=== PATIENT | male | born 1945 | race Caucasian/White ===

== ENCOUNTER 2016-04-11 19:28 | Inpatient (IN) | payer MEDICARE ==
[~2016-04-11] VITALS: Ht 172.7 cm; Wt 109.8 kg
[~2016-04-11 19:28] MED LIST: ALPR0.25 PO; ASPI1CPM PO; ASPI325T4 PO; ASPI81TA2 PO; ATORVASTATIN CA80 MG PO; BUDE10.2; CARV80CP PO; CEFP200T PO; CLOP75TA27 PO; ENAL10TA PO; FURO20TA3 PO; LEVO125T5 PO; LEVO75TA PO; METO25TA4 PO; MULT1TAB52 PO; OXYC-323 PO; PRED-220 PO; PRED20TA PO; SOTA80TA PO
[2016-04-11 20:57] LABS: BASO # 0.1 x10^3/uL (0.0-0.2); BASO % 1 % (0-3); EOS % 2 % (0-3); HEMATOCRIT 45.4 % (39.0-53.0); HEMOGLOBIN 15.3 g/dL (13.0-17.5); LYMPH # 1.3 x10^3/uL (1.0-4.8); LYMPH % 15 % (24-48); MEAN CORPUSCULAR HEMOGLOBIN 31 pg (25-35); MEAN CORPUSCULAR HGB CONC 34 g/dL (31-37); MEAN CORPUSCULAR VOLUME 93 fL (79-100); MONO % 8 % (0-9); NEUT % 73 % (31-73); PLATELET COUNT 253 x10^3/uL (140-400); RED BLOOD COUNT 4.88 x10^6/uL (4.30-5.70); RED CELL DISTRIBUTION WIDTH 15.4 % (11.5-14.5); WHITE BLOOD COUNT 8.3 x10^3/uL (4.0-11.0)
[2016-04-11] MEDS ORDERED: methylPREDNISolone SOD SUCC PF 125 MG/2 ML VIAL. IV ONE (21:00)
[2016-04-11] MEDS ORDERED: HYDROMORPHONE 2 MG/ML VIAL. IV ONE (21:00)
[2016-04-11] MEDS ORDERED: ASPIRIN 81 MG TAB.CHEW PO ONE (21:00)
[2016-04-11] MEDS ORDERED: IPRATRPIUM/ALBUTEROL 0.5/2.5MG 3 ML NEBU. NEB ONE (21:00)
[2016-04-11 21:08] LABS: CALCIUM 9.6 mg/dL (8.5-10.1); GFR 74.1; POTASSIUM 4.6 mmol/L (3.5-5.1)
[2016-04-11 21:13] LABS: ALBUMIN 3.5 g/dL (3.4-5.0); DIRECT BILIRUBIN 0.1 mg/dL (0.0-0.2); TOTAL BILIRUBIN 0.6 mg/dL (0.2-1.0); TOTAL PROTEIN 7.7 g/dL (6.4-8.2)
[2016-04-11] MEDS ORDERED: NITROGLYCERIN SUBLINGUAL 0.4 MG BOTTLE OF 25. SL PRN (22:45)
[2016-04-11] MEDS ORDERED: ONDANSETRON PF 4 MG/2 ML VIAL. IV PRN (22:45)
[2016-04-11] MEDS ORDERED: MORPHINE SULFATE 4 MG/ML DISP.SYRIN. IV PRN (22:45)
[2016-04-11] MEDS ORDERED: ACETAMINOPHEN 325 MG TABLET. PO PRN (22:45)
--- NOTE | 2016-04-11 22:53 | PHYS DOC ---
Past Medical History Past Medical History: Anxiety, High Cholesterol, Hypertension, Hypothyroid, NE , Pneumonia Additional Past Medical Histor: pulmonary fibrosis Past Surgical History: Angioplasty, Cholecystectomy, Coronary Bypass Surgery Additional Past Surgical Histo: finger amputation, shoulder, 9 STENTS PLACED Alcohol Use: Heavy Drug Use: Marijuana Adult General Chief Complaint Chief Complaint: SHORTNESS OF BREATH HPI HPI Patient is a 70 year old male who presents to the ER today complaining of shortness of breath and chest pain that started approximately one day ago. The patient has a significant past medical history for pneumonia status post chest tube secondary to pleural effusion. Patient has a history of bypass, stents 9, cholecystectomy, idiopathic pulmonary fibrosis, and hypertension. Patient denies any history of diabetes, liver problems, patient reports he does not smoke and is not allergic to any medications. Patient has any fevers shaking chills nausea vomiting or diarrhea. Patient presents to the chronic cough that has not changed. Patient denies any radiating pain. Patient reports the pain in his chest is midsternal area that does not change with deep inspiration or cough. Patient reports that the pain and shortness of breath start whenever he tries to walk around either to the bathroom or to his computer. Patient reports that this exertional type of pain is new for him. Physical exam patient's physical exam is significant for mild inspiratory and expiratory wheezing. No reproducible tenderness to palpation. She is ER hospital course was significant for labs being drawn for cardiac etiology of his chest pain. Patient's cardiac workup so far has been unremarkable. Patient's EKG reveals normal sinus rhythm at a heart rate of 95 with no evidence of acute ST elevation NE. Patient has normal intervals. Patient has nonspecific ST-T wave abnormalities. EKG as interpreted by me. His troponin was normal. Patient's chest x-ray revealed increased interstitial markings in the lower lobe bilaterally. This is unchanged from his prior chest x-rays is consistent with his idiopathic pulmonary fibrosis diagnosis. This is interpreted by me. While the ER patient received a DuoNeb with some improvement in his discomfort as well as slight Medrol. It's unclear whether or not the pain that the patient is experiencing is secondary to a cardiac etiology versus secondary to his idiopathic pulmonary fibrosis. Patient reports that the pain feels more like his pulmonary type of pain however the exertional component of his pain is atypical for his pulmonary fibrosis. Given that the patient has exertional chest pain feel with his significant cardiac history and multiple stents and bypass surgery it was prudent to admit him to be evaluated by Dr. jacobsen in the morning and to get him ruled out for cardiac etiology of this discomfort. Review of Systems Review of Systems Constitutional: Denies fever or chills [] Eyes: Denies change in visual acuity, redness, or eye pain [] All other review of systems are negative except as documented in the history of present illness portion. Current Medications Current Medications Current Medications Medications (Trade) Dose Ordered Sig/Jeannette Start Time Stop Time Status Last Admin Dose Admin Albuterol/ Ipratropium (Duoneb) 3 ml 1X ONCE 04/11/16 21:00 04/11/16 21:01 DC 04/11/16 21:30 3 ML Aspirin (Children'S Aspirin) 324 mg 1X ONCE 04/11/16 21:00 04/11/16 21:01 DC 04/11/16 20:51 324 MG Hydromorphone HCl (Dilaudid) 0.5 mg 1X ONCE 04/11/16 21:00 04/11/16 21:01 DC 04/11/16 20:57 0.5 MG Methylprednisolone Sodium Succinate (Solu-Medrol 125mg Vial) 125 mg 1X ONCE 04/11/16 21:00 04/11/16 21:01 DC 04/11/16 20:52 125 MG Ondansetron HCl (Zofran) 4 mg PRN Q8HRS PRN 04/11/16 22:45 04/12/16 22:44 UNV Allergies Allergies Allergies Coded Allergies Type Severity Reaction Last Updated Verified No Known Drug Allergies 05/14/15 No Physical Exam Physical Exam Constitutional: Well developed, well nourished, no acute distress, non-toxic appearance. [] HENT: Normocephalic, atraumatic, bilateral external ears normal, oropharynx moist, no oral exudates, nose normal. [] Eyes: PERRLA, EOMI, conjunctiva normal, no discharge. [] Neck: Normal range of motion, no tenderness, supple, no stridor. [] Cardiovascular:Heart rate regular rhythm, Lungs & Thorax: B see above. Abdomen: Bowel sounds normal, soft, no tenderness, no masses, no pulsatile masses. [] Skin: Warm, dry, no erythema, no rash. [] Back: No tenderness, no CVA tenderness. [] Extremities: No tenderness, no cyanosis, Neurologic: Alert and oriented X 3, normal motor function, normal sensory function, no focal deficits noted. [] Psychologic: Affect normal, judgement normal, mood normal. [] Current Patient Data Vital Signs Vital Signs Date Time Temp Pulse Resp B/P Pulse Ox O2 Delivery O2 Flow Rate FiO2 04/11/16 21:32 94 Nasal Cannula 4.0 04/11/16 20:57 22 04/11/16 19:40 97.5 89 168/102 97.5 Lab Values Laboratory Tests Test 04/11/16 19:50 White Blood Count 8.3x10^3/uL (4.0-11.0) Red Blood Count 4.88x10^6/uL (4.30-5.70) Hemoglobin 15.3g/dL (13.0-17.5) Hematocrit 45.4% (39.0-53.0) Mean Corpuscular Volume 93fL (79-100) Mean Corpuscular Hemoglobin 31pg (25-35) Mean Corpuscular Hemoglobin Concent 34g/dL (31-37) Red Cell Distribution Width 15.4% (11.5-14.5) H Platelet Count 253x10^3/uL (140-400) Neutrophils (%) (Auto) 73% (31-73) Lymphocytes (%) (Auto) 15% (24-48) L Monocytes (%) (Auto) 8% (0-9) Eosinophils (%) (Auto) 2% (0-3) Basophils (%) (Auto) 1% (0-3) Neutrophils # (Auto) 6.1x10^3uL (1.8-7.7) Lymphocytes # (Auto) 1.3x10^3/uL (1.0-4.8) Monocytes # (Auto) 0.7x10^3/uL (0.0-1.1) Eosinophils # (Auto) 0.2x10^3/uL (0.0-0.7) Basophils # (Auto) 0.1x10^3/uL (0.0-0.2) Sodium Level 142mmol/L (136-145) Potassium Level 4.6mmol/L (3.5-5.1) Chloride Level 103mmol/L (98-107) Carbon Dioxide Level 28mmol/L (21-32) Anion Gap 11 (6-14) Blood Urea Nitrogen 13mg/dL (8-26) Creatinine 1.0mg/dL (0.7-1.3) Estimated GFR (Cockcroft-Gault) 74.1 Glucose Level 141mg/dL (70-99) H Calcium Level 9.6mg/dL (8.5-10.1) Total Bilirubin 0.6mg/dL (0.2-1.0) Direct Bilirubin 0.1mg/dL (0.0-0.2) Aspartate Amino Transferase (AST) 60U/L (15-37) H Alanine Aminotransferase (ALT) 67U/L (16-63) H Alkaline Phosphatase 108U/L (46-116) Troponin I Quantitative 0.019ng/mL (0.000-0.055) Total Protein 7.7g/dL (6.4-8.2) Albumin 3.5g/dL (3.4-5.0) Lipase 131U/L (73-393) Laboratory Tests 04/11/16 19:50 Laboratory Tests 04/11/16 19:50 EKG EKG [] Radiology/Procedures Radiology/Procedures [] Course & Med Decision Making Course & Med Decision Making Pertinent Labs and Imaging studies reviewed. (See chart for details) [] Dragon Disclaimer Dragon Disclaimer This electronic medical record was generated, in whole or in part, using a voice recognition dictation system. Departure Departure Impression: Primary Impression: Chest pain Additional Impressions: SOB (shortness of breath) Unstable angina Disposition: 09 ADMITTED INPATIENT Admitting Physician: Juanis Packer Condition: GUARDED Referrals: JUANIS PACKER MD (PCP) Problem Qualifiers DIANNE PALOMINO MD Apr 11, 2016 22:53
[2016-04-12 02:50] VITALS: BP 182/99
[2016-04-12 04:00] VITALS: BP 160/90
[2016-04-12] MEDS ORDERED: LISI-334 PO (04:11)
--- NOTE | 2016-04-12 05:00 | ACF ---
Admit Criteria Forms Admit Criteria Forms Admit Criteria Forms CHEST PAIN Clinical Indications for Admission to Inpatient Care (Place 'X' for any and all applicable criteria): Admission is indicated for chest pain and ANY ONE of the following(1)(2)(3)(4)(5 ): [ ]I. Angina with acute coronary syndrome (Also use Myocardial Infarction or Angina guideline) [ ]II. Hemodynamic instability [X]III. Angina needing acute intervention as indicated by ALL of the following( 11)(12): [X]a) Unstable angina is present as indicated by angina that is ANY ONE of the following: [X]i) New onset [ ]ii) Nocturnal [ ]iii) Prolonged at rest [ ]iv) Progressive [X]b) Angina warrants acute intervention as indicated by ANY ONE of the following: [ ]i) Recurrent angina (e.g, not responding as previously to treatment) [ ]ii) Angina at rest or with low-level activities despite initial medical therapy [ ]iii) New or presumably new ST-segment depression on ECG [X]iv) Signs or symptoms of heart failure (eg, dyspnea, pulmonary edema) [ ]v) New or worsening mitral regurgitation [ ]vi) Hemodynamic instability [ ]vii) Dangerous arrhythmia (eg, sustained ventricular tachycardia) [ ]viii) History of percutaneous coronary intervention within 6 months [ ]ix) History of coronary artery bypass graft surgery [ ]x) NILDA risk score of 2 or greater[A] [ ]xi) History of Diabetes(14) [ ]xii) High-risk cardiac ischemia findings on noninvasive testing (e.g, echocardiogram, treadmill testing, nuclear scan) [ ]xiii) Chronic renal insufficiency (ie, estimated GFR less than 60 mL/min/1.732m) [ ]xiv) Left ventricular ejection fraction less than 40% [ ]IV. Evidence of SD (eg, cardiac biomarkers positive, ST-segment elevation on ECG) also use Myocardial Infarction Criteria Form. [ ]V. Pulmonary edema [ ]. Respiratory distress [ ]VII. Chest pain indicative of serious diagnosis other than coronary artery disease (eg, aortic dissection) [ ]VIII. Contraindications and/or Inappropriate clinical situations for Observational Care in patients with Chest Pain, when ANY ONE of the following is required: [ ]a) Patient with risk factor for pulmonary embolism, acute coronary syndrome and myocardial infarction (18) [ ]b) Patient with Pulmonary embolism require an average LOS of 4.3 days, therefore emergency department observation management is inappropriate 18,23 [ ]c) Painful condition/s in the elderly, have the highest rate of recidivism after emergency department observation management (10.8%) 20,21,22 [ ]d) Elevated cardiac biomarker requires intensive and exhaustive care (19) [ ]IX. General contraindications and/or Inappropriate clinical situations for Observational Care in patients with Chest Pain, when ANY ONE of the following is required: [ ]a) Prediction of prolongation of LOS based on ANY ONE of the following may be considered as a contraindication for observational care 2, 3, 4, 5, 6, 7, 8, 9, 10, 11 [ ]i) Age > 65 yrs. [ ]ii) Patient arriving by ambulance [ ]iii) Patient with high acuity [ ]iv) Patient requiring vital sign monitoring [ ]v) Patient on IV medication [ ]b) Systolic blood pressures 180mmHg 3,12 [ ]c) Patient with altered mental status including delirium and other alteration of consciousness, (3) [ ]d) Patient whose discharge disposition will be to a [facility] home or rehabilitation home should not be managed in Emergency Department Observation Unit. CMS rule requires 3 days hospital stay before such placement. 3,13 [ ]e) Patient with failure to thrive due to broad array of etiologies 3,16,17 [ ]f) Inability to ambulate 3,14 Extended stay beyond goal length of stay may be needed for (1)(28): [ ]a) Specific condition diagnosed after evaluation (eg, pulmonary embolism, aortic dissection) [ ]b) Unstable angina [ ]c) Continued suspicion of acute coronary syndrome with inability to complete needed cardiac evaluation (eg, patient clinically unable to undergo stress testing) [ ]d) Myocardial infarction (Contents from ANGINA and CHEST PAIN clinical indications for admission to inpatient care have been integrated in this form) The original [employer] content created by [employer] has been revised. The portions of the content which have been revised are identified through the use of italic text or in bold, and [facility] has neither reviewed nor approved the modified material. All other unmodified content is copyright [email or web address]. Please see references footnoted in the original [email or web address] edition 2016 WILLIAM VIZCARRA Apr 12, 2016 04:59
--- NOTE | 2016-04-12 06:40 | EKG ---
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
[2016-04-12 08:00] VITALS: BP 171/99
[2016-04-12] MEDS: IPRATRPIUM/ALBUTEROL 0.5/2.5MG 3 ML NEBU. NEB SCH ×4 (08:09→20:12)
--- NOTE | 2016-04-12 08:10 | PDOC ---
GENERAL General: see dictated H&P. await cardiology and pulmonary input. Problems: VITAL SIGNS Vital Signs: Vital Signs Date Time Temp Pulse Resp B/P Pulse Ox O2 Delivery O2 Flow Rate FiO2 04/12/16 04:02 Nasal Cannula 4.0 04/12/16 04:00 98.6 93 20 160/90 94 98.6 I & O I & O Intake and Output 04/12/16 07:00 Intake Total 240 ml Output Total 200 ml Balance 40 ml Intake Oral 240 ml Output Urine Total 200 ml ALLERGIES Allergies: Allergies Coded Allergies Type Severity Reaction Last Updated Verified No Known Drug Allergies 05/14/15 No MEDS Medications: Current Medications Medications (Trade) Dose Ordered Sig/Jeannette Start Time Stop Time Status Last Admin Dose Admin Acetaminophen (Tylenol) 650 mg PRN Q4HRS PRN 04/11/16 22:45 04/12/16 22:44 Albuterol/ Ipratropium (Duoneb) 3 ml RTQID 04/12/16 08:00 04/13/16 07:59 Aspirin (Children'S Aspirin) 324 mg 1X ONCE 04/11/16 21:00 04/11/16 21:01 DC 04/11/16 20:51 324 MG Hydromorphone HCl (Dilaudid) 0.5 mg 1X ONCE 04/11/16 21:00 04/11/16 21:01 DC 04/11/16 20:57 0.5 MG Methylprednisolone Sodium Succinate (Solu-Medrol 125mg Vial) 125 mg 1X ONCE 04/11/16 21:00 04/11/16 21:01 DC 04/11/16 20:52 125 MG Morphine Sulfate 4 mg PRN Q2HR PRN 04/11/16 22:45 04/12/16 22:44 Nitroglycerin (Nitrostat) 0.4 mg PRN Q5MIN PRN 04/11/16 22:45 04/12/16 22:44 Ondansetron HCl (Zofran) 4 mg PRN Q8HRS PRN 04/11/16 22:45 04/12/16 22:44 LAB Lab: Laboratory Tests Test 04/11/16 19:50 04/12/16 04:43 White Blood Count 8.3x10^3/uL (4.0-11.0) Red Blood Count 4.88x10^6/uL (4.30-5.70) Hemoglobin 15.3g/dL (13.0-17.5) Hematocrit 45.4% (39.0-53.0) Mean Corpuscular Volume 93fL (79-100) Mean Corpuscular Hemoglobin 31pg (25-35) Mean Corpuscular Hemoglobin Concent 34g/dL (31-37) Red Cell Distribution Width 15.4% (11.5-14.5) Platelet Count 253x10^3/uL (140-400) Neutrophils (%) (Auto) 73% (31-73) Lymphocytes (%) (Auto) 15% (24-48) Monocytes (%) (Auto) 8% (0-9) Eosinophils (%) (Auto) 2% (0-3) Basophils (%) (Auto) 1% (0-3) Neutrophils # (Auto) 6.1x10^3uL (1.8-7.7) Lymphocytes # (Auto) 1.3x10^3/uL (1.0-4.8) Monocytes # (Auto) 0.7x10^3/uL (0.0-1.1) Eosinophils # (Auto) 0.2x10^3/uL (0.0-0.7) Basophils # (Auto) 0.1x10^3/uL (0.0-0.2) Sodium Level 142mmol/L (136-145) Potassium Level 4.6mmol/L (3.5-5.1) Chloride Level 103mmol/L (98-107) Carbon Dioxide Level 28mmol/L (21-32) Anion Gap 11 (6-14) Blood Urea Nitrogen 13mg/dL (8-26) Creatinine 1.0mg/dL (0.7-1.3) Estimated GFR (Cockcroft-Gault) 74.1 Glucose Level 141mg/dL (70-99) Calcium Level 9.6mg/dL (8.5-10.1) Total Bilirubin 0.6mg/dL (0.2-1.0) Direct Bilirubin 0.1mg/dL (0.0-0.2) Aspartate Amino Transf (AST/SGOT) 60U/L (15-37) Alanine Aminotransferase (ALT/SGPT) 67U/L (16-63) Alkaline Phosphatase 108U/L (46-116) Troponin I Quantitative 0.019ng/mL (0.000-0.055) < 0.017ng/mL (0.000-0.055) Total Protein 7.7g/dL (6.4-8.2) Albumin 3.5g/dL (3.4-5.0) Lipase 131U/L (73-393) JUANIS PACKER MD Apr 12, 2016 08:10
[2016-04-12] MEDS ORDERED: ALPRAZOLAM 0.25 MG TABLET PO PRN (08:15)
[2016-04-12] MEDS ORDERED: ASPIRIN 325 MG TABLET PO SCH (09:00)
[2016-04-12] MEDS ORDERED: CARVEDILOL PHOSPHATE PO SCH ×2 (09:00)
[2016-04-12] MEDS: CLOPIDOGREL BISULFATE 75 MG TABLET PO SCH (09:06)
[2016-04-12] MEDS: LISINOPRIL 40 MG TABLET. PO SCH (09:07)
[2016-04-12] MEDS: MULTIVITAMIN with MINERAL TABLET. PO SCH (09:07)
[2016-04-12] MEDS: CARVEDILOL 12.5 MG TABLET PO SCH (09:07)
--- NOTE | 2016-04-12 09:13 | RAD ---
Portable chest, 04/11/2016: History: Chest pain Comparison is made to a study from 11/27/2015. There as been a previous median sternotomy. The heart is within normal limits in size. There is calcific plaquing of the aorta. There is extensive interstitial prominence in the lungs with dominant involvement of the lung bases. The previous CT study demonstrated punctate calcifications associated with this process. This is unchanged and is compatible with a chronic fibrosing process. No superimposed acute infiltrates are seen. There is no evidence of pleural fluid or pneumothorax. IMPRESSION: 1. Severe pulmonary fibrosis. 2. No significant change since 11/27/2015.
[2016-04-12] MEDS: ASPIRIN 325 MG TABLET PO SCH (10:35)
--- NOTE | 2016-04-12 11:02 | PDOC ---
Provider Note Provider Note dictated suspected chronic IPF/ now with CP r/o MAIRA [facility] MD Apr 12, 2016 11:02
[2016-04-12 12:00] VITALS: BP 133/83
--- NOTE | 2016-04-12 12:02 | CONS ---
DATE OF CONSULTATION: ATTENDING PHYSICIAN: Rivera PACKER MD REASON FOR CONSULTATION: Chest pain, dyspnea. HISTORY OF PRESENT ILLNESS: The patient is a 70-year-old male who is known to me from the office. He has history of COPD secondary to past tobacco exposure. History of interstitial lung disease/fibrosis most likely suggestive of IPF; however, he was given a trial of OFEV, but because of his ongoing alcoholism and worsening liver function, it was discontinued. He also has severe cardiomyopathy with an EF of 30% with past cath showing patent grafts. He has moderate to severe aortic stenosis and grade 2 diastolic dysfunction. He was brought into the hospital with complaint of shortness of breath and chest pain. Pain was on the right side. This happened yesterday. The patient states he does not have any cough. He has chronic lower extremity edema without any increase. No fever, no chills, no headache. No nausea, vomiting, no diarrhea. I have reviewed the patient's chest x-ray. It shows unchanged chronic fibrotic changes compared to November of last year. Cardiology has also been consulted. Echo has been ordered. PAST MEDICAL HISTORY: Significant for: 1. History of pulmonary fibrosis, suspicious for IPF. 2. Failed OFEV due to chronic alcoholism and abnormal LFTs. 3. History of chronic obstructive pulmonary disease. 4. Severe cardiomyopathy with an EF of 30%. 5. Moderate to severe aortic stenosis and grade 2 diastolic dysfunction. PAST SURGICAL HISTORY: Including angioplasty, cholecystectomy, coronary artery bypass, finger amputation and 9 stents placement. SOCIAL HISTORY: Ongoing alcoholism and marijuana in the past and history of tobacco use. REVIEW OF SYSTEMS: Twelve-point systems obtained, pertinent positives discussed in history of present illness, otherwise noncontributory. All systems that were negative were reviewed as well. ALLERGIES: None. MEDICATIONS: Reviewed as listed in the MRAD. FAMILY HISTORY: Noncontributory to lungs. PHYSICAL EXAMINATION: VITAL SIGNS: Stable except for blood pressure of 160/90, pulse ox 95% on 4 liters, that is normal oxygen requirement at home, afebrile. HEENT: Sclerae nonicteric. NECK: Supple. LUNGS: With crackles one-third of the bases. CARDIOVASCULAR: Regular rate and rhythm. ABDOMEN: Soft. Nontender. EXTREMITIES: With bilateral pitting edema. LABORATORY DATA: Reviewed. White cell count 8.3, hemoglobin 15.3, platelets are 253, BUN is 13, creatinine 1.0. Troponin 0.019. IMPRESSION: 1. Dyspnea with chest pain without any change in the chest x-ray. I would like to rule out pulmonary embolism in a patient who has multiple comorbidities. 2. History of pulmonary fibrosis with an unchanged chest x-ray since November. He failed outpatient OFEV which was tried for suspected IPF. He continues to drink alcohol and his LFTs were abnormal in the past. As a result, he could not continue with OFEV. 3. History of severe cardiomyopathy with an EF of 30% with previous cardiac catheterization showing patent grafts. 4. History of diajfhri-to-jiykau aortic stenosis and grade 2 diastolic dysfunction. 5. Underlying chronic obstructive pulmonary disease. 6. Chronic lower extremity edema. RECOMMENDATIONS: 1. Obtain CT angiogram to rule out pulmonary embolism. 2. He was counseled regarding alcohol cessation, but I do not think he is motivated to quit. He drinks vodka on a daily basis. 3. Follow cardiology recommendation. 4. Repeat echocardiogram to assess the severity of valvular heart disease. 5. Continue with present bronchodilators. 6. Continue with chronic 4 liters of oxygen. 7. Discussed with RN. We will follow along with you after review of the CT angiogram. Critical care time 39 minutes. MAIRA MIRANDA MD DR: ARACELI/russ JOB#: [id number] / [id number] JOANIE
[2016-04-12] MEDS ORDERED: IOHEXOL 300 MG/ML 75 ML VIAL IV ONE (13:15)
[2016-04-12] MEDS ORDERED: CONTRAST GIVEN MC PRN (13:30)
[2016-04-12 16:26] VITALS: BP 141/78
--- NOTE | 2016-04-12 16:32 | RAD ---
CTA of the chest with contrast, 04/12/2016: History: Chest pain, shortness of breath Multidetector CT imaging was performed following an IV bolus injection of iodinated contrast material. Multiplanar reconstructions were produced including coronal MIP images. The central pulmonary arteries are well opacified and no filling defects are seen to suggest pulmonary emboli. There is extensive calcific plaquing of the thoracic aorta and the coronary arteries. There is also aortic valvular calcification. There is no evidence of aortic aneurysm or dissection. There is pericardial calcification along the inferior aspect of the heart. There has been a previous median sternotomy. Small mediastinal lymph nodes are identified without definite pathologic enlargement. There are severe emphysematous changes in the lungs. There is extensive parenchymal fibrosis. These reticular and linear parenchymal opacities are most prominent in the periphery of both lungs, particularly in the lung bases. There are punctate calcifications related to these opacities. The findings appear to be unchanged since 11/23/2015. No superimposed acute parenchymal consolidation is seen. No pleural fluid is evident. Hepatic steatosis is noted. IMPRESSION: 1. No CT evidence of central pulmonary emboli. 2. Extensive calcific plaquing of the thoracic aorta including the aortic valve, and extensive coronary artery calcifications. 3. Emphysema and severe pulmonary fibrosis. PQRS Compliance Statement: One or more of the following individualized dose reduction techniques were utilized for this examination: 1. Automated exposure control 2. Adjustment of the mA and/or kV according to patient size 3. Use of iterative reconstruction technique
[2016-04-12 20:00] VITALS: BP 122/74
[2016-04-12] MEDS: ATORVASTATIN CALCIUM 40 MG TABLET. PO SCH (20:33)
--- NOTE | 2016-04-12 23:29 | CARD ---
APPROVED REPORT EXAM: Two-dimensional and M-mode echocardiogram with Doppler and color Doppler. Other Information Quality : AverageHR: 86bpm INDICATION Shortness of breath, Aortic stenosis 2D DIMENSIONS RVDd2.9 (2.9-3.5cm)Left Atrium(2D)4.9 (1.6-4.0cm) IVSd1.0 (0.7-1.1cm)Aortic Root(2D)3.4 (2.0-3.7cm) LVDd5.3 (3.9-5.9cm)LVOT Diameter2.2 (1.8-2.4cm) PWd1.0 (0.7-1.1cm)LVDs4.2 (2.5-4.0cm) M-Mode DIMENSIONS Aortic Cusp Exc1.07 (1.5-2.0cm) Aortic Valve AoV Peak Liam.424.8cm/sAoV VTI97.0cm AO Peak GR.72.2mmHgLVOT VTI 14.10cm AO Mean GR.43mmHg Mitral Valve MV E Kqrcgqwg72.6cm/sMV DECEL [id number] MV A Iplbvyfj47.1cm/sE/A Ratio1.1 TDI Lateral E' P. V4.44cm/sMedial E' P. V4.14cm/s E/Lateral E'15.7E/Medial E'16.8 Tricuspid Valve TR P. Hdezweez208jh/sRAP WYOXRXOL8mfEa TR Peak Gr.71muCgZXFJ20icSs Pulmonary Vein S1 Unzytyfu25.3cm/sS2 Btterujv19.13cm/s D2 Tecsekzl39.1cm/s LEFT VENTRICLE The left ventricle is normal size. There is normal left ventricular wall thickness. Left ventricle sy stolic function is mildly impaired. The Ejection Fraction is 45-50%. There is normal LV segmental wal l motion. RIGHT VENTRICLE The right ventricle is normal size. The right ventricular systolic function is normal. ATRIA The left atrium is mildly dilated. The right atrium is mildly dilated. The interatrial septum is inta ct with no evidence for an atrial septal defect or patent foramen ovale as noted on 2-D or Doppler im aging. AORTIC VALVE The aortic valve is calcified and displays decreased opening. Doppler and Color Flow revealed trace t o mild aortic regurgitation. Calculated aortic valve area is 0.6 cm2 with maximum pressure gradient o f 72 mmHg and mean pressure gradient of 43 mmHg. Doppler and color-flow analysis revealed severe aort ic stenosis. MITRAL VALVE Mitral annular calcification is mild. The mitral valve leaflets are calcified. There is no evidence o f mitral valve prolapse. There is no mitral valve stenosis. Doppler and Color Flow revealed mild mitr al regurgitation. TRICUSPID VALVE The tricuspid valve is normal in structure and function. Doppler and Color Flow revealed trace to mil d tricuspid regurgitation. There is moderate pulmonary hypertension. The PA pressure was estimated at 58 mmHg. PULMONIC VALVE The pulmonary valve is normal in structure and function. Doppler and Color Flow revealed trace pulmon ic valvular regurgitation. There is no pulmonic valvular stenosis. GREAT VESSELS The aortic root is normal in size. The ascending aorta is normal in size. The IVC was not visualized. PERICARDIAL EFFUSION There is no evidence of significant pericardial effusion. Critical Notification Critical Value: No <Conclusion> The left ventricle is normal size. There is normal left ventricular wall thickness. Left ventricle systolic function is mildly impaired. The Ejection Fraction is 45-50%. There is a grade 2 diastolic dysfunctio withn pseudonormalization. There is no evidence of significant pericardial effusion. There is no mitral valve stenosis. Doppler and Color Flow revealed mild mitral regurgitation. The left atrium mildly enlarged. There is severe aortic stenosis or flow velocity of 4.25 m/s, being gradient of 43 mmHg, the valve ar ea of 0.5 cm. Doppler and Color Flow revealed trace to mild aortic regurgitation. The right ventricle is of a normal size with normal systolic function Doppler and Color Flow revealed trace to mild tricuspid regurgitation. There is moderate pulmonary hypertension. The PA pressure was estimated at 58 mmHg. Doppler and Color Flow revealed trace pulmonic valvular regurgitation.
[2016-04-13] VITALS (7 sets, daily range): BP systolic 112–144; BP diastolic 72–88
--- NOTE | 2016-04-13 00:02 | PDOC ---
Provider Note Provider Note Patient seen and detailed consult dictated. He has significant cardiac disease as described in my consult. He also has pulmonary fibrosis. It is rather difficult to obtain accurate history from him. There is no definite evidence of angina. His pulmonary status appears to be stable. The echocardiogram now shows a EF of about 40%. It certainly hasn't worsened. The aortic stenosis now shows parameters of a severe aortic stenosis. As described in the consult he is not a good candidate for TAVR. His last cardiac catheterization was in April of 2015 a year ago at which time all the stents were patent. It is unlikely that he now has occluded stents or has developed progression of coronary artery disease. There is a small risk in doing MPI in patients with severe aortic stenosis. I do not believe we have enough evidence to do coronary arteriograms. I recommend at this time that we simply observe him and try to evaluate his symptoms with ambulation. Thank you Dr. Blunt for asking me to see him. WINTER SUTHERLAND MD Apr 13, 2016 00:02
[2016-04-13 06:35] LABS: CALCIUM 9.1 mg/dL (8.5-10.1); CREATININE 1.2 mg/dL (0.7-1.3); POTASSIUM 3.8 mmol/L (3.5-5.1)
[2016-04-13 06:39] LABS: CHOLESTEROL/HDL RATIO 4.9
[2016-04-13] MEDS ORDERED: ASPIRIN 81 MG TAB.CHEW PO SCH (08:00)
[2016-04-13] MEDS: LISINOPRIL 40 MG TABLET. PO SCH (08:52)
[2016-04-13] MEDS: MULTIVITAMIN with MINERAL TABLET. PO SCH (08:52)
[2016-04-13] MEDS: ASPIRIN 325 MG TABLET PO SCH (08:53)
[2016-04-13] MEDS: CARVEDILOL 12.5 MG TABLET PO SCH ×2 (08:53→17:56)
[2016-04-13] MEDS: CLOPIDOGREL BISULFATE 75 MG TABLET PO SCH (08:53)
--- NOTE | 2016-04-13 10:15 | PDOC ---
PROGRESS NOTES Subjective Subjective Pt awake and pleasant this am. Denies further episodes of chest pain. Feels as if his breathing is at his baseline. Pt states he is eating and drinking well with good output. Objective Objective Pt awake and alert. NAD. VSS. Afebrile. Lungs with expiratory wheeze and rhonchi present. Pt on 4.5L of O2 per NC. Resp even and mildly labored. No retractions or nasal flaring present. Heart with RRR. No murmurs. No pedal edema. Vital Signs Date Time Temp Pulse Resp B/P Pulse Ox O2 Delivery O2 Flow Rate FiO2 04/13/16 08:53 81 133/88 04/13/16 08:12 95 Nasal Cannula 4.5 04/13/16 08:00 97.3 21 97.3 Intake and Output 04/13/16 07:00 Intake Total 550 ml Output Total 1325 ml Balance -775 ml Intake Oral 550 ml Output Urine Total 1325 ml # Bowel Movements 1 Assessment Assessment Problems Medical Problems: (1) Chest pain Status: Acute (2) SOB (shortness of breath) Status: Acute (3) Unstable angina Status: Acute Plan Plan of Care 1. Chest pain, r/o IL and PE -CXR with severe pulmonary fibrosis, unchanged from previous x-ray -WBC normal and electrolytes WNL -CTA negative for PE -Triponins negative 2. Pulmonary Fibrosis -Pulmonary consulting 3. CAD -Cardiology consulting -No evidence of angina. -Echocardiogram with EF worsening at 40% with severe aortic stenosis -Cardiac cath in April of 2015 - stents patent at that time. -Risks outweight benefit of MPI at this time. -"I recommend at this time that we simply observe him and try to evaluate his symptoms with ambulation." Pt presents this am at his baseline for Pulmonary Fibrosis. If no further recommendations from Cardiology or Pulmonary, pt may Dc home on previous home medications with f/u appt in our office in 1 week. Comment Review of Relevant I have reviewed the following items rubina (where applicable) has been applied. Labs Laboratory Tests Test 04/11/16 19:50 04/12/16 01:45 04/12/16 04:43 04/12/16 10:30 White Blood Count 8.3x10^3/uL (4.0-11.0) Red Blood Count 4.88x10^6/uL (4.30-5.70) Hemoglobin 15.3g/dL (13.0-17.5) Hematocrit 45.4% (39.0-53.0) Mean Corpuscular Volume 93fL (79-100) Mean Corpuscular Hemoglobin 31pg (25-35) Mean Corpuscular Hemoglobin Concent 34g/dL (31-37) Red Cell Distribution Width 15.4% (11.5-14.5) Platelet Count 253x10^3/uL (140-400) Neutrophils (%) (Auto) 73% (31-73) Lymphocytes (%) (Auto) 15% (24-48) Monocytes (%) (Auto) 8% (0-9) Eosinophils (%) (Auto) 2% (0-3) Basophils (%) (Auto) 1% (0-3) Neutrophils # (Auto) 6.1x10^3uL (1.8-7.7) Lymphocytes # (Auto) 1.3x10^3/uL (1.0-4.8) Monocytes # (Auto) 0.7x10^3/uL (0.0-1.1) Eosinophils # (Auto) 0.2x10^3/uL (0.0-0.7) Basophils # (Auto) 0.1x10^3/uL (0.0-0.2) Sodium Level 142mmol/L (136-145) Potassium Level 4.6mmol/L (3.5-5.1) Chloride Level 103mmol/L (98-107) Carbon Dioxide Level 28mmol/L (21-32) Anion Gap 11 (6-14) Blood Urea Nitrogen 13mg/dL (8-26) Creatinine 1.0mg/dL (0.7-1.3) Estimated GFR (Cockcroft-Gault) 74.1 Glucose Level 141mg/dL (70-99) Calcium Level 9.6mg/dL (8.5-10.1) Total Bilirubin 0.6mg/dL (0.2-1.0) Direct Bilirubin 0.1mg/dL (0.0-0.2) Aspartate Amino Transf (AST/SGOT) 60U/L (15-37) Alanine Aminotransferase (ALT/SGPT) 67U/L (16-63) Alkaline Phosphatase 108U/L (46-116) Troponin I Quantitative 0.019ng/mL (0.000-0.055) < 0.017ng/mL (0.000-0.055) < 0.017ng/mL (0.000-0.055) Total Protein 7.7g/dL (6.4-8.2) Albumin 3.5g/dL (3.4-5.0) Lipase 131U/L (73-393) Nasal Screen MRSA (PCR) Negative (Negative) Test 04/13/16 05:08 Sodium Level 137mmol/L (136-145) Potassium Level 3.8mmol/L (3.5-5.1) Chloride Level 101mmol/L (98-107) Carbon Dioxide Level 29mmol/L (21-32) Anion Gap 7 (6-14) Blood Urea Nitrogen 20mg/dL (8-26) Creatinine 1.2mg/dL (0.7-1.3) Estimated GFR (Cockcroft-Gault) 60.0 Glucose Level 122mg/dL (70-99) Calcium Level 9.1mg/dL (8.5-10.1) Magnesium Level 1.9mg/dL (1.8-2.4) RU-Pbn-R-Type Natriuretic Peptide 1276pg/mL (0-124) Triglycerides Level 87mg/dL (0-150) Cholesterol Level 239mg/dL (0-200) LDL Cholesterol, Calculated 173mg/dL (0-100) VLDL Cholesterol, Calculated 17mg/dL (0-40) HDL Cholesterol 49mg/dL (40-60) Cholesterol/HDL Ratio 4.9 Laboratory Tests Test 04/12/16 10:30 04/13/16 05:08 Troponin I Quantitative < 0.017ng/mL (0.000-0.055) Sodium Level 137mmol/L (136-145) Potassium Level 3.8mmol/L (3.5-5.1) Chloride Level 101mmol/L (98-107) Carbon Dioxide Level 29mmol/L (21-32) Anion Gap 7 (6-14) Blood Urea Nitrogen 20mg/dL (8-26) Creatinine 1.2mg/dL (0.7-1.3) Estimated GFR (Cockcroft-Gault) 60.0 Glucose Level 122mg/dL (70-99) Calcium Level 9.1mg/dL (8.5-10.1) Magnesium Level 1.9mg/dL (1.8-2.4) BG-Kku-S-Type Natriuretic Peptide 1276pg/mL (0-124) Triglycerides Level 87mg/dL (0-150) Cholesterol Level 239mg/dL (0-200) LDL Cholesterol, Calculated 173mg/dL (0-100) VLDL Cholesterol, Calculated 17mg/dL (0-40) HDL Cholesterol 49mg/dL (40-60) Cholesterol/HDL Ratio 4.9 Medications Current Medications Aspirin (Children'S Aspirin) 324 mg 1X ONCE PO Last administered on 04/11/16 20:51; Start 04/11/16 at 21:00; Stop 04/11/16 at 21:01; Status DC Hydromorphone HCl (Dilaudid) 0.5 mg 1X ONCE IV Last administered on 04/11/16 20:57; Start 04/11/16 at 21:00; Stop 04/11/16 at 21:01; Status DC Albuterol/ Ipratropium (Duoneb) 3 ml 1X ONCE NEB Last administered on 21:30; Start 04/11/16 at 21:00; Stop 04/11/16 at 21:01; Status DC Methylprednisolone Sodium Succinate (Solu-Medrol 125mg Vial) 125 mg 1X ONCE IV Last administered on 04/11/16 20:52; Start 04/11/16 at 21:00; Stop 04/11/16 at 21:01; Status DC Ondansetron HCl (Zofran) 4 mg PRN Q8HRS PRN IV NAUSEA/VOMITING; Start 04/11/16 at 22:45; Stop 04/12/16 at 22:44; Status DC Morphine Sulfate 4 mg PRN Q2HR PRN IV SEVER PAIN; Start 04/11/16 at 22:45; Stop 04/12/16 at 22:44; Status DC Acetaminophen (Tylenol) 650 mg PRN Q4HRS PRN PO FEVER; Start 04/11/16 at 22:45 ; Stop 04/12/16 at 22:44; Status DC Nitroglycerin (Nitrostat) 0.4 mg PRN Q5MIN PRN SL CHEST PAIN; Start 04/11/16 at 22:45; Stop 04/12/16 at 22:44; Status DC Albuterol/ Ipratropium (Duoneb) 3 ml RTQID NEB Last administered on 04/12/16 20:12; Start 04/12/16 at 08:00; Stop 04/13/16 at 07:59; Status DC Alprazolam (Xanax) 0.25 mg PRN TID PRN PO ANXIETY; Start 04/12/16 at 08:15 Aspirin (Regulo Aspirin) 81 mg DAILY PO ; Start 04/12/16 at 09:00; Stop 04/12/16 at 09:17; Status DC Clopidogrel Bisulfate (Plavix) 75 mg DAILY PO Last administered on 04/13/16 08 :53; Start 04/12/16 at 09:00 Lisinopril (Prinivil) 40 mg DAILY PO Last administered on 04/13/16 08:52; Start 04/12/16 at 09:00 Atorvastatin Calcium (Lipitor) 80 mg QHS PO Last administered on 04/12/16 20: 33; Start 04/12/16 at 21:00 Non-Formulary Medication 125 mg BID PO ; Start 04/12/16 at 09:00; Stop 04/12/16 at 09:00; Status DC Multivitamins/ Calcium (Thera M Plus) 1 tab DAILY PO Last administered on 08:52; Start 04/12/16 at 09:00 Non-Formulary Medication 12.5 mg BIDWMEALS PO ; Start 04/12/16 at 09:00; Stop at 09:00; Status DC Carvedilol (Coreg) 12.5 mg BIDWMEALS PO Last administered on 04/13/16 08:53; Start 04/12/16 at 09:00 Aspirin (Children'S Aspirin) 81 mg DAILYWBKFT PO ; Start 04/13/16 at 08:00; Status Cancel Aspirin (Regulo Aspirin) 325 mg DAILYWBKFT PO Last administered on 04/13/16 08: 53; Start 04/12/16 at 10:00 Iohexol (Omnipaque 300 Mg/ml) 75 ml 1X ONCE IV Last administered on 04/12/16 13:15; Start 04/12/16 at 13:15; Stop 04/12/16 at 13:21; Status DC Info (Do NOT chart on this entry -- for MONITORING) 1 each PRN DAILY PRN MC SEE COMMENTS; Start 04/12/16 at 13:30; Stop 04/14/16 at 13:29 Active Scripts Active Aspirin 325 Mg Tablet 1 Tab PO DAILY Reported Lisinopril 20 Mg Tablet 1 Tab PO DAILY Coreg Cr (Carvedilol Phosphate) 80 Mg Cpmp.24hr 125 Mg PO BID Multivitamins (Multivitamin) 1 Each Tablet 1 Tab PO DAILY Xanax (Alprazolam) 0.25 Mg Tablet 1 Tab PO PRN TID Levothyroxine Sodium 125 Mcg Tablet 1 Tab PO DAILY Plavix (Clopidogrel Bisulfate) 75 Mg Tablet 75 Mg PO DAILY Atorvastatin Calcium 80 Mg Tablet 80 Mg PO QHS Vitals/I & O Vital Sign - Last 24 Hours 04/12/16 04/12/16 04/12/16 04/12/16 12:00 13:21 16:26 16:39 Temp 98.0 98.1 98.0 98.1 Pulse 75 79 Resp B/P 133/83 141/78 Pulse Ox 95 91 95 92 O2 Delivery Nasal Cannula Nasal Cannula Nasal Cannula Nasal Cannula O2 Flow Rate 4.0 4.0 4.0 4.0 04/12/16 04/12/16 04/12/16 04/13/16 20:00 20:00 20:13 00:00 Temp 97.5 97.7 97.5 97.7 Pulse 88 96 Resp B/P 122/74 128/75 Pulse Ox 92 O2 Delivery Nasal Cannula Nasal Cannula Nasal Cannula Nasal Cannula O2 Flow Rate 4.0 4.0 4.5 4.0 04/13/16 04/13/16 04/13/16 04/13/16 02:56 08:00 08:00 08:12 Temp 99.3 97.3 99.3 97.3 Pulse 85 81 Resp B/P 133/81 133/88 Pulse Ox 95 O2 Delivery Nasal Cannula Nasal Cannula Nasal Cannula Nasal Cannula O2 Flow Rate 4.0 4.0 4.0 4.5 04/13/16 04/13/16 08:52 08:53 Pulse 81 81 B/P 133/88 133/88 Intake and Output 2/21/17 2/21/17 2/22/17 15:00 23:00 07:00 Intake Total 550 ml Output Total 600 ml 725 ml Balance -600 ml 550 ml -725 ml JUANIS PACKER MD Apr 13, 2016 10:15
--- NOTE | 2016-04-13 10:50 | HP ---
ADMIT DATE: 04/12/2016 CHIEF COMPLAINT AND HISTORY OF PRESENT ILLNESS: This is a 70-year-old male who is well known to me from followup in the clinic as well as multiple hospitalizations for his pulmonary fibrosis and coronary artery disease in the past. The patient presented to the Emergency Room on the date of admission with complaints of increased shortness of breath and increased fatigue accompanied with chest pain that was non-radiating. The patient told the ER physician that the pain began approximately 24 hours prior to presenting to the ER and gradually worsened over at 24-hour period. Upon examination in the Emergency Room, laboratory findings were relatively within normal limits with WBC as well as electrolytes within normal limits. Troponins were negative. An EKG did reveal nonspecific ST-T wave abnormalities. Heart rate was 95 and there was no evidence of acute ST elevation. The chest x-ray revealed increased interstitial markings consistent with chronic pulmonary fibrosis. The patient was given a DuoNeb treatment, which did increase the patient's discomfort in the ER as well as Medrol, prednisone IV. The patient was admitted to the hospital due to his significant CAD for evaluation by Pulmonary as well as Cardiology. PAST MEDICAL HISTORY: Significant for coronary artery bypass, femoral stenting, pulmonary fibrosis requiring supplemental oxygen 24 hours per day at home. The patient also has a history of dyslipidemia, hypertension and hypothyroidism as well as cholecystectomy. MEDICATIONS: Medications were brought with the patient. Listed on the computer and have been addressed. ALLERGIES: No known drug allergies. FAMILY HISTORY: Unremarkable. REVIEW OF SYSTEMS: As mentioned above. PHYSICAL EXAMINATION: GENERAL: He is a well-developed and well-nourished male, in no apparent distress upon the morning of my examination. VITAL SIGNS: Stable. He is afebrile. He is currently receiving 4.5 liters of supplemental O2 per nasal cannula to maintain saturations greater than 90%. HEENT: Unremarkable. NECK: Supple, without adenopathy or thyromegaly. CHEST: Respirations are shallow, mildly labored, no retractions or nasal flaring is present. LUNGS: Reveal an expiratory wheeze and rhonchi throughout. ABDOMEN: Soft and nondistended. EXTREMITIES: No clubbing or edema is present. NEUROLOGIC: He is intact. IMPRESSION: Chest pain, rule out cardiac origin or pulmonary embolism. PLAN: The patient has been admitted, a CTA has been ordered to rule out a pulmonary emboli. Pulmonary as well as Cardiology has been consulted. The patient will be monitored, managed and treated appropriately during his hospitalization. JUANIS PACKER MD DR: NEEL/russ JOB#: [id number] / [id number]
--- NOTE | 2016-04-13 10:55 | PDOC ---
PULMONARY PROGRESS NOTES Subjective FEELS BETTER Vitals Vital Signs Date Time Temp Pulse Resp B/P Pulse Ox O2 Delivery O2 Flow Rate FiO2 04/13/16 08:53 81 133/88 04/13/16 08:12 95 Nasal Cannula 4.5 04/13/16 08:00 97.3 21 97.3 General: Alert, Oriented X4, No acute distress Lungs: Wheezing (bilateral) Cardiovascular: S1, S2 Abdomen: Soft, Non-tender Extremities: Other (1+edema) Labs Laboratory Tests Test 04/11/16 19:50 04/12/16 01:45 04/12/16 04:43 04/12/16 10:30 White Blood Count 8.3x10^3/uL (4.0-11.0) Red Blood Count 4.88x10^6/uL (4.30-5.70) Hemoglobin 15.3g/dL (13.0-17.5) Hematocrit 45.4% (39.0-53.0) Mean Corpuscular Volume 93fL (79-100) Mean Corpuscular Hemoglobin 31pg (25-35) Mean Corpuscular Hemoglobin Concent 34g/dL (31-37) Red Cell Distribution Width 15.4% (11.5-14.5) Platelet Count 253x10^3/uL (140-400) Neutrophils (%) (Auto) 73% (31-73) Lymphocytes (%) (Auto) 15% (24-48) Monocytes (%) (Auto) 8% (0-9) Eosinophils (%) (Auto) 2% (0-3) Basophils (%) (Auto) 1% (0-3) Neutrophils # (Auto) 6.1x10^3uL (1.8-7.7) Lymphocytes # (Auto) 1.3x10^3/uL (1.0-4.8) Monocytes # (Auto) 0.7x10^3/uL (0.0-1.1) Eosinophils # (Auto) 0.2x10^3/uL (0.0-0.7) Basophils # (Auto) 0.1x10^3/uL (0.0-0.2) Sodium Level 142mmol/L (136-145) Potassium Level 4.6mmol/L (3.5-5.1) Chloride Level 103mmol/L (98-107) Carbon Dioxide Level 28mmol/L (21-32) Anion Gap 11 (6-14) Blood Urea Nitrogen 13mg/dL (8-26) Creatinine 1.0mg/dL (0.7-1.3) Estimated GFR (Cockcroft-Gault) 74.1 Glucose Level 141mg/dL (70-99) Calcium Level 9.6mg/dL (8.5-10.1) Total Bilirubin 0.6mg/dL (0.2-1.0) Direct Bilirubin 0.1mg/dL (0.0-0.2) Aspartate Amino Transf (AST/SGOT) 60U/L (15-37) Alanine Aminotransferase (ALT/SGPT) 67U/L (16-63) Alkaline Phosphatase 108U/L (46-116) Troponin I Quantitative 0.019ng/mL (0.000-0.055) < 0.017ng/mL (0.000-0.055) < 0.017ng/mL (0.000-0.055) Total Protein 7.7g/dL (6.4-8.2) Albumin 3.5g/dL (3.4-5.0) Lipase 131U/L (73-393) Nasal Screen MRSA (PCR) Negative (Negative) Test 04/13/16 05:08 Sodium Level 137mmol/L (136-145) Potassium Level 3.8mmol/L (3.5-5.1) Chloride Level 101mmol/L (98-107) Carbon Dioxide Level 29mmol/L (21-32) Anion Gap 7 (6-14) Blood Urea Nitrogen 20mg/dL (8-26) Creatinine 1.2mg/dL (0.7-1.3) Estimated GFR (Cockcroft-Gault) 60.0 Glucose Level 122mg/dL (70-99) Calcium Level 9.1mg/dL (8.5-10.1) Magnesium Level 1.9mg/dL (1.8-2.4) EQ-Ltk-E-Type Natriuretic Peptide 1276pg/mL (0-124) Triglycerides Level 87mg/dL (0-150) Cholesterol Level 239mg/dL (0-200) LDL Cholesterol, Calculated 173mg/dL (0-100) VLDL Cholesterol, Calculated 17mg/dL (0-40) HDL Cholesterol 49mg/dL (40-60) Cholesterol/HDL Ratio 4.9 Laboratory Tests Test 04/13/16 05:08 Sodium Level 137mmol/L (136-145) Potassium Level 3.8mmol/L (3.5-5.1) Chloride Level 101mmol/L (98-107) Carbon Dioxide Level 29mmol/L (21-32) Anion Gap 7 (6-14) Blood Urea Nitrogen 20mg/dL (8-26) Creatinine 1.2mg/dL (0.7-1.3) Estimated GFR (Cockcroft-Gault) 60.0 Glucose Level 122mg/dL (70-99) Calcium Level 9.1mg/dL (8.5-10.1) Magnesium Level 1.9mg/dL (1.8-2.4) DH-Iuv-E-Type Natriuretic Peptide 1276pg/mL (0-124) Triglycerides Level 87mg/dL (0-150) Cholesterol Level 239mg/dL (0-200) LDL Cholesterol, Calculated 173mg/dL (0-100) VLDL Cholesterol, Calculated 17mg/dL (0-40) HDL Cholesterol 49mg/dL (40-60) Cholesterol/HDL Ratio 4.9 Medications Active Scripts Medications Dose Route/Sig Days Date Category Lisinopril 20 Mg Tablet 1 Tab PO DAILY 04/12/16 Reported Coreg Cr (Carvedilol Phosphate) 80 Mg Cpmp.24hr 125 Mg PO BID 11/27/15 Reported Multivitamins (Multivitamin) 1 Each Tablet 1 Tab PO DAILY 11/27/15 Reported Xanax (Alprazolam) 0.25 Mg Tablet 1 Tab PO PRN TID 08/05/14 Reported Levothyroxine Sodium 125 Mcg Tablet 1 Tab PO DAILY 08/05/14 Reported Aspirin 325 Mg Tablet 1 Tab PO DAILY 07/07/14 Rx Plavix (Clopidogrel Bisulfate) 75 Mg Tablet 75 Mg PO DAILY 07/04/14 Reported Atorvastatin Calcium 80 Mg Tablet 80 Mg PO QHS 06/05/13 Reported Impression . 1. Dyspnea due to AECOPD. improved, no pulmonary embolism on ct chest 2. History of pulmonary fibrosis with an unchanged chest x-ray, CT CHEST since November. He failed outpatient OFEV which was tried for suspected IPF. He continues to drink alcohol and his LFTs were abnormal in the past. As a result, he could not continue with OFEV. 3. History of severe cardiomyopathy with an EF of 30% with previous cardiac catheterization showing patent grafts. 4. History of [id number] aortic stenosis and grade 2 diastolic dysfunction. 5. Underlying chronic obstructive pulmonary disease. 6. Chronic lower extremity edema. Plan . 1. Nebs/ steroids for AECOPD 2. He was counseled regarding alcohol cessation, but I do not think he is motivated to quit. He drinks vodka on a daily basis. 3. Follow cardiology recommendation. 4. Repeat echocardiogram reviewed 5. Continue with present bronchodilators. 6. Continue with chronic 4 liters of oxygen. 7. Discussed with RN. transfer to floor MAIRA MIRANDA MD Apr 13, 2016 10:55
[2016-04-13] MEDS: PREDNISONE 20 MG TABLET PO SCH (11:02)
[2016-04-13] MEDS: LEVOTHYROXINE 125 MCG TABLET PO SCH (11:02)
[2016-04-13] MEDS: IPRATRPIUM/ALBUTEROL 0.5/2.5MG 3 ML NEBU. NEB SCH ×3 (11:55→19:47)
--- NOTE | 2016-04-13 18:24 | PDOC ---
Provider Note Provider Note He has had no chest pain. But he has not ambulated in the [place]. He was asked to ambulate today. There was a 10 beat run of ventricular tachycardia last night. We'll check to see if his oxygen saturation remains adequate during the night. He has had nonsustained ventricular tachycardia in the past. Discussed with Dr. Grey. Agree with discharge tomorrow. WINTER SUTHERLAND MD Apr 13, 2016 18:24
[2016-04-13] MEDS ORDERED: MAGNESIUM SULFATE 2GM 50 ML IV ONE (19:00)
[2016-04-13] MEDS: ATORVASTATIN CALCIUM 40 MG TABLET. PO SCH (21:05)
--- NOTE | 2016-04-13 21:57 | CONS ---
DATE OF CONSULTATION: HISTORY OF PRESENT ILLNESS: This is a 70-year-old white male who presented himself to the Emergency Room with chest pain. He states that he had had a right-sided chest pain with exertion, which he said he attributes to his lungs because it is on the right side. However, recently he has had some retrosternal chest discomfort. He could not quite describe any more details. He did not complain of shortness of breath or cough. This patient has had an extensive cardiac history and cardiac evaluation. He definitely has aortic stenosis, which appeared to be moderate in the past, but now it seems to have become severe because his flow velocity has increased to 4.25 meters per second. His mean gradient is 43 mmHg. His aortic valve area is 0.5 cm2, which falls in the severe category. He has had a relatively low EF of about 30% in the past. In the recent echocardiogram it is certainly better than 30% and it is probably more like 40-45%. He has had paroxysmal ventricular tachycardia in the past. This has not been treated. His last cardiac catheterization was in April 2015. At that time, the findings are as follows: A. The left main trunk was normal. B. The LAD was totally occluded. C. The CLARK to the LAD was patent. D. The vein graft to the diagonal branch was patent. It has stents in the proximal portion, mid portion and ____ to the anastomosis. All the stents were patent. E. The vein graft to the OM branch was totally occluded. F. The right coronary artery was small and nondominant. G. There was a patent stent in the subclavian artery. H. The cardiac catheterization gradient across the aortic valve was 32 mmHg indicating moderate aortic stenosis. He was sent to [facility]. A TAVR was not considered for several reasons. Because, 1. The aortic stenosis at that time appeared to be more moderate than severe. 2. He has very difficult arterial access. He has stents in both iliac arteries, which would make it difficult to pass large catheter that is required for TAVR. 3. Transapical approach could be done, but this has its risks because of his pulmonary condition. This being the case, he was turned down at . Most of these problems still hold this year, though of course the aortic stenosis appears to have become severe at this point. He has pulmonary fibrosis. The medication for pulmonary fibrosis could not be continued because of his alcoholism that he could not give up and the fact that he has some abnormalities in his liver function test. The ALT and AST are mildly elevated. He is on a very high dose of atorvastatin. We will follow that and unless it becomes worse I do not plan on discontinuing the atorvastatin. He has not smoked for several years. PRESENT MEDICATIONS: 1. Atorvastatin 80 mg a day. 2. Aspirin 325 mg a day. 3. Carvedilol 12.5 mg twice a day. 4. Lisinopril 40 mg a day. 5. Plavix 75 mg a day. 6. Albuterol inhaler. PHYSICAL EXAMINATION: GENERAL: He was in no distress. VITAL SIGNS: The heart rate was 80 per minute and regular. The blood pressure is 130/80. LUNGS: Showed bibasilar rales. HEART: There is a grade 3/6 crescendo-decrescendo murmur heard at the base. There is no diastolic murmur heard. ABDOMEN: Soft. EXTREMITIES: There is no edema of the legs. LABORATORY DATA: A chest x-ray showed findings consistent with the pulmonary embolism. A CT scan was done and there was no evidence of an embolism. IMPRESSION: 1. Chest pain that is difficult to characterize as being angina. 2. Aortic stenosis, now severe. 3. Severe coronary artery disease with patent stents a year ago. 4. Dyslipidemia. 5. History of ventricular arrhythmias, none noted at the present time. 6. Pulmonary fibrosis that appears to be stable. I will discuss the situation with Dr. Blunt. Doing an MPI in the phase of severe aortic stenosis has a small risk to it. Because of his difficult arterial access I do not think it is worthwhile to do a cardiac catheterization, especially in light of the findings that I described above in 04/2015. I would simply like to observe him with ambulation and see exactly what symptoms he has because from his history it was not clear that this was definite angina. Thank you for asking me to see him. WINTER SUTHERLAND MD DR: JAIDA/russ JOB#: [id number] / [id number]
[2016-04-14 03:40] VITALS: BP 106/85
[2016-04-14] MEDS: LEVOTHYROXINE 125 MCG TABLET PO SCH (06:30)
[2016-04-14] MEDS: IPRATRPIUM/ALBUTEROL 0.5/2.5MG 3 ML NEBU. NEB SCH ×2 (07:00→11:44)
[2016-04-14] MEDS: ASPIRIN 325 MG TABLET PO SCH (07:48)
[2016-04-14] MEDS: LISINOPRIL 40 MG TABLET. PO SCH (07:49)
[2016-04-14] MEDS: MULTIVITAMIN with MINERAL TABLET. PO SCH (07:49)
[2016-04-14] MEDS: PREDNISONE 20 MG TABLET PO SCH (07:49)
[2016-04-14] MEDS: CLOPIDOGREL BISULFATE 75 MG TABLET PO SCH (07:49)
[2016-04-14] MEDS: CARVEDILOL 12.5 MG TABLET PO SCH (07:50)
[2016-04-14 09:00] VITALS: BP 120/73
--- NOTE | 2016-04-14 10:12 | PDOC ---
PROGRESS NOTES Subjective Subjective Pt awake and pleasant this am. Denies further episodes of chest pain. States his breathing is at baseline. Objective Objective Pt awake and alert. NAD. VSS. Resp shallow without retractions. Lungs sounds dimenished with expiratory wheeze and rhonchi. Pt on 4L of O2 per NC. Heart with RRR. No murmurs. Pt with 1-2+ pedal edema. Vital Signs Date Time Temp Pulse Resp B/P Pulse Ox O2 Delivery O2 Flow Rate FiO2 04/14/16 07:50 77 120/73 04/14/16 07:01 Nasal Cannula 4.0 04/14/16 03:40 97.7 16 96 97.7 Intake and Output 04/14/16 07:00 Intake Total 1350 ml Output Total 2200 ml Balance -850 ml Intake Oral 1300 ml IV Total 50 ml Output Urine Total 2200 ml # Voids 2 # Bowel Movements 2 Assessment Assessment Problems Medical Problems: (1) Chest pain Status: Acute (2) SOB (shortness of breath) Status: Acute (3) Unstable angina Status: Acute Plan Plan of Care 1. Chest pain, r/o TN and PE -CXR with severe pulmonary fibrosis, unchanged from previous x-ray -WBC normal and electrolytes WNL -CTA negative for PE -Triponins negative 2. Pulmonary Fibrosis -Pulmonary consulting 3. CAD -Cardiology consulting -No evidence of angina. -Echocardiogram with EF worsening at 40% with severe aortic stenosis -Cardiac cath in April of 2015 - stents patent at that time. -Risks outweight benefit of MPI at this time. -"I recommend at this time that we simply observe him and try to evaluate his symptoms with ambulation." Dc home today. Resume home medications. Resume home O2. Cardiac diet. Activity as tolerated. Comment Review of Relevant I have reviewed the following items rubina (where applicable) has been applied. Labs Laboratory Tests Test 04/12/16 10:30 04/13/16 05:08 Troponin I Quantitative < 0.017ng/mL (0.000-0.055) Sodium Level 137mmol/L (136-145) Potassium Level 3.8mmol/L (3.5-5.1) Chloride Level 101mmol/L (98-107) Carbon Dioxide Level 29mmol/L (21-32) Anion Gap 7 (6-14) Blood Urea Nitrogen 20mg/dL (8-26) Creatinine 1.2mg/dL (0.7-1.3) Estimated GFR (Cockcroft-Gault) 60.0 Glucose Level 122mg/dL (70-99) Calcium Level 9.1mg/dL (8.5-10.1) Magnesium Level 1.9mg/dL (1.8-2.4) VW-Gde-N-Type Natriuretic Peptide 1276pg/mL (0-124) Triglycerides Level 87mg/dL (0-150) Cholesterol Level 239mg/dL (0-200) LDL Cholesterol, Calculated 173mg/dL (0-100) VLDL Cholesterol, Calculated 17mg/dL (0-40) HDL Cholesterol 49mg/dL (40-60) Cholesterol/HDL Ratio 4.9 Medications Current Medications Aspirin (Children'S Aspirin) 324 mg 1X ONCE PO Last administered on 04/11/16 20:51; Start 04/11/16 at 21:00; Stop 04/11/16 at 21:01; Status DC Hydromorphone HCl (Dilaudid) 0.5 mg 1X ONCE IV Last administered on 04/11/16 20:57; Start 04/11/16 at 21:00; Stop 04/11/16 at 21:01; Status DC Albuterol/ Ipratropium (Duoneb) 3 ml 1X ONCE NEB Last administered on 21:30; Start 04/11/16 at 21:00; Stop 04/11/16 at 21:01; Status DC Methylprednisolone Sodium Succinate (Solu-Medrol 125mg Vial) 125 mg 1X ONCE IV Last administered on 04/11/16 20:52; Start 04/11/16 at 21:00; Stop 04/11/16 at 21:01; Status DC Ondansetron HCl (Zofran) 4 mg PRN Q8HRS PRN IV NAUSEA/VOMITING; Start 04/11/16 at 22:45; Stop 04/12/16 at 22:44; Status DC Morphine Sulfate 4 mg PRN Q2HR PRN IV SEVER PAIN; Start 04/11/16 at 22:45; Stop 04/12/16 at 22:44; Status DC Acetaminophen (Tylenol) 650 mg PRN Q4HRS PRN PO FEVER; Start 04/11/16 at 22:45 ; Stop 04/12/16 at 22:44; Status DC Nitroglycerin (Nitrostat) 0.4 mg PRN Q5MIN PRN SL CHEST PAIN; Start 04/11/16 at 22:45; Stop 04/12/16 at 22:44; Status DC Albuterol/ Ipratropium (Duoneb) 3 ml RTQID NEB Last administered on 04/12/16 20:12; Start 04/12/16 at 08:00; Stop 04/13/16 at 07:59; Status DC Alprazolam (Xanax) 0.25 mg PRN TID PRN PO ANXIETY; Start 04/12/16 at 08:15 Aspirin (Regulo Aspirin) 81 mg DAILY PO ; Start 04/12/16 at 09:00; Stop 04/12/16 at 09:17; Status DC Clopidogrel Bisulfate (Plavix) 75 mg DAILY PO Last administered on 04/14/16 07 :49; Start 04/12/16 at 09:00 Lisinopril (Prinivil) 40 mg DAILY PO Last administered on 04/14/16 07:49; Start 04/12/16 at 09:00 Atorvastatin Calcium (Lipitor) 80 mg QHS PO Last administered on 04/13/16 21: 05; Start 04/12/16 at 21:00 Non-Formulary Medication 125 mg BID PO ; Start 04/12/16 at 09:00; Stop 04/12/16 at 09:00; Status DC Multivitamins/ Calcium (Thera M Plus) 1 tab DAILY PO Last administered on 07:49; Start 04/12/16 at 09:00 Non-Formulary Medication 12.5 mg BIDWMEALS PO ; Start 04/12/16 at 09:00; Stop at 09:00; Status DC Carvedilol (Coreg) 12.5 mg BIDWMEALS PO Last administered on 04/14/16 07:50; Start 04/12/16 at 09:00 Aspirin (Children'S Aspirin) 81 mg DAILYWBKFT PO ; Start 04/13/16 at 08:00; Status Cancel Aspirin (Regulo Aspirin) 325 mg DAILYWBKFT PO Last administered on 04/14/16 07: 48; Start 04/12/16 at 10:00 Iohexol (Omnipaque 300 Mg/ml) 75 ml 1X ONCE IV Last administered on 04/12/16 13:15; Start 04/12/16 at 13:15; Stop 04/12/16 at 13:21; Status DC Info (Do NOT chart on this entry -- for MONITORING) 1 each PRN DAILY PRN MC SEE COMMENTS; Start 04/12/16 at 13:30; Stop 04/14/16 at 13:29 Levothyroxine Sodium (Synthroid) 125 mcg DAILY07 PO Last administered on 06:30; Start 04/13/16 at 11:00 Albuterol/ Ipratropium (Duoneb) 3 ml RTQID NEB Last administered on 04/14/16 07:00; Start 04/13/16 at 12:00 Prednisone 40 mg 40 mg DAILY PO Last administered on 04/14/16 07:49; Start at 11:30 Magnesium Sulfate/ Dextrose (Magnesium Sulfate PREMIX 2GM) 50 ml @ 25 mls/hr 1X ONCE IV Last administered on 04/13/16 19:00; Start 04/13/16 at 19:00; Stop 04/13/16 at 20:59; Status DC Active Scripts Active Aspirin 325 Mg Tablet 1 Tab PO DAILY Reported Lisinopril 20 Mg Tablet 1 Tab PO DAILY Coreg Cr (Carvedilol Phosphate) 80 Mg Cpmp.24hr 125 Mg PO BID Multivitamins (Multivitamin) 1 Each Tablet 1 Tab PO DAILY Xanax (Alprazolam) 0.25 Mg Tablet 1 Tab PO PRN TID Levothyroxine Sodium 125 Mcg Tablet 1 Tab PO DAILY Plavix (Clopidogrel Bisulfate) 75 Mg Tablet 75 Mg PO DAILY Atorvastatin Calcium 80 Mg Tablet 80 Mg PO QHS Vitals/I & O Vital Sign - Last 24 Hours 04/13/16 04/13/16 04/13/16 04/13/16 11:56 12:00 15:42 16:00 Temp 98.1 98.1 98.1 98.1 Pulse 83 81 Resp B/P 112/74 114/72 Pulse Ox 95 95 O2 Delivery Nasal Cannula Nasal Cannula Nasal Cannula Nasal Cannula O2 Flow Rate 4.5 4.0 4.5 4.0 04/13/16 04/13/16 04/13/16 04/13/16 17:56 19:45 19:45 19:47 Temp 97.5 97.5 Pulse 81 87 Resp 22 B/P 114/72 144/84 Pulse Ox 100 96 O2 Delivery Nasal Cannula Nasal Cannula Nasal Cannula O2 Flow Rate 4.5 4.5 4.5 04/13/16 04/14/16 04/14/16 04/14/16 23:40 03:40 07:01 07:49 Temp 97.7 97.7 97.7 97.7 Pulse 70 61 74 Resp 16 16 B/P 118/80 106/85 120/73 Pulse Ox 97 96 O2 Delivery Nasal Cannula Nasal Cannula Nasal Cannula O2 Flow Rate 4.0 4.0 4.0 04/14/16 07:50 Pulse 77 B/P 120/73 Intake and Output 04/13/16 04/13/16 04/14/16 15:00 23:00 07:00 Intake Total 1010 ml 340 ml Output Total 1200 ml 1000 ml Balance -190 ml -660 ml JUANIS PACKER MD Apr 14, 2016 10:12
--- NOTE | 2016-04-14 10:29 | PDOC ---
PULMONARY PROGRESS NOTES Subjective FEELS BETTER Vitals Vital Signs Date Time Temp Pulse Resp B/P Pulse Ox O2 Delivery O2 Flow Rate FiO2 04/14/16 09:00 98.6 80 27 120/73 97 Nasal Cannula 4.0 98.6 General: Alert, Oriented X4, No acute distress Lungs: Wheezing (resolved) Cardiovascular: S1, S2 Abdomen: Soft, Non-tender Extremities: Other (1+edema) Labs Laboratory Tests Test 04/12/16 10:30 04/13/16 05:08 Troponin I Quantitative < 0.017ng/mL (0.000-0.055) Sodium Level 137mmol/L (136-145) Potassium Level 3.8mmol/L (3.5-5.1) Chloride Level 101mmol/L (98-107) Carbon Dioxide Level 29mmol/L (21-32) Anion Gap 7 (6-14) Blood Urea Nitrogen 20mg/dL (8-26) Creatinine 1.2mg/dL (0.7-1.3) Estimated GFR (Cockcroft-Gault) 60.0 Glucose Level 122mg/dL (70-99) Calcium Level 9.1mg/dL (8.5-10.1) Magnesium Level 1.9mg/dL (1.8-2.4) HV-Mpm-D-Type Natriuretic Peptide 1276pg/mL (0-124) Triglycerides Level 87mg/dL (0-150) Cholesterol Level 239mg/dL (0-200) LDL Cholesterol, Calculated 173mg/dL (0-100) VLDL Cholesterol, Calculated 17mg/dL (0-40) HDL Cholesterol 49mg/dL (40-60) Cholesterol/HDL Ratio 4.9 Medications Active Scripts Medications Dose Route/Sig Days Date Category Lisinopril 20 Mg Tablet 1 Tab PO DAILY 04/12/16 Reported Coreg Cr (Carvedilol Phosphate) 80 Mg Cpmp.24hr 125 Mg PO BID 11/27/15 Reported Multivitamins (Multivitamin) 1 Each Tablet 1 Tab PO DAILY 11/27/15 Reported Xanax (Alprazolam) 0.25 Mg Tablet 1 Tab PO PRN TID 08/05/14 Reported Levothyroxine Sodium 125 Mcg Tablet 1 Tab PO DAILY 08/05/14 Reported Aspirin 325 Mg Tablet 1 Tab PO DAILY 07/07/14 Rx Plavix (Clopidogrel Bisulfate) 75 Mg Tablet 75 Mg PO DAILY 07/04/14 Reported Atorvastatin Calcium 80 Mg Tablet 80 Mg PO QHS 06/05/13 Reported Impression . 1. Dyspnea due to AECOPD. improved, no pulmonary embolism on ct chest 2. History of pulmonary fibrosis with an unchanged chest x-ray, CT CHEST since November. He failed outpatient OFEV which was tried for suspected IPF. He continues to drink alcohol and his LFTs were abnormal in the past. As a result, he could not continue with OFEV. 3. History of severe cardiomyopathy with an EF of 30% with previous cardiac catheterization showing patent grafts. 4. History of yvkwjgls-rq-qbrlwl aortic stenosis and grade 2 diastolic dysfunction. 5. Underlying chronic obstructive pulmonary disease. 6. Chronic lower extremity edema. Plan . 1. Nebs 2. He was counseled regarding alcohol cessation, but I do not think he is motivated to quit. He drinks vodka on a daily basis. 3. Follow cardiology recommendation. 4. Repeat echocardiogram reviewed 5. Continue with present bronchodilators. 6. Continue with chronic 4 liters of oxygen. 7. Discussed with RN. can go home today MAIRA MIRANDA MD Apr 14, 2016 10:28
--- NOTE | 2016-04-14 20:34 | RESP ---
DATE OF SERVICE: 04/13/2016 The patient's mean oxygen saturation remained around 95% with the lowest of 83%. Only 1.8% of time oxygen saturation remained less than 90%. This oximetry was performed on 4 liters. IMPRESSION: 1. No clinically significant nocturnal hypoxia while the patient was tested on home oxygen at 4 liters. MAIRA MIRANDA MD DR: ARACELI/russ JOB#: [id number] / [id number] JUANIS Rivera MD MTDD
== END 2016-04-14 13:00 | disposition home or self-care (01) | DRG 191 ==
LOC: ER 19:28 → 1 WEST ICU 22:44
PROVIDERS: ADMIT Family Medicine; ATTEND Family Medicine
DX: J44.1 Chronic obstructive pulmonary disease with (acute) exacerbation (principal); I25.110 Atherosclerotic heart disease of native coronary artery with unstable angina pectoris; I42.9 Cardiomyopathy, unspecified; J96.10 Chronic respiratory failure, unspecified whether with hypoxia or hypercapnia; I35.0 Nonrheumatic aortic (valve) stenosis; J84.112 Idiopathic pulmonary fibrosis; E03.9 Hypothyroidism, unspecified; E78.00 Pure hypercholesterolemia, unspecified; F10.20 Alcohol dependence, uncomplicated; E78.5 Hyperlipidemia, unspecified; I10 Essential (primary) hypertension; I25.82 Chronic total occlusion of coronary artery; F12.90 Cannabis use, unspecified, uncomplicated; F41.9 Anxiety disorder, unspecified; Z79.02 Long term (current) use of antithrombotics/antiplatelets; Z79.82 Long term (current) use of aspirin; Z87.891 Personal history of nicotine dependence; I25.2 Old myocardial infarction; Z87.01 Personal history of pneumonia (recurrent); Z89.029 Acquired absence of unspecified finger(s); Z90.49 Acquired absence of other specified parts of digestive tract; Z95.1 Presence of aortocoronary bypass graft; Z95.5 Presence of coronary angioplasty implant and graft; Z99.81 Dependence on supplemental oxygen; Z79.899 Other long term (current) drug therapy
CPT/HCPCS: 36415; 71010; 71275; 80048; 80061; 80076; 83690; 83735; 83880; 84484; 85027; 87641; 93005; 93306; 94250; 94640; 94760; 94799; 96374; 96375; J1170; J2930; J7060; J7512; J7620; Q9967; 97116; 97535; 99285-25

== ENCOUNTER 2016-06-23 22:48 | Inpatient (IN) | payer MEDICARE ==
[~2016-06-23] VITALS: Ht 175.3 cm; Wt 110.4 kg
[~2016-06-23 22:48] MED LIST changes: +LISI-334 PO; -SOTA80TA PO; +SOTA80TA48 PO
[2016-06-23 23:17] LABS: BASO # 0.1 x10^3/uL (0.0-0.2); BASO % 1 % (0-3); EOS % 2 % (0-3); HEMATOCRIT 45.1 % (39.0-53.0); HEMOGLOBIN 15.2 g/dL (13.0-17.5); LYMPH # 1.3 x10^3/uL (1.0-4.8); LYMPH % 16 % (24-48); MEAN CORPUSCULAR HEMOGLOBIN 32 pg (25-35); MEAN CORPUSCULAR HGB CONC 34 g/dL (31-37); MEAN CORPUSCULAR VOLUME 95 fL (79-100); MONO % 9 % (0-9); NEUT % 72 % (31-73); PLATELET COUNT 236 x10^3/uL (140-400); RED BLOOD COUNT 4.77 x10^6/uL (4.30-5.70); RED CELL DISTRIBUTION WIDTH 16.1 % (11.5-14.5); WHITE BLOOD COUNT 8.2 x10^3/uL (4.0-11.0)
[2016-06-23 23:54] LABS: CALCIUM 9.1 mg/dL (8.5-10.1); CREATININE 1.3 mg/dL (0.7-1.3); GFR 54.6; POTASSIUM 3.8 mmol/L (3.5-5.1)
--- NOTE | 2016-06-23 23:56 | PHYS DOC ---
Past Medical History Past Medical History: Anxiety, COPD, High Cholesterol, Hypertension, Hypothyroid, HI, Pneumonia Additional Past Medical Histor: pulmonary fibrosis Past Surgical History: Angioplasty, Cholecystectomy, Coronary Bypass Surgery Additional Past Surgical Histo: finger amputation, shoulder, 9 STENTS PLACED Alcohol Use: Heavy Drug Use: Marijuana Adult General Chief Complaint Chief Complaint: SHORTNESS OF BREATH HPI HPI Patient is a 71 year old male who presents for worsening dyspnea that started this morning and has been persistent throughout the day. He otherwise states he has some new swelling in bilateral feet over the past few days. States he has been having some these no longer ear intermittent, brief, migratory chest pains to his anterior chest since this morning. He denies fever or chills, nausea or vomiting, sputum changes, increased cough from baseline, abdominal pain, leg pain, hemoptysis. States he has been using home O2 at 4 L nasal cannula. States he does not use any breathing treatments at home as they never help. PCP is Dr. Blunt, Pulm is Dr. Santos, Cards is Dr. Campbell. Review of Systems Review of Systems Constitutional: Denies fever or chills [] Eyes: Denies change in visual acuity, redness, or eye pain [] HENT: Denies nasal congestion or sore throat [] Respiratory: Denies cough [] Cardiovascular: No additional information not addressed in HPI [] GI: Denies abdominal pain, nausea, vomiting, bloody stools or diarrhea [] : Denies dysuria or hematuria [] Musculoskeletal: Denies back pain or joint pain [] Integument: Denies rash or skin lesions [] Neurologic: Denies headache, focal weakness or sensory changes [] Endocrine: Denies polyuria or polydipsia [] Current Medications Current Medications Current Medications Medications (Trade) Dose Ordered Sig/Jeannette Start Time Stop Time Status Last Admin Dose Admin Furosemide (Lasix) 40 mg 1X ONCE 06/24/16 00:45 06/24/16 00:46 UNV Allergies Allergies Allergies Coded Allergies Type Severity Reaction Last Updated Verified No Known Drug Allergies 05/14/15 No Physical Exam Physical Exam Constitutional: Well developed, well nourished, no acute distress, non-toxic appearance. [] HENT: Normocephalic, atraumatic, bilateral external ears normal, oropharynx moist, nose normal. [] Eyes: PERRLA, EOMI. [] Neck: Normal range of motion, supple, no stridor. [] Cardiovascular:Heart rate regular rhythm [] Lungs & Thorax: Bibasilar crackles, slight tachypnea and increased respiratory effort, speaking in full sentences, no wheezes [] Abdomen: Bowel sounds normal, soft, no tenderness. [] Skin: Warm, dry, no erythema, no rash. [] Back: Normal range of motion. [] Extremities: No tenderness, ROM intact, bilateral 2+ lower extremity edema, no palpable cord. [] Neurologic: Alert and oriented X 3, normal motor function, normal sensory function, no focal deficits noted. [] Psychologic: Affect normal, judgement normal, mood normal. [] Current Patient Data Vital Signs Vital Signs Date Time Temp Pulse Resp B/P (MAP) Pulse Ox O2 Delivery O2 Flow Rate FiO2 06/23/16 22:59 97.7 95 26 133/79 (97) 84 Nasal Cannula 4.0 97.7 Lab Values Laboratory Tests Test 06/23/16 23:00 06/23/16 23:35 White Blood Count 8.2 x10^3/uL (4.0-11.0) Red Blood Count 4.77 x10^6/uL (4.30-5.70) Hemoglobin 15.2 g/dL (13.0-17.5) Hematocrit 45.1 % (39.0-53.0) Mean Corpuscular Volume 95 fL (79-100) Mean Corpuscular Hemoglobin 32 pg (25-35) Mean Corpuscular Hemoglobin Concent 34 g/dL (31-37) Red Cell Distribution Width 16.1 % (11.5-14.5) H Platelet Count 236 x10^3/uL (140-400) Neutrophils (%) (Auto) 72 % (31-73) Lymphocytes (%) (Auto) 16 % (24-48) L Monocytes (%) (Auto) 9 % (0-9) Eosinophils (%) (Auto) 2 % (0-3) Basophils (%) (Auto) 1 % (0-3) Neutrophils # (Auto) 5.9 x10^3uL (1.8-7.7) Lymphocytes # (Auto) 1.3 x10^3/uL (1.0-4.8) Monocytes # (Auto) 0.8 x10^3/uL (0.0-1.1) Eosinophils # (Auto) 0.2 x10^3/uL (0.0-0.7) Basophils # (Auto) 0.1 x10^3/uL (0.0-0.2) Sodium Level 141 mmol/L (136-145) Potassium Level 3.8 mmol/L (3.5-5.1) Chloride Level 103 mmol/L (98-107) Carbon Dioxide Level 32 mmol/L (21-32) Anion Gap 6 (6-14) Blood Urea Nitrogen 19 mg/dL (8-26) Creatinine 1.3 mg/dL (0.7-1.3) Estimated GFR (Cockcroft-Gault) 54.6 Glucose Level 113 mg/dL (70-99) H Calcium Level 9.1 mg/dL (8.5-10.1) Troponin I Quantitative 0.033 ng/mL (0.000-0.055) JQ-Hsc-A-Type Natriuretic Peptide 1430 pg/mL (0-124) H Laboratory Tests 06/23/16 23:00 Laboratory Tests 06/23/16 23:35 EKG EKG EKG as interpreted by me as normal sinus rhythm, rate 69, no ST-T changes, normal intervals, no ectopy; similar to prior Radiology/Procedures Radiology/Procedures Bilateral interstitial prominence, worse inferiorly concerning for pulmonary edema versus worsening ulnar fibrosis versus infection Course & Med Decision Making Course & Med Decision Making Pertinent Labs and Imaging studies reviewed. (See chart for details) H&P and workup concerning for acute on chronic CHF exacerbation. Will give dose of lasix IV and admit for further diuresis. Discussed case with Dr. Blunt, who will admit. Cardiology consult placed. Dragon Disclaimer Dragon Disclaimer This electronic medical record was generated, in whole or in part, using a voice recognition dictation system. Departure Departure Impression: Primary Impression: CHF exacerbation Disposition: ADMITTED INPATIENT Condition: STABLE Referrals: JUANIS BLUNT MD (PCP) Problem Qualifiers Primary Impression: CHF exacerbation Congestive heart failure type: unspecified congestive heart failure type Qualified Codes: I50.9 - Heart failure, unspecified Keegan ENRIQUEZ MD June 23, 2016 23:56
[2016-06-24] VITALS (7 sets, daily range): BP systolic 103–169; BP diastolic 56–81
[2016-06-24] MEDS ORDERED: FUROSEMIDE 40 MG/4 ML VIAL. IVP ONE (00:45)
[2016-06-24] MEDS ORDERED: fentaNYL PF VIAL 100 MCG/2 ML VIAL IV PRN (00:45)
[2016-06-24] MEDS ORDERED: ACETAMINOPHEN 325 MG TABLET. PO PRN (00:45)
[2016-06-24] MEDS ORDERED: ONDANSETRON PF 4 MG/2 ML VIAL. IV PRN (00:45)
[2016-06-24] MEDS: ALPRAZolam 0.25 MG TABLET PO PRN ×2 (02:47→21:01)
--- NOTE | 2016-06-24 06:21 | EKG ---
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
--- NOTE | 2016-06-24 08:24 | PDOC ---
GENERAL General: see dictated H&P. Problems: VITAL SIGNS Vital Signs: Vital Signs Date Time Temp Pulse Resp B/P (MAP) Pulse Ox O2 Delivery O2 Flow Rate FiO2 06/24/16 07:08 97.8 77 20 134/81 (98) 95 Nasal Cannula 4.0 97.8 I & O I & O Intake and Output 06/24/16 07:00 Output Total 1275 ml Balance -1275 ml Output Urine Total 1275 ml ALLERGIES Allergies: Allergies Coded Allergies Type Severity Reaction Last Updated Verified No Known Drug Allergies 05/14/15 No MEDS Medications: Current Medications Medications (Trade) Dose Ordered Sig/Jeannette Start Time Stop Time Status Last Admin Dose Admin Acetaminophen (Tylenol) 650 mg PRN Q4HRS PRN 06/24/16 00:45 06/25/16 00:44 Alprazolam (Xanax) 0.25 mg TID PRN PRN 06/24/16 02:30 06/24/16 02:47 0.25 MG Fentanyl Citrate (Fentanyl 2ml Vial) 50 mcg PRN Q2HR PRN 06/24/16 00:45 06/25/16 00:44 Furosemide (Lasix) 40 mg 1X ONCE 06/24/16 00:45 06/24/16 01:02 DC 06/24/16 00:50 40 MG Ondansetron HCl (Zofran) 4 mg PRN Q8HRS PRN 06/24/16 00:45 06/25/16 00:44 LAB Lab: Laboratory Tests Test 06/23/16 23:00 06/23/16 23:35 White Blood Count 8.2 x10^3/uL (4.0-11.0) Red Blood Count 4.77 x10^6/uL (4.30-5.70) Hemoglobin 15.2 g/dL (13.0-17.5) Hematocrit 45.1 % (39.0-53.0) Mean Corpuscular Volume 95 fL (79-100) Mean Corpuscular Hemoglobin 32 pg (25-35) Mean Corpuscular Hemoglobin Concent 34 g/dL (31-37) Red Cell Distribution Width 16.1 % (11.5-14.5) Platelet Count 236 x10^3/uL (140-400) Neutrophils (%) (Auto) 72 % (31-73) Lymphocytes (%) (Auto) 16 % (24-48) Monocytes (%) (Auto) 9 % (0-9) Eosinophils (%) (Auto) 2 % (0-3) Basophils (%) (Auto) 1 % (0-3) Neutrophils # (Auto) 5.9 x10^3uL (1.8-7.7) Lymphocytes # (Auto) 1.3 x10^3/uL (1.0-4.8) Monocytes # (Auto) 0.8 x10^3/uL (0.0-1.1) Eosinophils # (Auto) 0.2 x10^3/uL (0.0-0.7) Basophils # (Auto) 0.1 x10^3/uL (0.0-0.2) Sodium Level 141 mmol/L (136-145) Potassium Level 3.8 mmol/L (3.5-5.1) Chloride Level 103 mmol/L (98-107) Carbon Dioxide Level 32 mmol/L (21-32) Anion Gap 6 (6-14) Blood Urea Nitrogen 19 mg/dL (8-26) Creatinine 1.3 mg/dL (0.7-1.3) Estimated GFR (Cockcroft-Gault) 54.6 Glucose Level 113 mg/dL (70-99) Calcium Level 9.1 mg/dL (8.5-10.1) Troponin I Quantitative 0.033 ng/mL (0.000-0.055) KZ-Urd-Z-Type Natriuretic Peptide 1430 pg/mL (0-124) JUANIS PACKER MD June 24, 2016 08:24
--- NOTE | 2016-06-24 08:30 | RAD ---
Indication shortness of breath. AP views of the chest were obtained and are compared to an examination 04/11/2016. Postoperative changes in the chest are noted. Heart size is unchanged. Pulmonary vasculature is similar. Background changes compatible with emphysema and fibrosis are again seen and appear similar. An acute finding in the chest or significant change compared to the previous exam is not seen. IMPRESSION: Chronic changes. No significant change in the appearance of the chest. No acute process is apparent
[2016-06-24] MEDS ORDERED: ALPRAZolam 0.25 MG TABLET PO PRN (12:45)
--- NOTE | 2016-06-24 12:54 | PDOC ---
Provider Note Provider Note [id number] acute on chronic resp fail acute diastolic and sys chf copd w mild ae see orders. EDUARDO PERDOMO MD June 24, 2016 12:53
[2016-06-24] MEDS ORDERED: ENOXAPARIN 30 MG/0.3 ML SYRINGE. SQ SCH (13:00)
--- NOTE | 2016-06-24 13:28 | CONS ---
DATE OF CONSULTATION: 06/24/2016 I was asked to see this 71-year-old gentleman for [id number] respiratory failure and shortness of breath. HISTORY OF PRESENT ILLNESS: He does have history of [id number]-[id number] smoking, stopped smoking in 1993. He has pulmonary fibrosis and has been on oxygen 4 liters per minute via nasal cannula for the past 4 years. He started not feeling good yesterday, and he has had increased shortness of breath. He has occasional cough. He denies chest pain. He has nasal congestion but denies gastroesophageal reflux symptoms. He has severe aortic stenosis and has been monitored by Cardiology. PAST MEDICAL HISTORY: Pulmonary fibrosis, chronic respiratory failure, on oxygen; COPD, aortic stenosis, diastolic dysfunction, cardiomyopathy with ejection fraction of 45% to 50%, obstructive sleep apnea-hypopnea syndrome, not able to tolerate his CPAP; hypertension, hypothyroidism, and coronary artery disease, status post CABG. ALLERGIES: No known drug allergies. MEDICATIONS: The patient was given one dose of IV Lasix in the Emergency Room. SOCIAL HISTORY: History of 22-sdvs-fukn smoking, stopped smoking in 1993. FAMILY HISTORY: Hypertension. REVIEW OF SYSTEMS: As mentioned above, other systems otherwise negative. PHYSICAL EXAMINATION: GENERAL: This is an overweight gentleman. VITAL SIGNS: His O2 saturation on 4 liters of oxygen is 94%, respiratory rate 20, heart rate 85, blood pressure 116/81, and temperature 97.4. HEENT: Normocephalic, atraumatic. Pupils are equal, round, and reactive to light. Throat is clear. There is shallow oropharynx. Nose: There is inflamed mucosa. NECK: Positive JVD. No lymphadenopathy. CARDIOVASCULAR: Regular rate and rhythm. PMI is nondisplaced. CHEST: Inspection is normal. LUNGS: There are bibasilar crackles, a few end expiratory wheezing, and dullness at the bases. ABDOMEN: Soft and obese. Bowel sounds are good. There is no mass. EXTREMITIES: There is trace edema. LYMPHATICS: There is no lymphadenopathy. SKIN: Chronic changes. NEUROLOGIC: Alert and oriented x3. LABORATORY DATA: I reviewed the following lab data: Chest x-ray shows chronic changes of bilateral infiltrates. WBC 8.2, hemoglobin 15.2, and platelets 236. Sodium 141, potassium 3.8, chloride 103, CO2 of 32, glucose 113, BUN 19, and creatinine 1.3. BNP 1430, troponin 0.03. IMPRESSION: 1. Acute on chronic respiratory failure, multifactorial in etiology including acute diastolic and systolic congestive heart failure, aortic stenosis, pulmonary fibrosis, chronic obstructive pulmonary disease with mild acute exacerbation versus others. 2. Abnormal chest x-ray. 3. Acute diastolic and systolic congestive heart failure. 4. Pulmonary fibrosis. 5. Chronic obstructive pulmonary disease with mild acute exacerbation. 6. Aortic stenosis. 7. Obstructive sleep apnea-hypopnea syndrome, intolerant to CPAP. 8. Hypertension. 9. Hypothyroidism. 10. Coronary artery disease, status post coronary artery bypass graft. RECOMMENDATIONS: 1. Titrate FiO2 to keep O2 saturation 92%. 2. Bronchodilator. 3. Add inhaled corticosteroid. 4. Keep intake less than output. Continue Lasix. Monitor potassium and creatinine. 5. Protonix for stress ulcer prophylaxis. 6. Lovenox for DVT prophylaxis. 7. Monitor respiratory status very closely. 8. Await Cardiology recommendation. 9. Continue not smoking. 10. Obstructive sleep apnea-hypopnea syndrome. The importance of treatment, if untreated increased cardiovascular and KEY RINGER morbidity and mortality was discussed with the patient, is not willing to use CPAP. He understands the risks. 10. The findings and recommendations were discussed with the patient. He understood and agreed to proceed with the plan. Thank you very much for allowing me to participate in care of this very nice gentleman. EDUARDO PERDOMO M.D. LISET Orta JOB#: [id number] / [id number]
--- NOTE | 2016-06-24 13:57 | ACF ---
Admission Forms Criteria HEART FAILURE: COMMON COMPLICATIONS Clinical Indications for Inpatient Care (Place 'X' for any and all applicable criteria): Ongoing inpatient care may be indicated for heart failure with ANY ONE of the following (1)(2)(3)(4)(5): [ ]I. Ongoing need for care for primary condition requiring frequent therapy adjustments because of changes in cardiac function (eg, drug dosage changes for drugs that are renally metabolized) [ ]II. New-onset heart failure [ ]III. Heart failure with decreased urine output not responsive to attempts to optimize volume status [ ]IV. Acute cardiac ischemia causing or associated with failure [X]V. Complications of heart failure, including ANY ONE of the following: [ ]a) Pericardial effusion [ ]b) Symptomatic pleural effusion [ ]c) O2 saturation <90% or PO2 < 60 mm Hg (8.0 kPa) on room air or require baseline supplemental O2 [ ]d) Tachypnea [X]e) Dyspnea [ ]f) Syncope [ ]g) Change in mental status [ ]h) Acute renal insufficiency that is severe (reduction of more than 50% in estimated glomerular filtration rate from baseline) or progressive reduction of more than 25% in estimated glomerular filtration rate from baseline, with creatinine continuing to rise) [ ]i) Hemodynamic instability [ ]j) Anasarca [ ]k) Clinically significant metabolic abnormalities due to heart failure (eg, new-onset metabolic acidosis) Extended stay beyond goal length of stay for primary condition may be needed until ALL of the following are present(1)(3): [ ]a) Stable and effective diuretic regimen established (or patient on stable dialysis regimen if in chronic renal failure) [ ]b) Breathing comfortably at rest [ ]c) Saturation of arterial oxygen greater than 90% or at acceptable baseline [ ]d) Pulmonary edema absent or improved [ ]e) Hemodynamic stability [ ]f) Volume status acceptable on oral medication [ ]g) Peripheral or sacral edema absent or improved [ ]h) Renal function stable and manageable at a lower level of care [ ]i) Complications (eg, pleural effusion) resolved or manageable at a lower level of care [ ]j) Patient or caregiver has received written discharge instructions or educational material addressing activity level, diet, discharge medications, follow-up appointment, weight monitoring, and what to do if symptoms worsen The original [facility] content created by [employer] has been revised. The portions of the content which have been revised are identified through the use of italic text or in bold, and [facility] has neither reviewed nor approved the modified material.All other unmodified content is copyright [facility]. Please see references footnoted in the original [facility] edition 2016 Admission Criteria Met?: Yes ALEJANDRO MALIK June 24, 2016 13:57
[2016-06-24] MEDS: IPRATRPIUM/ALBUTEROL 0.5/2.5MG 3 ML NEBU. NEB SCH ×2 (15:17→20:04)
[2016-06-24] MEDS: ASPIRIN 325 MG TABLET PO SCH (17:03)
[2016-06-24] MEDS: LISINOPRIL 20 MG TABLET PO SCH (17:03)
[2016-06-24] MEDS: CLOPIDOGREL BISULFATE 75 MG TABLET PO SCH (17:03)
[2016-06-24] MEDS: PANTOPRAZOLE 40 MG TABLET.DR. PO SCH (17:03)
[2016-06-24] MEDS: CARVEDILOL 12.5 MG TABLET. PO SCH (17:04)
[2016-06-24] MEDS: BUDESONIDE 0.5 MG/2 ML NEBU. NEB SCH (20:04)
--- NOTE | 2016-06-24 20:07 | HP ---
ADMIT DATE: 06/24/2016 CHIEF COMPLAINT AND HISTORY OF PRESENT ILLNESS: This is a 71-year-old white male, well known to me who follows up in the office. The patient had shortness of breath starting on the morning of admission and had lasted throughout the day. He felt like he had his usual cough. He feels like he has had some new lower extremity edema in the last couple of days. He was also having some, what he describes as some chest discomfort in his anterior chest since that morning. He was on his regular home O2 and was still short of breath. He was found in the Emergency Room to felt to be in congestive heart failure and admitted for the same. PAST MEDICAL HISTORY: Remarkable for atherosclerotic heart disease. He has had a prior bypass with prior empyema, which has been drained. He has a history of hypothyroidism, pneumonia, pulmonary fibrosis, COPD, anxiety, and hyperlipidemia. PAST SURGICAL HISTORY: Remarkable for a prior cholecystectomy, angioplasty, stents placed as well as the CABG. SOCIAL HISTORY: He is a nonsmoker, does occasionally use marijuana, drinks ____ quite regularly. He is , lives at home with the daughter. FAMILY HISTORY: Noncontributory. MEDICATIONS: Brought with the patient, listed on the computer and have been addressed as well as allergies. PHYSICAL EXAMINATION: GENERAL: He is a well-developed, well-nourished white male, mildly short of breath even at rest. VITAL SIGNS: Stable with the exception of the respiratory rate of 18. HEAD, EYES, EARS, NOSE, AND THROAT: Unremarkable. NECK: Supple without bruit or thyromegaly. CHEST: Reveals soft bibasilar crackles, decreased breath sounds bilaterally. HEART: Regular rate and rhythm without S3, S4, or murmur. ABDOMEN: Soft, nontender, without hepatosplenomegaly or masses. EXTREMITIES: Without cyanosis, clubbing. He does have at least 1+ lower extremity edema. NEUROLOGIC: He is intact. LABORATORY DATA: Unremarkable CBC. His BNP was elevated at 1430, initial troponin was 0.033, which was within normal range. Renal function is normal. IMPRESSION: 1. Congestive heart failure with shortness of breath. 2. Multiple other problems listed above. PLAN: The patient has been admitted. Pulmonary and Cardiology will be asked to see, and the patient will be monitored, managed, and treated appropriately. JUANIS PACKER MD DR: Shukri JOB#: [id number] / [id number]
[2016-06-24] MEDS: ATORVASTATIN CALCIUM 40 MG TABLET. PO SCH (20:58)
[2016-06-25 02:42] VITALS: BP 99/62
[2016-06-25] MEDS: LEVOTHYROXINE 125 MCG TABLET PO SCH (06:29)
[2016-06-25] MEDS: ALPRAZolam 0.25 MG TABLET PO PRN ×2 (06:45→21:24)
[2016-06-25 07:36] VITALS: BP 136/82
[2016-06-25] MEDS: BUDESONIDE 0.5 MG/2 ML NEBU. NEB SCH ×2 (08:03→19:41)
[2016-06-25] MEDS: IPRATRPIUM/ALBUTEROL 0.5/2.5MG 3 ML NEBU. NEB SCH ×4 (08:03→19:41)
[2016-06-25] MEDS: CARVEDILOL 12.5 MG TABLET. PO SCH ×2 (08:37→16:27)
[2016-06-25] MEDS: LISINOPRIL 20 MG TABLET PO SCH (08:37)
[2016-06-25] MEDS: CLOPIDOGREL BISULFATE 75 MG TABLET PO SCH (08:37)
[2016-06-25] MEDS: PANTOPRAZOLE 40 MG TABLET.DR. PO SCH (08:37)
[2016-06-25] MEDS: ASPIRIN 325 MG TABLET PO SCH (08:38)
--- NOTE | 2016-06-25 09:24 | PDOC ---
PULMONARY PROGRESS NOTES Subjective on 02, sob, better, has occ cough, no sputum, no pain Vitals Vital Signs Date Time Temp Pulse Resp B/P (MAP) Pulse Ox O2 Delivery O2 Flow Rate FiO2 06/25/16 08:37 73 136/82 06/25/16 08:03 97 Nasal Cannula 4.0 06/25/16 07:36 97.3 18 97.3 ROS: No Nausea, No Chest Pain, No Abdominal Pain General: Alert, Oriented X4, No acute distress HEENT: Other (nc at perrl nose clear) Lungs: Crackles Cardiovascular: S1, S2 Abdomen: Soft, Non-tender Extremities: Other Skin: Warm Labs Laboratory Tests Test 06/23/16 23:00 06/23/16 23:35 White Blood Count 8.2 x10^3/uL (4.0-11.0) Red Blood Count 4.77 x10^6/uL (4.30-5.70) Hemoglobin 15.2 g/dL (13.0-17.5) Hematocrit 45.1 % (39.0-53.0) Mean Corpuscular Volume 95 fL (79-100) Mean Corpuscular Hemoglobin 32 pg (25-35) Mean Corpuscular Hemoglobin Concent 34 g/dL (31-37) Red Cell Distribution Width 16.1 % (11.5-14.5) Platelet Count 236 x10^3/uL (140-400) Neutrophils (%) (Auto) 72 % (31-73) Lymphocytes (%) (Auto) 16 % (24-48) Monocytes (%) (Auto) 9 % (0-9) Eosinophils (%) (Auto) 2 % (0-3) Basophils (%) (Auto) 1 % (0-3) Neutrophils # (Auto) 5.9 x10^3uL (1.8-7.7) Lymphocytes # (Auto) 1.3 x10^3/uL (1.0-4.8) Monocytes # (Auto) 0.8 x10^3/uL (0.0-1.1) Eosinophils # (Auto) 0.2 x10^3/uL (0.0-0.7) Basophils # (Auto) 0.1 x10^3/uL (0.0-0.2) Sodium Level 141 mmol/L (136-145) Potassium Level 3.8 mmol/L (3.5-5.1) Chloride Level 103 mmol/L (98-107) Carbon Dioxide Level 32 mmol/L (21-32) Anion Gap 6 (6-14) Blood Urea Nitrogen 19 mg/dL (8-26) Creatinine 1.3 mg/dL (0.7-1.3) Estimated GFR (Cockcroft-Gault) 54.6 Glucose Level 113 mg/dL (70-99) Calcium Level 9.1 mg/dL (8.5-10.1) Troponin I Quantitative 0.033 ng/mL (0.000-0.055) BO-Ejt-J-Type Natriuretic Peptide 1430 pg/mL (0-124) Medications Active Scripts Medications Dose Route/Sig Max Daily Dose Days Date Category Lisinopril 20 Mg Tablet 1 Tab PO DAILY 04/12/16 Reported Coreg Cr (Carvedilol Phosphate) 80 Mg Cpmp.24hr 125 Mg PO BID 11/27/15 Reported Multivitamins (Multivitamin) 1 Each Tablet 1 Tab PO DAILY 11/27/15 Reported Xanax (Alprazolam) 0.25 Mg Tablet 1 Tab PO PRN TID 08/05/14 Reported Levothyroxine Sodium 125 Mcg Tablet 1 Tab PO DAILY 08/05/14 Reported Aspirin 325 Mg Tablet 1 Tab PO DAILY 07/07/14 Rx Plavix (Clopidogrel Bisulfate) 75 Mg Tablet 75 Mg PO DAILY 07/04/14 Reported Atorvastatin Calcium 80 Mg Tablet 80 Mg PO QHS 06/05/13 Reported Comments cxr reviewed, Impression . IMPRESSION: 1. Acute on chronic respiratory failure, multifactorial in etiology including acute diastolic and systolic congestive heart failure, aortic stenosis, pulmonary fibrosis, chronic obstructive pulmonary disease with mild acute exacerbation versus others. 2. Abnormal chest x-ray. 3. Acute diastolic and systolic congestive heart failure. 4. Pulmonary fibrosis. 5. Chronic obstructive pulmonary disease with mild acute exacerbation. 6. Aortic stenosis. 7. Obstructive sleep apnea-hypopnea syndrome, intolerant to CPAP. 8. Hypertension. 9. Hypothyroidism. 10. Coronary artery disease, status post coronary artery bypass graft. Plan . RECOMMENDATIONS: 1. Titrate FiO2 to keep O2 saturation 92%. 2. Bronchodilator. 3. inhaled corticosteroid. 4. Keep intake less than output. Continue Lasix. Monitor potassium and creatinine. 5. Protonix for stress ulcer prophylaxis. 6. Lovenox for DVT prophylaxis. 7. Monitor respiratory status very closely. 8. follow Cardiology recommendation. 9. Continue not smoking. 10. Obstructive sleep apnea-hypopnea syndrome. 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 He understands the risks. 10. The findings and recommendations were discussed with the patient. EDUARDO PERDOMO MD June 25, 2016 09:23
[2016-06-25 11:11] VITALS: BP 106/58
--- NOTE | 2016-06-25 11:15 | PDOC ---
SUBJECTIVE Subjective feels better, less wheezing, slept ok OBJECTIVE Vital Signs Vital Signs Date Time Temp Pulse Resp B/P (MAP) Pulse Ox O2 Delivery O2 Flow Rate FiO2 06/25/16 08:37 73 136/82 06/25/16 08:37 73 136/82 06/25/16 08:03 97 Nasal Cannula 4.0 06/25/16 08:00 Nasal Cannula 4.0 06/25/16 07:36 97.3 73 18 136/82 (100) 100 Nasal Cannula 4.0 97.3 06/25/16 02:42 98.4 62 18 99/62 (74) 94 Nasal Cannula 4.0 98.4 06/24/16 22:58 98.4 66 18 103/58 (73) 93 Nasal Cannula 4.0 98.4 06/24/16 20:06 96 Nasal Cannula 4.0 06/24/16 20:05 96 Nasal Cannula 4.0 06/24/16 20:00 Nasal Cannula 4.0 06/24/16 19:00 97.6 69 20 105/56 (72) 95 Nasal Cannula 4.0 97.6 06/24/16 17:04 93 143/79 06/24/16 17:03 93 143/79 06/24/16 15:20 97.9 93 22 143/79 (100) 94 Nasal Cannula 4.0 97.9 06/24/16 15:18 95 Nasal Cannula 4.0 06/24/16 11:50 97.2 85 20 169/81 (110) 94 Nasal Cannula 4.0 97.2 I & O Intake and Output 06/25/16 07:00 Intake Total 940 ml Output Total 1175 ml Balance -235 ml Intake Oral 940 ml Output Urine Total 1175 ml PHYSICAL EXAM Physical Exam lungs few scattered wheezes heart RRR abd soft and none tender ext no edema ASSESSMENT/PLAN Assessment/Plan 1-acute on chronic respiratory failure 2-cute diastolic and sys CHF 3- COPD exacerbation improving , continue plans , increase activity Problems: MADISON CARDONA MD June 25, 2016 11:15
--- NOTE | 2016-06-25 15:16 | PDOC ---
Provider Note Provider Note He feels better today. He was able to walk to the restroom with less effort and shortness of breath today. Lungs continued to show bibasilar rales. He would like to undergo physical therapy. He is considering moving to an assisted living place in discharge. Consider PT and OT at snf. He does have severe aortic stenosis. He was evaluated at [facility] last year and found not to be a candidate for a TAPVR. Now that we have Dr. Acevedo here will request his opinion. WINTER SUTHERLAND MD June 25, 2016 15:16
[2016-06-25 15:21] VITALS: BP 110/71
[2016-06-25] MEDS ORDERED: FUROSEMIDE 40 MG TABLET. PO ONE (15:30)
[2016-06-25] MEDS: ENOXAPARIN 40 MG/0.4 ML SYRINGE. SQ SCH (16:28)
--- NOTE | 2016-06-25 17:39 | CONS ---
DATE OF CONSULTATION: 06/24/2016 HISTORY OF PRESENT ILLNESS: This is a 71-year-old white male whom I have seen several times over the last several years. He comes in now with increasing shortness of breath. He has multiple medical conditions that could be causing the shortness of breath. 1. He has severe aortic stenosis. He is not a candidate for a TAVR because of access problems. He was sent to last year and the gradient they recorded gave them moderate aortic stenosis. We at [facility] put a higher gradient. In any case, he was not a candidate for the TAVR. 2. He has severe pulmonary fibrosis. 3. He has pulmonary hypertension. 4. He has diastolic dysfunction. 5. He has mild left ventricular systolic dysfunction. 6. He has coronary artery disease and underwent multiple stent placements. He has had no chest pain to indicate that he might have restenosis of the stented arteries. It is unclear as to why he decided to come to the Emergency Room. He was short of breath. However, when I saw him a few hours later, he was feeling much better. His x-ray shows increased markings, and it is difficult to know whether this is CHF or pulmonary fibrosis. He does not smoke at the present time. CURRENT MEDICATIONS: 1. Alprazolam 0.25 mg a day. 2. Aspirin 325 mg a day. 3. Atorvastatin 80 mg at night. 4. Carvedilol 12.5 mg twice a day. 5. Clopidogrel 75 mg a day. 6. Synthroid 125 mcg a day. 7. Lisinopril 20 mg a day. PHYSICAL EXAMINATION: GENERAL: He was lying with his head elevated to 45 degrees. VITAL SIGNS: He was afebrile. The heart rate was 80 per minute and regular. The blood pressure is 100/60. He was saturating at 96% on 4 liters of nasal cannula. LUNGS: Clear. HEART: The first and second sounds are normal. There is a grade 3/6 crescendo-decrescendo murmur heard at the base conducted towards the carotids. There is no S3 or S4. ABDOMEN: Soft. EXTREMITIES: There is 1+ edema of the legs. IMPRESSION: 1. Acute on chronic respiratory failure secondary to cardiac status and due to pulmonary fibrosis and possible chronic obstructive pulmonary disease. 2. Sleep apnea that has not been corrected. 3. Hypertension. 4. Hypothyroidism. 5. Coronary artery disease. The patient has been doing fairly well at home. We have considered aggressive measures both for his cardiac and his pulmonary status, but he is not a candidate for any of them. He will be diuresed during this hospitalization. Thank you for asking me to see him. WINTER SUTHERLAND MD DR: JAIDA/russ JOB#: [id number] / [id number]
[2016-06-25 19:07] VITALS: BP 130/57
[2016-06-25] MEDS: ATORVASTATIN CALCIUM 40 MG TABLET. PO SCH (21:23)
[2016-06-25 23:13] VITALS: BP 116/68
[2016-06-26] VITALS (7 sets, daily range): BP systolic 110–131; BP diastolic 57–74
[2016-06-26 06:36] LABS: HEMATOCRIT 40.5 % (39.0-53.0); HEMOGLOBIN 13.5 g/dL (13.0-17.5); RED BLOOD COUNT 4.26 x10^6/uL (4.30-5.70); RED CELL DISTRIBUTION WIDTH 16.2 % (11.5-14.5); WHITE BLOOD COUNT 8.4 x10^3/uL (4.0-11.0)
[2016-06-26 06:48] LABS: CALCIUM 8.6 mg/dL (8.5-10.1); CREATININE 1.4 mg/dL (0.7-1.3); GFR 50.1; POTASSIUM 3.5 mmol/L (3.5-5.1)
[2016-06-26] MEDS: BUDESONIDE 0.5 MG/2 ML NEBU. NEB SCH ×2 (07:06→20:24)
[2016-06-26] MEDS: IPRATRPIUM/ALBUTEROL 0.5/2.5MG 3 ML NEBU. NEB SCH ×4 (07:07→20:24)
[2016-06-26] MEDS: FUROSEMIDE 40 MG TABLET. PO SCH (08:15)
[2016-06-26] MEDS: CLOPIDOGREL BISULFATE 75 MG TABLET PO SCH (08:16)
[2016-06-26] MEDS: CARVEDILOL 12.5 MG TABLET. PO SCH ×2 (08:16→16:18)
[2016-06-26] MEDS: LEVOTHYROXINE 125 MCG TABLET PO SCH (08:16)
[2016-06-26] MEDS: ASPIRIN 325 MG TABLET PO SCH (08:16)
[2016-06-26] MEDS: PANTOPRAZOLE 40 MG TABLET.DR. PO SCH (08:16)
[2016-06-26] MEDS: LISINOPRIL 20 MG TABLET PO SCH (08:16)
--- NOTE | 2016-06-26 09:33 | PDOC ---
PULMONARY PROGRESS NOTES Subjective on 02, feels better but get sob easily, has occ cough, no sputum, no pain, has nasal congestion Vitals Vital Signs Date Time Temp Pulse Resp B/P (MAP) Pulse Ox O2 Delivery O2 Flow Rate FiO2 06/26/16 08:16 75 118/74 06/26/16 07:08 96 Nasal Cannula 4.0 06/26/16 07:00 97.6 20 97.6 ROS: No Nausea, No Chest Pain, No Abdominal Pain General: Alert, Oriented X4, No acute distress HEENT: Other (nc at perrl nose clear) Lungs: Wheezing, Crackles Cardiovascular: S1, S2 Abdomen: Soft, Non-tender Extremities: Other Skin: Warm Labs Laboratory Tests Test 06/26/16 05:00 White Blood Count 8.4 x10^3/uL (4.0-11.0) Red Blood Count 4.26 x10^6/uL (4.30-5.70) Hemoglobin 13.5 g/dL (13.0-17.5) Hematocrit 40.5 % (39.0-53.0) Mean Corpuscular Volume 95 fL (79-100) Mean Corpuscular Hemoglobin 32 pg (25-35) Mean Corpuscular Hemoglobin Concent 33 g/dL (31-37) Red Cell Distribution Width 16.2 % (11.5-14.5) Platelet Count 204 x10^3/uL (140-400) Sodium Level 136 mmol/L (136-145) Potassium Level 3.5 mmol/L (3.5-5.1) Chloride Level 100 mmol/L (98-107) Carbon Dioxide Level 29 mmol/L (21-32) Anion Gap 7 (6-14) Blood Urea Nitrogen 17 mg/dL (8-26) Creatinine 1.4 mg/dL (0.7-1.3) Estimated GFR (Cockcroft-Gault) 50.1 Glucose Level 112 mg/dL (70-99) Calcium Level 8.6 mg/dL (8.5-10.1) Laboratory Tests Test 06/26/16 05:00 White Blood Count 8.4 x10^3/uL (4.0-11.0) Red Blood Count 4.26 x10^6/uL (4.30-5.70) Hemoglobin 13.5 g/dL (13.0-17.5) Hematocrit 40.5 % (39.0-53.0) Mean Corpuscular Volume 95 fL (79-100) Mean Corpuscular Hemoglobin 32 pg (25-35) Mean Corpuscular Hemoglobin Concent 33 g/dL (31-37) Red Cell Distribution Width 16.2 % (11.5-14.5) Platelet Count 204 x10^3/uL (140-400) Sodium Level 136 mmol/L (136-145) Potassium Level 3.5 mmol/L (3.5-5.1) Chloride Level 100 mmol/L (98-107) Carbon Dioxide Level 29 mmol/L (21-32) Anion Gap 7 (6-14) Blood Urea Nitrogen 17 mg/dL (8-26) Creatinine 1.4 mg/dL (0.7-1.3) Estimated GFR (Cockcroft-Gault) 50.1 Glucose Level 112 mg/dL (70-99) Calcium Level 8.6 mg/dL (8.5-10.1) Medications Active Scripts Medications Dose Route/Sig Max Daily Dose Days Date Category Lisinopril 20 Mg Tablet 1 Tab PO DAILY 04/12/16 Reported Coreg Cr (Carvedilol Phosphate) 80 Mg Cpmp.24hr 125 Mg PO BID 11/27/15 Reported Multivitamins (Multivitamin) 1 Each Tablet 1 Tab PO DAILY 11/27/15 Reported Xanax (Alprazolam) 0.25 Mg Tablet 1 Tab PO PRN TID 08/05/14 Reported Levothyroxine Sodium 125 Mcg Tablet 1 Tab PO DAILY 08/05/14 Reported Aspirin 325 Mg Tablet 1 Tab PO DAILY 07/07/14 Rx Plavix (Clopidogrel Bisulfate) 75 Mg Tablet 75 Mg PO DAILY 07/04/14 Reported Atorvastatin Calcium 80 Mg Tablet 80 Mg PO QHS 06/05/13 Reported Comments cxr reviewed, Impression . IMPRESSION: 1. Acute on chronic respiratory failure, multifactorial in etiology including acute diastolic and systolic congestive heart failure, aortic stenosis, pulmonary fibrosis, chronic obstructive pulmonary disease with mild acute exacerbation versus others. 2. Abnormal chest x-ray. 3. Acute diastolic and systolic congestive heart failure. 4. Pulmonary fibrosis. 5. Chronic obstructive pulmonary disease with mild acute exacerbation. 6. Aortic stenosis. 7. Obstructive sleep apnea-hypopnea syndrome, intolerant to CPAP. 8. Hypertension. 9. Hypothyroidism. 10. Coronary artery disease, status post coronary artery bypass graft. 11. allergic rhinitis Plan . RECOMMENDATIONS: 1. Titrate FiO2 to keep O2 saturation 92%. 2. Bronchodilator. 3. inhaled corticosteroid. add solumedrol 4. Keep intake less than output. Continue Lasix. Monitor potassium and creatinine. 5. Protonix for stress ulcer prophylaxis. 6. Lovenox for DVT prophylaxis. 7. Monitor respiratory status very closely. 8. follow Cardiology recommendation. 9. Continue not smoking. 10. Obstructive sleep apnea-hypopnea syndrome. 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 He understands the risks. 10. add singulair 11. still has sig sob, will do cta The findings and recommendations were discussed with the patient and primary. EDUARDO PERDOMO MD June 26, 2016 09:33
[2016-06-26] MEDS: methylPREDNISolone SOD SUCC PF 40 MG/ML VIAL. IV SCH ×2 (11:40→20:45)
--- NOTE | 2016-06-26 11:54 | PDOC ---
SUBJECTIVE Subjective looks more SOB this AM OBJECTIVE Vital Signs Vital Signs Date Time Temp Pulse Resp B/P (MAP) Pulse Ox O2 Delivery O2 Flow Rate FiO2 06/26/16 11:03 Nasal Cannula 4.5 06/26/16 08:16 75 118/74 06/26/16 08:16 75 118/74 06/26/16 08:00 Nasal Cannula 4.5 06/26/16 07:08 96 Nasal Cannula 4.0 06/26/16 07:00 97.6 75 20 118/74 (89) 93 4.5 97.6 06/26/16 03:00 97.7 84 20 115/57 (76) 90 Nasal Cannula 4.0 97.7 06/25/16 23:13 98.4 80 22 116/68 (84) 95 Nasal Cannula 4.0 98.4 06/25/16 19:43 91 Nasal Cannula 4.0 06/25/16 19:42 91 Nasal Cannula 4.0 06/25/16 19:20 Nasal Cannula 4.0 06/25/16 19:07 97.0 86 22 130/57 (81) 95 Nasal Cannula 4.0 97.0 06/25/16 16:27 84 110/71 06/25/16 15:51 93 Nasal Cannula 4.0 06/25/16 15:21 99.7 84 18 110/71 (84) 93 Nasal Cannula 4.0 99.7 I & O Intake and Output 06/26/16 07:00 Intake Total 1470 ml Output Total 1420 ml Balance 50 ml Intake Oral 1470 ml Output Urine Total 1420 ml # Bowel Movements 2 PHYSICAL EXAM Physical Exam lungs few scattered wheezes heart RRR+ murmur abd soft ext no edema ASSESSMENT/PLAN Assessment/Plan 1-acute on chronic respiratory failure 2-cute diastolic and sys CHF 3- COPD exacerbation discussed with Dr. Zambrano agree with steroids 4. severe Aortic stenosis agree with C.V consult 5. foliculitis Left groin area , start Augmentin will resume care in AM Problems: COMMENT Lab Laboratory Tests Test 06/26/16 05:00 White Blood Count 8.4 x10^3/uL (4.0-11.0) Red Blood Count 4.26 x10^6/uL (4.30-5.70) Hemoglobin 13.5 g/dL (13.0-17.5) Hematocrit 40.5 % (39.0-53.0) Mean Corpuscular Volume 95 fL (79-100) Mean Corpuscular Hemoglobin 32 pg (25-35) Mean Corpuscular Hemoglobin Concent 33 g/dL (31-37) Red Cell Distribution Width 16.2 % (11.5-14.5) Platelet Count 204 x10^3/uL (140-400) Sodium Level 136 mmol/L (136-145) Potassium Level 3.5 mmol/L (3.5-5.1) Chloride Level 100 mmol/L (98-107) Carbon Dioxide Level 29 mmol/L (21-32) Anion Gap 7 (6-14) Blood Urea Nitrogen 17 mg/dL (8-26) Creatinine 1.4 mg/dL (0.7-1.3) Estimated GFR (Cockcroft-Gault) 50.1 Glucose Level 112 mg/dL (70-99) Calcium Level 8.6 mg/dL (8.5-10.1) MADISON CARDONA MD June 26, 2016 11:54
--- NOTE | 2016-06-26 13:02 | PDOC ---
Provider Note Provider Note He gets very short of breath with minimal exertion This is accompanied by a drop in oxygen saturation His shortness of breath is probably more likely to be due to his pulmonary status rather than his cardiac status. Discussed with Dr. Zambrano who agrees. She would like to rule out the possibility of underlying pulmonary embolism. Will continue to diureseas long as his renal status and blood pressure allows. Agree with [facility] for continued therapy and for techniques for energy conservation. WINTER SUTHERLAND MD June 26, 2016 13:01
[2016-06-26] MEDS: AMOXICILLIN/K CLAV 875/125MG TABLET. PO SCH ×2 (14:24→20:44)
[2016-06-26] MEDS ORDERED: IOHEXOL 300 MG/ML 75 ML VIAL IV ONE (15:45)
[2016-06-26] MEDS: ENOXAPARIN 40 MG/0.4 ML SYRINGE. SQ SCH (16:19)
[2016-06-26] MEDS: ATORVASTATIN CALCIUM 40 MG TABLET. PO SCH (20:44)
[2016-06-26] MEDS: MONTELUKAST SODIUM 10 MG TABLET. PO SCH (20:44)
[2016-06-27 03:05] VITALS: BP 134/76
[2016-06-27] MEDS: PANTOPRAZOLE 40 MG TABLET.DR. PO SCH (06:20)
[2016-06-27] MEDS: LEVOTHYROXINE 125 MCG TABLET PO SCH (06:20)
[2016-06-27 07:00] VITALS: BP 152/88
--- NOTE | 2016-06-27 07:24 | RAD ---
Indication: Bilateral lower extremity swelling and shortness of breath. Grayscale, color-flow and duplex Doppler evaluation of both lower extremity deep venous systems was performed. The right and left lower extremity deep venous systems demonstrate normal compressibility with normal response to augmentation and Valsalva. No fluid collection or mass is detected. Impression: No evidence of right or left lower extremity DVT.
[2016-06-27] MEDS ORDERED: CONTRAST GIVEN MC PRN (07:45)
[2016-06-27] MEDS ORDERED: IOHEXOL 300 MG/ML 75 ML VIAL IV ONE (07:45)
[2016-06-27] MEDS: AMOXICILLIN/K CLAV 875/125MG TABLET. PO SCH ×2 (08:57→21:33)
[2016-06-27] MEDS: CARVEDILOL 12.5 MG TABLET. PO SCH ×2 (08:57→18:23)
[2016-06-27] MEDS: LISINOPRIL 20 MG TABLET PO SCH (08:58)
[2016-06-27] MEDS: ASPIRIN 325 MG TABLET PO SCH (08:58)
[2016-06-27] MEDS: methylPREDNISolone SOD SUCC PF 40 MG/ML VIAL. IV SCH ×2 (08:58→21:33)
[2016-06-27] MEDS: FUROSEMIDE 40 MG TABLET. PO SCH (08:58)
[2016-06-27] MEDS: CLOPIDOGREL BISULFATE 75 MG TABLET PO SCH (08:59)
[2016-06-27] MEDS: IPRATRPIUM/ALBUTEROL 0.5/2.5MG 3 ML NEBU. NEB SCH ×4 (09:06→19:39)
[2016-06-27] MEDS: BUDESONIDE 0.5 MG/2 ML NEBU. NEB SCH ×2 (09:07→19:40)
--- NOTE | 2016-06-27 10:53 | RAD ---
Exam performed: CT pulmonary angiogram. History: Shortness of breath, COPD. Date of service: 06/26/16. Comparison: CT pulmonary angiogram from 04/12/16. Technique: Contiguous helical acquisitions are obtained through the chest during intravenous administration of 60 cc of Omnipaque 300. Sagittal and coronal MIP images are obtained and reviewed. Findings: There is adequate opacification of pulmonary arteries. No filling defects to suggest pulmonary embolism is noted. Diffuse atheromatous aortic calcification and the neck vessels. No aneurysm. There is also diffuse atheromatous calcification of the coronary arteries. Mildly prominent mediastinal lymph nodes are seen. The central airway is patent without endoluminal lesions. There are diffuse bilateral emphysematous changes and pulmonary fibrosis. Reticular interstitial and linear reticular opacities with punctate peripheral calcifications associated with these opacities is redemonstrated and appears increased since previous study. No focal infiltrates There is diffuse aortic valvular calcification. Pericardial calcification. There is no pleural effusion or pneumothorax. Limited evaluation of the upper abdominal structures is unremarkable. Impression: 1. No convincing evidence of pulmonary embolism seen. 2. Diffuse atheromatous aortic and coronary calcification. 3. Emphysema and diffuse pulmonary fibrosis. PQRS Compliance Statement: One or more of the following individualized dose reduction techniques were utilized for this examination: 1. Automated exposure control 2. Adjustment of the mA and/or kV according to patient size 3. Use of iterative reconstruction technique
[2016-06-27 11:00] VITALS: BP 133/70
--- NOTE | 2016-06-27 11:19 | PDOC ---
PULMONARY PROGRESS NOTES Subjective on 02, feels better but get sob easily, has occ cough, no sputum, no pain, has nasal congestion Vitals Vital Signs Date Time Temp Pulse Resp B/P (MAP) Pulse Ox O2 Delivery O2 Flow Rate FiO2 06/27/16 11:00 97.4 71 18 133/70 (91) 91 Nasal Cannula 4.5 97.4 ROS: No Nausea, No Chest Pain, No Abdominal Pain General: Alert, Oriented X4, No acute distress HEENT: Other (nc at perrl nose clear) Lungs: Crackles (BASES) Cardiovascular: S1, S2 Abdomen: Soft, Non-tender Extremities: Other Skin: Warm Labs Laboratory Tests Test 06/26/16 05:00 White Blood Count 8.4 x10^3/uL (4.0-11.0) Red Blood Count 4.26 x10^6/uL (4.30-5.70) Hemoglobin 13.5 g/dL (13.0-17.5) Hematocrit 40.5 % (39.0-53.0) Mean Corpuscular Volume 95 fL (79-100) Mean Corpuscular Hemoglobin 32 pg (25-35) Mean Corpuscular Hemoglobin Concent 33 g/dL (31-37) Red Cell Distribution Width 16.2 % (11.5-14.5) Platelet Count 204 x10^3/uL (140-400) Sodium Level 136 mmol/L (136-145) Potassium Level 3.5 mmol/L (3.5-5.1) Chloride Level 100 mmol/L (98-107) Carbon Dioxide Level 29 mmol/L (21-32) Anion Gap 7 (6-14) Blood Urea Nitrogen 17 mg/dL (8-26) Creatinine 1.4 mg/dL (0.7-1.3) Estimated GFR (Cockcroft-Gault) 50.1 Glucose Level 112 mg/dL (70-99) Calcium Level 8.6 mg/dL (8.5-10.1) Medications Active Scripts Medications Dose Route/Sig Max Daily Dose Days Date Category Lisinopril 20 Mg Tablet 1 Tab PO DAILY 04/12/16 Reported Coreg Cr (Carvedilol Phosphate) 80 Mg Cpmp.24hr 125 Mg PO BID 11/27/15 Reported Multivitamins (Multivitamin) 1 Each Tablet 1 Tab PO DAILY 11/27/15 Reported Xanax (Alprazolam) 0.25 Mg Tablet 1 Tab PO PRN TID 08/05/14 Reported Levothyroxine Sodium 125 Mcg Tablet 1 Tab PO DAILY 08/05/14 Reported Aspirin 325 Mg Tablet 1 Tab PO DAILY 07/07/14 Rx Plavix (Clopidogrel Bisulfate) 75 Mg Tablet 75 Mg PO DAILY 07/04/14 Reported Atorvastatin Calcium 80 Mg Tablet 80 Mg PO QHS 06/05/13 Reported Comments cxr reviewed, Impression . 1. Acute on chronic respiratory failure, multifactorial in etiology including acute diastolic and systolic congestive heart failure, aortic stenosis, pulmonary fibrosis, chronic obstructive pulmonary disease with mild acute exacerbation versus others. 2. Abnormal chest x-ray. 3. Acute diastolic and systolic congestive heart failure. 4. Pulmonary fibrosis. 5. Chronic obstructive pulmonary disease with mild acute exacerbation. 6. Aortic stenosis. 7. Obstructive sleep apnea-hypopnea syndrome, intolerant to CPAP. 8. Hypertension. 9. Hypothyroidism. 10. Coronary artery disease, status post coronary artery bypass graft. 11. allergic rhinitis Plan . 1. Titrate FiO2 to keep O2 saturation 92%. 2. Bronchodilator. 3. inhaled corticosteroid./ solumedrol 4. Keep intake less than output. Continue Lasix. Monitor potassium and creatinine. 5. Protonix for stress ulcer prophylaxis. 6. Lovenox for DVT prophylaxis. 7. Monitor respiratory status very closely. 8. follow Cardiology recommendation. 9. Continue not smoking. 10. Obstructive sleep apnea-hypopnea syndrome. 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 He understands the risks. 10. add ikerir 11. CTA wit hno PE, Emphysema and fibrosis MAIRA MIRANDA MD June 27, 2016 11:19
[2016-06-27 15:00] VITALS: BP 123/74
[2016-06-27] MEDS: ENOXAPARIN 40 MG/0.4 ML SYRINGE. SQ SCH (18:24)
[2016-06-27 19:20] VITALS: BP 124/80
[2016-06-27] MEDS: ATORVASTATIN CALCIUM 40 MG TABLET. PO SCH (21:33)
[2016-06-27] MEDS: MONTELUKAST SODIUM 10 MG TABLET. PO SCH (21:33)
[2016-06-27 23:03] VITALS: BP 130/76
[2016-06-28 03:11] VITALS: BP 114/69
[2016-06-28] MEDS: LEVOTHYROXINE 125 MCG TABLET PO SCH (06:18)
[2016-06-28] MEDS: PANTOPRAZOLE 40 MG TABLET.DR. PO SCH (06:18)
[2016-06-28 07:27] VITALS: BP 129/72
[2016-06-28] MEDS: BUDESONIDE 0.5 MG/2 ML NEBU. NEB SCH (07:36)
[2016-06-28] MEDS: IPRATRPIUM/ALBUTEROL 0.5/2.5MG 3 ML NEBU. NEB SCH ×2 (07:36→11:48)
[2016-06-28] MEDS: CLOPIDOGREL BISULFATE 75 MG TABLET PO SCH (08:08)
[2016-06-28] MEDS: CARVEDILOL 12.5 MG TABLET. PO SCH (08:09)
[2016-06-28] MEDS: AMOXICILLIN/K CLAV 875/125MG TABLET. PO SCH (08:09)
[2016-06-28] MEDS: ASPIRIN 325 MG TABLET PO SCH (08:09)
[2016-06-28] MEDS: methylPREDNISolone SOD SUCC PF 40 MG/ML VIAL. IV SCH (08:09)
[2016-06-28] MEDS: LISINOPRIL 20 MG TABLET PO SCH (08:09)
[2016-06-28] MEDS: FUROSEMIDE 40 MG TABLET. PO SCH (08:09)
--- NOTE | 2016-06-28 08:38 | PDOC ---
GENERAL General: late entry. saw yesterday but forgot to put note in. exam was stable. marked campbell. snu eval ordered with plan for dc 06-28. Problems: VITAL SIGNS Vital Signs: Vital Signs Date Time Temp Pulse Resp B/P (MAP) Pulse Ox O2 Delivery O2 Flow Rate FiO2 06/28/16 08:09 77 129/72 06/28/16 07:38 95 Nasal Cannula 4.0 06/28/16 07:27 97.8 97.8 06/27/16 19:20 19 I & O I & O Intake and Output 06/28/16 07:00 Intake Total 1875 ml Output Total 1875 ml Balance 0 ml Intake Oral 1875 ml Output Urine Total 1875 ml # Bowel Movements 1 ALLERGIES Allergies: Allergies Coded Allergies Type Severity Reaction Last Updated Verified No Known Drug Allergies 05/14/15 No MEDS Medications: Current Medications Medications (Trade) Dose Ordered Sig/Jeannette Start Time Stop Time Status Last Admin Dose Admin Acetaminophen (Tylenol) 650 mg PRN Q4HRS PRN 06/24/16 00:45 06/25/16 00:44 DC Albuterol/ Ipratropium (Duoneb) 3 ml RTQID 06/24/16 16:00 06/28/16 07:36 3 ML Alprazolam (Xanax) 0.25 mg PRN Q8HRS PRN 06/24/16 12:45 Cancel Amoxicillin/ Clavulanate Potassium (Augmentin 875/ 125mg) 1 tab BID 06/26/16 12:30 06/28/16 08:09 1 TAB Aspirin (Regulo Aspirin) 325 mg DAILYWBKFT 06/24/16 13:00 06/28/16 08:09 325 MG Atorvastatin Calcium (Lipitor) 80 mg QHS 06/24/16 21:00 06/27/16 21:33 80 MG Budesonide (Pulmicort) 0.5 mg RTBID 06/24/16 20:00 06/28/16 07:36 0.5 MG Carvedilol (Coreg) 12.5 mg BIDWMEALS 06/24/16 17:00 06/28/16 08:09 12.5 MG Clopidogrel Bisulfate (Plavix) 75 mg DAILYWBKFT 06/24/16 13:00 06/28/16 08:08 75 MG Enoxaparin Sodium (Lovenox 30mg Syringe) 30 mg Q24H 06/24/16 13:00 06/25/16 14:40 DC 06/24/16 17:06 30 MG Enoxaparin Sodium (Lovenox 40mg Syringe) 40 mg Q24H 06/25/16 17:00 06/27/16 18:24 40 MG Fentanyl Citrate (Fentanyl 2ml Vial) 50 mcg PRN Q2HR PRN 06/24/16 00:45 06/25/16 00:44 DC Furosemide (Lasix) 40 mg DAILY 06/26/16 09:00 06/28/16 08:09 40 MG Info (Do NOT chart on this entry -- for MONITORING) 1 each PRN DAILY PRN 06/27/16 07:45 06/29/16 07:44 Iohexol (Omnipaque 300 Mg/ml) 60 ml 1X ONCE 06/27/16 07:45 06/27/16 07:46 DC Levothyroxine Sodium (Synthroid) 125 mcg DAILY07 06/25/16 07:00 06/28/16 06:18 125 MCG Lisinopril (Prinivil) 20 mg DAILY 06/24/16 13:00 06/28/16 08:09 20 MG Methylprednisolone Sodium Succinate (Solu-Medrol 40mg Vial) 40 mg Q12HR 06/26/16 11:00 06/28/16 08:09 40 MG Montelukast Sodium (Singulair) 10 mg QHS 06/26/16 21:00 06/27/16 21:33 10 MG Ondansetron HCl (Zofran) 4 mg PRN Q8HRS PRN 06/24/16 00:45 06/25/16 00:44 DC Pantoprazole Sodium (Protonix) 40 mg DAILYAC 06/24/16 16:30 06/28/16 06:18 40 MG JUANIS PACKER MD June 28, 2016 08:38
[2016-06-28 10:54] VITALS: BP 123/77
--- NOTE | 2016-06-28 11:52 | PDOC ---
PULMONARY PROGRESS NOTES Subjective , feels better Vitals Vital Signs Date Time Temp Pulse Resp B/P (MAP) Pulse Ox O2 Delivery O2 Flow Rate FiO2 06/28/16 10:54 97.2 79 123/77 (92) 91 Nasal Cannula 4.5 97.2 06/27/16 19:20 19 ROS: No Nausea, No Chest Pain, No Abdominal Pain General: Alert, Oriented X4, No acute distress HEENT: Other (nc at perrl nose clear) Lungs: Crackles (BASES) Cardiovascular: S1, S2 Abdomen: Soft, Non-tender Extremities: Other Skin: Warm Medications Active Scripts Medications Dose Route/Sig Max Daily Dose Days Date Category Lisinopril 20 Mg Tablet 1 Tab PO DAILY 04/12/16 Reported Coreg Cr (Carvedilol Phosphate) 80 Mg Cpmp.24hr 125 Mg PO BID 11/27/15 Reported Multivitamins (Multivitamin) 1 Each Tablet 1 Tab PO DAILY 11/27/15 Reported Xanax (Alprazolam) 0.25 Mg Tablet 1 Tab PO PRN TID 08/05/14 Reported Levothyroxine Sodium 125 Mcg Tablet 1 Tab PO DAILY 08/05/14 Reported Aspirin 325 Mg Tablet 1 Tab PO DAILY 07/07/14 Rx Plavix (Clopidogrel Bisulfate) 75 Mg Tablet 75 Mg PO DAILY 07/04/14 Reported Atorvastatin Calcium 80 Mg Tablet 80 Mg PO QHS 06/05/13 Reported Comments cxr reviewed, Impression . 1. Acute on chronic respiratory failure, multifactorial in etiology including acute diastolic and systolic congestive heart failure, aortic stenosis, pulmonary fibrosis, chronic obstructive pulmonary disease with mild acute exacerbation 2. Abnormal chest x-ray. 3. Acute diastolic and systolic congestive heart failure. 4. Pulmonary fibrosis. 5. Chronic obstructive pulmonary disease with mild acute exacerbation. 6. Aortic stenosis. 7. Obstructive sleep apnea-hypopnea syndrome, intolerant to CPAP. 8. Hypertension. 9. Hypothyroidism. 10. Coronary artery disease, status post coronary artery bypass graft. 11. allergic rhinitis Plan . 1. Titrate FiO2 to keep O2 saturation 92%. 2. Bronchodilator. 3. inhaled corticosteroid./ solumedrol taper 4. Continue not smoking. 5 Obstructive sleep apnea-hypopnea syndrome. 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 He understands the risks. 6. CTA with no PE, but Emphysema and fibrosis/ not a candidate for anti- fibrotic agents due to ongoing alcohol use MAIRA MIRANDA MD June 28, 2016 11:52
--- NOTE | 2016-07-13 04:08 | CONS ---
DATE OF CONSULTATION: 06/24/2016 DIAGNOSES: 1. Onychomycosis, bilateral feet. 2. Hallux abductovalgus, bilateral feet. HISTORY OF PRESENT ILLNESS: The patient was admitted to [facility]. While under the care of his physician, complained of painful thickened toenails. Thus a Podiatry consultation was requested. PAST MEDICAL HISTORY: Noted in the patient's chart which was reviewed today. CURRENT MEDICATIONS: Noted in the patient's chart which was reviewed today. PHYSICAL EXAMINATION: LOWER EXTREMITIES: Vasculature: Nonpalpable dorsalis pedis pulse, nonpalpable posterior tibial pulse. Brawny edema, bilateral lower extremities. INTEGUMENT: The nails are thickened, elongated, discolored with distal onycholysis and subungual debris, digits 1 through 5 bilateral feet. No open lesions or eruptions appreciated. NEUROLOGIC: Sensorium is grossly intact. MUSCULOSKELETAL: Abduction of the hallux with prominence of the first metatarsal head medially consistent with hallux abductovalgus. RECOMMENDATIONS: Discussed patient's treatment options. Debrided all nails manually and with electric regrinder operator both in length and thickness. Recommended that he seek podiatric attention approximately for 2-1/2 to 3 months. NEDA ERNST DPM DR: GABRIELLE/russ JOB#: [id number] / [id number]
== END 2016-06-28 13:30 | disposition home or self-care (01) | DRG 291 ==
LOC: ER 22:48 → 2 SOUTH 06-24 00:30
PROVIDERS: ADMIT Family Medicine; ATTEND Family Medicine
DX: I11.0 Hypertensive heart disease with heart failure (principal); J96.20 Acute and chronic respiratory failure, unspecified whether with hypoxia or hypercapnia; J44.1 Chronic obstructive pulmonary disease with (acute) exacerbation; I50.41 Acute combined systolic (congestive) and diastolic (congestive) heart failure; I42.9 Cardiomyopathy, unspecified; E03.9 Hypothyroidism, unspecified; E78.00 Pure hypercholesterolemia, unspecified; E78.5 Hyperlipidemia, unspecified; F12.90 Cannabis use, unspecified, uncomplicated; G47.33 Obstructive sleep apnea (adult) (pediatric); I25.10 Atherosclerotic heart disease of native coronary artery without angina pectoris; I27.2 Other secondary pulmonary hypertension; I35.0 Nonrheumatic aortic (valve) stenosis; J30.9 Allergic rhinitis, unspecified; J84.10 Pulmonary fibrosis, unspecified; Z82.49 Family history of ischemic heart disease and other diseases of the circulatory system; Z87.891 Personal history of nicotine dependence; Z90.49 Acquired absence of other specified parts of digestive tract; Z95.1 Presence of aortocoronary bypass graft
CPT/HCPCS: 36415; 71020; 71275; 80048; 83880; 84484; 85027; 93005; 93970; 94250; 94640; 94760; 96374; J1650; J1940; J2920; J7620; Q9967; 97530; 97535; 99285-25

== ENCOUNTER 2016-10-25 22:55 | Inpatient (IN) | payer MEDICARE ==
[~2016-10-25] VITALS: Ht 172.7 cm; Wt 108.6 kg
[~2016-10-25 22:55] MED LIST changes: +ASPI-630 PO; -ASPI325T4 PO; +ASPI325T8 PO; -ASPI81TA2 PO; -CLOP75TA27 PO; +CLOP75TA57 PO
[2016-10-25] MEDS ORDERED: fentaNYL PF VIAL 100 MCG/2 ML VIAL IV PRN (23:15)
[2016-10-25] MEDS ORDERED: ONDANSETRON PF 4 MG/2 ML VIAL. IV PRN (23:15)
[2016-10-25 23:27] LABS: INR 1.3 (0.8-1.1); PROTHROMBIN TIME PATIENT 15.5 SEC (11.7-14.0)
[2016-10-25 23:29] LABS: ALLEN TEST positive; BASE EXCESS COOX 4 mmol/L (-3-3); FIO2 COOX 40; HCO3 COOX 29 mmol/L (21-28); PCO2 COOX 45 mmHg (35-46); PH COOX 7.42 (7.35-7.45); PO2 COOX 63 mmHg (65-108); SAT O2 COOX 91 % (92-99)
[2016-10-25 23:29] LABS: BASO # 0.1 x10^3/uL (0.0-0.2); BASO % 1 % (0-3); EOS % 2 % (0-3); HEMATOCRIT 42.3 % (39.0-53.0); HEMOGLOBIN 14.1 g/dL (13.0-17.5); LYMPH # 0.9 x10^3/uL (1.0-4.8); LYMPH % 9 % (24-48); MEAN CORPUSCULAR HEMOGLOBIN 31 pg (25-35); MEAN CORPUSCULAR HGB CONC 33 g/dL (31-37); MEAN CORPUSCULAR VOLUME 94 fL (79-100); MONO % 7 % (0-9); NEUT % 82 % (31-73); PLATELET COUNT 300 x10^3/uL (140-400); RED BLOOD COUNT 4.51 x10^6/uL (4.30-5.70); RED CELL DISTRIBUTION WIDTH 15.6 % (11.5-14.5); WHITE BLOOD COUNT 9.7 x10^3/uL (4.0-11.0)
[2016-10-25 23:30] LABS: CARBON MONOXIDE 0.6 % (0.0-1.9)
[2016-10-25 23:30] LABS: CALCIUM 9.4 mg/dL (8.5-10.1); CREATININE 1.3 mg/dL (0.7-1.3); GFR 54.6; POTASSIUM 4.3 mmol/L (3.5-5.1)
[2016-10-25] MEDS ORDERED: ALBUTEROL SULFATE 2.5 MG/3 ML NEBU. NEB ONE (23:30)
[2016-10-25] MEDS ORDERED: methylPREDNISolone SOD SUCC PF 125 MG/2 ML VIAL. IV ONE (23:30)
[2016-10-25] MEDS ORDERED: FUROSEMIDE 20 MG/2 ML VIAL. IVP ONE (23:30)
[2016-10-25] MEDS ORDERED: IPRATRPIUM/ALBUTEROL 0.5/2.5MG 3 ML NEBU. NEB ONE (23:30)
[2016-10-25 23:31] LABS: METHEMOGLOBIN 0.4 % (0.0-1.9)
[2016-10-25 23:32] LABS: 02 DELIVERY DEVICE bipap
[2016-10-25 23:45] LABS: ALBUMIN 3.7 g/dL (3.4-5.0); MAGNESIUM 2.2 mg/dL (1.8-2.4); TOTAL BILIRUBIN 1.1 mg/dL (0.2-1.0); TOTAL PROTEIN 7.4 g/dL (6.4-8.2)
--- NOTE | 2016-10-25 23:58 | PHYS DOC ---
Past Medical History Past Medical History: Anxiety, CHF, COPD, High Cholesterol, Hypertension, Hypothyroid, MT, Pneumonia Additional Past Medical Histor: pulmonary fibrosis Past Surgical History: Angioplasty, Cholecystectomy, Coronary Bypass Surgery Additional Past Surgical Histo: finger amputation, shoulder, 9 STENTS PLACED Alcohol Use: Heavy Additional Information: 1 PINT VODKA/WEEK Drug Use: None, Marijuana Adult General Chief Complaint Chief Complaint: SHORTNESS OF BREATH HPI HPI Patient is a 71 year old male presenting to the emergency department for worsening shortness of breath that has been progressing over the past 12-24 hours. He says that it started minimally however he feels that he cannot catch his breath at all currently. He said that he was diagnosed with pulmonary assist at [facility] but he also has COPD and congestive heart failure. He does not think his lower extremity edema is worse than usual however it is quite prominent. He has an oxygen saturation of 68% on his baseline 4 L. Patient promptly put on BiPAP with breathing treatments. Review of Systems Review of Systems Constitutional: Denies fever or chills [] Eyes: Denies change in visual acuity, redness, or eye pain [] HENT: Denies nasal congestion or sore throat [] Respiratory: + cough and shortness of breath [] Cardiovascular: No additional information not addressed in HPI [] GI: Denies abdominal pain, nausea, vomiting, bloody stools or diarrhea [] : Denies dysuria or hematuria [] Musculoskeletal: Denies back pain or joint pain [] Integument: Denies rash or skin lesions [] Neurologic: Denies headache, focal weakness or sensory changes [] Current Medications Current Medications Current Medications Medications (Trade) Dose Ordered Sig/Jeannette Start Time Stop Time Status Last Admin Dose Admin Albuterol Sulfate (Ventolin Neb Soln) 5 mg 1X ONCE 10/25/16 23:30 10/25/16 23:31 DC Albuterol/ Ipratropium (Duoneb) 3 ml 1X ONCE 10/25/16 23:30 10/25/16 23:31 DC Fentanyl Citrate (Fentanyl 2ml Vial) 50 mcg PRN Q2HR PRN 10/25/16 23:15 10/26/16 23:14 Furosemide (Lasix) 20 mg 1X ONCE 10/25/16 23:30 10/25/16 23:31 DC 10/25/16 23:16 20 MG Levofloxacin/ Dextrose 150 ml @ 100 mls/hr 1X ONCE 10/26/16 00:00 10/26/16 01:29 Methylprednisolone Sodium Succinate (SOLU-Medrol 125MG VIAL) 125 mg 1X ONCE 10/25/16 23:30 10/25/16 23:31 DC 10/25/16 23:16 125 MG Ondansetron HCl (Zofran) 4 mg PRN Q8HRS PRN 10/25/16 23:15 10/26/16 23:14 Allergies Allergies Allergies Coded Allergies Type Severity Reaction Last Updated Verified No Known Drug Allergies 05/14/15 No Physical Exam Physical Exam Constitutional: Chronically ill-appearing male in moderate to severe acute respiratory distress HENT: Normocephalic, atraumatic, bilateral external ears normal, oropharynx moist, no oral exudates, nose normal. [] Eyes: PERRLA, EOMI, conjunctiva normal, no discharge. [] Neck: Normal range of motion, no tenderness, supple, no stridor. [] Cardiovascular:Heart rate regular rhythm, no murmur [] Lungs & Thorax: Bilateral breath sounds are very diminished with expiratory wheezing noted. Abdomen: Bowel sounds normal, soft, no tenderness, no masses, no pulsatile masses. [] Skin: Warm, dry, no erythema, no rash. [] Back: No tenderness, no CVA tenderness. [] Extremities: No tenderness, no cyanosis, no clubbing, ROM intact, 2-3+ edema BL. [] Neurologic: Alert and oriented X 3, normal motor function, normal sensory function, no focal deficits noted. [] Current Patient Data Vital Signs Vital Signs Date Time Temp Pulse Resp B/P (MAP) Pulse Ox O2 Delivery O2 Flow Rate FiO2 10/25/16 22:59 71 28 118/56 (76) 68 Room Air 4.0 Lab Values Laboratory Tests Test 10/25/16 23:05 10/25/16 23:06 White Blood Count 9.7 x10^3/uL (4.0-11.0) Red Blood Count 4.51 x10^6/uL (4.30-5.70) Hemoglobin 14.1 g/dL (13.0-17.5) Hematocrit 42.3 % (39.0-53.0) Mean Corpuscular Volume 94 fL (79-100) Mean Corpuscular Hemoglobin 31 pg (25-35) Mean Corpuscular Hemoglobin Concent 33 g/dL (31-37) Red Cell Distribution Width 15.6 % (11.5-14.5) H Platelet Count 300 x10^3/uL (140-400) Neutrophils (%) (Auto) 82 % (31-73) H Lymphocytes (%) (Auto) 9 % (24-48) L Monocytes (%) (Auto) 7 % (0-9) Eosinophils (%) (Auto) 2 % (0-3) Basophils (%) (Auto) 1 % (0-3) Neutrophils # (Auto) 7.9 x10^3uL (1.8-7.7) H Lymphocytes # (Auto) 0.9 x10^3/uL (1.0-4.8) L Monocytes # (Auto) 0.7 x10^3/uL (0.0-1.1) Eosinophils # (Auto) 0.2 x10^3/uL (0.0-0.7) Basophils # (Auto) 0.1 x10^3/uL (0.0-0.2) Prothrombin Time 15.5 SEC (11.7-14.0) H Prothrombin Time INR 1.3 (0.8-1.1) H PTT 37 SEC (24-38) Sodium Level 143 mmol/L (136-145) Potassium Level 4.3 mmol/L (3.5-5.1) Chloride Level 102 mmol/L (98-107) Carbon Dioxide Level 32 mmol/L (21-32) Anion Gap 9 (6-14) Blood Urea Nitrogen 17 mg/dL (8-26) Creatinine 1.3 mg/dL (0.7-1.3) Estimated GFR (Cockcroft-Gault) 54.6 BUN/Creatinine Ratio 13 (6-20) Glucose Level 162 mg/dL (70-99) H Lactic Acid Level 2.4 mmol/L (0.4-2.0) H Calcium Level 9.4 mg/dL (8.5-10.1) Magnesium Level 2.2 mg/dL (1.8-2.4) Total Bilirubin 1.1 mg/dL (0.2-1.0) H Aspartate Amino Transferase (AST) 49 U/L (15-37) H Alanine Aminotransferase (ALT) 52 U/L (16-63) Alkaline Phosphatase 174 U/L (46-116) H Troponin I Quantitative 0.017 ng/mL (0.000-0.055) IL-Jlj-V-Type Natriuretic Peptide 3787 pg/mL (0-124) H Total Protein 7.4 g/dL (6.4-8.2) Albumin 3.7 g/dL (3.4-5.0) Albumin/Globulin Ratio 1.0 (1.0-1.7) O2 Saturation 91 % (92-99) L Arterial Blood pH 7.42 (7.35-7.45) Arterial Blood pCO2 at Patient Temp 45 mmHg (35-46) Arterial Blood pO2 at Patient Temp 63 mmHg (65-108) L Arterial Blood HCO3 29 mmol/L (21-28) H Arterial Blood Base Excess 4 mmol/L (-3-3) H Steven Test positive Oxyhemoglobin 90.0 % Methemoglobin 0.4 % (0.0-1.9) Carbon Monoxide, Quantitative 0.6 % (0.0-1.9) FiO2 40 Laboratory Tests 10/25/16 23:05 Laboratory Tests 10/25/16 23:05 EKG EKG Normal sinus rhythm with leftward axis no obvious ST elevation or depression with inverted T waves in leads V2 through V6. Radiology/Procedures Radiology/Procedures Quite abnormal chest x-ray with diffuse fibrosis likely noted with possible overlying infiltrate in the right lower lobe. Overall appears largely unchanged compared to June 2016 chest x-ray. Course & Med Decision Making Course & Med Decision Making Patient started on BiPAP breathing treatments and given Lasix. Patient did improve dramatically and now has an auction saturation of 98 that he is feeling better and he is not getting more tired with his breathing. He says that he would like to be intubated if he absolutely had to be but only if it would be for a short period time as he does not want to be on prolonged mechanical ventilation. I think he needs to be emergently intubated at this time as he is improving with BiPAP so will admit to the ICU for further breathing treatments observation and treatment. I spoke to Dr. Packer and he agreed with admission. Critical care time of 35 minutes. Dragon Disclaimer Dragon Disclaimer This electronic medical record was generated, in whole or in part, using a voice recognition dictation system. Departure Departure Impression: Primary Impression: Respiratory failure with hypoxia Additional Impressions: COPD exacerbation Pulmonary fibrosis CHF exacerbation Lactic acid acidosis Disposition: ADMITTED INPATIENT Admitting Physician: Juanis Packer Condition: CRITICAL Referrals: JUANIS PACKER MD (PCP) Problem Qualifiers Primary Impression: Respiratory failure with hypoxia Chronicity: acute on chronic Qualified Codes: J96.21 - Acute and chronic respiratory failure with hypoxia LORENA WATSON DO Oct 25, 2016 23:58
[2016-10-26] VITALS (12 sets, daily range): BP systolic 137–205; BP diastolic 68–94
[2016-10-26] MEDS: hydrALAZINE 20 MG/ML VIAL. IVP PRN (03:03)
[2016-10-26 05:47] LABS: BASO % 0 % (0-3); EOS % 0 % (0-3); HEMOGLOBIN 13.3 g/dL (13.0-17.5); LYMPH # 0.2 x10^3/uL (1.0-4.8); LYMPH % 2 % (24-48); MEAN CORPUSCULAR HEMOGLOBIN 31 pg (25-35); MEAN CORPUSCULAR HGB CONC 34 g/dL (31-37); MEAN CORPUSCULAR VOLUME 91 fL (79-100); MONO % 0 % (0-9); NEUT % 97 % (31-73); PLATELET COUNT 272 x10^3/uL (140-400); RED BLOOD COUNT 4.29 x10^6/uL (4.30-5.70); RED CELL DISTRIBUTION WIDTH 15.4 % (11.5-14.5); WHITE BLOOD COUNT 8.3 x10^3/uL (4.0-11.0)
[2016-10-26 05:54] LABS: CALCIUM 9.2 mg/dL (8.5-10.1); CREATININE 1.3 mg/dL (0.7-1.3); GFR 54.6
--- NOTE | 2016-10-26 06:21 | ACF ---
Admission Forms Criteria RESPIRATORY FAILURE GRG ( Place 'X' for any and all applicable criteria): Hospital admission is needed for appropriate care of the patient because of acute respiratory failure or insufficiency as indicated by 1 or more of the following (1)(2)(3)(4)(5)(6)(7)(8 ): [X ]I. Mechanical ventilation needed (acute invasive or noninvasive) [ ]II. Severe ventilation deficit as indicated by 1 or more of the following ( 9) [ ]a) Uncompensated Respiratory acidosis (pH < 7.35 and PaCO2 > 40 mmHg (5.3 kPa)) [ ]b) Airflow measurements < 25% of predicted (eg, PEFR < 100 L/min) [ ]c) FVC < 15 mL/kg of ideal body weight, or 50% decrease in vital capacity from baseline [ ]III. Noncardiac pulmonary edema not resolving with rapid emergency treatment (8) [ ]IV. Severe respiratory distress as indicated by 1 or more of the following: [ ]a) Severe tachypnea (respiratory rate greater than 30, greater than 45 for 6-month-old, greater than 60 for ) [ ]b) Severe hypoxemia (partial pressure of oxygen less than 50 mm Hg ( 6.7 kPa) on greater than 50% oxygen or partial pressure of oxygen to FIO2 ratio less than 200) [ ]c) Mental status deterioration from respiratory disease [ ]V. Airway obstruction or inadequate protection [A](10)(11) The original [facility] content created by [facility] has been revised. The portions of the content which have been revised are identified through the use of italic text, and [facility] has neither reviewed nor approved the modified material. All other unmodified content is copyright [facility]. Please see references footnoted in the original [facility] edition 2014 Admission Criteria Met?: Yes GABRIELLA SANZ Oct 26, 2016 06:21
--- NOTE | 2016-10-26 07:14 | EKG ---
[facility] [address] [place] [address] Test Date: 2016-10-25 Test Time: 23:01:12 Pat Name: ANANTH FAULKNER Department: Room: 108 1 Gender: M Credentialing Coordinator: : 1945 Requested By: LORENA WATSON Order Number: [id number] Reading MD: Kylah Campbell Measurements Intervals [place] Rate: 72 P: 42 DE: 174 QRS: -24 QRSD: 96 T: -171 QT: 402 QTc: 442 Interpretive Statements SINUS RHYTHM LEFTWARD AXIS LVH WITH REPOLARIZATION ABNORMALITY Electronically Signed On 10-29-2016 9:29:27 CDT by Kylah Campbell
--- NOTE | 2016-10-26 07:35 | RAD ---
Indication shortness of air. A single view of the chest was obtained and is compared to a study 4 months earlier. Postoperative changes are noted. Heart size is at the upper limits of normal but unchanged. There are areas of volume loss in both lungs similar to the previous exam compatible with chronic areas of fibrosis. A significant change relative to the previous exam is not seen. No pneumothorax is seen. IMPRESSION: Chronic changes. No definite acute process or significant change
--- NOTE | 2016-10-26 08:25 | PDOC ---
GENERAL General: see dictated H&P. Problems: VITAL SIGNS Vital Signs: Vital Signs Date Time Temp Pulse Resp B/P (MAP) Pulse Ox O2 Delivery O2 Flow Rate FiO2 10/26/16 07:00 75 21 173/85 (114) 96 Nasal Cannula 4.0 10/26/16 05:00 98.1 98.1 ALLERGIES Allergies: Allergies Coded Allergies Type Severity Reaction Last Updated Verified No Known Drug Allergies 05/14/15 No MEDS Medications: Current Medications Medications (Trade) Dose Ordered Sig/Jeannette Start Time Stop Time Status Last Admin Dose Admin Albuterol Sulfate (Ventolin Neb Soln) 5 mg 1X ONCE 10/25/16 23:30 10/25/16 23:31 DC 10/26/16 00:38 5 MG Albuterol/ Ipratropium (Duoneb) 3 ml 1X ONCE 10/25/16 23:30 10/25/16 23:31 DC 10/26/16 00:38 3 ML Azithromycin 250 ml @ 250 mls/hr DAILY 10/26/16 09:00 UNV Ceftriaxone Sodium 1 gm/ Sodium Chloride 50 ml @ 100 mls/hr Q24H 10/26/16 08:15 UNV Fentanyl Citrate (Fentanyl 2ml Vial) 50 mcg PRN Q2HR PRN 10/25/16 23:15 10/26/16 23:14 Furosemide (Lasix) 20 mg 1X ONCE 10/25/16 23:30 10/25/16 23:31 DC 10/25/16 23:16 20 MG Hydralazine HCl (Apresoline) 10 mg PRN Q6HRS PRN 10/26/16 02:45 10/26/16 03:03 10 MG Levofloxacin/ Dextrose 150 ml @ 100 mls/hr 1X ONCE 10/26/16 00:00 10/26/16 01:29 DC 10/26/16 00:42 100 MLS/HR Methylprednisolone Sodium Succinate (SOLU-Medrol 40MG VIAL) 40 mg Q8HRS 10/26/16 14:00 UNV Methylprednisolone Sodium Succinate (SOLU-Medrol 125MG VIAL) 125 mg 1X ONCE 10/25/16 23:30 10/25/16 23:31 DC 10/25/16 23:16 125 MG Ondansetron HCl (Zofran) 4 mg PRN Q8HRS PRN 10/25/16 23:15 10/26/16 23:14 LAB Lab: Laboratory Tests Test 10/25/16 23:05 10/25/16 23:06 10/26/16 03:00 10/26/16 05:00 White Blood Count 9.7 x10^3/uL (4.0-11.0) 8.3 x10^3/uL (4.0-11.0) Red Blood Count 4.51 x10^6/uL (4.30-5.70) 4.29 x10^6/uL (4.30-5.70) Hemoglobin 14.1 g/dL (13.0-17.5) 13.3 g/dL (13.0-17.5) Hematocrit 42.3 % (39.0-53.0) 39.0 % (39.0-53.0) Mean Corpuscular Volume 94 fL (79-100) 91 fL (79-100) Mean Corpuscular Hemoglobin 31 pg (25-35) 31 pg (25-35) Mean Corpuscular Hemoglobin Concent 33 g/dL (31-37) 34 g/dL (31-37) Red Cell Distribution Width 15.6 % (11.5-14.5) 15.4 % (11.5-14.5) Platelet Count 300 x10^3/uL (140-400) 272 x10^3/uL (140-400) Neutrophils (%) (Auto) 82 % (31-73) 97 % (31-73) Lymphocytes (%) (Auto) 9 % (24-48) 2 % (24-48) Monocytes (%) (Auto) 7 % (0-9) 0 % (0-9) Eosinophils (%) (Auto) 2 % (0-3) 0 % (0-3) Basophils (%) (Auto) 1 % (0-3) 0 % (0-3) Neutrophils # (Auto) 7.9 x10^3uL (1.8-7.7) 8.1 x10^3uL (1.8-7.7) Lymphocytes # (Auto) 0.9 x10^3/uL (1.0-4.8) 0.2 x10^3/uL (1.0-4.8) Monocytes # (Auto) 0.7 x10^3/uL (0.0-1.1) 0.0 x10^3/uL (0.0-1.1) Eosinophils # (Auto) 0.2 x10^3/uL (0.0-0.7) 0.0 x10^3/uL (0.0-0.7) Basophils # (Auto) 0.1 x10^3/uL (0.0-0.2) 0.0 x10^3/uL (0.0-0.2) Prothrombin Time 15.5 SEC (11.7-14.0) Prothromb Time International Ratio 1.3 (0.8-1.1) Activated Partial Thromboplast Time 37 SEC (24-38) Sodium Level 143 mmol/L (136-145) 141 mmol/L (136-145) Potassium Level 4.3 mmol/L (3.5-5.1) 4.0 mmol/L (3.5-5.1) Chloride Level 102 mmol/L (98-107) 102 mmol/L (98-107) Carbon Dioxide Level 32 mmol/L (21-32) 31 mmol/L (21-32) Anion Gap 9 (6-14) 8 (6-14) Blood Urea Nitrogen 17 mg/dL (8-26) 17 mg/dL (8-26) Creatinine 1.3 mg/dL (0.7-1.3) 1.3 mg/dL (0.7-1.3) Estimated GFR (Cockcroft-Gault) 54.6 54.6 BUN/Creatinine Ratio 13 (6-20) Glucose Level 162 mg/dL (70-99) 227 mg/dL (70-99) Lactic Acid Level 2.4 mmol/L (0.4-2.0) 1.7 mmol/L (0.4-2.0) Calcium Level 9.4 mg/dL (8.5-10.1) 9.2 mg/dL (8.5-10.1) Magnesium Level 2.2 mg/dL (1.8-2.4) Total Bilirubin 1.1 mg/dL (0.2-1.0) Aspartate Amino Transf (AST/SGOT) 49 U/L (15-37) Alanine Aminotransferase (ALT/SGPT) 52 U/L (16-63) Alkaline Phosphatase 174 U/L (46-116) Troponin I Quantitative 0.017 ng/mL (0.000-0.055) 0.017 ng/mL (0.000-0.055) XG-Tea-J-Type Natriuretic Peptide 3787 pg/mL (0-124) Total Protein 7.4 g/dL (6.4-8.2) Albumin 3.7 g/dL (3.4-5.0) Albumin/Globulin Ratio 1.0 (1.0-1.7) O2 Saturation 91 % (92-99) Arterial Blood pH 7.42 (7.35-7.45) Arterial Blood pCO2 at Patient Temp 45 mmHg (35-46) Arterial Blood pO2 at Patient Temp 63 mmHg (65-108) Arterial Blood HCO3 29 mmol/L (21-28) Arterial Blood Base Excess 4 mmol/L (-3-3) Steven Test positive Oxyhemoglobin 90.0 % Methemoglobin 0.4 % (0.0-1.9) Carbon Monoxide, Quantitative 0.6 % (0.0-1.9) FiO2 40 JUANIS PACKER MD Oct 26, 2016 08:25
--- NOTE | 2016-10-26 08:51 | HP ---
ADMIT DATE: 10/25/2016 CHIEF COMPLAINT AND HISTORY OF PRESENT ILLNESS: This 71-year-old white male is well known to me, followup in the office. The patient had 2-3 days of increasing cough, shortness of breath with sputum described as brown to bloody. No fevers or chills mentioned on questioning. He did have decreased energy, decreased appetite as well as marked increased shortness of breath, finally presenting to the Emergency Room on the evening of admission where he was admitted through the Emergency Room with respiratory failure with hypoxia and mild elevation of his lactic acid level. PAST MEDICAL HISTORY: Remarkable for heart failure, COPD, pulmonary fibrosis, hyperlipidemia, hypertension, hypothyroidism, prior HI, prior pneumonia, anxiety. PAST SURGICAL HISTORY: Remarkable for angioplasty, cholecystectomy, coronary bypass surgery, lung surgery for empyema some 25+ years ago. He has had a prior finger amputated, has had a shoulder surgery. MEDICATIONS: Brought with the patient, listed on the computer and have been addressed. ALLERGIES: He has no known drug allergies. SOCIAL HISTORY: He has a history of heavy drinking in the past, has apparently slowed down. He is a nonsmoker, does occasionally use marijuana. , lives at home with help of family. FAMILY HISTORY: Noncontributory. REVIEW OF SYSTEMS: As mentioned above. PHYSICAL EXAMINATION: GENERAL: He is a well-developed, well-nourished white male who is feeling much better by the time of my examination. He is on 4 liters of nasal cannula oxygen, oxygenating well, but has been on CPAP overnight. HEAD, EYES, EARS, NOSE AND THROAT: Remarkable for glasses. NECK: Supple, no adenopathy or thyromegaly. CHEST: Reveals decreased breath sounds with expiratory wheezes. HEART: Regular rate and rhythm without S3, S4 or murmur. ABDOMEN: Soft, nontender, without hepatosplenomegaly or mass. EXTREMITIES: Without cyanosis, clubbing or edema. NEUROLOGIC: He is intact. LABORATORY DATA: Initial laboratory was remarkable for a white count of 9700, hemoglobin of 14.1. Blood sugar was elevated at 162 with electrolytes within normal limits. IMPRESSION: 1. Acute respiratory failure due to exacerbation of chronic obstructive pulmonary disease, with bronchitis or pneumonia. 2. Other problems listed above. PLAN: The patient has been admitted. Antibiotics, steroids, fluids were being given as well as oxygen. Pulmonary and Cardiology have been consulted. The patient will be monitored, managed and treated appropriately. JUANIS PACKER MD DR: NEEL/russ JOB#: [id number] / [id number]
[2016-10-26] MEDS ORDERED: AZITHRMYCN 500MG IVPB FOR OMNI 250 ML IV SCH (09:00)
[2016-10-26] MEDS ORDERED: SODIUM CHLORIDE 0.65% NASAL SPRAY 45ML BOTTLE. NS PRN (09:30)
[2016-10-26] MEDS: CLOPIDOGREL BISULFATE 75 MG TABLET PO SCH (09:50)
[2016-10-26] MEDS: ASPIRIN 325 MG TABLET PO SCH (09:50)
[2016-10-26] MEDS: MULTIVITAMIN with MINERAL TABLET. PO SCH (09:51)
[2016-10-26] MEDS: LISINOPRIL 20 MG TABLET PO SCH (09:51)
[2016-10-26] MEDS: methylPREDNISolone SOD SUCC PF 40 MG/ML VIAL. IV SCH ×3 (09:52→21:15)
[2016-10-26] MEDS: CARVEDILOL 12.5 MG TABLET. PO SCH ×2 (09:52→17:23)
[2016-10-26] MEDS: AZITHROMYCIN 500 MG in IV NORMAL SALINE 250ML 250 ML IV SCH (09:52)
[2016-10-26 10:35] LABS: % EOS 1 % (0-5); ANISOCYTOSIS MOD
[2016-10-26 10:37] LABS: PLT ESTIMATE ADEQUATE (ADEQUATE)
--- NOTE | 2016-10-26 11:42 | PDOC ---
Provider Note Provider Note dictated MAIRA MIRANDA MD Oct 26, 2016 11:42
[2016-10-26] MEDS: LEVOTHYROXINE 125 MCG TABLET PO SCH (11:52)
--- NOTE | 2016-10-26 12:21 | CONS ---
DATE OF CONSULTATION: ATTENDING PHYSICIAN: Dr. Rivera Grey REASON FOR CONSULTATION: Respiratory failure. HISTORY OF PRESENT ILLNESS: The patient is a 71-year-old pleasant male who is very well known to me. He has multiple pulmonary and cardiac issues. He has history of cardiomyopathy and valvular heart disease. He has history of pulmonary fibrosis, most likely idiopathic type, which was treated initially with Ofev, but he continued to drink alcohol and as a result was hospitalized with liver failure and Ofev was discontinued. He also has underlying COPD and chronic respiratory failure at 4 liters of oxygen at rest and 5 liters with exertion. He was brought into the [facility] with 2-3 days history of increasing cough, productive of gera brown sputum to some blood-tinged sputum. No fever, no chills, no chest pains. He has increase in lower extremity edema. The patient was having more shortness of breath. He continues to drink alcohol. He no longer smokes cigarettes. He quit in the late . His chest x-ray was reviewed. It shows unchanged interstitial fibrosis without any significant pleural effusion. I compared the x-ray from one in June. I also reviewed his old CT chest from June as well. He was initially placed on BiPAP for [id number] hypoxic respiratory failure. His systolic blood pressure was 205 on admission. It is now 146 systolic. The patient states that even limited activities make him short of breath. He was started on antibiotics and also given Solu-Medrol as well. I have been asked to see him for further evaluation. PAST MEDICAL HISTORY: Significant for: 1. History of pulmonary fibrosis, idiopathic type. History of underlying chronic COPD. 2. History of chronic respiratory failure, on home oxygen 4 liters at rest and 5 liters with exercise. 3. History of cardiomyopathy with an EF of 45% and history of grade 2 diastolic dysfunction and history of severe aortic stenosis. PAST SURGICAL HISTORY: Including angioplasty, cholecystectomy, coronary artery bypass surgery, history of surgery for empyema some 25+ years ago, history of prior finger amputation, and a shoulder surgery. MEDICATIONS: All reviewed, as listed in the MRAD. ALLERGIES: None. SOCIAL HISTORY: History of heavy alcohol abuse and continues to drink whiskey and vodka on a regular basis. History of occasional marijuana use. FAMILY HISTORY: Noncontributory to lungs. REVIEW OF SYSTEMS: Twelve-point system obtained, pertinent positives discussed in history of present illness, otherwise noncontributory. All systems that were negative were reviewed as well. PHYSICAL EXAMINATION: VITAL SIGNS: Shows improvement in his blood pressure to 146/79, afebrile, pulse ox was 87% on 5 liters and now 90%. HEENT: Sclerae nonicteric. NECK: Supple, no JVD. LUNGS: Crackles at both the bases. CARDIOVASCULAR: Regular rate. ABDOMEN: Soft. EXTREMITIES: With 3+ pitting edema. LABORATORY DATA: Reviewed. White cell count 8.3, hemoglobin 13.3, platelets are 272. BUN is 17, creatinine 1.3. INR 1.3. ABGs with a pH of 7.42, pCO2 45 and a pO2 of 63 on 40% FIO2. IMPRESSION: 1. Rdnmo-ir-aeoievq hypoxic respiratory failure secondary to multifactorial etiologies and includes a combination of acute bronchitis. Difficult to exclude any pneumonia due to fibrotic changes on the chest x-ray. He has underlying cardiomyopathy and severe aortic stenosis, but appears clinically less likely in congestive heart failure. Underlying slowly progressive pulmonary fibrosis is another etiologic agent. 2. 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 He preferred to continue to drink whiskey and vodka, Ofev was discontinued. 3. Underlying chronic obstructive pulmonary disease. 4. Underlying respiratory failure with acute decompensation. 5. Cardiomyopathy with severe aortic stenosis. RECOMMENDATIONS: 1. Discussed at length with the patient regarding his prognosis. At this point, I would continue with current empiric antibiotics. 2. Continue with IV Solu-Medrol with slow taper. 3. The patient will require more oxygen at the time of discharge and will do a 6-minute walk test. I am expecting he may be needing 6-7 liters with exertion. 4. Discussed with Cardiology. We will add diuretics to treat possible futqc-xq-nbmbmze right heart failure. 5. Continue anti-ischemic medications per Cardiology. 6. The patient can be transferred to the floor. Discussed with RN and RT. Critical care time 35 minutes. MAIRA MIRANDA MD DR: ARACELI/russ JOB#: [id number] / [id number]
[2016-10-26] MEDS: ALPRAZolam 0.25 MG TABLET PO PRN (21:15)
[2016-10-26] MEDS: ATORVASTATIN CALCIUM 40 MG TABLET. PO SCH (21:15)
[2016-10-27] VITALS: BP 148/91
[2016-10-27] MEDS: ALPRAZolam 0.25 MG TABLET PO PRN ×2 (02:57→15:03)
[2016-10-27 04:00] VITALS: BP 144/88
[2016-10-27] MEDS: LEVOTHYROXINE 125 MCG TABLET PO SCH (06:14)
[2016-10-27] MEDS: methylPREDNISolone SOD SUCC PF 40 MG/ML VIAL. IV SCH ×3 (06:15→21:33)
[2016-10-27 07:50] VITALS: BP 154/97
[2016-10-27] MEDS: LISINOPRIL 20 MG TABLET PO SCH (09:07)
[2016-10-27] MEDS: MULTIVITAMIN with MINERAL TABLET. PO SCH (09:07)
[2016-10-27] MEDS: CARVEDILOL 12.5 MG TABLET. PO SCH ×2 (09:08→17:45)
[2016-10-27] MEDS: ASPIRIN 325 MG TABLET PO SCH (09:08)
[2016-10-27] MEDS: CLOPIDOGREL BISULFATE 75 MG TABLET PO SCH (09:08)
--- NOTE | 2016-10-27 10:28 | PDOC ---
PULMONARY PROGRESS NOTES Subjective feels better Vitals Vital Signs Date Time Temp Pulse Resp B/P (MAP) Pulse Ox O2 Delivery O2 Flow Rate FiO2 10/27/16 09:08 80 154/97 10/27/16 07:50 97.7 18 86 Nasal Cannula 4.0 97.7 General: Alert, Oriented X4, No acute distress HEENT: Other Lungs: Crackles (bases) Cardiovascular: S1, S2 Abdomen: Soft, Non-tender Neuro Exam: Alert Extremities: Other (2+edema) Labs Laboratory Tests Test 10/25/16 23:05 10/25/16 23:06 10/26/16 01:28 10/26/16 03:00 White Blood Count 9.7 x10^3/uL (4.0-11.0) Red Blood Count 4.51 x10^6/uL (4.30-5.70) Hemoglobin 14.1 g/dL (13.0-17.5) Hematocrit 42.3 % (39.0-53.0) Mean Corpuscular Volume 94 fL (79-100) Mean Corpuscular Hemoglobin 31 pg (25-35) Mean Corpuscular Hemoglobin Concent 33 g/dL (31-37) Red Cell Distribution Width 15.6 % (11.5-14.5) Platelet Count 300 x10^3/uL (140-400) Neutrophils (%) (Auto) 82 % (31-73) Lymphocytes (%) (Auto) 9 % (24-48) Monocytes (%) (Auto) 7 % (0-9) Eosinophils (%) (Auto) 2 % (0-3) Basophils (%) (Auto) 1 % (0-3) Neutrophils # (Auto) 7.9 x10^3uL (1.8-7.7) Lymphocytes # (Auto) 0.9 x10^3/uL (1.0-4.8) Monocytes # (Auto) 0.7 x10^3/uL (0.0-1.1) Eosinophils # (Auto) 0.2 x10^3/uL (0.0-0.7) Basophils # (Auto) 0.1 x10^3/uL (0.0-0.2) Prothrombin Time 15.5 SEC (11.7-14.0) Prothromb Time International Ratio 1.3 (0.8-1.1) Activated Partial Thromboplast Time 37 SEC (24-38) Sodium Level 143 mmol/L (136-145) Potassium Level 4.3 mmol/L (3.5-5.1) Chloride Level 102 mmol/L (98-107) Carbon Dioxide Level 32 mmol/L (21-32) Anion Gap 9 (6-14) Blood Urea Nitrogen 17 mg/dL (8-26) Creatinine 1.3 mg/dL (0.7-1.3) Estimated GFR (Cockcroft-Gault) 54.6 BUN/Creatinine Ratio 13 (6-20) Glucose Level 162 mg/dL (70-99) Lactic Acid Level 2.4 mmol/L (0.4-2.0) 1.7 mmol/L (0.4-2.0) Calcium Level 9.4 mg/dL (8.5-10.1) Magnesium Level 2.2 mg/dL (1.8-2.4) Total Bilirubin 1.1 mg/dL (0.2-1.0) Aspartate Amino Transf (AST/SGOT) 49 U/L (15-37) Alanine Aminotransferase (ALT/SGPT) 52 U/L (16-63) Alkaline Phosphatase 174 U/L (46-116) Troponin I Quantitative 0.017 ng/mL (0.000-0.055) JY-Oiy-K-Type Natriuretic Peptide 3787 pg/mL (0-124) Total Protein 7.4 g/dL (6.4-8.2) Albumin 3.7 g/dL (3.4-5.0) Albumin/Globulin Ratio 1.0 (1.0-1.7) O2 Saturation 91 % (92-99) Arterial Blood pH 7.42 (7.35-7.45) Arterial Blood pCO2 at Patient Temp 45 mmHg (35-46) Arterial Blood pO2 at Patient Temp 63 mmHg (65-108) Arterial Blood HCO3 29 mmol/L (21-28) Arterial Blood Base Excess 4 mmol/L (-3-3) Steven Test positive Oxyhemoglobin 90.0 % Methemoglobin 0.4 % (0.0-1.9) Carbon Monoxide, Quantitative 0.6 % (0.0-1.9) FiO2 40 Nasal Screen MRSA (PCR) Negative (Negative) Test 10/26/16 05:00 10/26/16 11:03 White Blood Count 8.3 x10^3/uL (4.0-11.0) Red Blood Count 4.29 x10^6/uL (4.30-5.70) Hemoglobin 13.3 g/dL (13.0-17.5) Hematocrit 39.0 % (39.0-53.0) Mean Corpuscular Volume 91 fL (79-100) Mean Corpuscular Hemoglobin 31 pg (25-35) Mean Corpuscular Hemoglobin Concent 34 g/dL (31-37) Red Cell Distribution Width 15.4 % (11.5-14.5) Platelet Count 272 x10^3/uL (140-400) Neutrophils (%) (Auto) 97 % (31-73) Lymphocytes (%) (Auto) 2 % (24-48) Monocytes (%) (Auto) 0 % (0-9) Eosinophils (%) (Auto) 0 % (0-3) Basophils (%) (Auto) 0 % (0-3) Neutrophils # (Auto) 8.1 x10^3uL (1.8-7.7) Lymphocytes # (Auto) 0.2 x10^3/uL (1.0-4.8) Monocytes # (Auto) 0.0 x10^3/uL (0.0-1.1) Eosinophils # (Auto) 0.0 x10^3/uL (0.0-0.7) Basophils # (Auto) 0.0 x10^3/uL (0.0-0.2) Segmented Neutrophils % 78 % (35-66) Band Neutrophils % 15 % (0-9) Lymphocytes % 4 % (24-48) Monocytes % 2 % (0-10) Eosinophils % 1 % (0-5) Dohle Bodies Present Platelet Estimate Adequate (ADEQUATE) Anisocytosis Mod Sodium Level 141 mmol/L (136-145) Potassium Level 4.0 mmol/L (3.5-5.1) Chloride Level 102 mmol/L (98-107) Carbon Dioxide Level 31 mmol/L (21-32) Anion Gap 8 (6-14) Blood Urea Nitrogen 17 mg/dL (8-26) Creatinine 1.3 mg/dL (0.7-1.3) Estimated GFR (Cockcroft-Gault) 54.6 Glucose Level 227 mg/dL (70-99) Calcium Level 9.2 mg/dL (8.5-10.1) Troponin I Quantitative 0.017 ng/mL (0.000-0.055) 0.024 ng/mL (0.000-0.055) Laboratory Tests Test 10/26/16 11:03 Troponin I Quantitative 0.024 ng/mL (0.000-0.055) Medications Active Scripts Medications Dose Route/Sig Max Daily Dose Days Date Category Lisinopril 20 Mg Tablet 1 Tab PO DAILY 04/12/16 Reported Coreg Cr (Carvedilol Phosphate) 80 Mg Cpmp.24hr 125 Mg PO BID 11/27/15 Reported Multivitamins (Multivitamin) 1 Each Tablet 1 Tab PO DAILY 11/27/15 Reported Xanax (Alprazolam) 0.25 Mg Tablet 1 Tab PO PRN TID 08/05/14 Reported Levothyroxine Sodium 125 Mcg Tablet 1 Tab PO DAILY 08/05/14 Reported Aspirin 325 Mg Tablet 1 Tab PO DAILY 07/07/14 Rx Plavix (Clopidogrel Bisulfate) 75 Mg Tablet 75 Mg PO DAILY 07/04/14 Reported Atorvastatin Calcium 80 Mg Tablet 80 Mg PO QHS 06/05/13 Reported Impression . 1. Vxwzo-fw-zitkfpf hypoxic respiratory failure secondary to multifactorial etiologies and includes a combination of acute bronchitis. Difficult to exclude any pneumonia due to fibrotic changes on the chest x-ray. He has underlying cardiomyopathy and severe aortic stenosis, but appears clinically less likely in congestive heart failure. Underlying slowly progressive pulmonary fibrosis is another etiologic agent. 2. 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 He preferred to continue to drink whiskey and vodka, Ofev was discontinued. 3. Underlying chronic obstructive pulmonary disease. 4. Underlying respiratory failure with acute decompensation. 5. Cardiomyopathy with severe aortic stenosis. Plan . 1. Discussed at length with the patient regarding his prognosis. At this point, I would continue with current empiric antibiotics. 2. Continue with IV Solu-Medrol with slow taper. 3. The patient will require more oxygen at the time of discharge and will do a 6-minute walk test. I am expecting he may be needing 6-7 liters with exertion. 4. Discussed with Cardiology. diuretics to treat possible xhbuc-ox-kfmqmst right heart failure. 5. Continue anti-ischemic medications per Cardiology. 6. PT consult MAIRA MIRANDA MD Oct 27, 2016 10:28
[2016-10-27 10:55] VITALS: BP 142/77
[2016-10-27] MEDS: AZITHROMYCIN 500 MG in IV NORMAL SALINE 250ML 250 ML IV SCH (11:42)
[2016-10-27] MEDS: FUROSEMIDE 40 MG TABLET. PO SCH (12:52)
--- NOTE | 2016-10-27 21:22 | PDOC ---
GENERAL General: vss and afebrile. O2 at 4-5 L/NC. still coughing up brown phlegm and sob but improved. exam stable. continue same and await clearing. Problems: VITAL SIGNS Vital Signs: Vital Signs Date Time Temp Pulse Resp B/P (MAP) Pulse Ox O2 Delivery O2 Flow Rate FiO2 10/27/16 17:45 70 142/77 10/27/16 10:55 96.6 18 89 Nasal Cannula 4.0 96.6 I & O I & O Intake and Output 10/28/16 07:00 Intake Total 438 ml Output Total 601 ml Balance -163 ml Intake Oral 438 ml Output Urine Total 600 ml Urine/Stool Mix 1 ml ALLERGIES Allergies: Allergies Coded Allergies Type Severity Reaction Last Updated Verified No Known Drug Allergies 05/14/15 No MEDS Medications: Current Medications Medications (Trade) Dose Ordered Sig/Jeannette Start Time Stop Time Status Last Admin Dose Admin Albuterol Sulfate (Ventolin Neb Soln) 5 mg 1X ONCE 10/25/16 23:30 10/25/16 23:31 DC 10/26/16 00:38 5 MG Albuterol/ Ipratropium (Duoneb) 3 ml 1X ONCE 10/25/16 23:30 10/25/16 23:31 DC 10/26/16 00:38 3 ML Alprazolam (Xanax) 0.25 mg PRN TID PRN 10/26/16 08:30 10/27/16 15:03 0.25 MG Aspirin (Regulo Aspirin) 325 mg DAILY 10/26/16 09:00 10/27/16 09:08 325 MG Atorvastatin Calcium (Lipitor) 80 mg QHS 10/26/16 21:00 10/26/16 21:15 80 MG Azithromycin 250 ml @ 250 mls/hr DAILY 10/26/16 09:00 10/26/16 09:00 DC Azithromycin 500 mg/Sodium Chloride 250 ml @ 250 mls/hr DAILY 10/26/16 09:00 10/27/16 11:42 250 MLS/HR Carvedilol (Coreg) 12.5 mg BIDWMEALS 10/26/16 08:45 10/27/16 17:45 12.5 MG Ceftriaxone Sodium 1 gm/ Sodium Chloride 50 ml @ 100 mls/hr Q24H 10/26/16 08:00 10/27/16 08:00 100 MLS/HR Clopidogrel Bisulfate (Plavix) 75 mg DAILY 10/26/16 09:00 10/27/16 09:08 75 MG Fentanyl Citrate (Fentanyl 2ml Vial) 50 mcg PRN Q2HR PRN 10/25/16 23:15 10/26/16 23:14 DC Furosemide (Lasix) 40 mg DAILY 10/27/16 12:00 10/27/16 12:52 40 MG Hydralazine HCl (Apresoline) 10 mg PRN Q6HRS PRN 10/26/16 02:45 10/26/16 03:03 10 MG Levofloxacin/ Dextrose 150 ml @ 100 mls/hr 1X ONCE 10/26/16 00:00 10/26/16 01:29 DC 10/26/16 00:42 100 MLS/HR Levothyroxine Sodium (Synthroid) 125 mcg DAILY07 10/26/16 10:30 10/27/16 06:14 125 MCG Lisinopril (Prinivil) 20 mg DAILY 10/26/16 09:00 10/27/16 09:07 20 MG Methylprednisolone Sodium Succinate (SOLU-Medrol 40MG VIAL) 40 mg Q8HRS 10/26/16 08:30 10/27/16 15:03 40 MG Methylprednisolone Sodium Succinate (SOLU-Medrol 125MG VIAL) 125 mg 1X ONCE 10/25/16 23:30 10/25/16 23:31 DC 10/25/16 23:16 125 MG Multivitamins (Thera M Plus) 1 tab DAILY 10/26/16 09:00 10/27/16 09:07 1 TAB Ondansetron HCl (Zofran) 4 mg PRN Q8HRS PRN 10/25/16 23:15 10/26/16 23:14 DC Sodium Chloride (Saline Mist Nasal) 1 valarie PRN Q1HR PRN 10/26/16 09:30 JUANIS PACKER MD Oct 27, 2016 21:22
[2016-10-27] MEDS: ATORVASTATIN CALCIUM 40 MG TABLET. PO SCH (21:33)
[2016-10-28] MEDS: hydrALAZINE 20 MG/ML VIAL. IVP PRN ×2 (03:20→20:28)
[2016-10-28 03:51] VITALS: BP 180/94
[2016-10-28] MEDS: methylPREDNISolone SOD SUCC PF 40 MG/ML VIAL. IV SCH ×2 (05:26→20:27)
[2016-10-28] MEDS: LEVOTHYROXINE 125 MCG TABLET PO SCH (05:26)
[2016-10-28] MEDS: ALPRAZolam 0.25 MG TABLET PO PRN ×2 (05:33→21:53)
--- NOTE | 2016-10-28 07:26 | CONS ---
DATE OF CONSULTATION: HISTORY OF PRESENT ILLNESS: This is a 71-year-old white man who was hospitalized after increasing shortness of breath. I have known him for some years. He has severe aortic stenosis and his last echocardiogram was in 04/2016. He has been evaluated at [facility]. He was rejected I believe for TAVR. I think the main problem was access. He has severe iliac stenosis. He also has severe pulmonary fibrosis that might make a thoracotomy difficult because of it. In any case, he was not accepted for the TAVR. He does not have significant aortic regurgitation. He does have coronary artery disease and has undergone coronary artery bypass grafting in the past and recently has undergone stenting. His last cardiac catheterization was about a year ago, at which time the stents were opened. Two of his grafts were patent. He has had no recent chest pain. He has had some swelling of his legs. He is hypoxic and requires oxygen supplements. He is being followed by Dr. Santos. He was evidently not a candidate for a new drug for the pulmonary fibrosis because of his abnormal liver function tests and I believe his propensity to take alcohol. PRESENT MEDICATIONS: 1. Alprazolam 0.25 mg 3 times a day p.r.n. 2. Aspirin 325 mg a day. 3. Atorvastatin 80 mg a day. 4. Carvedilol 80 mg a day. 5. Clopidogrel 75 mg a day. 6. Synthroid 125 mcg a day. 7. Lisinopril 20 mg a day. I note that he is not on a diuretic. I asked him and his daughter. They were not sure whether he was on a diuretic. I believe somewhere along the line this has been dropped. He also has had some left ventricular systolic dysfunction. Because of this, I believe he would need the diuretic. He has had ventricular tachycardia in the past, but these have all been nonsustained and not frequent and so we did not put him on an antiarrhythmic agent, neither did LETI. On examination, he said he feels much better than when he came into the Emergency Room. In the Emergency Room, he had been given IV Lasix. PHYSICAL EXAMINATION: VITAL SIGNS: The heart rate was 70 per minute and regular. The blood pressure is 110/80. LUNGS: Clear. HEART: The heart sounds were normal. There was high pitched systolic murmur at the base. The murmur was softer than what I would have expected. There was no diastolic murmur heard. There is no S3 or S4. EXTREMITIES: There is 1+ edema of the legs. LABORATORY DATA: A chest x-ray showed no significant valvular dysfunction. The sodium was 141, potassium 4, BUN 17, creatinine was 1.3. IMPRESSION: 1. Shortness of breath, probably due to fluid retention. 2. Severe aortic stenosis. 3. Mild ischemic cardiomyopathy. 4. Coronary artery disease with no angina. 5. Pulmonary fibrosis with severe hypoxia. 6. Pulmonary hypertension. Somewhere along the line, I believe the diuretic was discontinued. I would like to maintain him on Lasix at 40 mg a day. He did not take much to diurese him and feel better. Since we have a surgeon, Dr. Melgar, who was interested in a TAVR, we will get his opinion while he is here, regarding whether he would ever be a candidate for the TAVR. Thank you for asking me to see him. WINTER SUTHERLAND MD DR: JAIDA/russ JOB#: [id number] / [id number]
[2016-10-28 08:00] VITALS: BP 138/86
[2016-10-28] MEDS ORDERED: FUROSEMIDE 40 MG TABLET. ONE (08:15)
[2016-10-28] MEDS: MULTIVITAMIN with MINERAL TABLET. PO SCH (08:54)
[2016-10-28] MEDS: CLOPIDOGREL BISULFATE 75 MG TABLET PO SCH (08:54)
[2016-10-28] MEDS: ASPIRIN 325 MG TABLET PO SCH (08:54)
[2016-10-28] MEDS: FUROSEMIDE 40 MG TABLET. PO SCH (08:54)
[2016-10-28] MEDS: CARVEDILOL 12.5 MG TABLET. PO SCH ×2 (08:55→17:22)
[2016-10-28] MEDS: LISINOPRIL 20 MG TABLET PO SCH (08:55)
[2016-10-28] MEDS: AZITHROMYCIN 500 MG in IV NORMAL SALINE 250ML 250 ML IV SCH (10:12)
--- NOTE | 2016-10-28 10:12 | PDOC ---
PULMONARY PROGRESS NOTES Subjective feels better color of sputum better Vitals Vital Signs Date Time Temp Pulse Resp B/P (MAP) Pulse Ox O2 Delivery O2 Flow Rate FiO2 10/28/16 08:55 71 138/86 10/28/16 08:00 97.8 20 90 Nasal Cannula 4.0 97.8 General: Alert, Oriented X4, No acute distress HEENT: Other Lungs: Crackles (bases) Cardiovascular: S1, S2 Abdomen: Soft, Non-tender Neuro Exam: Alert Extremities: Other (2+edema) Labs Laboratory Tests Test 10/26/16 11:03 Troponin I Quantitative 0.024 ng/mL (0.000-0.055) Medications Active Scripts Medications Dose Route/Sig Max Daily Dose Days Date Category Lisinopril 20 Mg Tablet 1 Tab PO DAILY 04/12/16 Reported Coreg Cr (Carvedilol Phosphate) 80 Mg Cpmp.24hr 125 Mg PO BID 11/27/15 Reported Multivitamins (Multivitamin) 1 Each Tablet 1 Tab PO DAILY 11/27/15 Reported Xanax (Alprazolam) 0.25 Mg Tablet 1 Tab PO PRN TID 08/05/14 Reported Levothyroxine Sodium 125 Mcg Tablet 1 Tab PO DAILY 08/05/14 Reported Aspirin 325 Mg Tablet 1 Tab PO DAILY 07/07/14 Rx Plavix (Clopidogrel Bisulfate) 75 Mg Tablet 75 Mg PO DAILY 07/04/14 Reported Atorvastatin Calcium 80 Mg Tablet 80 Mg PO QHS 06/05/13 Reported Impression . 1. Exzou-wr-dqfssfj hypoxic respiratory failure secondary to multifactorial etiologies and includes a combination of acute bronchitis. Difficult to exclude any pneumonia due to fibrotic changes on the chest x-ray. He has underlying cardiomyopathy and severe aortic stenosis, but appears clinically less likely in congestive heart failure. Underlying slowly progressive pulmonary fibrosis is another etiologic agent. 2. 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 He preferred to continue to drink whiskey and vodka, Ofev was discontinued. 3. Underlying chronic obstructive pulmonary disease. 4. Underlying respiratory failure with acute decompensation. 5. Cardiomyopathy with severe aortic stenosis. Plan . 1. Discussed at length with the patient regarding his prognosis. At this point, I would continue with current empiric antibiotics. 2. Continue with IV Solu-Medrol with slow taper. 3. The patient will require more oxygen at the time of discharge and will do a 6-minute walk test. I am expecting he may be needing 6-7 liters with exertion. 4. Discussed with Cardiology. diuretics to treat possible sjyen-ao-mzevchk right heart failure. 5. Continue anti-ischemic medications per Cardiology. 6. PT consult. If he can ambulate safely, can go home with MAIRA DACOSTA MD Oct 28, 2016 10:12
[2016-10-28 11:00] VITALS: BP 129/91
[2016-10-28 15:00] VITALS: BP 143/69
--- NOTE | 2016-10-28 16:57 | PDOC2 ---
CONSULT Date of Consult Date of Consult DATE: 10/28/16 TIME: 16:51 Reason for Consult Reason for Consult: Severe aortic valve stenosis Referring Physician Referring Physician: Dr Campbell Identification/Chief Complaint Chief Complaint SOB Problems: Source Source: Caregiver, Chart review History of Present Illness Reason for Visit: The patient is a 8-year-old male who is known to have severe aortic valve stenosis and severe COPD. He was previously seen at for possible TAVR but was not deemed a candidate owing to poor access. In addition he has undergone CABG in the early s. He was admitted with shortness of breath and productive cough. I was consulted to consider the patient for TAVR candidacy. Past Medical History Cardiovascular: CAD, HTN, Hyperlipidemia Pulmonary: COPD CENTRAL NERVOUS SYSTEM: Other Endocrine: Hypothyroidism Past Surgical History Past Surgical History: CABG, Other Family History Family History: Other Social History ALCOHOL: occassional Drugs: None Current Problem List Problem List Problems Medical Problems: (1) CHF exacerbation Status: Acute (2) COPD exacerbation Status: Acute (3) Lactic acid acidosis Status: Acute (4) Pulmonary fibrosis Status: Acute (5) Respiratory failure with hypoxia Status: Acute Current Medications Current Medications Current Medications Albuterol/ Ipratropium (Duoneb) 3 ml 1X ONCE NEB Last administered on 00:38; Start 10/25/16 at 23:30; Stop 10/25/16 at 23:31; Status DC Albuterol Sulfate (Ventolin Neb Soln) 5 mg 1X ONCE NEB Last administered on 00:38; Start 10/25/16 at 23:30; Stop 10/25/16 at 23:31; Status DC Methylprednisolone Sodium Succinate (SOLU-Medrol 125MG VIAL) 125 mg 1X ONCE IV Last administered on 10/25/16 23:16; Start 10/25/16 at 23:30; Stop 10/25/16 at 23:31; Status DC Furosemide (Lasix) 20 mg 1X ONCE IVP Last administered on 10/25/16 23:16; Start 10/25/16 at 23:30; Stop 10/25/16 at 23:31; Status DC Ondansetron HCl (Zofran) 4 mg PRN Q8HRS PRN IV NAUSEA/VOMITING; Start 10/25/16 at 23:15; Stop 10/26/16 at 23:14; Status DC Fentanyl Citrate (Fentanyl 2ml Vial) 50 mcg PRN Q2HR PRN IV SEVERE PAIN; Start 10/25/16 at 23:15; Stop 10/26/16 at 23:14; Status DC Levofloxacin/ Dextrose 150 ml @ 100 mls/hr 1X ONCE IV Last administered on 00:42; Start 10/26/16 at 00:00; Stop 10/26/16 at 01:29; Status DC Hydralazine HCl (Apresoline) 10 mg PRN Q6HRS PRN IVP ELEVATED BP, SEE COMMENTS Last administered on 10/28/16 03:20; Start 10/26/16 at 02:45 Ceftriaxone Sodium 1 gm/ Sodium Chloride 50 ml @ 100 mls/hr Q24H IV Last administered on 10/28/16 08:56; Start 10/26/16 at 08:00 Azithromycin 250 ml @ 250 mls/hr DAILY IV ; Start 10/26/16 at 09:00; Stop at 09:00; Status DC Methylprednisolone Sodium Succinate (SOLU-Medrol 40MG VIAL) 40 mg Q8HRS IV Last administered on 10/28/16 05:26; Start 10/26/16 at 08:30; Stop 10/28/16 at 10: 13; Status DC Alprazolam (Xanax) 0.25 mg PRN TID PRN PO ANXIETY Last administered on 05:33; Start 10/26/16 at 08:30 Aspirin (Regulo Aspirin) 325 mg DAILY PO Last administered on 10/28/16 08:54; Start 10/26/16 at 09:00 Clopidogrel Bisulfate (Plavix) 75 mg DAILY PO Last administered on 10/28/16 08: 54; Start 10/26/16 at 09:00 Levothyroxine Sodium (Synthroid) 125 mcg DAILY07 PO Last administered on 05:26; Start 10/26/16 at 10:30 Lisinopril (Prinivil) 20 mg DAILY PO Last administered on 10/28/16 08:55; Start 10/26/16 at 09:00 Atorvastatin Calcium (Lipitor) 80 mg QHS PO Last administered on 10/27/16 21:33 ; Start 10/26/16 at 21:00 Carvedilol (Coreg) 12.5 mg BIDWMEALS PO Last administered on 10/28/16 08:55; Start 10/26/16 at 08:45 Multivitamins (Thera M Plus) 1 tab DAILY PO Last administered on 10/28/16 08:54 ; Start 10/26/16 at 09:00 Azithromycin 500 mg/Sodium Chloride 250 ml @ 250 mls/hr DAILY IV Last administered on 10/28/16 10:12; Start 10/26/16 at 09:00 Sodium Chloride (Saline Mist Nasal) 1 valarie PRN Q1HR PRN NS NASAL CONGESTION; Start 10/26/16 at 09:30 Furosemide (Lasix) 40 mg DAILY PO Last administered on 10/28/16 08:54; Start at 12:00 Furosemide (Lasix) 40 mg STK-MED ONCE .ROUTE ; Start 10/28/16 at 08:15; Stop 10/28 at 08:20; Status DC Methylprednisolone Sodium Succinate (SOLU-Medrol 40MG VIAL) 40 mg BID IV ; Start 10/28/16 at 21:00 Active Scripts Active Aspirin 325 Mg Tablet 1 Tab PO DAILY Reported Lisinopril 20 Mg Tablet 1 Tab PO DAILY Coreg Cr (Carvedilol Phosphate) 80 Mg Cpmp.24hr 125 Mg PO BID Multivitamins (Multivitamin) 1 Each Tablet 1 Tab PO DAILY Xanax (Alprazolam) 0.25 Mg Tablet 1 Tab PO PRN TID Levothyroxine Sodium 125 Mcg Tablet 1 Tab PO DAILY Plavix (Clopidogrel Bisulfate) 75 Mg Tablet 75 Mg PO DAILY Atorvastatin Calcium 80 Mg Tablet 80 Mg PO QHS Allergies Allergies: Coded Allergies: No Known Drug Allergies (Unverified , 05/14/15) ROS General: YES: Fatigue, No: Chills, Night Sweats, Malaise, Appetite PSYCHOLOGICAL ROS: No: Anxiety, Behavioral Disorder, Concentration difficultie , Decreased libido, Depression, Disorientation, Hallucinations, Hostility, Irritablity, Memory difficulties, Mood Swings, Obsessive thoughts, Physical abuse, Sexual abuse, Sleep disturbances, Suicidal ideation Eyes: No Blurry vision, No Decreased vision, No Double vision, No Dry eyes, No Excessive tearing, No Eye Pain, No Itchy Eyes, No Loss of vision, No Photophobia , No Scotomata, No Uses contacts, No Uses glasses HEENT: No: Heacaches, Visual Changes, Hearing change, Nasal congestion, Nasal discharge, Oral lesions, Sinus pain, Sore Throat, Epistaxis, Sneezing, Snoring, Tinnitus, Vertigo, Vocal changes ALLERGY AND IMMUNOLOGY: No: Hives, Insect Bite Sensitivity, Itchy/Watery Eyes, Nasal Congestion, Post Nasal Drip, Seasonal Allergies Hematological and Lymphatic: No: Bleeding Problems, Blood Clots, Blood Transfusions, Brusing, Night Sweats, Pallor, Swollen Lymph Nodes ENDOCRINE: No: Breast Changes, Galactorrhea, Hair Pattern Changes, Hot Flashes , Malaise/lethargy, Mood Swings, Palpitations, Polydipsia/polyuria, Skin Changes , Temperature Intolerance, Unexpected Weight Changes Breast: No New/Changing Breast Lumps, No Nipple changes, No Nipple discharge Respiratory: YES: Cough, Hemoptysis, Orthopnea, Shortness of breath, No: Pleuritic Pain, SOB with excertion, Sputum Changes, Stridor, Tachypnea, Wheezing Cardiovascular: No Chest Pain, No Palpitations, No Orthopnea, No Paroxysmal Noc. Dyspnea, No Edema, No Lt Headedness Gastrointestinal: No Nausea, No Vomiting, No Abdominal Pain, No Diarrhea, No Constipation, No Melena, No Hematochezia Genitourinary: No Dysuria, No Frequency, No Incontinence, No Hematuria, No Retention, No Discharge, No Urgency, No Pain, No Flank Pain Musculoskeletal: No Gait Disturbance, No Joint Pain, No Joint Stiffness, No Joint Swelling, No Muscle Pain, No Muscular Weakness, No Pain In:, No Swelling In: Neurological: No Behavorial Changes, No Bowel/Bladder ControlChng, No Confusion , No Dizziness, No Gait Disturbance, No Headaches, No Impaired Coord/balance, No Memory Loss, No Numbness/Tingling, No Seizures, No Speech Problems, No Tremors, No Visual Changes, No Weakness Skin: Yes Other, No Dry Skin, No Eczema, No Hair Changes, No Lumps, No Mole Changes, No Mottling, No Nail Changes, No Pruritus, No Rash, No Skin Lesion Changes, No Acne Physical Exam General: Alert, Oriented X3 HEENT: Atraumatic, PERRLA Lungs: Other (diffuse crackles) Heart: Regular rate, Normal S1, Normal S2, Other (systolic murmur) Abdomen: Soft, No tenderness Extremities: No edema Skin: No significant lesion Neuro: Normal gait, Normal speech, Strength at 5/5 X4 ext, Normal tone, Sensation intact, Cranial nerves 3-12 NL Psych/Mental Status: Mental status NL MUSCULOSKELETAL: No deformity Vitals VITALS Vital Signs Date Time Temp Pulse Resp B/P (MAP) Pulse Ox O2 Delivery O2 Flow Rate FiO2 10/28/16 15:00 97.8 79 20 143/69 (93) 90 Nasal Cannula 4.0 97.8 Assessment/Plan Assessment/Plan Patient is a 71-year-old male with severe aortic valve stenosis, severe COPD on to pulmonary fibrosis. Unfortunately the patient is not a candidate for TAVR owing to his severe iliac stenosis. In addition he could not have a direct aortic approach which would require an anterior thoracotomy given his severe COPD. In addition that approach would be very challenging considering that his already had a sternotomy for CABG in the and it would be difficult to dissect through the adhesions through a small anterior thoracotomy incision. His only real options would be balloon valvuloplasty. Another option would be to find the center that be willing to do a direct apical approach. Unfortunately we do not have an approved TAVR at [facility]. A direct apical approach may also be challenging owing to his previous sternotomy. JASMYNE ROACH MD Oct 28, 2016 16:57
[2016-10-28 20:00] VITALS: BP 154/81
[2016-10-28] MEDS: ATORVASTATIN CALCIUM 40 MG TABLET. PO SCH (20:08)
--- NOTE | 2016-10-28 21:10 | PDOC ---
Provider Note Provider Note He has been feeling better. Lungs show bibasilar crackles. Edema of the legs has significantly improved. Appreciate opinion of Dr. Acevedo I had referred him to [facility] to consider TAVR but I did not receive any comminicztion from them. .I assumed that access was a problem but there was no evidence for it. We now have the official opinion of a surgeon. WINTER SUTHERLAND MD Oct 28, 2016 21:10
--- NOTE | 2016-10-28 22:24 | PDOC ---
GENERAL General: vss and afebrile. awake and alert. less phlegm and better color. chest with bilateral crackles. heart regular. cardiology and cts opinions noted on aortic stenosis. continue same. Problems: VITAL SIGNS Vital Signs: Vital Signs Date Time Temp Pulse Resp B/P (MAP) Pulse Ox O2 Delivery O2 Flow Rate FiO2 10/28/16 20:28 71 154/81 10/28/16 20:00 98.3 20 91 Nasal Cannula 4.0 98.3 I & O I & O Intake and Output 10/29/16 06:59 Intake Total 800 ml Output Total 450 ml Balance 350 ml Intake Oral 800 ml Output Urine Total 450 ml # Voids 3 ALLERGIES Allergies: Allergies Coded Allergies Type Severity Reaction Last Updated Verified levofloxacin Allergy Intermediate 10/28/16 Yes MEDS Medications: Current Medications Medications (Trade) Dose Ordered Sig/Jeannette Start Time Stop Time Status Last Admin Dose Admin Albuterol Sulfate (Ventolin Neb Soln) 5 mg 1X ONCE 10/25/16 23:30 10/25/16 23:31 DC 10/26/16 00:38 5 MG Albuterol/ Ipratropium (Duoneb) 3 ml 1X ONCE 10/25/16 23:30 10/25/16 23:31 DC 10/26/16 00:38 3 ML Alprazolam (Xanax) 0.25 mg PRN TID PRN 10/26/16 08:30 10/28/16 21:53 0.25 MG Aspirin (Regulo Aspirin) 325 mg DAILY 10/26/16 09:00 10/28/16 08:54 325 MG Atorvastatin Calcium (Lipitor) 80 mg QHS 10/26/16 21:00 10/28/16 20:08 80 MG Azithromycin 250 ml @ 250 mls/hr DAILY 10/26/16 09:00 10/26/16 09:00 DC Azithromycin 500 mg/Sodium Chloride 250 ml @ 250 mls/hr DAILY 10/26/16 09:00 10/28/16 10:12 250 MLS/HR Carvedilol (Coreg) 12.5 mg BIDWMEALS 10/26/16 08:45 10/28/16 17:22 12.5 MG Ceftriaxone Sodium 1 gm/ Sodium Chloride 50 ml @ 100 mls/hr Q24H 10/26/16 08:00 10/28/16 08:56 100 MLS/HR Clopidogrel Bisulfate (Plavix) 75 mg DAILY 10/26/16 09:00 10/28/16 08:54 75 MG Fentanyl Citrate (Fentanyl 2ml Vial) 50 mcg PRN Q2HR PRN 10/25/16 23:15 10/26/16 23:14 DC Furosemide (Lasix) 40 mg STK-MED ONCE 10/28/16 08:15 10/28/16 08:20 DC Hydralazine HCl (Apresoline) 10 mg PRN Q6HRS PRN 10/26/16 02:45 10/28/16 20:28 10 MG Levofloxacin/ Dextrose 150 ml @ 100 mls/hr 1X ONCE 10/26/16 00:00 10/26/16 01:29 DC 10/26/16 00:42 100 MLS/HR Levothyroxine Sodium (Synthroid) 125 mcg DAILY07 10/26/16 10:30 10/28/16 05:26 125 MCG Lisinopril (Prinivil) 20 mg DAILY 10/26/16 09:00 10/28/16 08:55 20 MG Methylprednisolone Sodium Succinate (SOLU-Medrol 40MG VIAL) 40 mg BID 10/28/16 21:00 10/28/16 20:27 40 MG Methylprednisolone Sodium Succinate (SOLU-Medrol 125MG VIAL) 125 mg 1X ONCE 10/25/16 23:30 10/25/16 23:31 DC 10/25/16 23:16 125 MG Multivitamins (Thera M Plus) 1 tab DAILY 10/26/16 09:00 10/28/16 08:54 1 TAB Ondansetron HCl (Zofran) 4 mg PRN Q8HRS PRN 10/25/16 23:15 10/26/16 23:14 DC Sodium Chloride (Saline Mist Nasal) 1 valarie PRN Q1HR PRN 10/26/16 09:30 JUANIS PACKER MD Oct 28, 2016 22:24
[2016-10-28 22:51] VITALS: BP 129/81
[2016-10-28] MEDS: ALBUTEROL SULFATE 2.5 MG/3 ML NEBU. NEB PRN (23:07)
[2016-10-29 03:00] VITALS: BP 132/77
[2016-10-29] MEDS: LEVOTHYROXINE 125 MCG TABLET PO SCH (06:05)
[2016-10-29 07:00] VITALS: BP 139/95
[2016-10-29] MEDS: IPRATRPIUM/ALBUTEROL 0.5/2.5MG 3 ML NEBU. NEB SCH ×4 (07:18→20:31)
[2016-10-29] MEDS: methylPREDNISolone SOD SUCC PF 40 MG/ML VIAL. IV SCH (08:14)
[2016-10-29] MEDS: FUROSEMIDE 40 MG TABLET. PO SCH (08:14)
[2016-10-29] MEDS: CARVEDILOL 12.5 MG TABLET. PO SCH ×2 (08:14→17:04)
[2016-10-29] MEDS: CLOPIDOGREL BISULFATE 75 MG TABLET PO SCH (08:14)
[2016-10-29] MEDS: ASPIRIN 325 MG TABLET PO SCH (08:14)
[2016-10-29] MEDS: LISINOPRIL 20 MG TABLET PO SCH (08:15)
[2016-10-29] MEDS: MULTIVITAMIN with MINERAL TABLET. PO SCH (08:15)
--- NOTE | 2016-10-29 09:31 | PDOC ---
GENERAL General: vss and afebrile. awake and alert and slow but steady improvement in sob. exam stable. therapy to decide home vs snu on dc. Problems: VITAL SIGNS Vital Signs: Vital Signs Date Time Temp Pulse Resp B/P (MAP) Pulse Ox O2 Delivery O2 Flow Rate FiO2 10/29/16 08:15 72 132/77 10/29/16 08:00 Nasal Cannula 4.0 10/29/16 07:18 94 10/29/16 07:00 97.9 20 97.9 ALLERGIES Allergies: Allergies Coded Allergies Type Severity Reaction Last Updated Verified levofloxacin Allergy Intermediate 10/28/16 Yes MEDS Medications: Current Medications Medications (Trade) Dose Ordered Sig/Jeannette Start Time Stop Time Status Last Admin Dose Admin Albuterol Sulfate (Ventolin Neb Soln) 2.5 mg PRN Q4HRS PRN 10/28/16 23:00 10/28/16 23:07 2.5 MG Albuterol/ Ipratropium (Duoneb) 3 ml RTQID 10/29/16 08:00 10/29/16 07:18 3 ML Alprazolam (Xanax) 0.25 mg PRN TID PRN 10/26/16 08:30 10/28/16 21:53 0.25 MG Aspirin (Regulo Aspirin) 325 mg DAILY 10/26/16 09:00 10/29/16 08:14 325 MG Atorvastatin Calcium (Lipitor) 80 mg QHS 10/26/16 21:00 10/28/16 20:08 80 MG Azithromycin 250 ml @ 250 mls/hr DAILY 10/26/16 09:00 10/26/16 09:00 DC Azithromycin 500 mg/Sodium Chloride 250 ml @ 250 mls/hr DAILY 10/26/16 09:00 10/28/16 10:12 250 MLS/HR Carvedilol (Coreg) 12.5 mg BIDWMEALS 10/26/16 08:45 10/29/16 08:14 12.5 MG Ceftriaxone Sodium 1 gm/ Sodium Chloride 50 ml @ 100 mls/hr Q24H 10/26/16 08:00 10/29/16 08:13 100 MLS/HR Clopidogrel Bisulfate (Plavix) 75 mg DAILY 10/26/16 09:00 10/29/16 08:14 75 MG Fentanyl Citrate (Fentanyl 2ml Vial) 50 mcg PRN Q2HR PRN 10/25/16 23:15 10/26/16 23:14 DC Furosemide (Lasix) 40 mg STK-MED ONCE 10/28/16 08:15 10/28/16 08:20 DC Hydralazine HCl (Apresoline) 10 mg PRN Q6HRS PRN 10/26/16 02:45 10/28/16 20:28 10 MG Levofloxacin/ Dextrose 150 ml @ 100 mls/hr 1X ONCE 10/26/16 00:00 10/26/16 01:29 DC 10/26/16 00:42 100 MLS/HR Levothyroxine Sodium (Synthroid) 125 mcg DAILY07 10/26/16 10:30 10/29/16 06:05 125 MCG Lisinopril (Prinivil) 20 mg DAILY 10/26/16 09:00 10/29/16 08:15 20 MG Methylprednisolone Sodium Succinate (SOLU-Medrol 40MG VIAL) 40 mg BID 10/28/16 21:00 10/29/16 08:14 40 MG Methylprednisolone Sodium Succinate (SOLU-Medrol 125MG VIAL) 125 mg 1X ONCE 10/25/16 23:30 10/25/16 23:31 DC 10/25/16 23:16 125 MG Multivitamins (Thera M Plus) 1 tab DAILY 10/26/16 09:00 10/29/16 08:15 1 TAB Ondansetron HCl (Zofran) 4 mg PRN Q8HRS PRN 10/25/16 23:15 10/26/16 23:14 DC Sodium Chloride (Saline Mist Nasal) 1 valarie PRN Q1HR PRN 10/26/16 09:30 JUANIS PACKER MD Oct 29, 2016 09:31
[2016-10-29] MEDS: AZITHROMYCIN 500 MG in IV NORMAL SALINE 250ML 250 ML IV SCH (09:50)
[2016-10-29 11:00] VITALS: BP 114/73
--- NOTE | 2016-10-29 13:02 | PDOC ---
PULMONARY PROGRESS NOTES Subjective feels better color of sputum better Vitals Vital Signs Date Time Temp Pulse Resp B/P (MAP) Pulse Ox O2 Delivery O2 Flow Rate FiO2 10/29/16 11:00 97.8 78 20 114/73 (87) 90 Nasal Cannula 4.0 97.8 General: Alert, Oriented X4, No acute distress HEENT: Other Lungs: Crackles (bases) Cardiovascular: S1, S2 Abdomen: Soft, Non-tender Neuro Exam: Alert Extremities: Other (2+edema) Medications Active Scripts Medications Dose Route/Sig Max Daily Dose Days Date Category Lisinopril 20 Mg Tablet 1 Tab PO DAILY 04/12/16 Reported Coreg Cr (Carvedilol Phosphate) 80 Mg Cpmp.24hr 125 Mg PO BID 11/27/15 Reported Multivitamins (Multivitamin) 1 Each Tablet 1 Tab PO DAILY 11/27/15 Reported Xanax (Alprazolam) 0.25 Mg Tablet 1 Tab PO PRN TID 08/05/14 Reported Levothyroxine Sodium 125 Mcg Tablet 1 Tab PO DAILY 08/05/14 Reported Aspirin 325 Mg Tablet 1 Tab PO DAILY 07/07/14 Rx Plavix (Clopidogrel Bisulfate) 75 Mg Tablet 75 Mg PO DAILY 07/04/14 Reported Atorvastatin Calcium 80 Mg Tablet 80 Mg PO QHS 06/05/13 Reported Impression . 1. Qwflj-cg-ikrsand hypoxic respiratory failure secondary to multifactorial etiologies and includes a combination of acute bronchitis. Difficult to exclude any pneumonia due to fibrotic changes on the chest x-ray. He has underlying cardiomyopathy and severe aortic stenosis, but appears clinically less likely in congestive heart failure. Underlying slowly progressive pulmonary fibrosis is another etiologic agent. 2. 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 He preferred to continue to drink whiskey and vodka, Ofev was discontinued. 3. Underlying chronic obstructive pulmonary disease. 4. Underlying respiratory failure with acute decompensation. 5. Cardiomyopathy with severe aortic stenosis. Plan . 1. antibiotics. 2. change to PO steroids 3. The patient will require more oxygen at the time of discharge and will do a 6-minute walk test. I am expecting he may be needing 6-7 liters with exertion. 4. diuretics to treat possible gnnvi-gs-fizctma right heart failure. 5. Continue anti-ischemic medications per Cardiology. 6. PT consulted. Doing well with ambulation. can go home with HH vs U MAIRA MIRANDA MD Oct 29, 2016 13:02
[2016-10-29 15:00] VITALS: BP 132/71
--- NOTE | 2016-10-29 17:22 | CARD ---
APPROVED REPORT EXAM: Two-dimensional and M-mode echocardiogram with Doppler and color Doppler. Other Information Quality : GoodHR: 79bpm Rhythm : NSR INDICATION Aortic stenosis 2D DIMENSIONS RVDd4.0 (2.9-3.5cm)Left Atrium(2D)5.4 (1.6-4.0cm) IVSd1.6 (0.7-1.1cm)LVDd3.6 (3.9-5.9cm) LVOT Diameter2.4 (1.8-2.4cm)PWd1.5 (0.7-1.1cm) LVDs3.1 (2.5-4.0cm)FS (%) 14.8 % SV17.7 mlLVEF(%)32.0 (>50%) Aortic Valve AoV Peak Liam.486.9cm/sAoV ZSM433.2cm AO Peak GR.94.8mmHgLVOT Peak Liam.94.7cm/s AO Mean GR.43mmHgAVA (VMAX)0.88cm2 Mitral Valve MV E Innftdme43.1cm/sMV E Peak Gr.4mmHg MV DECEL [id number] A Mtboyzla34.7cm/s MV E Mean Gr.1mmHgE/A Ratio1.4 MV A [id number] Pulmonary Valve PV Peak Jbhnrzde62.3cm/s Tricuspid Valve TR P. Nqbzfirz073uh/sTR Peak Gr.80mmHg Pulmonary Vein S1 Vzwjceoj00.4cm/sD2 Lullnfvd82.7cm/s PVa [id number] LEFT VENTRICLE The left ventricle is normal size. There is mild to moderate concentric left ventricular hypertrophy. Left ventricle systolic function is moderately impaired. The Ejection Fraction is 30-35%. There is m oderate global hypokinesis of the left ventricle. Transmitral Doppler flow pattern is Grade II-pseudo normal filling dynamics. No left ventricle thrombus noted on this study. RIGHT VENTRICLE The right ventricle is moderately dilated. There is normal right ventricular wall thickness. Systolic function is moderately to severely reduced. ATRIA The left atrium is mildly dilated. The right atrium size is normal. The interatrial septum is intact with no evidence for an atrial septal defect or patent foramen ovale as noted on 2-D or Doppler imagi ng. AORTIC VALVE The aortic valve is moderately to severely sclerotic. The aortic valve is tri-cuspid. Doppler and Col or Flow revealed no significant aortic regurgitation. There is severe valvular aortic stenosis. Calcu lated aortic valve area is .87 cm2 with maximum pressure gradient of 95 mmHg and mean pressure gradie nt of 43 mmHg. The dimensionless index is .19 consistent with severe aortic valve stenosis. MITRAL VALVE Mitral annular calcification is mild. The mitral valve leaflets are moderately thickened. There is no evidence of mitral valve prolapse. There is no mitral valve stenosis. Doppler and Color Flow reveale d no mitral valve regurgitation noted. TRICUSPID VALVE Doppler and Color Flow revealed moderate tricuspid regurgitation. The pulmonary artery systolic press ure is estimated at 95 mmHg. There is severe pulmonary hypertension. PULMONIC VALVE The pulmonic valve is not well visualized but appears to open adequately. Doppler and Color Flow reve aled no pulmonic valvular regurgitation. There is no pulmonic valvular stenosis by spectral Doppler. GREAT VESSELS The aortic root is normal in size. The ascending aorta is normal in size. The pulmonary artery is nor mal. The IVC is dilated and does not collapse with inspiration. PERICARDIAL EFFUSION There is no evidence of significant pericardial effusion. Critical Notification Critical Value: No <Conclusion> The left ventricle is normal size. There is mild to moderate concentric left ventricular hypertrophy. Left ventricle systolic function is moderately impaired. The Ejection Fraction is 30-35%. There is moderate global hypokinesis of the left ventricle. Transmitral Doppler flow pattern is Grade II-pseudonormal filling dynamics. The E/E' ratio is increased dictating a raised left atrial filling pressure. There is no evidence of significant pericardial effusion. There is no mitral stenosis or regurgitation. Left atrium is enlarged to 5.4 cm. The aortic valve is moderately to severely sclerotic. The aortic valve is tri-cuspid. Doppler and Color Flow revealed no significant aortic regurgitation. There is severe valvular aortic stenosis. Calculated aortic valve area is .87 cm2 with maximum pressure gradient of 95 mmHg and mean pressure g radient of 43 mmHg. The dimensionless index is .19 consistent with severe aortic valve stenosis. Doppler and Color Flow revealed moderate tricuspid regurgitation. The pulmonary artery systolic pressure is estimated at 95 mmHg. The pulmonic valve is normal. There is severe pulmonary hypertension. IMORESSION. 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
[2016-10-29 19:59] VITALS: BP 148/78
[2016-10-29] MEDS: ATORVASTATIN CALCIUM 40 MG TABLET. PO SCH (20:26)
[2016-10-29] MEDS: ALPRAZolam 0.25 MG TABLET PO PRN (20:26)
[2016-10-29 23:59] VITALS: BP 138/90
[2016-10-30] MEDS: ALBUTEROL SULFATE 2.5 MG/3 ML NEBU. NEB PRN (01:23)
[2016-10-30 04:25] VITALS: BP 159/94
[2016-10-30 07:00] VITALS: BP 147/90
[2016-10-30] MEDS: IPRATRPIUM/ALBUTEROL 0.5/2.5MG 3 ML NEBU. NEB SCH ×4 (07:07→18:09)
[2016-10-30] MEDS: CARVEDILOL 12.5 MG TABLET. PO SCH ×2 (08:21→17:02)
[2016-10-30] MEDS: LEVOTHYROXINE 125 MCG TABLET PO SCH (08:21)
[2016-10-30] MEDS: FUROSEMIDE 40 MG TABLET. PO SCH (08:22)
[2016-10-30] MEDS: predniSONE 20 MG TABLET PO SCH (08:22)
[2016-10-30] MEDS: MULTIVITAMIN with MINERAL TABLET. PO SCH (08:22)
[2016-10-30] MEDS: ASPIRIN 325 MG TABLET PO SCH (08:22)
[2016-10-30] MEDS: CLOPIDOGREL BISULFATE 75 MG TABLET PO SCH (08:22)
[2016-10-30] MEDS: LISINOPRIL 20 MG TABLET PO SCH (08:23)
[2016-10-30] MEDS: AZITHROMYCIN 500 MG in IV NORMAL SALINE 250ML 250 ML IV SCH (09:14)
[2016-10-30 11:00] VITALS: BP 136/80
--- NOTE | 2016-10-30 11:33 | PDOC ---
GENERAL General: vss and afebrile. awake and alert. worse night last night with breathing. chest decreased breath sounds. heart regular. abdomen ok. continue present. pulmonary help appreciated. Problems: VITAL SIGNS Vital Signs: Vital Signs Date Time Temp Pulse Resp B/P (MAP) Pulse Ox O2 Delivery O2 Flow Rate FiO2 10/30/16 10:48 Nasal Cannula 4.0 10/30/16 08:23 68 147/90 10/30/16 07:07 91 10/30/16 07:00 97.5 18 97.5 I & O I & O Intake and Output 10/31/16 07:00 Intake Total 240 ml Balance 240 ml Intake Oral 240 ml ALLERGIES Allergies: Allergies Coded Allergies Type Severity Reaction Last Updated Verified levofloxacin Allergy Intermediate 10/28/16 Yes MEDS Medications: Current Medications Medications (Trade) Dose Ordered Sig/Jeannette Start Time Stop Time Status Last Admin Dose Admin Albuterol Sulfate (Ventolin Neb Soln) 2.5 mg PRN Q4HRS PRN 10/28/16 23:00 10/30/16 01:23 2.5 MG Albuterol/ Ipratropium (Duoneb) 3 ml RTQID 10/29/16 08:00 10/30/16 10:48 3 ML Alprazolam (Xanax) 0.25 mg PRN TID PRN 10/26/16 08:30 10/29/16 20:26 0.25 MG Aspirin (Regulo Aspirin) 325 mg DAILY 10/26/16 09:00 10/30/16 08:22 325 MG Atorvastatin Calcium (Lipitor) 80 mg QHS 10/26/16 21:00 10/29/16 20:26 80 MG Azithromycin (Zithromax) 500 mg DAILY 10/31/16 09:00 Azithromycin 500 mg/Sodium Chloride 250 ml @ 250 mls/hr DAILY 10/26/16 09:00 10/30/16 10:21 DC 10/30/16 09:14 250 MLS/HR Carvedilol (Coreg) 12.5 mg BIDWMEALS 10/26/16 08:45 10/30/16 08:21 12.5 MG Cefpodoxime Proxetil (Vantin) 200 mg BID 10/31/16 09:00 Ceftriaxone Sodium 1 gm/ Sodium Chloride 50 ml @ 100 mls/hr Q24H 10/26/16 08:00 10/30/16 10:21 DC 10/30/16 08:22 100 MLS/HR Clopidogrel Bisulfate (Plavix) 75 mg DAILY 10/26/16 09:00 10/30/16 08:22 75 MG Fentanyl Citrate (Fentanyl 2ml Vial) 50 mcg PRN Q2HR PRN 10/25/16 23:15 10/26/16 23:14 DC Furosemide (Lasix) 40 mg STK-MED ONCE 10/28/16 08:15 10/28/16 08:20 DC Hydralazine HCl (Apresoline) 10 mg PRN Q6HRS PRN 10/26/16 02:45 10/28/16 20:28 10 MG Levofloxacin/ Dextrose 150 ml @ 100 mls/hr 1X ONCE 10/26/16 00:00 10/26/16 01:29 DC 10/26/16 00:42 100 MLS/HR Levothyroxine Sodium (Synthroid) 125 mcg DAILY07 10/26/16 10:30 10/30/16 08:21 125 MCG Lisinopril (Prinivil) 20 mg DAILY 10/26/16 09:00 10/30/16 08:23 20 MG Methylprednisolone Sodium Succinate (SOLU-Medrol 40MG VIAL) 40 mg BID 10/28/16 21:00 10/29/16 13:02 DC 10/29/16 08:14 40 MG Methylprednisolone Sodium Succinate (SOLU-Medrol 125MG VIAL) 125 mg 1X ONCE 10/25/16 23:30 10/25/16 23:31 DC 10/25/16 23:16 125 MG Multivitamins (Thera M Plus) 1 tab DAILY 10/26/16 09:00 10/30/16 08:22 1 TAB Ondansetron HCl (Zofran) 4 mg PRN Q8HRS PRN 10/25/16 23:15 10/26/16 23:14 DC Prednisone (Prednisone) 40 mg DAILY08 10/30/16 08:00 10/30/16 08:22 40 MG Sodium Chloride (Saline Mist Nasal) 1 valarie PRN Q1HR PRN 10/26/16 09:30 JUANIS PACKER MD Oct 30, 2016 11:33
--- NOTE | 2016-10-30 12:53 | PDOC ---
PULMONARY PROGRESS NOTES Subjective feels better color of sputum better Vitals Vital Signs Date Time Temp Pulse Resp B/P (MAP) Pulse Ox O2 Delivery O2 Flow Rate FiO2 10/30/16 11:00 97.5 73 18 136/80 (98) 91 Nasal Cannula 4.0 97.5 General: Alert, Oriented X4, No acute distress HEENT: Other Lungs: Crackles (bases) Cardiovascular: S1, S2 Abdomen: Soft, Non-tender Neuro Exam: Alert Extremities: Other (2+edema) Medications Active Scripts Medications Dose Route/Sig Max Daily Dose Days Date Category Lisinopril 20 Mg Tablet 1 Tab PO DAILY 04/12/16 Reported Coreg Cr (Carvedilol Phosphate) 80 Mg Cpmp.24hr 125 Mg PO BID 11/27/15 Reported Multivitamins (Multivitamin) 1 Each Tablet 1 Tab PO DAILY 11/27/15 Reported Xanax (Alprazolam) 0.25 Mg Tablet 1 Tab PO PRN TID 08/05/14 Reported Levothyroxine Sodium 125 Mcg Tablet 1 Tab PO DAILY 08/05/14 Reported Aspirin 325 Mg Tablet 1 Tab PO DAILY 07/07/14 Rx Plavix (Clopidogrel Bisulfate) 75 Mg Tablet 75 Mg PO DAILY 07/04/14 Reported Atorvastatin Calcium 80 Mg Tablet 80 Mg PO QHS 06/05/13 Reported Impression . 1. [id number]-[id number] hypoxic respiratory failure secondary to multifactorial etiologies and includes a combination of acute bronchitis. Difficult to exclude any pneumonia due to fibrotic changes on the chest x-ray. He has underlying cardiomyopathy and severe aortic stenosis, but appears clinically less likely in congestive heart failure. Underlying slowly progressive pulmonary fibrosis is another etiologic agent. 2. 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 He preferred to continue to drink whiskey and vodka, Ofev was discontinued. 3. Underlying chronic obstructive pulmonary disease. 4. Underlying respiratory failure with acute decompensation. 5. Cardiomyopathy with severe aortic stenosis. Plan . 1. antibiotics. 2. PO steroids 3. oxygen as prescribed 4. diuretics to treat possible [id number] right heart failure. 5. Continue anti-ischemic medications per Cardiology. 6. PT consulted. Doing well with ambulation. can go home with vs MAIRA KATE MD Oct 30, 2016 12:53
[2016-10-30 15:00] VITALS: BP 140/90
--- NOTE | 2016-10-30 17:02 | PDOC ---
Provider Note Provider Note Has had a few episodes of accelerated idioventricular rhythm consisting of 4-10 beats. These have occurred both during the day and at night. He is asymptomatic with it. This afternoon he was hypoxic with oxygen saturation of 85% on \ oxygen at 3L/ min. He thus gets hypoxic both at rest and with exertioneven on oxyfen. This may be the reason for his ventricular arrhythmias. I see no advantage in placing him on an antiarrhythmic agent. Amiodarone could give pulmonary fibrosis which she already has. Sotalol has a compnent of beta blockers. IRhythmol is not effective. Will work on maintaining his oxygen saturation at an optimal level. Will discuss with Dr Santos as to whether he would consider the newer drugs for pulmonary fibrosis which was tried a few months ago.. WINTER SUTHERLAND MD Oct 30, 2016 17:02
[2016-10-30] MEDS: FUROSEMIDE 40 MG/4 ML VIAL. IVP SCH (17:53)
[2016-10-30] MEDS: SPIRONOLACTONE 25 MG TABLET PO SCH (17:53)
[2016-10-30 19:00] VITALS: BP 124/78
[2016-10-30] MEDS: ATORVASTATIN CALCIUM 40 MG TABLET. PO SCH (20:30)
[2016-10-30 23:00] VITALS: BP 133/86
[2016-10-31 07:00] VITALS: BP 147/87
[2016-10-31] MEDS: IPRATRPIUM/ALBUTEROL 0.5/2.5MG 3 ML NEBU. NEB SCH ×4 (07:22→19:50)
--- NOTE | 2016-10-31 08:23 | PDOC ---
GENERAL General: vss and afebrile. awake and alert and had good night. feels like he is at baseline and strong enough to go home with home health. exam stable. will check bmp with addition of diuretics during stay. has had enough zithromax and could go another 5 days vantin at home as well as prednisone taper if pulmonary/ cardiology feel ok for dc today. Problems: VITAL SIGNS Vital Signs: Vital Signs Date Time Temp Pulse Resp B/P (MAP) Pulse Ox O2 Delivery O2 Flow Rate FiO2 10/31/16 07:25 92 Nasal Cannula 4.0 10/31/16 07:00 98.3 70 147/87 (107) 98.3 10/31/16 03:00 20 ALLERGIES Allergies: Allergies Coded Allergies Type Severity Reaction Last Updated Verified levofloxacin Allergy Intermediate 10/28/16 Yes MEDS Medications: Current Medications Medications (Trade) Dose Ordered Sig/Jeannette Start Time Stop Time Status Last Admin Dose Admin Albuterol Sulfate (Ventolin Neb Soln) 2.5 mg PRN Q4HRS PRN 10/28/16 23:00 10/30/16 01:23 2.5 MG Albuterol/ Ipratropium (Duoneb) 3 ml RTQID 10/29/16 08:00 10/31/16 07:22 3 ML Alprazolam (Xanax) 0.25 mg PRN TID PRN 10/26/16 08:30 10/29/16 20:26 0.25 MG Aspirin (Regulo Aspirin) 325 mg DAILY 10/26/16 09:00 10/30/16 08:22 325 MG Atorvastatin Calcium (Lipitor) 80 mg QHS 10/26/16 21:00 10/30/16 20:30 80 MG Azithromycin (Zithromax) 500 mg DAILY 10/31/16 09:00 Azithromycin 500 mg/Sodium Chloride 250 ml @ 250 mls/hr DAILY 10/26/16 09:00 10/30/16 10:21 DC 10/30/16 09:14 250 MLS/HR Carvedilol (Coreg) 12.5 mg BIDWMEALS 10/26/16 08:45 10/30/16 17:02 12.5 MG Cefpodoxime Proxetil (Vantin) 200 mg BID 10/31/16 09:00 Ceftriaxone Sodium 1 gm/ Sodium Chloride 50 ml @ 100 mls/hr Q24H 10/26/16 08:00 10/30/16 10:21 DC 10/30/16 08:22 100 MLS/HR Clopidogrel Bisulfate (Plavix) 75 mg DAILY 10/26/16 09:00 10/30/16 08:22 75 MG Fentanyl Citrate (Fentanyl 2ml Vial) 50 mcg PRN Q2HR PRN 10/25/16 23:15 10/26/16 23:14 DC Furosemide (Lasix) 40 mg BID92 10/30/16 17:30 10/30/16 17:53 40 MG Hydralazine HCl (Apresoline) 10 mg PRN Q6HRS PRN 10/26/16 02:45 10/28/16 20:28 10 MG Levofloxacin/ Dextrose 150 ml @ 100 mls/hr 1X ONCE 10/26/16 00:00 10/26/16 01:29 DC 10/26/16 00:42 100 MLS/HR Levothyroxine Sodium (Synthroid) 125 mcg DAILY07 10/26/16 10:30 10/30/16 08:21 125 MCG Lisinopril (Prinivil) 20 mg DAILY 10/26/16 09:00 10/30/16 08:23 20 MG Methylprednisolone Sodium Succinate (SOLU-Medrol 40MG VIAL) 40 mg BID 10/28/16 21:00 10/29/16 13:02 DC 10/29/16 08:14 40 MG Methylprednisolone Sodium Succinate (SOLU-Medrol 125MG VIAL) 125 mg 1X ONCE 10/25/16 23:30 10/25/16 23:31 DC 10/25/16 23:16 125 MG Multivitamins (Thera M Plus) 1 tab DAILY 10/26/16 09:00 10/30/16 08:22 1 TAB Ondansetron HCl (Zofran) 4 mg PRN Q8HRS PRN 10/25/16 23:15 10/26/16 23:14 DC Prednisone (Prednisone) 40 mg DAILY08 10/30/16 08:00 10/30/16 08:22 40 MG Sodium Chloride (Saline Mist Nasal) 1 valarie PRN Q1HR PRN 10/26/16 09:30 Spironolactone (Aldactone) 25 mg BID92 10/30/16 17:30 10/30/16 17:53 25 MG JUANIS PACKER MD Oct 31, 2016 08:23
--- NOTE | 2016-10-31 09:08 | PDOC ---
PULMONARY PROGRESS NOTES Subjective feels better color of sputum better Vitals Vital Signs Date Time Temp Pulse Resp B/P (MAP) Pulse Ox O2 Delivery O2 Flow Rate FiO2 10/31/16 07:25 92 Nasal Cannula 4.0 10/31/16 07:00 98.3 70 147/87 (107) 98.3 10/31/16 03:00 20 General: Alert, Oriented X4, No acute distress HEENT: Other Lungs: Crackles (bases) Cardiovascular: S1, S2 Abdomen: Soft, Non-tender Neuro Exam: Alert Extremities: Other (2+edema) Medications Active Scripts Medications Dose Route/Sig Max Daily Dose Days Date Category Lisinopril 20 Mg Tablet 1 Tab PO DAILY 04/12/16 Reported Coreg Cr (Carvedilol Phosphate) 80 Mg Cpmp.24hr 125 Mg PO BID 11/27/15 Reported Multivitamins (Multivitamin) 1 Each Tablet 1 Tab PO DAILY 11/27/15 Reported Xanax (Alprazolam) 0.25 Mg Tablet 1 Tab PO PRN TID 08/05/14 Reported Levothyroxine Sodium 125 Mcg Tablet 1 Tab PO DAILY 08/05/14 Reported Aspirin 325 Mg Tablet 1 Tab PO DAILY 07/07/14 Rx Plavix (Clopidogrel Bisulfate) 75 Mg Tablet 75 Mg PO DAILY 07/04/14 Reported Atorvastatin Calcium 80 Mg Tablet 80 Mg PO QHS 06/05/13 Reported Impression . 1. Jgtrd-fg-[id number] hypoxic respiratory failure secondary to multifactorial etiologies and includes a combination of acute bronchitis. Difficult to exclude any pneumonia due to fibrotic changes on the chest x-ray. He has underlying cardiomyopathy and severe aortic stenosis, but appears clinically less likely in congestive heart failure. Underlying slowly progressive pulmonary fibrosis is another etiologic agent. 2. 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 He preferred to continue to drink whiskey and vodka, Ofev was discontinued. 3. Underlying chronic obstructive pulmonary disease. 4. Underlying respiratory failure with acute decompensation. 5. Cardiomyopathy with severe aortic stenosis. Plan . 1. antibiotics. 2. PO steroids 3. oxygen as prescribed 4. diuretics to treat possible pnipb-[id number] right heart failure. 5. Continue anti-ischemic medications per Cardiology. 6. PT consulted. Doing well with ambulation. can go home with HH vs DAVID SANDOVAL MD Oct 31, 2016 09:08
[2016-10-31] MEDS ORDERED: FUROSEMIDE 40 MG TABLET. ONE (09:13)
[2016-10-31] MEDS ORDERED: FUROSEMIDE 40 MG/4 ML VIAL. ONE (09:13)
[2016-10-31] MEDS ORDERED: CEFPODOXIME PROXETIL 100 MG TABLET. ONE (09:14)
[2016-10-31] MEDS ORDERED: predniSONE 20 MG TABLET ONE (09:14)
[2016-10-31] MEDS ORDERED: SPIRONOLACTONE 25 MG TABLET ONE (09:15)
[2016-10-31] MEDS ORDERED: AZITHROMYCIN 250 MG TABLET. ONE (09:15)
[2016-10-31] MEDS: predniSONE 20 MG TABLET PO SCH (09:36)
[2016-10-31] MEDS: LEVOTHYROXINE 125 MCG TABLET PO SCH (09:37)
[2016-10-31] MEDS: SPIRONOLACTONE 25 MG TABLET PO SCH ×2 (09:37→14:00)
[2016-10-31] MEDS: CEFPODOXIME PROXETIL 100 MG TABLET. PO SCH ×2 (09:37→20:37)
[2016-10-31] MEDS: MULTIVITAMIN with MINERAL TABLET. PO SCH (09:37)
[2016-10-31] MEDS: FUROSEMIDE 40 MG TABLET. PO SCH (09:38)
[2016-10-31] MEDS: CLOPIDOGREL BISULFATE 75 MG TABLET PO SCH (09:38)
[2016-10-31] MEDS: AZITHROMYCIN 250 MG TABLET. PO SCH (09:38)
[2016-10-31] MEDS: ASPIRIN 325 MG TABLET PO SCH (09:38)
[2016-10-31] MEDS: LISINOPRIL 20 MG TABLET PO SCH (09:39)
[2016-10-31] MEDS: CARVEDILOL 12.5 MG TABLET. PO SCH ×2 (09:40→17:56)
[2016-10-31] MEDS: FUROSEMIDE 40 MG/4 ML VIAL. IVP SCH ×2 (09:40→14:00)
[2016-10-31 09:56] LABS: CALCIUM 8.9 mg/dL (8.5-10.1); CREATININE 1.4 mg/dL (0.7-1.3); GFR 50.1; POTASSIUM 3.5 mmol/L (3.5-5.1)
[2016-10-31] MEDS ORDERED: FUROSEMIDE 40 MG/4 ML VIAL. IVP ONE (12:00)
[2016-10-31 12:22] VITALS: BP 98/62
[2016-10-31 15:00] VITALS: BP 115/60
[2016-10-31] MEDS ORDERED: SOTALOL 80 MG TABLET. PO SCH (15:00)
[2016-10-31] MEDS: SOTALOL 80 MG TABLET. PO SCH ×2 (16:00→20:37)
[2016-10-31 19:35] VITALS: BP 102/64
[2016-10-31] MEDS: ATORVASTATIN CALCIUM 40 MG TABLET. PO SCH (20:37)
--- NOTE | 2016-10-31 21:46 | PDOC ---
Provider Note Provider Note Patient continues to have several several episodes of ventricular tachycardia. He is also hypoxic most of the time. Today his oxygen saturation was 87% when he is not asked to hyperventilate. He is thus hypoxic and has multiple episodes of ventricular tachycardia. We thus have to do one or more of the following. 1. Maintain his oxygen saturation above 90%. 2. Place him on an antiarrhythmic agent 3. Consider palliative care. The patient and his family wanted to continue aggressive treatment. I have thus requested him to be transferred to the second floor to try to maintain his oxygen saturation abovet 90% with Dr. Wiley's help. He has not had any wheezing and so I believe he'll be able to tolerate Sotalol. Sotalol when initiated will need to be monitored for QT elongation for about 72 hours. Plan to increase diuresis to eliminate increased lung fluid as much as possible. WINTER SUTHERLAND MD Oct 31, 2016 21:46
[2016-10-31 23:00] VITALS: BP 122/73
[2016-11-01] VITALS (7 sets, daily range): BP systolic 92–138; BP diastolic 55–79
[2016-11-01] MEDS: LEVOTHYROXINE 125 MCG TABLET PO SCH (06:04)
[2016-11-01 06:18] LABS: CALCIUM 8.6 mg/dL (8.5-10.1); CREATININE 1.1 mg/dL (0.7-1.3); GFR 66.2; POTASSIUM 3.5 mmol/L (3.5-5.1)
--- NOTE | 2016-11-01 08:24 | PDOC ---
GENERAL General: vss and afebrile. awake and alert and without complaints. moved to cardiac floor for nonsustained v-tach. plans per cardiology and pulm as far as further meds. Problems: VITAL SIGNS Vital Signs: Vital Signs Date Time Temp Pulse Resp B/P (MAP) Pulse Ox O2 Delivery O2 Flow Rate FiO2 11/01/16 07:30 97.1 68 20 136/79 (98) 93 Nasal Cannula 5.0 97.1 ALLERGIES Allergies: Allergies Coded Allergies Type Severity Reaction Last Updated Verified levofloxacin Allergy Intermediate 10/28/16 Yes MEDS Medications: Current Medications Medications (Trade) Dose Ordered Sig/Jeannette Start Time Stop Time Status Last Admin Dose Admin Albuterol Sulfate (Ventolin Neb Soln) 2.5 mg PRN Q4HRS PRN 10/28/16 23:00 10/30/16 01:23 2.5 MG Albuterol/ Ipratropium (Duoneb) 3 ml RTQID 10/29/16 08:00 10/31/16 19:50 3 ML Alprazolam (Xanax) 0.25 mg PRN TID PRN 10/26/16 08:30 10/29/16 20:26 0.25 MG Aspirin (Regulo Aspirin) 325 mg DAILY 10/26/16 09:00 10/31/16 09:38 325 MG Atorvastatin Calcium (Lipitor) 80 mg QHS 10/26/16 21:00 10/31/16 20:37 80 MG Azithromycin (Zithromax) 250 mg STK-MED ONCE 10/31/16 09:15 10/31/16 09:16 DC Azithromycin 500 mg/Sodium Chloride 250 ml @ 250 mls/hr DAILY 10/26/16 09:00 10/30/16 10:21 DC 10/30/16 09:14 250 MLS/HR Carvedilol (Coreg) 12.5 mg BIDWMEALS 10/26/16 08:45 10/31/16 17:56 12.5 MG Cefpodoxime Proxetil (Vantin) 100 mg STK-MED ONCE 10/31/16 09:14 10/31/16 09:15 DC Ceftriaxone Sodium 1 gm/ Sodium Chloride 50 ml @ 100 mls/hr Q24H 10/26/16 08:00 10/30/16 10:21 DC 10/30/16 08:22 100 MLS/HR Clopidogrel Bisulfate (Plavix) 75 mg DAILY 10/26/16 09:00 10/31/16 09:38 75 MG Fentanyl Citrate (Fentanyl 2ml Vial) 50 mcg PRN Q2HR PRN 10/25/16 23:15 10/26/16 23:14 DC Furosemide (Lasix) 40 mg 1X ONCE 10/31/16 12:00 10/31/16 12:01 DC Hydralazine HCl (Apresoline) 10 mg PRN Q6HRS PRN 10/26/16 02:45 10/28/16 20:28 10 MG Levofloxacin/ Dextrose 150 ml @ 100 mls/hr 1X ONCE 10/26/16 00:00 10/26/16 01:29 DC 10/26/16 00:42 100 MLS/HR Levothyroxine Sodium (Synthroid) 125 mcg DAILY07 10/26/16 10:30 11/01/16 06:04 125 MCG Lisinopril (Prinivil) 20 mg DAILY 10/26/16 09:00 10/31/16 09:39 20 MG Methylprednisolone Sodium Succinate (SOLU-Medrol 40MG VIAL) 40 mg BID 10/28/16 21:00 10/29/16 13:02 DC 10/29/16 08:14 40 MG Methylprednisolone Sodium Succinate (SOLU-Medrol 125MG VIAL) 125 mg 1X ONCE 10/25/16 23:30 10/25/16 23:31 DC 10/25/16 23:16 125 MG Multivitamins (Thera M Plus) 1 tab DAILY 10/26/16 09:00 10/31/16 09:37 1 TAB Ondansetron HCl (Zofran) 4 mg PRN Q8HRS PRN 10/25/16 23:15 10/26/16 23:14 DC Prednisone (Prednisone) 20 mg STK-MED ONCE 10/31/16 09:14 10/31/16 09:15 DC Sodium Chloride (Saline Mist Nasal) 1 valarie PRN Q1HR PRN 10/26/16 09:30 Sotalol HCl (Betapace) 80 mg Q12HR 10/31/16 16:00 10/31/16 20:37 80 MG Spironolactone (Aldactone) 25 mg STK-MED ONCE 10/31/16 09:15 10/31/16 09:16 TX LAB Lab: Laboratory Tests Test 10/31/16 09:05 11/01/16 04:18 Sodium Level 142 mmol/L (136-145) 138 mmol/L (136-145) Potassium Level 3.5 mmol/L (3.5-5.1) 3.5 mmol/L (3.5-5.1) Chloride Level 99 mmol/L (98-107) 99 mmol/L (98-107) Carbon Dioxide Level 37 mmol/L (21-32) 33 mmol/L (21-32) Anion Gap 6 (6-14) 6 (6-14) Blood Urea Nitrogen 32 mg/dL (8-26) 33 mg/dL (8-26) Creatinine 1.4 mg/dL (0.7-1.3) 1.1 mg/dL (0.7-1.3) Estimated GFR (Cockcroft-Gault) 50.1 66.2 Glucose Level 126 mg/dL (70-99) 117 mg/dL (70-99) Calcium Level 8.9 mg/dL (8.5-10.1) 8.6 mg/dL (8.5-10.1) JUANIS PACKER MD Nov 01, 2016 08:24
[2016-11-01] MEDS: IPRATRPIUM/ALBUTEROL 0.5/2.5MG 3 ML NEBU. NEB SCH ×4 (08:49→19:44)
[2016-11-01] MEDS: ASPIRIN 325 MG TABLET PO SCH (09:19)
[2016-11-01] MEDS: MULTIVITAMIN with MINERAL TABLET. PO SCH (09:19)
[2016-11-01] MEDS: AZITHROMYCIN 250 MG TABLET. PO SCH (09:19)
[2016-11-01] MEDS: CEFPODOXIME PROXETIL 100 MG TABLET. PO SCH ×2 (09:19→21:08)
[2016-11-01] MEDS: CLOPIDOGREL BISULFATE 75 MG TABLET PO SCH (09:19)
[2016-11-01] MEDS: SPIRONOLACTONE 25 MG TABLET PO SCH ×2 (09:20→17:02)
[2016-11-01] MEDS: predniSONE 20 MG TABLET PO SCH (09:20)
[2016-11-01] MEDS: LISINOPRIL 20 MG TABLET PO SCH (09:21)
[2016-11-01] MEDS: SOTALOL 80 MG TABLET. PO SCH ×2 (09:21→20:22)
[2016-11-01] MEDS: CARVEDILOL 12.5 MG TABLET. PO SCH ×2 (09:21→17:02)
[2016-11-01] MEDS: FUROSEMIDE 40 MG TABLET. PO SCH (11:04)
[2016-11-01] MEDS: FUROSEMIDE 40 MG/4 ML VIAL. IVP SCH ×2 (13:32→17:03)
--- NOTE | 2016-11-01 15:33 | PDOC ---
PULMONARY PROGRESS NOTES Subjective PT FEELS BETTER THAN ADMISSION Vitals Vital Signs Date Time Temp Pulse Resp B/P (MAP) Pulse Ox O2 Delivery O2 Flow Rate FiO2 11/01/16 14:57 97.1 64 21 102/63 (76) 91 Nasal Cannula 5.0 97.1 General: Alert, No acute distress HEENT: Other Lungs: Crackles (bases) Cardiovascular: S1, S2 Abdomen: Soft, Non-tender Neuro Exam: Alert Extremities: Other (2+edema) Labs Laboratory Tests Test 10/31/16 09:05 11/01/16 04:18 Sodium Level 142 mmol/L (136-145) 138 mmol/L (136-145) Potassium Level 3.5 mmol/L (3.5-5.1) 3.5 mmol/L (3.5-5.1) Chloride Level 99 mmol/L (98-107) 99 mmol/L (98-107) Carbon Dioxide Level 37 mmol/L (21-32) 33 mmol/L (21-32) Anion Gap 6 (6-14) 6 (6-14) Blood Urea Nitrogen 32 mg/dL (8-26) 33 mg/dL (8-26) Creatinine 1.4 mg/dL (0.7-1.3) 1.1 mg/dL (0.7-1.3) Estimated GFR (Cockcroft-Gault) 50.1 66.2 Glucose Level 126 mg/dL (70-99) 117 mg/dL (70-99) Calcium Level 8.9 mg/dL (8.5-10.1) 8.6 mg/dL (8.5-10.1) Laboratory Tests Test 11/01/16 04:18 Sodium Level 138 mmol/L (136-145) Potassium Level 3.5 mmol/L (3.5-5.1) Chloride Level 99 mmol/L (98-107) Carbon Dioxide Level 33 mmol/L (21-32) Anion Gap 6 (6-14) Blood Urea Nitrogen 33 mg/dL (8-26) Creatinine 1.1 mg/dL (0.7-1.3) Estimated GFR (Cockcroft-Gault) 66.2 Glucose Level 117 mg/dL (70-99) Calcium Level 8.6 mg/dL (8.5-10.1) Medications Active Scripts Medications Dose Route/Sig Max Daily Dose Days Date Category Lisinopril 20 Mg Tablet 1 Tab PO DAILY 04/12/16 Reported Coreg Cr (Carvedilol Phosphate) 80 Mg Cpmp.24hr 125 Mg PO BID 11/27/15 Reported Multivitamins (Multivitamin) 1 Each Tablet 1 Tab PO DAILY 11/27/15 Reported Xanax (Alprazolam) 0.25 Mg Tablet 1 Tab PO PRN TID 08/05/14 Reported Levothyroxine Sodium 125 Mcg Tablet 1 Tab PO DAILY 08/05/14 Reported Aspirin 325 Mg Tablet 1 Tab PO DAILY 07/07/14 Rx Plavix (Clopidogrel Bisulfate) 75 Mg Tablet 75 Mg PO DAILY 07/04/14 Reported Atorvastatin Calcium 80 Mg Tablet 80 Mg PO QHS 06/05/13 Reported Impression . 1. [id number] hypoxic respiratory failure 2. 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 He preferred to continue to drink whiskey and vodka, Ofev was discontinued. 3. Underlying chronic obstructive pulmonary disease. 4. Underlying respiratory failure with acute decompensation. 5. Cardiomyopathy with severe aortic stenosis. Plan . PT NOT COMPLIANT WITH MEDICATION PRESCRIBED IN THE PAST HE REFUSES TO D/C DRINKING IN PLACE OF TREATING HIS IPF I THINK THIS IS THE BEST HE WILL BE D/C HOME OK BY ME WHEN CARDIOLOGY IS READY DAVID BREEN MD Nov 01, 2016 15:33
--- NOTE | 2016-11-01 20:22 | PDOC ---
Provider Note Provider Note Nurse reports no significant ventricular tachycardia. Oxygen saturation is around 90%. Obtain EKG tomorrow to evaluate QT interval. WINTER SUTHERLAND MD Nov 01, 2016 20:22
[2016-11-01] MEDS: ATORVASTATIN CALCIUM 40 MG TABLET. PO SCH (21:08)
[2016-11-02 03:20] VITALS: BP 134/71
[2016-11-02 07:00] VITALS: BP 143/75
[2016-11-02] MEDS: CARVEDILOL 12.5 MG TABLET. PO SCH ×2 (08:00→17:45)
[2016-11-02] MEDS: IPRATRPIUM/ALBUTEROL 0.5/2.5MG 3 ML NEBU. NEB SCH ×4 (08:06→19:34)
[2016-11-02] MEDS: CEFPODOXIME PROXETIL 100 MG TABLET. PO SCH ×2 (08:31→21:15)
[2016-11-02] MEDS: FUROSEMIDE 40 MG/4 ML VIAL. IVP SCH ×2 (08:31→14:51)
[2016-11-02] MEDS: AZITHROMYCIN 250 MG TABLET. PO SCH (08:32)
[2016-11-02] MEDS: SPIRONOLACTONE 25 MG TABLET PO SCH ×2 (08:32→14:51)
[2016-11-02] MEDS: LISINOPRIL 20 MG TABLET PO SCH (08:32)
[2016-11-02] MEDS: MULTIVITAMIN with MINERAL TABLET. PO SCH (08:32)
[2016-11-02] MEDS: LEVOTHYROXINE 125 MCG TABLET PO SCH (08:32)
[2016-11-02] MEDS: predniSONE 20 MG TABLET PO SCH (08:32)
[2016-11-02] MEDS: CLOPIDOGREL BISULFATE 75 MG TABLET PO SCH (08:32)
[2016-11-02] MEDS: ASPIRIN 325 MG TABLET PO SCH (08:33)
[2016-11-02] MEDS: SOTALOL 80 MG TABLET. PO SCH ×2 (08:33→21:17)
[2016-11-02 11:00] VITALS: BP 127/69
--- NOTE | 2016-11-02 11:51 | PDOC ---
PROGRESS NOTES Subjective Subjective Pt awake and pleasant in conversation. Denies SOB this am. Denies CP this am. Pt states he has been eating and drinking well with good output. Objective Objective Pt awake and alert. NAD. VSS. Afebrile. Lung sounds deminished with expiratory wheeze present. Resp even and unlabored. Pt on 4.5L of O2 per NC, satting 92%. Pt's home baseline O2 requirement is 4L. Heart with RRR. No murmurs. No pedal edema present. Pt with Tubigrips on bilat. Abdomen soft, nondistended, and nontender. BS+x4. Vital Signs Date Time Temp Pulse Resp B/P (MAP) Pulse Ox O2 Delivery O2 Flow Rate FiO2 11/02/16 08:33 73 143/75 11/02/16 08:07 97 Nasal Cannula 6.0 11/02/16 07:00 97.4 20 97.4 Intake and Output 11/03/16 07:00 Intake Total 250 ml Balance 250 ml Intake Oral 250 ml Assessment Assessment Problems Medical Problems: (1) CHF exacerbation Status: Acute (2) COPD exacerbation Status: Acute (3) Lactic acid acidosis Status: Acute (4) Pulmonary fibrosis Status: Acute (5) Respiratory failure with hypoxia Status: Acute Plan Plan of Care Pt presented to the hospital with increased SOB and fatigue. 1) ? Vtach secondary to nonsystained wide QRS tachycardia -Cardiololgy following -EKG ordered this am 2) COPD and Emphysema - Pulmonary consulting -signed off on care this am. Will continue to follow on an outpt basis. -pt noncompliant with medications and refusing to quit alcohol intake 3) CHF -pt received Lasix upon admission, Dc'd 11/01 Awaiting Cardiology okay for Dc home. Comment Review of Relevant I have reviewed the following items rubina (where applicable) has been applied. Labs Laboratory Tests Test 11/01/16 04:18 Sodium Level 138 mmol/L (136-145) Potassium Level 3.5 mmol/L (3.5-5.1) Chloride Level 99 mmol/L (98-107) Carbon Dioxide Level 33 mmol/L (21-32) Anion Gap 6 (6-14) Blood Urea Nitrogen 33 mg/dL (8-26) Creatinine 1.1 mg/dL (0.7-1.3) Estimated GFR (Cockcroft-Gault) 66.2 Glucose Level 117 mg/dL (70-99) Calcium Level 8.6 mg/dL (8.5-10.1) Microbiology 10/25/16 Blood Culture - Final, Complete NO GROWTH AFTER 5 DAYS Medications Current Medications Albuterol/ Ipratropium (Duoneb) 3 ml 1X ONCE NEB Last administered on 00:38; Start 10/25/16 at 23:30; Stop 10/25/16 at 23:31; Status DC Albuterol Sulfate (Ventolin Neb Soln) 5 mg 1X ONCE NEB Last administered on 00:38; Start 10/25/16 at 23:30; Stop 10/25/16 at 23:31; Status DC Methylprednisolone Sodium Succinate (SOLU-Medrol 125MG VIAL) 125 mg 1X ONCE IV Last administered on 10/25/16 23:16; Start 10/25/16 at 23:30; Stop 10/25/16 at 23:31; Status DC Furosemide (Lasix) 20 mg 1X ONCE IVP Last administered on 10/25/16 23:16; Start 10/25/16 at 23:30; Stop 10/25/16 at 23:31; Status DC Ondansetron HCl (Zofran) 4 mg PRN Q8HRS PRN IV NAUSEA/VOMITING; Start 10/25/16 at 23:15; Stop 10/26/16 at 23:14; Status DC Fentanyl Citrate (Fentanyl 2ml Vial) 50 mcg PRN Q2HR PRN IV SEVERE PAIN; Start 10/25/16 at 23:15; Stop 10/26/16 at 23:14; Status DC Levofloxacin/ Dextrose 150 ml @ 100 mls/hr 1X ONCE IV Last administered on 00:42; Start 10/26/16 at 00:00; Stop 10/26/16 at 01:29; Status DC Hydralazine HCl (Apresoline) 10 mg PRN Q6HRS PRN IVP ELEVATED BP, SEE COMMENTS Last administered on 10/28/16 20:28; Start 10/26/16 at 02:45 Ceftriaxone Sodium 1 gm/ Sodium Chloride 50 ml @ 100 mls/hr Q24H IV Last administered on 10/30/16 08:22; Start 10/26/16 at 08:00; Stop 10/30/16 at 10:21 ; Status DC Azithromycin 250 ml @ 250 mls/hr DAILY IV ; Start 10/26/16 at 09:00; Stop at 09:00; Status DC Methylprednisolone Sodium Succinate (SOLU-Medrol 40MG VIAL) 40 mg Q8HRS IV Last administered on 10/28/16 05:26; Start 10/26/16 at 08:30; Stop 10/28/16 at 10: 13; Status DC Alprazolam (Xanax) 0.25 mg PRN TID PRN PO ANXIETY Last administered on 20:26; Start 10/26/16 at 08:30 Aspirin (Regulo Aspirin) 325 mg DAILY PO Last administered on 11/02/16 08:33; Start 10/26/16 at 09:00 Clopidogrel Bisulfate (Plavix) 75 mg DAILY PO Last administered on 11/02/16 08 :32; Start 10/26/16 at 09:00 Levothyroxine Sodium (Synthroid) 125 mcg DAILY07 PO Last administered on 08:32; Start 10/26/16 at 10:30 Lisinopril (Prinivil) 20 mg DAILY PO Last administered on 11/02/16 08:32; Start 10/26/16 at 09:00 Atorvastatin Calcium (Lipitor) 80 mg QHS PO Last administered on 11/01/16 21: 08; Start 10/26/16 at 21:00 Carvedilol (Coreg) 12.5 mg BIDWMEALS PO Last administered on 11/01/16 17:02; Start 10/26/16 at 08:45 Multivitamins (Thera M Plus) 1 tab DAILY PO Last administered on 11/02/16 08: 32; Start 10/26/16 at 09:00 Azithromycin 500 mg/Sodium Chloride 250 ml @ 250 mls/hr DAILY IV Last administered on 10/30/16 09:14; Start 10/26/16 at 09:00; Stop 10/30/16 at 10:21 ; Status DC Sodium Chloride (Saline Mist Nasal) 1 valarie PRN Q1HR PRN NS NASAL CONGESTION; Start 10/26/16 at 09:30 Furosemide (Lasix) 40 mg DAILY PO Last administered on 10/31/16 09:38; Start 10/27/16 at 12:00; Stop 11/01/16 at 15:45; Status DC Furosemide (Lasix) 40 mg STK-MED ONCE .ROUTE ; Start 10/28/16 at 08:15; Stop 10/28 at 08:20; Status DC Methylprednisolone Sodium Succinate (SOLU-Medrol 40MG VIAL) 40 mg BID IV Last administered on 10/29/16 08:14; Start 10/28/16 at 21:00; Stop 10/29/16 at 13:02; Status DC Albuterol/ Ipratropium (Duoneb) 3 ml RTQID NEB Last administered on 11/02/16 08:06; Start 10/29/16 at 08:00 Albuterol Sulfate (Ventolin Neb Soln) 2.5 mg PRN Q4HRS PRN NEB SHORTNESS OF BREATH Last administered on 10/30/16 01:23; Start 10/28/16 at 23:00 Prednisone (Prednisone) 40 mg DAILY08 PO Last administered on 11/02/16 08:32; Start 10/30/16 at 08:00 Cefpodoxime Proxetil (Vantin) 200 mg BID PO Last administered on 11/02/16 08: 31; Start 10/31/16 at 09:00 Azithromycin (Zithromax) 500 mg DAILY PO Last administered on 11/02/16 08:32; Start 10/31/16 at 09:00 Furosemide (Lasix) 40 mg BID92 IVP Last administered on 11/02/16 08:31; Start 10/30/16 at 17:30 Spironolactone (Aldactone) 25 mg BID92 PO Last administered on 11/02/16 08:32 ; Start 10/30/16 at 17:30 Furosemide (Lasix) 40 mg STK-MED ONCE .ROUTE ; Start 10/31/16 at 09:13; Stop 01/06 at 09:15; Status DC Furosemide (Lasix) 40 mg STK-MED ONCE .ROUTE ; Start 10/31/16 at 09:13; Stop 01/06 at 09:15; Status DC Cefpodoxime Proxetil (Vantin) 100 mg STK-MED ONCE .ROUTE ; Start 10/31/16 at 09: 14; Stop 10/31/16 at 09:15; Status DC Prednisone (Prednisone) 20 mg STK-MED ONCE .ROUTE ; Start 10/31/16 at 09:14; Stop 10/31/16 at 09:15; Status DC Spironolactone (Aldactone) 25 mg STK-MED ONCE .ROUTE ; Start 10/31/16 at 09:15; Stop 10/31/16 at 09:16; Status DC Azithromycin (Zithromax) 250 mg STK-MED ONCE .ROUTE ; Start 10/31/16 at 09:15; Stop 10/31/16 at 09:16; Status DC Furosemide (Lasix) 40 mg 1X ONCE IVP ; Start 10/31/16 at 12:00; Stop 10/31/16 at 12:01; Status DC Sotalol HCl (Betapace) 80 mg Q12HR PO ; Start 10/31/16 at 15:00; Stop 10/31/16 at 15:31; Status DC Sotalol HCl (Betapace) 80 mg Q12HR PO Last administered on 11/02/16t 08:33; Start 10/31/16 at 16:00 Active Scripts Active Aspirin 325 Mg Tablet 1 Tab PO DAILY Reported Lisinopril 20 Mg Tablet 1 Tab PO DAILY Coreg Cr (Carvedilol Phosphate) 80 Mg Cpmp.24hr 125 Mg PO BID Multivitamins (Multivitamin) 1 Each Tablet 1 Tab PO DAILY Xanax (Alprazolam) 0.25 Mg Tablet 1 Tab PO PRN TID Levothyroxine Sodium 125 Mcg Tablet 1 Tab PO DAILY Plavix (Clopidogrel Bisulfate) 75 Mg Tablet 75 Mg PO DAILY Atorvastatin Calcium 80 Mg Tablet 80 Mg PO QHS Vitals/I & O Vital Sign - Last 24 Hours 11/01/16 11/01/16 11/01/16 11/01/16 14:57 15:54 17:02 17:08 Temp 97.1 97.1 Pulse 64 68 68 Resp 21 B/P (MAP) 102/63 (76) 115/70 115/70 (85) Pulse Ox 91 93 O2 Delivery Nasal Cannula Nasal Cannula O2 Flow Rate 5.0 5.0 11/01/16 11/01/16 11/01/16 11/01/16 19:20 19:30 19:45 20:22 Temp 97.4 97.4 Pulse 68 67 Resp 21 B/P (MAP) 92/55 (67) 92/55 Pulse Ox 92 95 O2 Delivery Nasal Cannula Nasal Cannula Nasal Cannula O2 Flow Rate 5.0 5.0 5.0 11/01/16 11/02/16 11/02/16 11/02/16 23:25 03:20 07:00 07:52 Temp 97.5 97.6 97.4 97.5 97.6 97.4 Pulse 69 65 68 Resp 18 20 20 B/P (MAP) 138/70 (92) 134/71 (92) 143/75 (97) Pulse Ox 98 90 96 O2 Delivery Nasal Cannula Nasal Cannula Nasal Cannula Nasal Cannula O2 Flow Rate 5.0 5.0 6.0 5.0 11/02/16 11/02/16 11/02/16 08:07 08:32 08:33 Pulse 73 73 B/P (MAP) 143/75 143/75 Pulse Ox 97 O2 Delivery Nasal Cannula O2 Flow Rate 6.0 Intake and Output 11/02/16 11/02/16 11/03/16 15:00 23:00 07:00 Intake Total 250 ml Balance 250 ml JUANIS PACKER MD Nov 02, 2016 11:51
[2016-11-02 15:00] VITALS: BP 144/84
--- NOTE | 2016-11-02 15:22 | PDOC ---
PULMONARY PROGRESS NOTES Subjective PT FEELS BETTER THAN ADMISSION Vitals Vital Signs Date Time Temp Pulse Resp B/P (MAP) Pulse Ox O2 Delivery O2 Flow Rate FiO2 11/02/16 11:55 94 Nasal Cannula 5.0 11/02/16 11:00 97.4 64 18 127/69 (88) 97.4 General: Alert, No acute distress HEENT: Other Lungs: Crackles (bases) Cardiovascular: S1, S2 Abdomen: Soft, Non-tender Neuro Exam: Alert Extremities: Other (2+edema) Labs Laboratory Tests Test 11/01/16 04:18 Sodium Level 138 mmol/L (136-145) Potassium Level 3.5 mmol/L (3.5-5.1) Chloride Level 99 mmol/L (98-107) Carbon Dioxide Level 33 mmol/L (21-32) Anion Gap 6 (6-14) Blood Urea Nitrogen 33 mg/dL (8-26) Creatinine 1.1 mg/dL (0.7-1.3) Estimated GFR (Cockcroft-Gault) 66.2 Glucose Level 117 mg/dL (70-99) Calcium Level 8.6 mg/dL (8.5-10.1) Medications Active Scripts Medications Dose Route/Sig Max Daily Dose Days Date Category Lisinopril 20 Mg Tablet 1 Tab PO DAILY 04/12/16 Reported Coreg Cr (Carvedilol Phosphate) 80 Mg Cpmp.24hr 125 Mg PO BID 11/27/15 Reported Multivitamins (Multivitamin) 1 Each Tablet 1 Tab PO DAILY 11/27/15 Reported Xanax (Alprazolam) 0.25 Mg Tablet 1 Tab PO PRN TID 08/05/14 Reported Levothyroxine Sodium 125 Mcg Tablet 1 Tab PO DAILY 08/05/14 Reported Aspirin 325 Mg Tablet 1 Tab PO DAILY 07/07/14 Rx Plavix (Clopidogrel Bisulfate) 75 Mg Tablet 75 Mg PO DAILY 07/04/14 Reported Atorvastatin Calcium 80 Mg Tablet 80 Mg PO QHS 06/05/13 Reported Impression . 1. Lauyx-[id number]-xzefvqr hypoxic respiratory failure 2. 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 He preferred to continue to drink whiskey and vodka, Ofev was discontinued. 3. Underlying chronic obstructive pulmonary disease. 4. Underlying respiratory failure with acute decompensation. 5. Cardiomyopathy with severe aortic stenosis. Plan . SPOKE WITH DR Iqbal, HOME SOON PT NOT COMPLIANT WITH MEDICATION PRESCRIBED IN THE PAST HE REFUSES TO D/C DRINKING IN PLACE OF TREATING HIS IPF I THINK THIS IS THE BEST HE WILL BE DAVID BREEN MD Nov 02, 2016 15:22
[2016-11-02 19:37] VITALS: BP 107/64
--- NOTE | 2016-11-02 21:09 | PDOC ---
Provider Note Provider Note Discussed with daughter Shade vanessa had no significant ventricular tachycardia today. EKG was not done today. 9PM of 11/02 ortega 48 hrs since initiation of sotalol. He needs to be observed for 48-72 hours. Obtain an EKG in the morning. OK with me to be discharged thereafter. WINTER SUTHERLAND MD Nov 02, 2016 21:09
[2016-11-02] MEDS: ATORVASTATIN CALCIUM 40 MG TABLET. PO SCH (21:15)
[2016-11-02 22:52] VITALS: BP 108/64
[2016-11-03 03:10] VITALS: BP 129/70
[2016-11-03] MEDS: LEVOTHYROXINE 125 MCG TABLET PO SCH (06:38)
[2016-11-03 07:00] VITALS: BP 147/79
[2016-11-03] MEDS: IPRATRPIUM/ALBUTEROL 0.5/2.5MG 3 ML NEBU. NEB SCH ×3 (07:40→15:20)
[2016-11-03] MEDS: FUROSEMIDE 40 MG/4 ML VIAL. IVP SCH ×2 (09:00→09:10)
[2016-11-03] MEDS: predniSONE 20 MG TABLET PO SCH (09:07)
[2016-11-03] MEDS: MULTIVITAMIN with MINERAL TABLET. PO SCH (09:07)
[2016-11-03] MEDS: CARVEDILOL 12.5 MG TABLET. PO SCH ×2 (09:07→17:46)
[2016-11-03] MEDS: LISINOPRIL 20 MG TABLET PO SCH (09:08)
[2016-11-03] MEDS: SOTALOL 80 MG TABLET. PO SCH (09:08)
[2016-11-03] MEDS: SPIRONOLACTONE 25 MG TABLET PO SCH ×2 (09:08→15:13)
[2016-11-03] MEDS: ASPIRIN 325 MG TABLET PO SCH (09:08)
[2016-11-03] MEDS: CLOPIDOGREL BISULFATE 75 MG TABLET PO SCH (09:08)
[2016-11-03] MEDS: AZITHROMYCIN 250 MG TABLET. PO SCH (09:09)
[2016-11-03] MEDS: CEFPODOXIME PROXETIL 100 MG TABLET. PO SCH (09:09)
--- NOTE | 2016-11-03 09:11 | PDOC ---
PULMONARY PROGRESS NOTES Subjective PT FEELS BETTER THAN ADMISSION Vitals Vital Signs Date Time Temp Pulse Resp B/P (MAP) Pulse Ox O2 Delivery O2 Flow Rate FiO2 11/03/16 09:08 64 129/70 11/03/16 07:40 91 Nasal Cannula 5.0 11/03/16 03:10 97.1 18 97.1 General: Alert, No acute distress HEENT: Other Lungs: Crackles (bases) Cardiovascular: S1, S2 Abdomen: Soft, Non-tender Neuro Exam: Alert Extremities: Other (2+edema) Medications Active Scripts Medications Dose Route/Sig Max Daily Dose Days Date Category Lisinopril 20 Mg Tablet 1 Tab PO DAILY 04/12/16 Reported Coreg Cr (Carvedilol Phosphate) 80 Mg Cpmp.24hr 125 Mg PO BID 11/27/15 Reported Multivitamins (Multivitamin) 1 Each Tablet 1 Tab PO DAILY 11/27/15 Reported Xanax (Alprazolam) 0.25 Mg Tablet 1 Tab PO PRN TID 08/05/14 Reported Levothyroxine Sodium 125 Mcg Tablet 1 Tab PO DAILY 08/05/14 Reported Aspirin 325 Mg Tablet 1 Tab PO DAILY 07/07/14 Rx Plavix (Clopidogrel Bisulfate) 75 Mg Tablet 75 Mg PO DAILY 07/04/14 Reported Atorvastatin Calcium 80 Mg Tablet 80 Mg PO QHS 06/05/13 Reported Impression . 1. Eches-om-fhdtykc hypoxic respiratory failure 2. 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 He preferred to continue to drink whiskey and vodka, Ofev was discontinued. 3. Underlying chronic obstructive pulmonary disease. 4. Underlying respiratory failure with acute decompensation. 5. Cardiomyopathy with severe aortic stenosis. Plan . HOME TODAY PT NOT COMPLIANT WITH MEDICATION PRESCRIBED IN THE PAST HE REFUSES TO D/C DRINKING IN PLACE OF TREATING HIS IPF I THINK THIS IS THE BEST HE WILL BE DAVID BREEN MD Nov 03, 2016 09:11
--- NOTE | 2016-11-03 09:21 | EKG ---
[facility] [address] [place] [address] Test Date: 2016-11-03 Test Time: 08:38:56 Pat Name: ANANTH FAULKNER Department: Room: 252 1 Gender: M Ends Down Checker: ESTRELLA : 1945 Requested By: WINTER SUTHERLAND Order Number: [id number] Reading MD: Measurements Intervals [place] Rate: 61 P: 22 HI: 172 QRS: -12 QRSD: 98 T: -177 QT: 454 QTc: 459 Interpretive Statements SINUS RHYTHM LEFTWARD AXIS LVH WITH REPOLARIZATION ABNORMALITY ABNORMAL ECG RI6.01 Compared to ECG 10/25/2016 23:01:12 No significant changes
[2016-11-03] MEDS ORDERED: FUROSEMIDE 40 MG TABLET. PO SCH (09:30)
[2016-11-03 11:00] VITALS: BP 116/64
--- NOTE | 2016-11-03 11:41 | PDOC ---
Provider Note Provider Note QT interval is not prolonged OK with me to be discharged today on Sotalol 80 mgms Q12 See me next week Thank you for asking me to see him WINTER SUTHERLAND MD Nov 03, 2016 11:41
[2016-11-03 15:00] VITALS: BP 115/68
[2016-11-03] MEDS ORDERED: SPIR25TA3 PO (16:25)
[2016-11-03] MEDS ORDERED: SOTA80TA48 PO (16:26)
[2016-11-03] MEDS ORDERED: FURO40TA4 PO (16:29)
[2016-11-03 17:46] VITALS: BP 115/68
== END 2016-11-03 19:05 | disposition home or self-care (01) | DRG 291 ==
LOC: ER 22:55 → 1 WEST ICU 23:30 → 5 SOUTH 10-26 15:49 → 2 SOUTH 10-31 14:02
PROVIDERS: ADMIT Family Medicine; ATTEND Family Medicine
PROC: 5A09357 Assistance with Respiratory Ventilation, Less than 24 Consecutive Hours, Continuous Positive Airway Pressure (ICD-10-PCS; principal; 2016-10-25)
DX: I11.0 Hypertensive heart disease with heart failure (principal); J96.21 Acute and chronic respiratory failure with hypoxia; E87.2 Acidosis; J44.0 Chronic obstructive pulmonary disease with (acute) lower respiratory infection; J44.1 Chronic obstructive pulmonary disease with (acute) exacerbation; I50.23 Acute on chronic systolic (congestive) heart failure; I27.2 Other secondary pulmonary hypertension; E03.9 Hypothyroidism, unspecified; J20.9 Acute bronchitis, unspecified; E78.00 Pure hypercholesterolemia, unspecified; E78.5 Hyperlipidemia, unspecified; F12.90 Cannabis use, unspecified, uncomplicated; I25.10 Atherosclerotic heart disease of native coronary artery without angina pectoris; J84.10 Pulmonary fibrosis, unspecified; I25.5 Ischemic cardiomyopathy; F41.9 Anxiety disorder, unspecified; I35.0 Nonrheumatic aortic (valve) stenosis; Z79.82 Long term (current) use of aspirin; Z79.899 Other long term (current) drug therapy; Z87.01 Personal history of pneumonia (recurrent); Z87.891 Personal history of nicotine dependence; I25.2 Old myocardial infarction; Z95.1 Presence of aortocoronary bypass graft; Z99.81 Dependence on supplemental oxygen; Z90.49 Acquired absence of other specified parts of digestive tract; Z89.029 Acquired absence of unspecified finger(s)
CPT/HCPCS: 36415; 36600; 71010; 80048; 80053; 82805; 83605; 83735; 83880; 84484; 85007; 85025; 85610; 85730; 87040; 87641; 93005; 93306; 94250; 94640; 94660; 94760; 96374; 96375; J0360; J0456; J0696; J1940; J1956; J2920; J2930; J7050; J7512; J7613; J7620; Q0144; 97116; 97530; 99285-25; J7030

== ENCOUNTER 2016-11-18 20:37 | Inpatient (IN) | payer MEDICARE ==
[~2016-11-18] VITALS: Ht 174 cm; Wt 106.8 kg
[~2016-11-18 20:37] MED LIST changes: +FURO40TA4 PO; +SPIR25TA3 PO
[2016-11-18 21:30] LABS: BASO # 0.1 x10^3/uL (0.0-0.2); BASO % 1 % (0-3); EOS % 3 % (0-3); HEMATOCRIT 43.9 % (39.0-53.0); HEMOGLOBIN 14.7 g/dL (13.0-17.5); LYMPH # 1.1 x10^3/uL (1.0-4.8); LYMPH % 11 % (24-48); MEAN CORPUSCULAR HEMOGLOBIN 31 pg (25-35); MEAN CORPUSCULAR HGB CONC 34 g/dL (31-37); MEAN CORPUSCULAR VOLUME 92 fL (79-100); MONO % 7 % (0-9); NEUT % 79 % (31-73); PLATELET COUNT 190 x10^3/uL (140-400); RED CELL DISTRIBUTION WIDTH 15.6 % (11.5-14.5); WHITE BLOOD COUNT 10.5 x10^3/uL (4.0-11.0)
[2016-11-18] MEDS ORDERED: fentaNYL PF VIAL 100 MCG/2 ML VIAL IV ONE (22:00)
[2016-11-18] MEDS ORDERED: ONDANSETRON PF 4 MG/2 ML VIAL. IV ONE (22:00)
--- NOTE | 2016-11-18 22:03 | PHYS DOC ---
Past Medical History Past Medical History: Anxiety, CHF, COPD, High Cholesterol, Hypertension, Hypothyroid, [place], Pneumonia Additional Past Medical Histor: pulmonary fibrosis Past Surgical History: Angioplasty, Cholecystectomy, Coronary Bypass Surgery Additional Past Surgical Histo: finger amputation, shoulder, 9 STENTS PLACED Alcohol Use: Heavy Drug Use: None, Marijuana Adult General Chief Complaint Chief Complaint: LOWER EXTREMITY SWELLING HPI HPI Patient is a 71 year old M who presents with left lower extremity swelling for the past 2 days. Patient has a history of CHF, COPD, bypass surgery however over the past 2 days his legs have become more edematous and he is developing severe left calf tenderness. Patient denies any fevers. Patient denies any chest pain or shortness of breath. Patient denies any nausea/vomiting/diarrhea. Patient has no other complaints. Review of Systems Review of Systems GEN: Denies fevers, chills, sweats HEENT: Denies blurred vision, sore throat CV: Denies chest pain RESP: Denies shortness of air, cough GI: Denies n/v/d NEURO: Denies confusion, dizziness MSK: Lower extremity swelling Current Medications Current Medications Current Medications Medications (Trade) Dose Ordered Sig/Jeannette Start Time Stop Time Status Last Admin Dose Admin Fentanyl Citrate (Fentanyl 2ml Vial) 50 mcg 1X ONCE 11/19/16 00:00 11/19/16 00:01 DC 11/18/16 23:51 50 MCG Ondansetron HCl (Zofran) 4 mg 1X ONCE 11/18/16 22:00 11/18/16 22:01 DC 11/18/16 22:00 4 MG Allergies Allergies Allergies Coded Allergies Type Severity Reaction Last Updated Verified levofloxacin Allergy Intermediate 10/28/16 Yes Physical Exam Physical Exam GEN.: No apparent distress. Alert and oriented. HEENT: Head is normocephalic, atraumatic NECK: Supple. LUNGS: CTAB. HEART: RRR, S1, S2 present. Peripheral pulses intact ABDOMEN: Soft, nontender. Positive bowel sounds. EXTREMITIES: Without any cyanosis, +2 pitting edema to the lower extremities bilaterally, positive tenderness palpation left calf, dorsal pedis pulses palpated bilaterally NEUROLOGIC: Normal speech, normal tone PSYCHIATRIC: Normal affect, normal mood. SKIN: No ulcerations Current Patient Data Vital Signs Vital Signs Date Time Temp Pulse Resp B/P (MAP) Pulse Ox O2 Delivery O2 Flow Rate FiO2 11/18/16 23:51 Nasal Cannula 4.0 11/18/16 20:55 97.6 75 37 110/63 (79) 94 97.6 Lab Values Laboratory Tests Test 11/18/16 21:21 11/18/16 22:35 White Blood Count 10.5 x10^3/uL (4.0-11.0) Red Blood Count 4.80 x10^6/uL (4.30-5.70) Hemoglobin 14.7 g/dL (13.0-17.5) Hematocrit 43.9 % (39.0-53.0) Mean Corpuscular Volume 92 fL (79-100) Mean Corpuscular Hemoglobin 31 pg (25-35) Mean Corpuscular Hemoglobin Concent 34 g/dL (31-37) Red Cell Distribution Width 15.6 % (11.5-14.5) H Platelet Count 190 x10^3/uL (140-400) Neutrophils (%) (Auto) 79 % (31-73) H Lymphocytes (%) (Auto) 11 % (24-48) L Monocytes (%) (Auto) 7 % (0-9) Eosinophils (%) (Auto) 3 % (0-3) Basophils (%) (Auto) 1 % (0-3) Neutrophils # (Auto) 8.3 x10^3uL (1.8-7.7) H Lymphocytes # (Auto) 1.1 x10^3/uL (1.0-4.8) Monocytes # (Auto) 0.7 x10^3/uL (0.0-1.1) Eosinophils # (Auto) 0.3 x10^3/uL (0.0-0.7) Basophils # (Auto) 0.1 x10^3/uL (0.0-0.2) Sodium Level 136 mmol/L (136-145) Potassium Level 4.8 mmol/L (3.5-5.1) Chloride Level 99 mmol/L (98-107) Carbon Dioxide Level 31 mmol/L (21-32) Anion Gap 6 (6-14) Blood Urea Nitrogen 40 mg/dL (8-26) H Creatinine 1.6 mg/dL (0.7-1.3) H Estimated GFR (Cockcroft-Gault) 42.9 BUN/Creatinine Ratio 25 (6-20) H Glucose Level 123 mg/dL (70-99) H Calcium Level 9.4 mg/dL (8.5-10.1) Total Bilirubin 0.8 mg/dL (0.2-1.0) Aspartate Amino Transferase (AST) 39 U/L (15-37) H Alanine Aminotransferase (ALT) 134 U/L (16-63) H Alkaline Phosphatase 141 U/L (46-116) H Troponin I Quantitative < 0.017 ng/mL (0.000-0.055) SD-Idd-B-Type Natriuretic Peptide 1917 pg/mL (0-124) H Total Protein 7.2 g/dL (6.4-8.2) Albumin 3.5 g/dL (3.4-5.0) Albumin/Globulin Ratio 0.9 (1.0-1.7) L Laboratory Tests 11/18/16 21:21 Laboratory Tests 11/18/16 22:35 EKG EKG 2100: EKG shows normal sinus rhythm rate of 67 no STEMI[] Radiology/Procedures Radiology/Procedures Chest x-ray shows pulmonary fibrosis and no overall severe change from previous chest x-rays[] Course & Med Decision Making Course & Med Decision Making Pertinent Labs and Imaging studies reviewed. (See chart for details) ED course: Patient was seen and examined emergency room CBC, CMP, troponin, EKG, chest x- ray, ultrasound left lower extremity were ordered 0015: Patient was reexamined and updated on lab results and ultrasound findings. Patient still having significant left lower leg pain and discussed admission for CHF exacerbation. 0022: Discussed CC/HP/PMH with Dr. Packer and recommends admit with Dr. Campbell on consult MDM: After reviewing the chart, CC/HPI/PMH, physical exam, [lab results], [ radiological results], I do not believe the patient's having acute TX or an acute DVT however I believe the patient is having acute CHF exacerbation. The patient's EKG does show lateral ST depressions however the patient complaining of no chest pain or shortness of breath at this time. We'll continue to trend the troponin and consult cardiology. We'll give the patient 80 mg of Lasix by mouth and admit the patient for further evaluation and management. [] Dragon Disclaimer Dragon Disclaimer This electronic medical record was generated, in whole or in part, using a voice recognition dictation system. Departure Departure Impression: Primary Impression: CHF exacerbation Additional Impression: Leg swelling Disposition: 09 ADMITTED INPATIENT Admitting Physician: Juanis Packer Condition: STABLE Referrals: JUANIS PACKER MD (PCP) Problem Qualifiers LEANDRA JOYCE DO Nov 18, 2016 22:03
--- NOTE | 2016-11-18 22:46 | RAD ---
Clinical Indication: Left lower extremity pain and swelling for 4 days Technique: Study is dated November 18, 2016. Grayscale, color flow and spectral waveform analysis was performed of the left lower extremity with and without compression. Findings: There is normal compressibility of all visualized vein segments. No evidence of DVT is present on grayscale or color images. There is normal phasicity of waveform. There is normal augmentation. Impression: No evidence of deep vein thrombosis. Electronically signed by: Ernie Cedillo MD (11/18/2016 10:43 PM) [facility]
[2016-11-18 22:56] LABS: CALCIUM 9.4 mg/dL (8.5-10.1); CREATININE 1.6 mg/dL (0.7-1.3); GFR 42.9; POTASSIUM 4.8 mmol/L (3.5-5.1)
[2016-11-18 23:04] LABS: ALBUMIN 3.5 g/dL (3.4-5.0); ALBUMIN/GLOBULIN RATIO 0.9 (1.0-1.7); TOTAL BILIRUBIN 0.8 mg/dL (0.2-1.0); TOTAL PROTEIN 7.2 g/dL (6.4-8.2)
[2016-11-19] VITALS (12 sets, daily range): BP systolic 78–104; BP diastolic 50–62
[2016-11-19] MEDS ORDERED: fentaNYL PF VIAL 100 MCG/2 ML VIAL IV ONE
[2016-11-19] MEDS ORDERED: ONDANSETRON PF 4 MG/2 ML VIAL. IV PRN (00:30)
[2016-11-19] MEDS ORDERED: FUROSEMIDE 40 MG TABLET. PO ONE (01:00)
[2016-11-19] MEDS: MORPHINE SULFATE 4 MG/ML DISP.SYRIN. IV PRN ×2 (01:14→10:35)
[2016-11-19] MEDS ORDERED: INFLUENZA VAX SCREEN BY RX. MC ONE (06:00)
--- NOTE | 2016-11-19 08:24 | RAD ---
Portable AP chest. History: Short of breath, history COPD AP view was taken of the chest. There are changes from bypass surgery. There is atherosclerotic change in the aorta. There is pulmonary fibrosis. The pattern is similar to recent studies. There are no definite acute infiltrates. There is been resection of the distal left clavicle from previous left shoulder surgery. Impression: 1. Pulmonary fibrosis. 2. Previous bypass. 3. No acute infiltrates.
[2016-11-19] MEDS ORDERED: FLU VACC QS2017-18 (36MOS+)/PF 0.5 ML SYRINGE. VAX IM ONE (09:00)
--- NOTE | 2016-11-19 09:25 | HP ---
ADMIT DATE: 11/19/2016 CHIEF COMPLAINT AND HISTORY OF PRESENT ILLNESS: This is a 71-year-old white male who is well known to me from followup in the office. The patient has had severe pain in his left lower extremity. It has been somewhat red and swollen. He presented to the Emergency Room where he was found not to have a DVT, but admitted for the same because of the difficulty walking as well as congestive heart failure. PAST MEDICAL HISTORY: Remarkable for congestive heart failure due to aortic stenosis, he has a history of COPD as well as pulmonary fibrosis, hyperlipidemia, hypertension, hypothyroidism and pneumonia with empyema years ago, prior myocardial infarction. He has had coronary artery bypass surgery as well as cholecystectomy and finger amputation. He has had 9 stents placed over the years and has had a prior shoulder surgery. MEDICATIONS: Brought with the patient, listed on the computer and have been addressed. ALLERGIES: ALLERGIC TO LEVAQUIN. SOCIAL HISTORY: He does occasionally imbibe marijuana, is recently . Nonsmoker, does drink alcohol, also not to excess. FAMILY HISTORY: Noncontributory. REVIEW OF SYSTEMS: As mentioned above. PHYSICAL EXAMINATION: GENERAL: He is a well-developed, well-nourished white male who is uncomfortable. VITAL SIGNS: Stable. He is afebrile. HEAD, EYES, EARS, NOSE AND THROAT: Remarkable for glasses. NECK: Supple, without any thyromegaly. CHEST: Clear to auscultation and percussion with decreased breath sounds. HEART: Regular rate and rhythm without S3, S4, he does have a stable murmur of aortic stenosis. ABDOMEN: Soft, nontender, without hepatosplenomegaly or mass. EXTREMITIES: Do reveal some redness and increased swelling in the left lower extremity with some feeling suggesting of a possible cellulitis. NEUROLOGIC: He is intact. IMPRESSION: 1. Left leg pain as described above. 2. Heart failure, ongoing due to aortic stenosis. 3. Severe chronic obstructive pulmonary disease/pulmonary fibrosis with O2, needs chronically. 4. Other problems listed above. PLAN: The patient has been admitted. Cardiology has been asked to see for the heart failure. Going to start him on an antibiotic for the leg and ask Ortho to give their opinion. He has had an ultrasound in the Emergency Room and is negative for DVT. JUANIS PACKER MD DR: Shukri JOB#: [id number] / [id number]
[2016-11-19] MEDS ORDERED: VANCOMYCIN 2 GM in IV NORMAL SALINE 500ML BAG 500 ML IV ONE (09:30)
[2016-11-19] MEDS: VANCOMYCIN PER PHARMACY MC PRN (09:36)
--- NOTE | 2016-11-19 12:50 | EKG ---
[facility] [address] [place] [address] Test Date: 2016-11-18 Test Time: 21:00:11 Pat Name: ANANTH FAULKNER Department: Room: 244 Gender: M Material Carrier: : 1945 Requested By: LEANDRA JOYCE Order Number: [id number] Reading MD: Beto Newby Measurements Intervals [place] Rate: 67 P: 22 MI: 180 QRS: -17 QRSD: 94 T: -178 QT: 406 QTc: 432 Interpretive Statements SINUS RHYTHM LEFTWARD AXIS LVH WITH REPOLARIZATION ABNORMALITY QRS(T) CONTOUR ABNORMALITY CONSIDER ANTEROSEPTAL MYOCARDIAL DAMAGE RI6.01 Unconfirmed report Compared to ECG 11/03/2016 08:38:56 Left-axis deviation now present Electronically Signed On 12-07-2016 10:41:22 CDT by Beto Newby
[2016-11-19] MEDS ORDERED: LISINOPRIL 20 MG TABLET PO SCH (13:00)
[2016-11-19] MEDS ORDERED: FUROSEMIDE 40 MG TABLET. PO SCH (13:00)
[2016-11-19] MEDS ORDERED: SOTALOL 80 MG TABLET. PO SCH (13:00)
[2016-11-19] MEDS: SPIRONOLACTONE 25 MG TABLET PO SCH (13:28)
[2016-11-19] MEDS: LEVOTHYROXINE 125 MCG TABLET PO SCH (13:28)
[2016-11-19] MEDS: CLOPIDOGREL BISULFATE 75 MG TABLET PO SCH (13:28)
[2016-11-19] MEDS: ASPIRIN 325 MG TABLET PO SCH (13:28)
[2016-11-19] MEDS ORDERED: CARVEDILOL 12.5 MG TABLET. PO SCH (17:00)
[2016-11-19] MEDS ORDERED: CARVEDILOL 6.25 MG TABLET. PO SCH (17:00)
[2016-11-19] MEDS ORDERED: CARVEDILOL 3.125 MG TABLET. PO SCH (18:30)
[2016-11-19] MEDS: ATORVASTATIN CALCIUM 40 MG TABLET. PO SCH (21:33)
[2016-11-19] MEDS ORDERED: IV NORMAL SALINE 500ML BAG 500 ML IV ONE (22:00)
--- NOTE | 2016-11-19 22:09 | PDOC ---
Provider Note Provider Note BP had been in the 90s to 100s systolic all day. Upon resuming home meds even at a lower dose the systolic BP dropped to 78 mm. Hg. I was called by RN that at that point 500 ccs. of N Saline was given and the BP went up to 100 mm. Hg. This is a difficult situation to control swelling of legs with diuretics. He will always have oedema of legs because of severe pulmonary hypertension. Because of severe aortic stenosis he will not be able to tolerate the usual dose of diuretics. It is better to keep him dry than wet because of the pulmonary fibrosis. Will thus D/C TASIA and BB eventhough his EF is low and therefore recommended Consider Lasix twice a week. WINTER SUTHERLAND MD Nov 19, 2016 22:09
[2016-11-20] VITALS (10 sets, daily range): BP systolic 81–119; BP diastolic 49–68
--- NOTE | 2016-11-20 01:11 | CONS ---
DATE OF CONSULTATION: HISTORY OF PRESENT ILLNESS: This is a 71-year-old white male who has recently been discharged and is now back because of pain and swelling of his left leg. When he was here the last time he underwent an echocardiogram, which did show that his aortic stenosis was severe. There is no significant aortic regurgitation. His left ventricular systolic function was impaired with an ejection fraction of 30%-35%. He had a grade 2 diastolic dysfunction. He had abnormal chest x-ray. This was more consistent with pulmonary fibrosis. He had not been taking any diuretics at home. He was given diuretics at which he significantly improved. It is to be noted that even though he was on these since the last admission, he has not been on it at home. His breathing he says is not impaired. However, he has been having swelling of the legs. The echocardiogram also showed tricuspid regurgitation and pulmonary hypertension, which is probably secondary to the left heart findings. As such he would need to be on some diuretics. The pulmonary fibrosis is now being treated with oxygen supplements. He has been followed by Dr. Santos. He is not a candidate for TAVR because of problems with access. He has knee extends. Thus the leg approach is not an option. Thoracotomy is also not an option because of his pulmonary fibrosis and the fact that he has had previous open heart surgery, which usually leads to lot of adhesions making people thoracotomy very difficult. There was a suggestion of balloon angioplasty. Balloon angioplasty does not require a large catheter and would be feasible, but it has been known to have very high rate of recurrence within 6 months. That being the case, and since the patient was really not very symptomatic, balloon angioplasty was not explored. Actually he says that he has been feeling well. He has not had any shortness of breath. During the last hospitalization, he will get hypoxic on 4 liters per minute, dropping down to the 80s even at rest. Fortunately, has not been symptomatic. Also, during the last hospitalization, he had several runs of nonsustained ventricular tachycardia and was placed on sotalol with which it seemed to subside and the QT interval was not prolonged. He has had coronary artery disease. He has had several stents placed. Chest pain has not been a problem and with his severe aortic stenosis, we have not well evaluated him for myocardial ischemia with Lexiscan. He has had peripheral vascular disease and stents in his iliac artery. He has had no claudication. He does not smoke. He continues to take some alcohol. MEDICATIONS: Have been listed as: 1. Alprazolam 0.25 mg t.i.d. p.r.n. 2. Aspirin 325 mg a day. 3. Atorvastatin 80 mg a day. 4. Carvedilol 80 mg a day. 5. Plavix 75 mg a day. 6. Furosemide 40 mg a day. 7. Synthroid 125 mcg a day. 8. Lisinopril 20 mg a day. 9. Multivitamin. 10. Sotalol 80 mg twice a day. 11. Spironolactone 25 mg a day. PHYSICAL EXAMINATION: GENERAL: He was in no distress and did not appear short of breath. VITAL SIGNS: The heart rate is 80 per minute and regular. The blood pressure is 90/40. LUNGS: Showed bibasilar rales. HEART: The jugular venous pressure was raised. The first and second sounds were normal. There is a grade 2/6 crescendo decrescendo murmur heard at the base. This was conducted towards the carotids. There is no diastolic murmur heard. ABDOMEN: Soft. EXTREMITIES: There is 1+ edema of the legs. The distal pulses are palpable. DIAGNOSTIC DATA: A chest x-ray showed cardiomegaly and bilateral infiltrates suggestive of pulmonary fibrosis/CHF. An EKG showed a sinus rhythm. There was ST segment depression in the inferolateral leads. The QT interval was normal at 432 milliseconds. This EKG is unchanged from before. LABORATORY INVESTIGATIONS: Showed hemoglobin of 14.7. Sodium was 136, potassium 4.8, BUN was 40, creatinine was 1.6. The AST was mildly elevated to 39 and ALT to 134. The troponin was normal at 0.017. Albumin is 3.5. IMPRESSION: 1. Bilateral leg edema. 2. Severe aortic stenosis and severe pulmonary hypertension. 3. Ischemic cardiomyopathy with an ejection fraction of 30%-40%. 4. Grade 2 diastolic dysfunction. 5. Pulmonary fibrosis. 6. History of nonsustained ventricular tachycardia, recurrent. 7. Peripheral vascular disease. This patient was hospitalized the last time with congestive heart failure because he had not been taking his diuretics. Somehow, he has not been taking his diuretics again this hospitalization. This was confirmed by his daughter who gives out his medicines. He feels better since the institution of his diuretics. We will have to make sure that he goes home on at least 40 mg of Lasix once a day. I would like to take this opportunity to not give him the sotalol and see whether he has recurrence of the ventricular tachycardia. If he does, he will have to go back on it which he seems to be tolerating it well. I have no objection to him being discharged tomorrow. Thank you very much for asking me to see him. WINTER SUTHERLAND MD DR: JAIDA/russ JOB#: [id number] / [id number]
[2016-11-20] MEDS: ALPRAZolam 0.25 MG TABLET PO PRN (02:16)
[2016-11-20] MEDS ORDERED: IV NORMAL SALINE 250ML 250 ML IV ONE ×2 (05:00)
[2016-11-20 06:05] LABS: BASO % 1 % (0-3); EOS % 3 % (0-3); HEMATOCRIT 39.8 % (39.0-53.0); HEMOGLOBIN 13.5 g/dL (13.0-17.5); LYMPH % 14 % (24-48); MEAN CORPUSCULAR HEMOGLOBIN 31 pg (25-35); MEAN CORPUSCULAR HGB CONC 34 g/dL (31-37); MEAN CORPUSCULAR VOLUME 91 fL (79-100); MONO % 9 % (0-9); NEUT % 74 % (31-73); PLATELET COUNT 165 x10^3/uL (140-400); RED BLOOD COUNT 4.39 x10^6/uL (4.30-5.70); RED CELL DISTRIBUTION WIDTH 15.3 % (11.5-14.5)
[2016-11-20 06:25] LABS: GFR 33.2; POTASSIUM 4.6 mmol/L (3.5-5.1)
[2016-11-20] MEDS: LEVOTHYROXINE 125 MCG TABLET PO SCH (06:29)
[2016-11-20] MEDS: HYDROcodone/APAP 5/325MG 1 TAB TABLET PO PRN ×3 (06:30→15:47)
[2016-11-20] MEDS ORDERED: CARVEDILOL 6.25 MG TABLET. PO SCH (08:00)
[2016-11-20] MEDS ORDERED: LISINOPRIL 10 MG TABLET PO SCH (09:00)
[2016-11-20] MEDS ORDERED: LISINOPRIL 5 MG TABLET. PO SCH (09:00)
[2016-11-20] MEDS: VANCOMYCIN PER PHARMACY MC PRN (09:03)
[2016-11-20] MEDS: ASPIRIN 325 MG TABLET PO SCH (09:29)
[2016-11-20] MEDS: SPIRONOLACTONE 25 MG TABLET PO SCH (09:29)
[2016-11-20] MEDS: MULTIVITAMIN with MINERAL TABLET. PO SCH (09:29)
[2016-11-20] MEDS: CLOPIDOGREL BISULFATE 75 MG TABLET PO SCH (09:29)
--- NOTE | 2016-11-20 09:56 | CONS ---
DATE OF CONSULTATION: 11/20/2016 REQUESTING PHYSICIAN: Dr. Blunt. REASON FOR CONSULTATION: Left foot pain. HISTORY OF PRESENT ILLNESS: The patient is a 71-year-old male who indicates that he has had atraumatic onset of left foot pain that is dull, throbbing, aching in nature, probably for the past several months, it has been worsening over that timeframe. He said it is not really related to activity. Both feet have been swollen recently, the left worse than the right. He indicates that he had been having some breathing treatments recently and had had some chest pain associated with those that decreased when he went off the breathing treatments. He is on 4 liters of oxygen chronically due to idiopathic pulmonary fibrosis and some COPD. PAST MEDICAL HISTORY: Significant again for the COPD, pulmonary fibrosis, congestive heart failure, aortic stenosis, hypertension, hypothyroid, hyperlipidemia, previous history of empyema and previous heart attack. PAST SURGICAL HISTORY: Significant for coronary artery bypass surgery, cholecystectomy and finger amputation as well as a previous shoulder surgery. He has had many coronary stents placed. MEDICATIONS: List is reviewed. ALLERGIES: INCLUDE LEVAQUIN. SOCIAL HISTORY: Denies any smoking, occasional alcohol, occasional marijuana and is . FAMILY HISTORY: Noncontributory. REVIEW OF SYSTEMS: Significant for the left foot pain; the chest pain which he said is not anything recent, however, last night he had an episode where he had some sweats and just felt achy all over the place. Really denies any other specific joint pain, radiating pain, numbness, tingling or more difficulty breathing recently. He is on 4 liters of oxygen currently. PHYSICAL EXAMINATION: LUNGS: He does have just a little bit of effort to his breathing, which he says is at baseline. EXTREMITIES: On examination of lower extremities, he has good sensation to both feet. No neuropathy present. Pulses really are not palpable, especially on the left he has some dry scaly skin present. There is on the left fifth toe, an area where he had stubbed his toe and it bled underneath his toenail, it looks like he is about to lose his toenail but there is no redness or erythema surrounding. Skin is otherwise intact. He has excellent range of motion, normal stability of the ankle joint and no specific point tenderness on palpation over the left foot, he is a little bit ticklish on both feet. Likewise, has good hip and knee range of motion, alignment, stability; and no joint swelling is noted. IMAGING STUDIES: Includes a lower extremity ultrasound, which was negative for DVT. IMPRESSION AND PLAN: 1. Multiple medical problems, perhaps recent exacerbation of some congestive heart failure causing lower extremity swelling. 2. Long-standing left foot pain, which I suspect may be is vascular in origin. I really do not suspect any type of infection. He could have just a slight cellulitis at the lower portion of the leg, but again his issues in the foot seem more vascular to me than anything. I would probably get Vascular Surgery evaluation to see if he is just having some pain due to lack of adequate blood supply. I will continue to follow as necessary, but see no orthopedic intervention presently. EDEN MC MD DR: MILADIS/russ JOB#: [id number] / [id number] JUANIS Rivera MD
[2016-11-20] MEDS: VANCOMYCIN 1.5 GM in IV NORMAL SALINE 500ML BAG 500 ML IV SCH (10:32)
[2016-11-20] MEDS: SOTALOL 80 MG TABLET. PO SCH (10:33)
--- NOTE | 2016-11-20 11:53 | RAD ---
Ultrasound the abdomen complete. History: Abdominal pain Ultrasound was used to evaluate the abdomen. The pancreas is obscured by bowel gas. Liver is normal in size without a focal lesion although difficult to fully evaluate. The liver is echogenic suggesting fatty infiltration. Common duct was upper normal at 6 mm. Right kidney was 12 cm in length without a mass or hydronephrosis. Spleen is upper normal in size. Left kidney was 12 cm in length without a mass or hydronephrosis. Aorta and vena cava are poorly visualized. Patient's had a previous cholecystectomy. Impression: 1. Previous cholecystectomy. 2. Fatty infiltration of the liver. 3. Limited evaluation the pancreas aorta and vena cava.
--- NOTE | 2016-11-20 12:09 | PDOC2 ---
CONSULT Date of Consult Date of Consult DATE: 11/20/16 TIME: 12:02 Reason for Consult Reason for Consult: SHAWANDA Referring Physician Referring Physician: BIRDIE Identification/Chief Complaint Chief Complaint LEFT LE PAIN Problems: Source Source: Chart review, Patient History of Present Illness Reason for Visit: THIS IS A 71 YR OLD ADMITTED VIA THE ER WITH LE CELLULITIS AND SHAWANDA. HAS BEEN ON DIURETICS FOR A WHILE. APPETITE HAS BEEN OK PER PT. CHRONICALLY SOB DUE TO PULMONARY FIBROSIS NEEDING O2. NO CKD NOTED. STATES HE CAN EMPTY HIS BLADDER WELL AND NO HX OF ANY NSAID USE. NO HX OF ANY KIDNEY OR BLADDER SURGERIES HEMATURIA DYSURIA OR FREQUENCY NOTED Past Medical History Cardiovascular: CAD, HTN, Hyperlipidemia Pulmonary: COPD CENTRAL NERVOUS SYSTEM: Other Endocrine: Hypothyroidism Past Surgical History Past Surgical History: CABG, Other Family History Family History: Other Social History ALCOHOL: occassional Drugs: None Current Problem List Problem List Problems Medical Problems: (1) CHF exacerbation Status: Acute (2) Leg swelling Status: Acute Current Medications Current Medications Current Medications Fentanyl Citrate (Fentanyl 2ml Vial) 50 mcg 1X ONCE IV Last administered on 22:00; Start 11/18/16 at 22:00; Stop 11/18/16 at 22:01; Status DC Ondansetron HCl (Zofran) 4 mg 1X ONCE IV Last administered on 11/18/16 22:00 ; Start 11/18/16 at 22:00; Stop 11/18/16 at 22:01; Status DC Fentanyl Citrate (Fentanyl 2ml Vial) 50 mcg 1X ONCE IV Last administered on 23:51; Start 11/19/16 at 00:00; Stop 11/19/16 at 00:01; Status DC Furosemide (Lasix) 80 mg 1X ONCE PO Last administered on 11/19/16 01:14; Start 11/19/16 at 01:00; Stop 11/19/16 at 01:01; Status DC Ondansetron HCl (Zofran) 4 mg PRN Q8HRS PRN IV NAUSEA/VOMITING; Start 11/19/16 at 00:30; Stop 11/20/16 at 00:29; Status DC Morphine Sulfate 4 mg PRN Q2HR PRN IV SEVERE PAIN Last administered on 10:35; Start 11/19/16 at 00:30; Stop 11/20/16 at 00:29; Status DC Info (Do NOT chart on this placeholder) 1 each 1X ONCE MC ; Start 11/19/16 at 06:00; Stop 11/19/16 at 06:01; Status UNV Influenza Virus Vaccine Quadrival (Fluarix Quad [id number] Syringe) 0.5 ml ONCE ONCE VAX IM Last administered on 11/19/16 10:41; Start 11/19/16 at 09:00; Stop 11/19/16 at 09:01; Status DC Vancomycin HCl (Vanco Per Pharmacy) 1 each PRN DAILY PRN MC SEE COMMENTS Last administered on 11/20/16 09:03; Start 11/19/16 at 09:15 Vancomycin HCl 2 gm/Sodium Chloride 500 ml @ 250 mls/hr 1X ONCE IV Last administered on 11/19/16 10:21; Start 11/19/16 at 09:30; Stop 11/19/16 at 11:29 ; Status DC Vancomycin HCl 1.5 gm/Sodium Chloride 500 ml @ 250 mls/hr Q24H IV Last administered on 11/20/16 10:32; Start 11/20/16 at 10:00 Vancomycin HCl 1 each 1X ONCE MC ; Start 11/21/16 at 09:30; Stop 11/21/16 at 09 :31 Alprazolam (Xanax) 0.25 mg PRN TID PRN PO ANXIETY Last administered on 02:16; Start 11/19/16 at 12:30 Aspirin (Regulo Aspirin) 325 mg DAILY PO Last administered on 11/20/16 09:29; Start 11/19/16 at 13:00 Clopidogrel Bisulfate (Plavix) 75 mg DAILY PO Last administered on 11/20/16 09 :29; Start 11/19/16 at 13:00 Furosemide (Lasix) 40 mg DAILY PO Last administered on 11/19/16 13:28; Start 11/19/16 at 13:00; Stop 11/19/16 at 22:13; Status DC Levothyroxine Sodium (Synthroid) 125 mcg DAILY07 PO Last administered on 06:29; Start 11/19/16 at 13:00 Lisinopril (Prinivil) 20 mg DAILY PO ; Start 11/19/16 at 13:00; Stop 11/19/16 at 13:24; Status DC Sotalol HCl (Betapace) 80 mg Q12HR PO ; Start 11/19/16 at 13:00; Stop 11/19/16 at 13:24; Status DC Spironolactone (Aldactone) 25 mg BID92 PO Last administered on 11/20/16 09:29 ; Start 11/19/16 at 14:00 Atorvastatin Calcium (Lipitor) 80 mg QHS PO Last administered on 11/19/16 21: 33; Start 11/19/16 at 21:00 Carvedilol (Coreg) 12.5 mg BIDWMEALS PO ; Start 11/19/16 at 17:00; Stop at 17:00; Status DC Multivitamins (Thera M Plus) 1 tab DAILY PO Last administered on 11/20/16 09: 29; Start 11/20/16 at 09:00 Lisinopril (Prinivil) 10 mg DAILY PO ; Start 11/20/16 at 09:00; Stop 11/20/16 at 09:00; Status DC Carvedilol (Coreg) 6.25 mg BIDWMEALS PO ; Start 11/19/16 at 17:00; Stop at 18:08; Status DC Carvedilol (Coreg) 3.125 mg BIDWMEALS PO ; Start 11/20/16 at 08:00; Stop at 08:00; Status DC Lisinopril (Prinivil) 5 mg DAILY PO ; Start 11/20/16 at 09:00; Stop 11/20/16 at 09:00; Status DC Carvedilol (Coreg) 3.125 mg BIDWMEALS PO Last administered on 11/19/16 18:23; Start 11/19/16 at 18:30; Stop 11/19/16 at 22:13; Status DC Furosemide (Lasix) 40 mg Q3DAYS PO ; Start 11/22/16 at 09:00 Sotalol HCl (Betapace) 80 mg DAILY PO Last administered on 11/20/16 10:33; Start 11/20/16 at 09:00 Sodium Chloride 250 ml @ 250 mls/hr 1X ONCE IV ; Start 11/20/16 at 05:00; Stop 11/20/16 at 05:59; Status UNV Sodium Chloride 250 ml @ 250 mls/hr 1X ONCE IV ; Start 11/20/16 at 05:00; Stop 11/20/16 at 05:59; Status UNV Sodium Chloride 500 ml @ 500 mls/hr 1X ONCE IV Last administered on 22:00; Start 11/19/16 at 22:00; Stop 11/20/16 at 04:56; Status DC Acetaminophen/ Hydrocodone Bitart (Lortab 5/325) 1 tab PRN Q4HRS PRN PO SEVERE PAIN Last administered on 11/20/16 10:33; Start 11/20/16 at 06:30 Active Scripts Active Aspirin 325 Mg Tablet 1 Tab PO DAILY Reported Furosemide 40 Mg Tablet 1 Tab PO DAILY Sotalol (Sotalol Hcl) 80 Mg Tablet 1 Tab PO Q12HR Spironolactone 25 Mg Tablet 1 Tab PO BID92 Lisinopril 20 Mg Tablet 1 Tab PO DAILY Coreg Cr (Carvedilol Phosphate) 80 Mg Cpmp.24hr 125 Mg PO BID Multivitamins (Multivitamin) 1 Each Tablet 1 Tab PO DAILY Xanax (Alprazolam) 0.25 Mg Tablet 1 Tab PO PRN TID Levothyroxine Sodium 125 Mcg Tablet 1 Tab PO DAILY Plavix (Clopidogrel Bisulfate) 75 Mg Tablet 75 Mg PO DAILY Atorvastatin Calcium 80 Mg Tablet 80 Mg PO QHS Allergies Allergies: Coded Allergies: levofloxacin (Verified Allergy, Intermediate, 10/28/16) ROS General: YES: Fatigue, Appetite PSYCHOLOGICAL ROS: YES: Anxiety Eyes: Yes Decreased vision HEENT: YES: Heacaches Respiratory: YES: Cough, Shortness of breath, SOB with excertion Gastrointestinal: Yes Constipation Genitourinary: YES Other (NOCTURIA) Musculoskeletal: Yes Muscular Weakness Neurological: Yes Weakness Skin: Yes Dry Skin Physical Exam General: Alert, Oriented X3, Cooperative, No acute distress HEENT: Atraumatic, PERRLA Lungs: Clear to auscultation Heart: Regular rate, Normal S1, Normal S2 Abdomen: Normal bowel sounds, Soft, No tenderness Extremities: No clubbing Skin: No breakdown Neuro: Normal speech, Cranial nerves 3-12 NL Psych/Mental Status: Mental status NL, Mood NL MUSCULOSKELETAL: No deformity, No swelling Vitals VITALS Vital Signs Date Time Temp Pulse Resp B/P (MAP) Pulse Ox O2 Delivery O2 Flow Rate FiO2 11/20/16 11:30 Nasal Cannula 4.0 11/20/16 10:33 71 100/58 11/20/16 07:00 97.3 20 93 97.3 Labs Labs Laboratory Tests Test 11/18/16 21:21 11/18/16 22:35 11/19/16 06:15 11/19/16 12:30 White Blood Count 10.5 x10^3/uL (4.0-11.0) Red Blood Count 4.80 x10^6/uL (4.30-5.70) Hemoglobin 14.7 g/dL (13.0-17.5) Hematocrit 43.9 % (39.0-53.0) Mean Corpuscular Volume 92 fL (79-100) Mean Corpuscular Hemoglobin 31 pg (25-35) Mean Corpuscular Hemoglobin Concent 34 g/dL (31-37) Red Cell Distribution Width 15.6 % (11.5-14.5) Platelet Count 190 x10^3/uL (140-400) Neutrophils (%) (Auto) 79 % (31-73) Lymphocytes (%) (Auto) 11 % (24-48) Monocytes (%) (Auto) 7 % (0-9) Eosinophils (%) (Auto) 3 % (0-3) Basophils (%) (Auto) 1 % (0-3) Neutrophils # (Auto) 8.3 x10^3uL (1.8-7.7) Lymphocytes # (Auto) 1.1 x10^3/uL (1.0-4.8) Monocytes # (Auto) 0.7 x10^3/uL (0.0-1.1) Eosinophils # (Auto) 0.3 x10^3/uL (0.0-0.7) Basophils # (Auto) 0.1 x10^3/uL (0.0-0.2) Sodium Level 136 mmol/L (136-145) Potassium Level 4.8 mmol/L (3.5-5.1) Chloride Level 99 mmol/L (98-107) Carbon Dioxide Level 31 mmol/L (21-32) Anion Gap 6 (6-14) Blood Urea Nitrogen 40 mg/dL (8-26) Creatinine 1.6 mg/dL (0.7-1.3) Estimated GFR (Cockcroft-Gault) 42.9 BUN/Creatinine Ratio 25 (6-20) Glucose Level 123 mg/dL (70-99) Calcium Level 9.4 mg/dL (8.5-10.1) Total Bilirubin 0.8 mg/dL (0.2-1.0) Aspartate Amino Transf (AST/SGOT) 39 U/L (15-37) Alanine Aminotransferase (ALT/SGPT) 134 U/L (16-63) Alkaline Phosphatase 141 U/L (46-116) Troponin I Quantitative < 0.017 ng/mL (0.000-0.055) < 0.017 ng/mL (0.000-0.055) 0.022 ng/mL (0.000-0.055) EW-Jek-L-Type Natriuretic Peptide 1917 pg/mL (0-124) Total Protein 7.2 g/dL (6.4-8.2) Albumin 3.5 g/dL (3.4-5.0) Albumin/Globulin Ratio 0.9 (1.0-1.7) Test 11/20/16 05:40 White Blood Count 7.0 x10^3/uL (4.0-11.0) Red Blood Count 4.39 x10^6/uL (4.30-5.70) Hemoglobin 13.5 g/dL (13.0-17.5) Hematocrit 39.8 % (39.0-53.0) Mean Corpuscular Volume 91 fL (79-100) Mean Corpuscular Hemoglobin 31 pg (25-35) Mean Corpuscular Hemoglobin Concent 34 g/dL (31-37) Red Cell Distribution Width 15.3 % (11.5-14.5) Platelet Count 165 x10^3/uL (140-400) Neutrophils (%) (Auto) 74 % (31-73) Lymphocytes (%) (Auto) 14 % (24-48) Monocytes (%) (Auto) 9 % (0-9) Eosinophils (%) (Auto) 3 % (0-3) Basophils (%) (Auto) 1 % (0-3) Neutrophils # (Auto) 5.1 x10^3uL (1.8-7.7) Lymphocytes # (Auto) 1.0 x10^3/uL (1.0-4.8) Monocytes # (Auto) 0.6 x10^3/uL (0.0-1.1) Eosinophils # (Auto) 0.2 x10^3/uL (0.0-0.7) Basophils # (Auto) 0.0 x10^3/uL (0.0-0.2) Sodium Level 134 mmol/L (136-145) Potassium Level 4.6 mmol/L (3.5-5.1) Chloride Level 95 mmol/L (98-107) Carbon Dioxide Level 34 mmol/L (21-32) Anion Gap 5 (6-14) Blood Urea Nitrogen 42 mg/dL (8-26) Creatinine 2.0 mg/dL (0.7-1.3) Estimated GFR (Cockcroft-Gault) 33.2 Glucose Level 90 mg/dL (70-99) Calcium Level 9.0 mg/dL (8.5-10.1) Magnesium Level 2.3 mg/dL (1.8-2.4) Triglycerides Level 139 mg/dL (0-150) Cholesterol Level 181 mg/dL (0-200) LDL Cholesterol, Calculated 108 mg/dL (0-100) VLDL Cholesterol, Calculated 28 mg/dL (0-40) Non-HDL Cholesterol Calculated 136 mg/dL (0-129) HDL Cholesterol 45 mg/dL (40-60) Cholesterol/HDL Ratio 4.0 Laboratory Tests Test 11/19/16 12:30 11/20/16 05:40 Troponin I Quantitative 0.022 ng/mL (0.000-0.055) White Blood Count 7.0 x10^3/uL (4.0-11.0) Red Blood Count 4.39 x10^6/uL (4.30-5.70) Hemoglobin 13.5 g/dL (13.0-17.5) Hematocrit 39.8 % (39.0-53.0) Mean Corpuscular Volume 91 fL (79-100) Mean Corpuscular Hemoglobin 31 pg (25-35) Mean Corpuscular Hemoglobin Concent 34 g/dL (31-37) Red Cell Distribution Width 15.3 % (11.5-14.5) Platelet Count 165 x10^3/uL (140-400) Neutrophils (%) (Auto) 74 % (31-73) Lymphocytes (%) (Auto) 14 % (24-48) Monocytes (%) (Auto) 9 % (0-9) Eosinophils (%) (Auto) 3 % (0-3) Basophils (%) (Auto) 1 % (0-3) Neutrophils # (Auto) 5.1 x10^3uL (1.8-7.7) Lymphocytes # (Auto) 1.0 x10^3/uL (1.0-4.8) Monocytes # (Auto) 0.6 x10^3/uL (0.0-1.1) Eosinophils # (Auto) 0.2 x10^3/uL (0.0-0.7) Basophils # (Auto) 0.0 x10^3/uL (0.0-0.2) Sodium Level 134 mmol/L (136-145) Potassium Level 4.6 mmol/L (3.5-5.1) Chloride Level 95 mmol/L (98-107) Carbon Dioxide Level 34 mmol/L (21-32) Anion Gap 5 (6-14) Blood Urea Nitrogen 42 mg/dL (8-26) Creatinine 2.0 mg/dL (0.7-1.3) Estimated GFR (Cockcroft-Gault) 33.2 Glucose Level 90 mg/dL (70-99) Calcium Level 9.0 mg/dL (8.5-10.1) Magnesium Level 2.3 mg/dL (1.8-2.4) Triglycerides Level 139 mg/dL (0-150) Cholesterol Level 181 mg/dL (0-200) LDL Cholesterol, Calculated 108 mg/dL (0-100) VLDL Cholesterol, Calculated 28 mg/dL (0-40) Non-HDL Cholesterol Calculated 136 mg/dL (0-129) HDL Cholesterol 45 mg/dL (40-60) Cholesterol/HDL Ratio 4.0 Assessment/Plan Assessment/Plan IMP SHAWANDA WITH CR OF 2.0 DEHYDRATION L LE CELLULITIS CHRONIC HYPOXIA DUE TO PULMONARY FIBROSIS-O2 DEPENDENT PLAN IVF'S HOLD DIURETICS AND LISINOPRIL ON ANTIBIOTICS ABD YAN NEG FOR RENAL MORPHOLOGICAL ABNORMALITY LABS IN MOLLY HAMILTON MD Nov 20, 2016 12:09
--- NOTE | 2016-11-20 12:19 | PDOC ---
Provider Note Provider Note He states he feels better today and is not dizzy. He complains of pain in his left leg and left foot. I do not see any difference between the left and right leg other than a very dry skin. Systolic BP pressure today is in the low 100s. Noted consultation from Ortho. I have requested an arterial Doppler. Okay with me to be discharged. I would like to see him in the office in about 10 days with a list of his medicines Thank you for asking me to see him.. WINTER SUTHERLAND MD Nov 20, 2016 12:19
--- NOTE | 2016-11-20 12:42 | PDOC ---
OBJECTIVE Vital Signs Vital Signs Date Time Temp Pulse Resp B/P (MAP) Pulse Ox O2 Delivery O2 Flow Rate FiO2 11/20/16 11:30 Nasal Cannula 4.0 11/20/16 11:00 97.9 65 20 102/57 (72) 92 Nasal Cannula 5.0 97.9 11/20/16 10:33 Nasal Cannula 4.0 11/20/16 10:33 71 100/58 11/20/16 07:55 Nasal Cannula 4.0 11/20/16 07:00 97.3 71 20 106/56 (73) 93 Nasal Cannula 5.0 97.3 11/20/16 06:30 18 92 Nasal Cannula 5.0 11/20/16 03:00 97.4 71 21 119/68 (85) 92 Nasal Cannula 5.0 97.4 11/19/16 22:40 97.5 82 19 104/59 (74) 92 Nasal Cannula 6.0 97.5 11/19/16 20:00 98.4 75 24 100/59 (73) 98 Nasal Cannula 7.5 98.4 11/19/16 20:00 Nasal Cannula 5.0 11/19/16 19:30 75 100/59 (73) 11/19/16 19:15 72 94/62 (73) 11/19/16 19:05 70 88/51 (63) 11/19/16 18:23 74 79/53 11/19/16 17:49 74 79/53 (62) 11/19/16 17:45 80 78/52 (61) 11/19/16 15:00 98.4 70 18 102/57 (72) 94 Nasal Cannula 4.0 98.4 11/19/16 13:30 70 85/50 (62) I & O Intake and Output 11/21/16 07:00 Intake Total 700 ml Output Total 200 ml Balance 500 ml Intake Oral 700 ml Output Urine Total 200 ml ASSESSMENT/PLAN Assessment/Plan 1- left leg and foot pain R/O PAD arterial doppler pending no DVT 2-SHAWANDA agree with holing Benji and monitor 3- dehydration 4-pulmonary fibrosis with chronic hypoxemia 5- high LFT's ? alcoholic liver disease will check liver sono and hepatitis panel 6-hx CABG and aortic stenosis Dr. Blunt will resume care in AM Problems: COMMENT Lab Laboratory Tests Test 11/20/16 05:40 White Blood Count 7.0 x10^3/uL (4.0-11.0) Red Blood Count 4.39 x10^6/uL (4.30-5.70) Hemoglobin 13.5 g/dL (13.0-17.5) Hematocrit 39.8 % (39.0-53.0) Mean Corpuscular Volume 91 fL (79-100) Mean Corpuscular Hemoglobin 31 pg (25-35) Mean Corpuscular Hemoglobin Concent 34 g/dL (31-37) Red Cell Distribution Width 15.3 % (11.5-14.5) Platelet Count 165 x10^3/uL (140-400) Neutrophils (%) (Auto) 74 % (31-73) Lymphocytes (%) (Auto) 14 % (24-48) Monocytes (%) (Auto) 9 % (0-9) Eosinophils (%) (Auto) 3 % (0-3) Basophils (%) (Auto) 1 % (0-3) Neutrophils # (Auto) 5.1 x10^3uL (1.8-7.7) Lymphocytes # (Auto) 1.0 x10^3/uL (1.0-4.8) Monocytes # (Auto) 0.6 x10^3/uL (0.0-1.1) Eosinophils # (Auto) 0.2 x10^3/uL (0.0-0.7) Basophils # (Auto) 0.0 x10^3/uL (0.0-0.2) Sodium Level 134 mmol/L (136-145) Potassium Level 4.6 mmol/L (3.5-5.1) Chloride Level 95 mmol/L (98-107) Carbon Dioxide Level 34 mmol/L (21-32) Anion Gap 5 (6-14) Blood Urea Nitrogen 42 mg/dL (8-26) Creatinine 2.0 mg/dL (0.7-1.3) Estimated GFR (Cockcroft-Gault) 33.2 Glucose Level 90 mg/dL (70-99) Calcium Level 9.0 mg/dL (8.5-10.1) Magnesium Level 2.3 mg/dL (1.8-2.4) Triglycerides Level 139 mg/dL (0-150) Cholesterol Level 181 mg/dL (0-200) LDL Cholesterol, Calculated 108 mg/dL (0-100) VLDL Cholesterol, Calculated 28 mg/dL (0-40) Non-HDL Cholesterol Calculated 136 mg/dL (0-129) HDL Cholesterol 45 mg/dL (40-60) Cholesterol/HDL Ratio 4.0 MADISON CARDONA MD Nov 20, 2016 12:42
[2016-11-20] MEDS: IV NORMAL SALINE 1000ML BAG 1,000 ML IV SCH ×2 (13:04→20:59)
--- NOTE | 2016-11-20 13:08 | RAD ---
Arterial Doppler study the lower extremities. History: Bilateral leg pain Arterial Doppler study was performed. There is a monophasic flow pattern at the common femoral artery with a velocity of 69 cm/s. The pattern suggests a aortoiliac stenosis. The deep femoral artery has a biphasic flow pattern with a velocity of 28 cm/s on the right. There is a monophasic flow pattern in the right femoral artery with velocity of 64 cm/s. Popliteal artery is monophasic with a velocity of 30 cm/s. The drop in velocity at the popliteal artery also suggests right adductor canal disease which is not well imaged. Proximal posterior tibial artery on the right has a velocity of 40 cm/s distal posterior tibial has a velocity of 36 cm/s. The anterior tibial artery has a lower velocity monophasic flow only during the arterial phase with a velocity of 19 cm/s Left lower extremity has a higher velocity at the common femoral with velocity of 92 cm/s with a monophasic flow pattern. There is a biphasic flow in the left deep femoral with velocity 32 cm/s. Proximal superficial femoral artery has a monophasic flow velocity was 74 cm/s. Popliteal artery on the left has monophasic flow with 95 cm/s. Left posterior tibial artery has a monophasic velocity of 59 cm/s but is poorly visualized. The peroneal flow is not identified. The anterior tibial has minimal flow. There is better flow at the dorsalis pedis with a velocity of 23 cm/s. Impression: 1. Monophasic at the common femoral artery suggesting aortoiliac disease. 2. There is also evidence of trifurcation disease bilaterally worse on the left.
--- NOTE | 2016-11-20 19:12 | PDOC2 ---
CONSULT Date of Consult Date of Consult DATE: 11/20/16 TIME: 19:02 Reason for Consult Reason for Consult: Left foot pain History of Present Illness Reason for Visit: This is a pleasant 71-year-old male with past medical history significant for pulmonary fibrosis, emphysema, and chronic 4 L oxygen requirement. Patient is an extremely poor historian and cannot really describe to me what brought him to the hospital. He states that he has had long-standing pain in his left lower extremity which is not new. He states that he stubbed his left fifth toe on a piece of furniture. He does not ambulate enough to really elicit claudication symptoms. He is primarily limited by his emphysema. He denies any history of blood vessel surgery or interventions. Past Medical History Cardiovascular: CAD, HTN, Hyperlipidemia Pulmonary: COPD, Other (pulmonary fibrosis, 4 L continuous oxygen requirement) Endocrine: Hypothyroidism Past Surgical History Past Surgical History: CABG, Other Family History Family History: Other Social History ALCOHOL: occassional Drugs: None Current Problem List Problem List Problems Medical Problems: (1) CHF exacerbation Status: Acute (2) Leg swelling Status: Acute Current Medications Current Medications Current Medications Fentanyl Citrate (Fentanyl 2ml Vial) 50 mcg 1X ONCE IV Last administered on 22:00; Start 11/18/16 at 22:00; Stop 11/18/16 at 22:01; Status DC Ondansetron HCl (Zofran) 4 mg 1X ONCE IV Last administered on 11/18/16 22:00 ; Start 11/18/16 at 22:00; Stop 11/18/16 at 22:01; Status DC Fentanyl Citrate (Fentanyl 2ml Vial) 50 mcg 1X ONCE IV Last administered on 23:51; Start 11/19/16 at 00:00; Stop 11/19/16 at 00:01; Status DC Furosemide (Lasix) 80 mg 1X ONCE PO Last administered on 11/19/16 01:14; Start 11/19/16 at 01:00; Stop 11/19/16 at 01:01; Status DC Ondansetron HCl (Zofran) 4 mg PRN Q8HRS PRN IV NAUSEA/VOMITING; Start 11/19/16 at 00:30; Stop 11/20/16 at 00:29; Status DC Morphine Sulfate 4 mg PRN Q2HR PRN IV SEVERE PAIN Last administered on 10:35; Start 11/19/16 at 00:30; Stop 11/20/16 at 00:29; Status DC Info (Do NOT chart on this placeholder) 1 each 1X ONCE MC ; Start 11/19/16 at 06:00; Stop 11/19/16 at 06:01; Status UNV Influenza Virus Vaccine Quadrival (Fluarix Quad [id number] Syringe) 0.5 ml ONCE ONCE VAX IM Last administered on 11/19/16 10:41; Start 11/19/16 at 09:00; Stop 11/19/16 at 09:01; Status DC Vancomycin HCl (Vanco Per Pharmacy) 1 each PRN DAILY PRN MC SEE COMMENTS Last administered on 11/20/16 09:03; Start 11/19/16 at 09:15 Vancomycin HCl 2 gm/Sodium Chloride 500 ml @ 250 mls/hr 1X ONCE IV Last administered on 11/19/16 10:21; Start 11/19/16 at 09:30; Stop 11/19/16 at 11:29 ; Status DC Vancomycin HCl 1.5 gm/Sodium Chloride 500 ml @ 250 mls/hr Q24H IV Last administered on 11/20/16 10:32; Start 11/20/16 at 10:00 Vancomycin HCl 1 each 1X ONCE MC ; Start 11/21/16 at 09:30; Stop 11/21/16 at 09 :31 Alprazolam (Xanax) 0.25 mg PRN TID PRN PO ANXIETY Last administered on 02:16; Start 11/19/16 at 12:30 Aspirin (Regulo Aspirin) 325 mg DAILY PO Last administered on 11/20/16 09:29; Start 11/19/16 at 13:00 Clopidogrel Bisulfate (Plavix) 75 mg DAILY PO Last administered on 11/20/16 09 :29; Start 11/19/16 at 13:00 Furosemide (Lasix) 40 mg DAILY PO Last administered on 11/19/16 13:28; Start 11/19/16 at 13:00; Stop 11/19/16 at 22:13; Status DC Levothyroxine Sodium (Synthroid) 125 mcg DAILY07 PO Last administered on 06:29; Start 11/19/16 at 13:00 Lisinopril (Prinivil) 20 mg DAILY PO ; Start 11/19/16 at 13:00; Stop 11/19/16 at 13:24; Status DC Sotalol HCl (Betapace) 80 mg Q12HR PO ; Start 11/19/16 at 13:00; Stop 11/19/16 at 13:24; Status DC Spironolactone (Aldactone) 25 mg BID92 PO Last administered on 11/20/16 09:29 ; Start 11/19/16 at 14:00; Stop 11/20/16 at 12:10; Status DC Atorvastatin Calcium (Lipitor) 80 mg QHS PO Last administered on 11/19/16 21: 33; Start 11/19/16 at 21:00 Carvedilol (Coreg) 12.5 mg BIDWMEALS PO ; Start 11/19/16 at 17:00; Stop at 17:00; Status DC Multivitamins (Thera M Plus) 1 tab DAILY PO Last administered on 11/20/16 09: 29; Start 11/20/16 at 09:00 Lisinopril (Prinivil) 10 mg DAILY PO ; Start 11/20/16 at 09:00; Stop 11/20/16 at 09:00; Status DC Carvedilol (Coreg) 6.25 mg BIDWMEALS PO ; Start 11/19/16 at 17:00; Stop at 18:08; Status DC Carvedilol (Coreg) 3.125 mg BIDWMEALS PO ; Start 11/20/16 at 08:00; Stop at 08:00; Status DC Lisinopril (Prinivil) 5 mg DAILY PO ; Start 11/20/16 at 09:00; Stop 11/20/16 at 09:00; Status DC Carvedilol (Coreg) 3.125 mg BIDWMEALS PO Last administered on 11/19/16 18:23; Start 11/19/16 at 18:30; Stop 11/19/16 at 22:13; Status DC Furosemide (Lasix) 40 mg Q3DAYS PO ; Start 11/22/16 at 09:00; Stop 11/22/16 at 09:00; Status DC Sotalol HCl (Betapace) 80 mg DAILY PO Last administered on 11/20/16 10:33; Start 11/20/16 at 09:00 Sodium Chloride 250 ml @ 250 mls/hr 1X ONCE IV ; Start 11/20/16 at 05:00; Stop 11/20/16 at 05:59; Status UNV Sodium Chloride 250 ml @ 250 mls/hr 1X ONCE IV ; Start 11/20/16 at 05:00; Stop 11/20/16 at 05:59; Status UNV Sodium Chloride 500 ml @ 500 mls/hr 1X ONCE IV Last administered on 22:00; Start 11/19/16 at 22:00; Stop 11/20/16 at 04:56; Status DC Acetaminophen/ Hydrocodone Bitart (Lortab 5/325) 1 tab PRN Q4HRS PRN PO SEVERE PAIN Last administered on 11/20/16 15:47; Start 11/20/16 at 06:30 Sodium Chloride 1,000 ml @ 100 mls/hr Q10H IV Last administered on 11/20/16 13:04; Start 11/20/16 at 12:30 Active Scripts Active Aspirin 325 Mg Tablet 1 Tab PO DAILY Reported Furosemide 40 Mg Tablet 1 Tab PO DAILY Sotalol (Sotalol Hcl) 80 Mg Tablet 1 Tab PO Q12HR Spironolactone 25 Mg Tablet 1 Tab PO BID92 Lisinopril 20 Mg Tablet 1 Tab PO DAILY Coreg Cr (Carvedilol Phosphate) 80 Mg Cpmp.24hr 125 Mg PO BID Multivitamins (Multivitamin) 1 Each Tablet 1 Tab PO DAILY Xanax (Alprazolam) 0.25 Mg Tablet 1 Tab PO PRN TID Levothyroxine Sodium 125 Mcg Tablet 1 Tab PO DAILY Plavix (Clopidogrel Bisulfate) 75 Mg Tablet 75 Mg PO DAILY Atorvastatin Calcium 80 Mg Tablet 80 Mg PO QHS Allergies Allergies: Coded Allergies: levofloxacin (Verified Allergy, Intermediate, 10/28/16) ROS Musculoskeletal: Yes Gait Disturbance, Yes Joint Pain, Yes Joint Stiffness, Yes Joint Swelling, Yes Muscle Pain, Yes Muscular Weakness, Yes Pain In: (left foot), Yes Swelling In: (left foot), Yes Other Physical Exam General: Alert, Oriented X3, Cooperative, No acute distress HEENT: Atraumatic, EOMI Lungs: Clear to auscultation, Other (positive expiratory wheezing) Heart: Regular rate, Normal S1, Normal S2, No murmurs Abdomen: Normal bowel sounds, Soft, No tenderness Extremities: No clubbing, No cyanosis, No edema, Other (intact dorsalis pedis and posterior tibial Doppler signals bilaterally which sound biphasic) Skin: No rashes, Other (bruising of the left fifth toe nailbed) Neuro: Strength at 5/5 X4 ext, Sensation intact, Cranial nerves 3-12 NL Psych/Mental Status: Mental status NL, Other (anxious) MUSCULOSKELETAL: No deformity, No swelling Vitals VITALS Vital Signs Date Time Temp Pulse Resp B/P (MAP) Pulse Ox O2 Delivery O2 Flow Rate FiO2 11/20/16 17:40 66 92/55 (67) 91 Nasal Cannula 5.0 11/20/16 15:00 97.4 20 97.4 Labs Labs Laboratory Tests Test 11/18/16 21:21 11/18/16 22:35 11/19/16 06:15 11/19/16 12:30 White Blood Count 10.5 x10^3/uL (4.0-11.0) Red Blood Count 4.80 x10^6/uL (4.30-5.70) Hemoglobin 14.7 g/dL (13.0-17.5) Hematocrit 43.9 % (39.0-53.0) Mean Corpuscular Volume 92 fL (79-100) Mean Corpuscular Hemoglobin 31 pg (25-35) Mean Corpuscular Hemoglobin Concent 34 g/dL (31-37) Red Cell Distribution Width 15.6 % (11.5-14.5) Platelet Count 190 x10^3/uL (140-400) Neutrophils (%) (Auto) 79 % (31-73) Lymphocytes (%) (Auto) 11 % (24-48) Monocytes (%) (Auto) 7 % (0-9) Eosinophils (%) (Auto) 3 % (0-3) Basophils (%) (Auto) 1 % (0-3) Neutrophils # (Auto) 8.3 x10^3uL (1.8-7.7) Lymphocytes # (Auto) 1.1 x10^3/uL (1.0-4.8) Monocytes # (Auto) 0.7 x10^3/uL (0.0-1.1) Eosinophils # (Auto) 0.3 x10^3/uL (0.0-0.7) Basophils # (Auto) 0.1 x10^3/uL (0.0-0.2) Sodium Level 136 mmol/L (136-145) Potassium Level 4.8 mmol/L (3.5-5.1) Chloride Level 99 mmol/L (98-107) Carbon Dioxide Level 31 mmol/L (21-32) Anion Gap 6 (6-14) Blood Urea Nitrogen 40 mg/dL (8-26) Creatinine 1.6 mg/dL (0.7-1.3) Estimated GFR (Cockcroft-Gault) 42.9 BUN/Creatinine Ratio 25 (6-20) Glucose Level 123 mg/dL (70-99) Calcium Level 9.4 mg/dL (8.5-10.1) Total Bilirubin 0.8 mg/dL (0.2-1.0) Aspartate Amino Transf (AST/SGOT) 39 U/L (15-37) Alanine Aminotransferase (ALT/SGPT) 134 U/L (16-63) Alkaline Phosphatase 141 U/L (46-116) Troponin I Quantitative < 0.017 ng/mL (0.000-0.055) < 0.017 ng/mL (0.000-0.055) 0.022 ng/mL (0.000-0.055) [id number]-Nbe-G-Type Natriuretic Peptide 1917 pg/mL (0-124) Total Protein 7.2 g/dL (6.4-8.2) Albumin 3.5 g/dL (3.4-5.0) Albumin/Globulin Ratio 0.9 (1.0-1.7) Test 11/20/16 05:40 White Blood Count 7.0 x10^3/uL (4.0-11.0) Red Blood Count 4.39 x10^6/uL (4.30-5.70) Hemoglobin 13.5 g/dL (13.0-17.5) Hematocrit 39.8 % (39.0-53.0) Mean Corpuscular Volume 91 fL (79-100) Mean Corpuscular Hemoglobin 31 pg (25-35) Mean Corpuscular Hemoglobin Concent 34 g/dL (31-37) Red Cell Distribution Width 15.3 % (11.5-14.5) Platelet Count 165 x10^3/uL (140-400) Neutrophils (%) (Auto) 74 % (31-73) Lymphocytes (%) (Auto) 14 % (24-48) Monocytes (%) (Auto) 9 % (0-9) Eosinophils (%) (Auto) 3 % (0-3) Basophils (%) (Auto) 1 % (0-3) Neutrophils # (Auto) 5.1 x10^3uL (1.8-7.7) Lymphocytes # (Auto) 1.0 x10^3/uL (1.0-4.8) Monocytes # (Auto) 0.6 x10^3/uL (0.0-1.1) Eosinophils # (Auto) 0.2 x10^3/uL (0.0-0.7) Basophils # (Auto) 0.0 x10^3/uL (0.0-0.2) Sodium Level 134 mmol/L (136-145) Potassium Level 4.6 mmol/L (3.5-5.1) Chloride Level 95 mmol/L (98-107) Carbon Dioxide Level 34 mmol/L (21-32) Anion Gap 5 (6-14) Blood Urea Nitrogen 42 mg/dL (8-26) Creatinine 2.0 mg/dL (0.7-1.3) Estimated GFR (Cockcroft-Gault) 33.2 Glucose Level 90 mg/dL (70-99) Calcium Level 9.0 mg/dL (8.5-10.1) Magnesium Level 2.3 mg/dL (1.8-2.4) Triglycerides Level 139 mg/dL (0-150) Cholesterol Level 181 mg/dL (0-200) LDL Cholesterol, Calculated 108 mg/dL (0-100) VLDL Cholesterol, Calculated 28 mg/dL (0-40) Non-HDL Cholesterol Calculated 136 mg/dL (0-129) HDL Cholesterol 45 mg/dL (40-60) Cholesterol/HDL Ratio 4.0 Laboratory Tests Test 11/20/16 05:40 White Blood Count 7.0 x10^3/uL (4.0-11.0) Red Blood Count 4.39 x10^6/uL (4.30-5.70) Hemoglobin 13.5 g/dL (13.0-17.5) Hematocrit 39.8 % (39.0-53.0) Mean Corpuscular Volume 91 fL (79-100) Mean Corpuscular Hemoglobin 31 pg (25-35) Mean Corpuscular Hemoglobin Concent 34 g/dL (31-37) Red Cell Distribution Width 15.3 % (11.5-14.5) Platelet Count 165 x10^3/uL (140-400) Neutrophils (%) (Auto) 74 % (31-73) Lymphocytes (%) (Auto) 14 % (24-48) Monocytes (%) (Auto) 9 % (0-9) Eosinophils (%) (Auto) 3 % (0-3) Basophils (%) (Auto) 1 % (0-3) Neutrophils # (Auto) 5.1 x10^3uL (1.8-7.7) Lymphocytes # (Auto) 1.0 x10^3/uL (1.0-4.8) Monocytes # (Auto) 0.6 x10^3/uL (0.0-1.1) Eosinophils # (Auto) 0.2 x10^3/uL (0.0-0.7) Basophils # (Auto) 0.0 x10^3/uL (0.0-0.2) Sodium Level 134 mmol/L (136-145) Potassium Level 4.6 mmol/L (3.5-5.1) Chloride Level 95 mmol/L (98-107) Carbon Dioxide Level 34 mmol/L (21-32) Anion Gap 5 (6-14) Blood Urea Nitrogen 42 mg/dL (8-26) Creatinine 2.0 mg/dL (0.7-1.3) Estimated GFR (Cockcroft-Gault) 33.2 Glucose Level 90 mg/dL (70-99) Calcium Level 9.0 mg/dL (8.5-10.1) Magnesium Level 2.3 mg/dL (1.8-2.4) Triglycerides Level 139 mg/dL (0-150) Cholesterol Level 181 mg/dL (0-200) LDL Cholesterol, Calculated 108 mg/dL (0-100) VLDL Cholesterol, Calculated 28 mg/dL (0-40) Non-HDL Cholesterol Calculated 136 mg/dL (0-129) HDL Cholesterol 45 mg/dL (40-60) Cholesterol/HDL Ratio 4.0 Assessment/Plan Assessment/Plan Peripheral arterial disease--reading his previous history in the medical record , he has known peripheral arterial disease. The patient underwent angiography in 2015 indicating calcified femoral occlusive disease. The patient does have biphasic Doppler signals into the dorsalis pedis and posterior tibial artery bilaterally and I do not suspect the patient has rest pain or critical limb ischemia. The patient is very difficult to interview and not very helpful in regards to his history. Given that the patient has intact arterial blood flow despite the arterial duplex findings, I would recommend no further treatments or testing at this time. The patient has acute on chronic kidney disease with a creatinine level of 2 and therefore cannot undergo angiography or CT angiogram. I do not think that this is indicated at this time from what I can gather based on his history and physical exam. I would be happy to see the patient in the outpatient setting for further evaluation and workup of his lower extremity occlusive disease. COPD\pulmonary fibrosis--from what I can gather from talking to the patient, this seems to be his primary problem. He is anxious on account of shortness of breath which seems to fit with a COPD exacerbation. Patient is being seen and managed by the medical team who will address this problem. Acute on chronic kidney disease--I do not know what the patient's baseline kidney function is, but the patient is being seen by nephrology who is hydrating the patient and holding any nephrotoxic agents. I would avoid any contrast procedures. ROWAN HOGAN DO Nov 20, 2016 19:12
[2016-11-20] MEDS: ATORVASTATIN CALCIUM 40 MG TABLET. PO SCH (20:58)
[2016-11-20] MEDS ORDERED: ALBUTEROL SULFATE 2.5 MG/3 ML NEBU. NEB PRN (23:15)
[2016-11-20] MEDS: MINERAL OIL/PETROLATUM TOPICAL CREAM 113GM JAR. TP SCH (23:30)
[2016-11-21] MEDS: ALPRAZolam 0.25 MG TABLET PO PRN ×2 (01:13→15:44)
[2016-11-21] MEDS: HYDROcodone/APAP 5/325MG 1 TAB TABLET PO PRN ×3 (01:18→23:10)
[2016-11-21 03:00] VITALS: BP 130/69
[2016-11-21] MEDS: LEVOTHYROXINE 125 MCG TABLET PO SCH (05:32)
[2016-11-21 06:20] LABS: HEMATOCRIT 42.5 % (39.0-53.0); HEMOGLOBIN 14.1 g/dL (13.0-17.5); RED BLOOD COUNT 4.61 x10^6/uL (4.30-5.70); RED CELL DISTRIBUTION WIDTH 15.2 % (11.5-14.5); WHITE BLOOD COUNT 6.9 x10^3/uL (4.0-11.0)
[2016-11-21 06:40] LABS: ALBUMIN 3.6 g/dL (3.4-5.0); ALBUMIN/GLOBULIN RATIO 0.9 (1.0-1.7); CALCIUM 9.3 mg/dL (8.5-10.1); CREATININE 1.7 mg/dL (0.7-1.3); POTASSIUM 5.2 mmol/L (3.5-5.1); TOTAL BILIRUBIN 0.8 mg/dL (0.2-1.0); TOTAL PROTEIN 7.4 g/dL (6.4-8.2)
[2016-11-21 07:05] VITALS: BP 117/69
[2016-11-21] MEDS: CLOPIDOGREL BISULFATE 75 MG TABLET PO SCH (08:59)
[2016-11-21] MEDS: MULTIVITAMIN with MINERAL TABLET. PO SCH (08:59)
[2016-11-21] MEDS: ASPIRIN 325 MG TABLET PO SCH (08:59)
[2016-11-21] MEDS: SOTALOL 80 MG TABLET. PO SCH ×2 (09:00→22:06)
[2016-11-21] MEDS: VANCOMYCIN 1.5 GM in IV NORMAL SALINE 500ML BAG 500 ML IV SCH (09:05)
[2016-11-21] MEDS: MINERAL OIL/PETROLATUM TOPICAL CREAM 113GM JAR. TP SCH ×2 (09:05→22:01)
[2016-11-21] MEDS: VANCOMYCIN PER PHARMACY MC PRN (09:19)
[2016-11-21 10:30] VITALS: BP 105/68
--- NOTE | 2016-11-21 10:46 | PDOC ---
Renal-Progress Notes Subjective Notes Notes NO NEW COMPLAINTS History of Present Illness Hx of present illness STABLE Vitals Vitals Vital Signs Date Time Temp Pulse Resp B/P (MAP) Pulse Ox O2 Delivery O2 Flow Rate FiO2 11/21/16 08:00 Nasal Cannula 4.0 11/21/16 07:05 97.6 81 22 117/69 (85) 91 97.6 Weight Weight [ ] I.O. Intake and Output Intake and Output 11/22/16 07:00 Intake Total 120 ml Balance 120 ml Intake Oral 120 ml Labs Labs Laboratory Tests Test 11/21/16 05:30 White Blood Count 6.9 x10^3/uL (4.0-11.0) Red Blood Count 4.61 x10^6/uL (4.30-5.70) Hemoglobin 14.1 g/dL (13.0-17.5) Hematocrit 42.5 % (39.0-53.0) Mean Corpuscular Volume 92 fL (79-100) Mean Corpuscular Hemoglobin 31 pg (25-35) Mean Corpuscular Hemoglobin Concent 33 g/dL (31-37) Red Cell Distribution Width 15.2 % (11.5-14.5) Platelet Count 159 x10^3/uL (140-400) Sodium Level 132 mmol/L (136-145) Potassium Level 5.2 mmol/L (3.5-5.1) Chloride Level 96 mmol/L (98-107) Carbon Dioxide Level 29 mmol/L (21-32) Anion Gap 7 (6-14) Blood Urea Nitrogen 34 mg/dL (8-26) Creatinine 1.7 mg/dL (0.7-1.3) Estimated GFR (Cockcroft-Gault) 40.0 BUN/Creatinine Ratio 20 (6-20) Glucose Level 115 mg/dL (70-99) Calcium Level 9.3 mg/dL (8.5-10.1) Total Bilirubin 0.8 mg/dL (0.2-1.0) Aspartate Amino Transf (AST/SGOT) 74 U/L (15-37) Alanine Aminotransferase (ALT/SGPT) 176 U/L (16-63) Alkaline Phosphatase 198 U/L (46-116) Total Protein 7.4 g/dL (6.4-8.2) Albumin 3.6 g/dL (3.4-5.0) Albumin/Globulin Ratio 0.9 (1.0-1.7) Review of Systems Constitutional: yes: alert, oriented Ears/Nose/Throat: Yes: no symptom reported Eyes: Yes: no symptom reported Pulmonary: Yes dyspnea Cardiovascular: Yes edema Gastrointestional: Yes: no symptom reported Genitourinary: Yes: no symptom reported Musculoskeletal: Yes: muscle stiffness Skin: Yes no symptom reported Psychiatric/Neurological: Yes: no symptom reported Endocrine: Yes: no symptom reported Physical Exam General Appearance: no apparent distress Skin: warm Respiratory: decreased breath sounds Heart: S1S2, RRR Abdomen: soft, bowel sounds present Genitourinary: bladder flat Extremities: pulses present, edema Neurology: alert, oriented Assessment Assessment IMP SHAWANDA-RESOLVING CR AT 1.7 PROB CKD STAGE 3 PULMONARY FIBROSIS-O2 DEPENDENT L LE CELLULITIS PAD CM WITH EF OF 30-35% PLAN STOP IVF'S PO LASIX CONT TO HOLD TASIA-I CAREFUL WITH AFTERLOAD REDUCTION LABS IN AM ANTIBIOTICS MOLLY SHEARER MD Nov 21, 2016 10:46
[2016-11-21] MEDS ORDERED: FUROSEMIDE 40 MG TABLET. PO SCH (11:00)
[2016-11-21 14:30] VITALS: BP 99/70
[2016-11-21 19:15] VITALS: BP 125/76
--- NOTE | 2016-11-21 20:04 | PDOC ---
Provider Note Provider Note No shortness of breath or dizziness. He says the left leg pain is not as bad. He had abn episode of anxiety that was relieved with Xanax. He had not been given any Lasix for about 2 weeks. He then received 80 mg at to 3 AM one day and then 40 mg at 2 PM. With this he became hypotensive and symptomatic with it. He was ultimately given about thousand cc of IV fluids. The blood pressure is now not as low. He is likely to have an adverse response to Lasix because of his aortic stenosis. I would be cautious with the dose of Lasix. Will start with every other day or even twice a week. We can always increase the dose as an outpatient if necessary. Beta blockers have been discontinued as also TASIA. He was not able to tolerate sotalol at 80 mg twice a day. He became bradycardic and hypotensive. In the last 24 hours he's had only one episode of sustained ventricular tachycardia. Plan on resuming the sotalol at a low dose of 40 mg every 12 hours. The sotalol was held this morning. WINTER SUTHERLAND MD Nov 21, 2016 20:04
--- NOTE | 2016-11-21 20:48 | PDOC ---
GENERAL General: vss and afebrile. awake and alert and feeling about same. chest with decreased breath sounds and crackles. heart regular. left lower leg still little redder but warm to touch. vascular surgery input appreciated. continue present. Problems: VITAL SIGNS Vital Signs: Vital Signs Date Time Temp Pulse Resp B/P (MAP) Pulse Ox O2 Delivery O2 Flow Rate FiO2 11/21/16 19:15 97.8 81 22 125/76 (92) 91 Nasal Cannula 5.0 97.8 I & O I & O Intake and Output 11/22/16 07:00 Intake Total 720 ml Output Total 1800 ml Balance -1080 ml Intake Oral 720 ml Output Urine Total 1800 ml ALLERGIES Allergies: Allergies Coded Allergies Type Severity Reaction Last Updated Verified levofloxacin Allergy Intermediate 10/28/16 Yes MEDS Medications: Current Medications Medications (Trade) Dose Ordered Sig/Jeannette Start Time Stop Time Status Last Admin Dose Admin Acetaminophen/ Hydrocodone Bitart (Lortab 5/325) 1 tab PRN Q4HRS PRN 11/20/16 06:30 11/21/16 05:32 1 TAB Albuterol Sulfate (Ventolin Neb Soln) 2.5 mg PRN Q4HRS PRN 11/20/16 23:15 11/20/16 23:44 2.5 MG Alprazolam (Xanax) 0.25 mg PRN TID PRN 11/19/16 12:30 11/21/16 15:44 0.25 MG Aspirin (Regulo Aspirin) 81 mg DAILYWBKFT 11/22/16 08:00 Atorvastatin Calcium (Lipitor) 80 mg QHS 11/19/16 21:00 11/20/16 20:58 80 MG Carvedilol (Coreg) 3.125 mg BIDWMEALS 11/19/16 18:30 11/19/16 22:13 DC 11/19/16 18:23 3.125 MG Clopidogrel Bisulfate (Plavix) 75 mg DAILY 11/19/16 13:00 11/21/16 08:59 75 MG Fentanyl Citrate (Fentanyl 2ml Vial) 50 mcg 1X ONCE 11/19/16 00:00 11/19/16 00:01 DC 11/18/16 23:51 50 MCG Furosemide (Lasix) 40 mg QODAY 11/23/16 09:00 Influenza Virus Vaccine Quadrival (Fluarix Quad [id number] Syringe) 0.5 ml ONCE ONCE 11/19/16 09:00 11/19/16 09:01 DC 11/19/16 10:41 0.5 ML Info (Do NOT chart on this placeholder) 1 each 1X ONCE 11/19/16 06:00 11/19/16 06:01 UNV Levothyroxine Sodium (Synthroid) 125 mcg DAILY07 11/19/16 13:00 11/21/16 05:32 125 MCG Lisinopril (Prinivil) 5 mg DAILY 11/20/16 09:00 11/20/16 09:00 DC Morphine Sulfate 4 mg PRN Q2HR PRN 11/19/16 00:30 11/20/16 00:29 DC 11/19/16 10:35 4 MG Multi-Ingred Cream/Lotion/Oil/ Oint (Hydrocerin) 1 valarie BID 11/20/16 23:30 11/21/16 09:05 1 VALARIE Multivitamins (Thera M Plus) 1 tab DAILY 11/20/16 09:00 11/21/16 08:59 1 TAB Ondansetron HCl (Zofran) 4 mg PRN Q8HRS PRN 11/19/16 00:30 11/20/16 00:29 DC Sodium Chloride 1,000 ml @ 50 mls/hr Q20H 11/20/16 12:30 11/21/16 10:48 DC 11/20/16 20:59 100 MLS/HR Sotalol HCl (Betapace) 40 mg Q12HR 11/21/16 21:00 Spironolactone (Aldactone) 25 mg BID92 11/19/16 14:00 11/20/16 12:10 DC 11/20/16 09:29 25 MG Vancomycin HCl 1 each 1X ONCE 11/22/16 09:30 11/22/16 09:31 Vancomycin HCl (Vanco Per Pharmacy) 1 each PRN DAILY PRN 11/19/16 09:15 11/21/16 09:19 1 EACH Vancomycin HCl 1.5 gm/Sodium Chloride 500 ml @ 250 mls/hr Q24H 11/20/16 10:00 11/21/16 09:05 250 MLS/HR Vancomycin HCl 2 gm/Sodium Chloride 500 ml @ 250 mls/hr 1X ONCE 9/30/17 09:30 11/19/16 11:29 DC 11/19/16 10:21 250 MLS/HR LAB Lab: Laboratory Tests Test 11/21/16 05:30 White Blood Count 6.9 x10^3/uL (4.0-11.0) Red Blood Count 4.61 x10^6/uL (4.30-5.70) Hemoglobin 14.1 g/dL (13.0-17.5) Hematocrit 42.5 % (39.0-53.0) Mean Corpuscular Volume 92 fL (79-100) Mean Corpuscular Hemoglobin 31 pg (25-35) Mean Corpuscular Hemoglobin Concent 33 g/dL (31-37) Red Cell Distribution Width 15.2 % (11.5-14.5) Platelet Count 159 x10^3/uL (140-400) Sodium Level 132 mmol/L (136-145) Potassium Level 5.2 mmol/L (3.5-5.1) Chloride Level 96 mmol/L (98-107) Carbon Dioxide Level 29 mmol/L (21-32) Anion Gap 7 (6-14) Blood Urea Nitrogen 34 mg/dL (8-26) Creatinine 1.7 mg/dL (0.7-1.3) Estimated GFR (Cockcroft-Gault) 40.0 BUN/Creatinine Ratio 20 (6-20) Glucose Level 115 mg/dL (70-99) Calcium Level 9.3 mg/dL (8.5-10.1) Total Bilirubin 0.8 mg/dL (0.2-1.0) Aspartate Amino Transf (AST/SGOT) 74 U/L (15-37) Alanine Aminotransferase (ALT/SGPT) 176 U/L (16-63) Alkaline Phosphatase 198 U/L (46-116) Total Protein 7.4 g/dL (6.4-8.2) Albumin 3.6 g/dL (3.4-5.0) Albumin/Globulin Ratio 0.9 (1.0-1.7) JUANIS PACKER MD Nov 21, 2016 20:48
[2016-11-21] MEDS: ATORVASTATIN CALCIUM 40 MG TABLET. PO SCH (22:01)
[2016-11-21 23:08] VITALS: BP 135/68
[2016-11-21 23:10] LABS: HEP A IGM ABDY Negative (Negative)
[2016-11-22 03:09] VITALS: BP 143/79
[2016-11-22] MEDS: LEVOTHYROXINE 125 MCG TABLET PO SCH (05:32)
[2016-11-22] MEDS: HYDROcodone/APAP 5/325MG 1 TAB TABLET PO PRN ×2 (05:54→23:17)
[2016-11-22 07:00] VITALS: BP 131/64
[2016-11-22] MEDS ORDERED: ASPIRIN 325 MG TABLET PO SCH (08:00)
[2016-11-22] MEDS: CLOPIDOGREL BISULFATE 75 MG TABLET PO SCH (08:17)
[2016-11-22] MEDS: MULTIVITAMIN with MINERAL TABLET. PO SCH (08:17)
[2016-11-22] MEDS: SOTALOL 80 MG TABLET. PO SCH ×3 (08:17→21:36)
[2016-11-22] MEDS: MINERAL OIL/PETROLATUM TOPICAL CREAM 113GM JAR. TP SCH ×2 (08:18→21:36)
[2016-11-22] MEDS ORDERED: FUROSEMIDE 40 MG TABLET. PO SCH (09:00)
[2016-11-22] MEDS: CLINDAMYCIN HCL 150 MG CAPSULE. PO SCH ×3 (09:23→21:35)
[2016-11-22 10:53] LABS: CALCIUM 8.9 mg/dL (8.5-10.1); CREATININE 1.5 mg/dL (0.7-1.3); GFR 46.3; POTASSIUM 4.6 mmol/L (3.5-5.1)
[2016-11-22 11:00] VITALS: BP 114/65
--- NOTE | 2016-11-22 11:44 | PDOC ---
Renal-Progress Notes Subjective Notes Notes SOME LE SWELLING History of Present Illness Hx of present illness STABLE Vitals Vitals Vital Signs Date Time Temp Pulse Resp B/P (MAP) Pulse Ox O2 Delivery O2 Flow Rate FiO2 11/22/16 11:00 97.4 73 20 114/65 (81) 91 Nasal Cannula 5.0 97.4 Weight Weight [ ] I.O. Intake and Output Intake and Output 11/23/16 07:00 Intake Total 250 ml Balance 250 ml Intake Oral 250 ml Labs Labs Laboratory Tests Test 11/22/16 09:50 Sodium Level 135 mmol/L (136-145) Potassium Level 4.6 mmol/L (3.5-5.1) Chloride Level 97 mmol/L (98-107) Carbon Dioxide Level 32 mmol/L (21-32) Anion Gap 6 (6-14) Blood Urea Nitrogen 27 mg/dL (8-26) Creatinine 1.5 mg/dL (0.7-1.3) Estimated GFR (Cockcroft-Gault) 46.3 Glucose Level 188 mg/dL (70-99) Calcium Level 8.9 mg/dL (8.5-10.1) Review of Systems Constitutional: yes: alert, oriented Ears/Nose/Throat: Yes: no symptom reported Eyes: Yes: no symptom reported Pulmonary: Yes dyspnea Cardiovascular: Yes edema Gastrointestional: Yes: no symptom reported Genitourinary: Yes: no symptom reported Musculoskeletal: Yes: muscle stiffness Skin: Yes no symptom reported Psychiatric/Neurological: Yes: no symptom reported Endocrine: Yes: no symptom reported Physical Exam General Appearance: no apparent distress Skin: warm Respiratory: decreased breath sounds Heart: S1S2, RRR Abdomen: soft, bowel sounds present Genitourinary: bladder flat Extremities: pulses present, edema Neurology: alert, oriented Assessment Assessment IMP SHAWANDA-RESOLVING CR AT 1.7 PROB CKD STAGE 3 PULMONARY FIBROSIS-O2 DEPENDENT L LE CELLULITIS PAD CM WITH EF OF 30-35% SEVERE PLAN OFF IVF'S PO LASIX - INCREASE TO BID CONT TO HOLD TASIA-I CAREFUL WITH AFTERLOAD REDUCTION LABS IN AM ANTIBIOTICS MOLLY SHEARER MD Nov 22, 2016 11:44
[2016-11-22 14:35] VITALS: BP 115/66
[2016-11-22] MEDS: FUROSEMIDE 40 MG TABLET. PO SCH (15:04)
--- NOTE | 2016-11-22 17:32 | PDOC ---
GENERAL General: vss and afebrile. left leg less red and tender. will transition to po antibiotics with likely dc in am. exam otherwise same and continue same. Problems: VITAL SIGNS Vital Signs: Vital Signs Date Time Temp Pulse Resp B/P (MAP) Pulse Ox O2 Delivery O2 Flow Rate FiO2 11/22/16 14:35 97.7 66 18 115/66 (82) 97 Nasal Cannula 5.0 97.7 I & O I & O Intake and Output 11/23/16 07:00 Intake Total 1250 ml Output Total 1400 ml Balance -150 ml Intake Oral 1250 ml Output Urine Total 1400 ml # Voids 3 ALLERGIES Allergies: Allergies Coded Allergies Type Severity Reaction Last Updated Verified levofloxacin Allergy Intermediate 10/28/16 Yes MEDS Medications: Current Medications Medications (Trade) Dose Ordered Sig/Jeannette Start Time Stop Time Status Last Admin Dose Admin Acetaminophen/ Hydrocodone Bitart (Lortab 5/325) 1 tab PRN Q4HRS PRN 11/20/16 06:30 11/22/16 05:54 1 TAB Albuterol Sulfate (Ventolin Neb Soln) 2.5 mg PRN Q4HRS PRN 11/20/16 23:15 11/20/16 23:44 2.5 MG Alprazolam (Xanax) 0.25 mg PRN TID PRN 11/19/16 12:30 11/21/16 15:44 0.25 MG Aspirin (Regulo Aspirin) 81 mg DAILYWBKFT 11/22/16 08:00 11/22/16 08:17 81 MG Atorvastatin Calcium (Lipitor) 80 mg QHS 11/19/16 21:00 11/21/16 22:01 80 MG Carvedilol (Coreg) 3.125 mg BIDWMEALS 11/19/16 18:30 11/19/16 22:13 DC 11/19/16 18:23 3.125 MG Clindamycin HCl (Cleocin) 300 mg TID 11/22/16 09:00 11/22/16 15:04 300 MG Clopidogrel Bisulfate (Plavix) 75 mg DAILY 11/19/16 13:00 11/22/16 08:17 75 MG Fentanyl Citrate (Fentanyl 2ml Vial) 50 mcg 1X ONCE 11/19/16 00:00 11/19/16 00:01 DC 9/29/17 23:51 50 MCG Furosemide (Lasix) 40 mg BID92 11/22/16 14:00 11/22/16 15:04 40 MG Influenza Virus Vaccine Quadrival (Fluarix Quad [id number] Syringe) 0.5 ml ONCE ONCE 11/19/16 09:00 11/19/16 09:01 DC 11/19/16 10:41 0.5 ML Info (Do NOT chart on this placeholder) 1 each 1X ONCE 11/19/16 06:00 11/19/16 06:01 UNV Levothyroxine Sodium (Synthroid) 125 mcg DAILY07 11/19/16 13:00 11/22/16 05:32 125 MCG Lisinopril (Prinivil) 5 mg DAILY 11/20/16 09:00 11/20/16 09:00 DC Morphine Sulfate 4 mg PRN Q2HR PRN 11/19/16 00:30 11/20/16 00:29 DC 11/19/16 10:35 4 MG Multi-Ingred Cream/Lotion/Oil/ Oint (Hydrocerin) 1 valarie BID 11/20/16 23:30 11/22/16 08:18 1 VALARIE Multivitamins (Thera M Plus) 1 tab DAILY 11/20/16 09:00 11/22/16 08:17 1 TAB Ondansetron HCl (Zofran) 4 mg PRN Q8HRS PRN 11/19/16 00:30 11/20/16 00:29 DC Sodium Chloride 1,000 ml @ 50 mls/hr Q20H 11/20/16 12:30 11/21/16 10:48 DC 11/20/16 20:59 100 MLS/HR Sotalol HCl (Betapace) 40 mg Q12HR 11/21/16 21:00 11/22/16 08:17 40 MG Spironolactone (Aldactone) 25 mg BID92 11/19/16 14:00 11/20/16 12:10 DC 11/20/16 09:29 25 MG Vancomycin HCl 1 each 1X ONCE 11/22/16 09:30 11/22/16 09:30 DC Vancomycin HCl (Vanco Per Pharmacy) 1 each PRN DAILY PRN 11/19/16 09:15 11/22/16 08:41 DC 11/21/16 09:19 1 EACH Vancomycin HCl 1.5 gm/Sodium Chloride 500 ml @ 250 mls/hr Q24H 11/20/16 10:00 11/22/16 08:44 DC 11/21/16 09:05 250 MLS/HR Vancomycin HCl 2 gm/Sodium Chloride 500 ml @ 250 mls/hr 1X ONCE 11/19/16 09:30 11/19/16 11:29 DC 11/19/16 10:21 250 MLS/HR LAB Lab: Laboratory Tests Test 11/22/16 09:50 Sodium Level 135 mmol/L (136-145) Potassium Level 4.6 mmol/L (3.5-5.1) Chloride Level 97 mmol/L (98-107) Carbon Dioxide Level 32 mmol/L (21-32) Anion Gap 6 (6-14) Blood Urea Nitrogen 27 mg/dL (8-26) Creatinine 1.5 mg/dL (0.7-1.3) Estimated GFR (Cockcroft-Gault) 46.3 Glucose Level 188 mg/dL (70-99) Calcium Level 8.9 mg/dL (8.5-10.1) JUANIS PACKER MD Nov 22, 2016 17:32
[2016-11-22 19:55] VITALS: BP 126/72
[2016-11-22] MEDS: ATORVASTATIN CALCIUM 40 MG TABLET. PO SCH (21:35)
[2016-11-22 22:30] VITALS: BP 134/75
[2016-11-22] MEDS: ALPRAZolam 0.25 MG TABLET PO PRN (23:16)
[2016-11-23 02:45] VITALS: BP 142/71
[2016-11-23] MEDS: LEVOTHYROXINE 125 MCG TABLET PO SCH (06:03)
[2016-11-23 07:00] VITALS: BP 159/85
[2016-11-23] MEDS ORDERED: ASPIRIN CHEWABLE 81 MG TABLET. PO SCH (08:00)
--- NOTE | 2016-11-23 08:07 | PDOC ---
GENERAL General: vss and afebrile. awake and alert and comfortable. squeezing and aching pain again in left leg during night. exam stable. will dc on current meds with outpatient fu. see discharge summary. Problems: VITAL SIGNS Vital Signs: Vital Signs Date Time Temp Pulse Resp B/P (MAP) Pulse Ox O2 Delivery O2 Flow Rate FiO2 11/23/16 02:45 97.6 63 18 142/71 (94) 97 Nasal Cannula 5.0 97.6 ALLERGIES Allergies: Allergies Coded Allergies Type Severity Reaction Last Updated Verified levofloxacin Allergy Intermediate 10/28/16 Yes MEDS Medications: Current Medications Medications (Trade) Dose Ordered Sig/Jeannette Start Time Stop Time Status Last Admin Dose Admin Acetaminophen/ Hydrocodone Bitart (Lortab 5/325) 1 tab PRN Q4HRS PRN 11/20/16 06:30 11/22/16 23:17 1 TAB Albuterol Sulfate (Ventolin Neb Soln) 2.5 mg PRN Q4HRS PRN 11/20/16 23:15 11/20/16 23:44 2.5 MG Alprazolam (Xanax) 0.25 mg PRN TID PRN 11/19/16 12:30 11/22/16 23:16 0.25 MG Aspirin (Regulo Aspirin) 81 mg DAILYWBKFT 11/22/16 08:00 11/22/16 19:02 DC 11/22/16 08:17 81 MG Aspirin (Children'S Aspirin) 81 mg DAILYWBKFT 11/23/16 08:00 Atorvastatin Calcium (Lipitor) 80 mg QHS 11/19/16 21:00 11/22/16 21:35 80 MG Carvedilol (Coreg) 3.125 mg BIDWMEALS 11/19/16 18:30 11/19/16 22:13 DC 11/19/16 18:23 3.125 MG Clindamycin HCl (Cleocin) 300 mg TID 11/22/16 09:00 11/22/16 21:35 300 MG Clopidogrel Bisulfate (Plavix) 75 mg DAILY 11/19/16 13:00 11/22/16 08:17 75 MG Fentanyl Citrate (Fentanyl 2ml Vial) 50 mcg 1X ONCE 11/19/16 00:00 11/19/16 00:01 DC 11/18/16 23:51 50 MCG Furosemide (Lasix) 40 mg BID92 11/22/16 14:00 11/22/16 15:04 40 MG Influenza Virus Vaccine Quadrival (Fluarix Quad [id number] Syringe) 0.5 ml ONCE ONCE 11/19/16 09:00 11/19/16 09:01 DC 11/19/16 10:41 0.5 ML Info (Do NOT chart on this placeholder) 1 each 1X ONCE 11/19/16 06:00 11/19/16 06:01 UNV Levothyroxine Sodium (Synthroid) 125 mcg DAILY07 11/19/16 13:00 11/23/16 06:03 125 MCG Lisinopril (Prinivil) 5 mg DAILY 11/20/16 09:00 11/20/16 09:00 DC Morphine Sulfate 4 mg PRN Q2HR PRN 11/19/16 00:30 11/20/16 00:29 DC 11/19/16 10:35 4 MG Multi-Ingred Cream/Lotion/Oil/ Oint (Hydrocerin) 1 valarie BID 11/20/16 23:30 11/22/16 21:36 1 VALARIE Multivitamins (Thera M Plus) 1 tab DAILY 11/20/16 09:00 11/22/16 08:17 1 TAB Ondansetron HCl (Zofran) 4 mg PRN Q8HRS PRN 11/19/16 00:30 11/20/16 00:29 DC Sodium Chloride 1,000 ml @ 50 mls/hr Q20H 11/20/16 12:30 11/21/16 10:48 DC 11/20/16 20:59 100 MLS/HR Sotalol HCl (Betapace) 40 mg Q12HR 11/21/16 21:00 11/22/16 21:36 40 MG Spironolactone (Aldactone) 25 mg BID92 11/19/16 14:00 11/20/16 12:10 DC 11/20/16 09:29 25 MG Vancomycin HCl 1 each 1X ONCE 11/22/16 09:30 11/22/16 09:30 DC Vancomycin HCl (Vanco Per Pharmacy) 1 each PRN DAILY PRN 11/19/16 09:15 11/22/16 08:41 DC 11/21/16 09:19 1 EACH Vancomycin HCl 1.5 gm/Sodium Chloride 500 ml @ 250 mls/hr Q24H 11/20/16 10:00 11/22/16 08:44 DC 11/21/16 09:05 250 MLS/HR Vancomycin HCl 2 gm/Sodium Chloride 500 ml @ 250 mls/hr 1X ONCE 11/19/16 09:30 11/19/16 11:29 DC 11/19/16 10:21 250 MLS/HR LAB Lab: Laboratory Tests Test 11/22/16 09:50 Sodium Level 135 mmol/L (136-145) Potassium Level 4.6 mmol/L (3.5-5.1) Chloride Level 97 mmol/L (98-107) Carbon Dioxide Level 32 mmol/L (21-32) Anion Gap 6 (6-14) Blood Urea Nitrogen 27 mg/dL (8-26) Creatinine 1.5 mg/dL (0.7-1.3) Estimated GFR (Cockcroft-Gault) 46.3 Glucose Level 188 mg/dL (70-99) Calcium Level 8.9 mg/dL (8.5-10.1) JUANIS PACKER MD Nov 23, 2016 08:07
[2016-11-23 08:55] LABS: CALCIUM 10.1 mg/dL (8.5-10.1); CREATININE 1.5 mg/dL (0.7-1.3); GFR 46.3; POTASSIUM 5.4 mmol/L (3.5-5.1)
[2016-11-23] MEDS: SOTALOL 80 MG TABLET. PO SCH ×2 (09:00→09:04)
[2016-11-23] MEDS ORDERED: FUROSEMIDE 40 MG TABLET. PO SCH (09:00)
[2016-11-23] MEDS: FUROSEMIDE 40 MG TABLET. PO SCH ×2 (09:03→14:00)
[2016-11-23] MEDS: MULTIVITAMIN with MINERAL TABLET. PO SCH (09:03)
[2016-11-23] MEDS: CLINDAMYCIN HCL 150 MG CAPSULE. PO SCH ×2 (09:04→13:38)
[2016-11-23] MEDS: CLOPIDOGREL BISULFATE 75 MG TABLET PO SCH (09:04)
[2016-11-23] MEDS: MINERAL OIL/PETROLATUM TOPICAL CREAM 113GM JAR. TP SCH (09:06)
--- NOTE | 2016-11-23 09:22 | DS ---
DATE OF DISCHARGE: 11/23/2016 PRIMARY DIAGNOSES: Left lower extremity cellulitis with pain and edema. ADDITIONAL DIAGNOSES: Acute kidney injury, improving during stay; severe aortic stenosis and severe pulmonary hypertension; ischemic cardiomyopathy with an ejection fraction of 30% to 40%; grade 2 diastolic dysfunction; COPD; pulmonary fibrosis; nonsustained ventricular tachycardia; peripheral vascular disease, felt at this point not causing any of the leg symptoms by Vascular Surgery. CHIEF COMPLAINT AND HISTORY OF PRESENT ILLNESS: This is an 82-year-old white male, well known to me from followup in the office. The patient was admitted through the Emergency Room on the day of admission with left lower extremity pain and redness and swelling. He was negative for DVT in the Emergency Room. He was known to have ongoing congestive heart failure due to the aortic stenosis and found not be taking his diuretics at home. His severe underlying lung disease was stable with pulmonary fibrosis and COPD requiring O2 at 4-5 liters per nasal cannula. SUMMARY OF STAY: The patient was admitted and placed on antibiotics, improved during the stay. He again had vascular evaluation, which they felt was not vascular in nature of his pain. Lower extremity Duplex bilaterally showed monophasic waveforms suggesting aortoiliac disease. There was also evidence of trifurcation disease bilaterally, worse on the left. However, he had biphasic pulses in his feet, and they felt that this was not causing his symptoms. Cardiology saw him and adjusted the water pills and sotalol throughout stay for his ventricular tachycardia and COPD. Ortho saw him He did have some acute kidney disease, present on admission with his creatinine up in the 2 area, it decreased to 1.5 by the time of discharge. He was felt ready for discharge on p.o. clindamycin and hydrocodone for pain as he was still having some pain on the night prior to discharge. DISPOSITION: The patient is discharged to home, regular diet. Activity as tolerated, office in 1 week. DISCHARGE MEDICATIONS: Listed on the med rec and have been addressed. JUANIS PACKER MD DR: NEEL/russ JOB#: [id number] / [id number]
[2016-11-23 11:00] VITALS: BP 116/75
[2016-11-23] MEDS ORDERED: SODIUM POLYSTYRENE SULFONATE 15 GM/60 ML ORAL.SUSP. PO ONE (11:30)
--- NOTE | 2016-11-23 11:57 | PDOC ---
Renal-Progress Notes Subjective Notes Notes NO NEW COMPLAINTS History of Present Illness Hx of present illness STABLE Vitals Vitals Vital Signs Date Time Temp Pulse Resp B/P (MAP) Pulse Ox O2 Delivery O2 Flow Rate FiO2 11/23/16 11:00 97.9 75 18 116/75 (89) 97 Nasal Cannula 5.0 97.9 Weight Weight [ ] I.O. Intake and Output Intake and Output 11/24/16 07:00 Intake Total 300 ml Output Total 600 ml Balance -300 ml Intake Oral 300 ml Output Urine Total 600 ml Labs Labs Laboratory Tests Test 11/23/16 08:19 Sodium Level 138 mmol/L (136-145) Potassium Level 5.4 mmol/L (3.5-5.1) Chloride Level 99 mmol/L (98-107) Carbon Dioxide Level 35 mmol/L (21-32) Anion Gap 4 (6-14) Blood Urea Nitrogen 25 mg/dL (8-26) Creatinine 1.5 mg/dL (0.7-1.3) Estimated GFR (Cockcroft-Gault) 46.3 Glucose Level 109 mg/dL (70-99) Calcium Level 10.1 mg/dL (8.5-10.1) Review of Systems Constitutional: yes: alert, oriented Ears/Nose/Throat: Yes: no symptom reported Eyes: Yes: no symptom reported Pulmonary: Yes dyspnea Cardiovascular: Yes edema Gastrointestional: Yes: no symptom reported Genitourinary: Yes: no symptom reported Musculoskeletal: Yes: muscle stiffness Skin: Yes no symptom reported Psychiatric/Neurological: Yes: no symptom reported Endocrine: Yes: no symptom reported Physical Exam General Appearance: no apparent distress Skin: warm Respiratory: decreased breath sounds Heart: S1S2, RRR Abdomen: soft, bowel sounds present Genitourinary: bladder flat Extremities: pulses present, edema Neurology: alert, oriented Assessment Assessment IMP SHAWANDA-RESOLVED - CR AT 1.5 MILD HYPERKALEMIA PROB CKD STAGE 3 PULMONARY FIBROSIS-O2 DEPENDENT L LE CELLULITIS PAD CM WITH EF OF 30-35% SEVERE PLAN D/W CARDIOLOGY DR SUTHERLAND WOULD PREFER LASIX ONCE DAILY WILL DECREASE TO 40 A DAY-CONCERN IS SEVERE WILL GIVE PO KAYEXALATE TODAY PRIOR TO D/C ALSO ENC LOW K DIET PT SAYS HE HAS F/U WITH CARDIOLOGY, PULMONARY AND DR PACKER NEXT WEEK D/C PLANS NOTED WILL SIGN OFF MOLLY SHEARER MD Nov 23, 2016 11:57
[2016-11-23 14:42] VITALS: BP 100/55
[2016-11-23] MEDS ORDERED: SOTA80TA48 PO (18:03)
[2016-11-23] MEDS ORDERED: MINE120C TP (18:05)
[2016-11-23] MEDS ORDERED: HYDR-2758 PO (18:06)
[2016-11-23] MEDS ORDERED: CLIN300C8 PO (19:01)
[2016-11-24] MEDS ORDERED: FUROSEMIDE 40 MG TABLET. PO SCH (09:00)
[2016-12-13] MEDS ORDERED: PANT20TA2 PO (08:48)
[2017-02-17] MEDS ORDERED: FORM20VI IH (14:43)
[2017-02-17] MEDS ORDERED: BUDE0.5A NEB (14:43)
[2017-02-17] MEDS ORDERED: IPRA0.2S5 NEB (14:44)
[2017-02-17] MEDS ORDERED: PANT40TA3 PO (14:46)
[2017-02-17] MEDS ORDERED: SENN1TAB7 PO (14:46)
== END 2016-11-23 20:20 | disposition home or self-care (01) | DRG 683 ==
LOC: ER 20:37 → ED HOLD 11-19 00:11 → 2 SOUTH 11-19 03:37
PROVIDERS: ADMIT Family Medicine; ATTEND Family Medicine
DX: N17.9 Acute kidney failure, unspecified (principal); L03.116 Cellulitis of left lower limb; I47.2 Ventricular tachycardia; J96.11 Chronic respiratory failure with hypoxia; E87.5 Hyperkalemia; J84.112 Idiopathic pulmonary fibrosis; I11.0 Hypertensive heart disease with heart failure; I50.22 Chronic systolic (congestive) heart failure; I13.0 Hypertensive heart and chronic kidney disease with heart failure and stage 1 through stage 4 chronic kidney disease, or unspecified chronic kidney disease; I35.0 Nonrheumatic aortic (valve) stenosis; I25.5 Ischemic cardiomyopathy; I25.10 Atherosclerotic heart disease of native coronary artery without angina pectoris; E86.0 Dehydration; I73.9 Peripheral vascular disease, unspecified; F41.9 Anxiety disorder, unspecified; E03.9 Hypothyroidism, unspecified; E78.00 Pure hypercholesterolemia, unspecified; E78.5 Hyperlipidemia, unspecified; N18.3 Chronic kidney disease, stage 3 (moderate); S99.922A Unspecified injury of left foot, initial encounter; I25.2 Old myocardial infarction; W22.8XXA Striking against or struck by other objects, initial encounter; Z95.1 Presence of aortocoronary bypass graft; Z95.5 Presence of coronary angioplasty implant and graft; Z99.81 Dependence on supplemental oxygen; Z90.49 Acquired absence of other specified parts of digestive tract; Z89.029 Acquired absence of unspecified finger(s); Z88.1 Allergy status to other antibiotic agents; Z87.01 Personal history of pneumonia (recurrent); J44.9 Chronic obstructive pulmonary disease, unspecified
CPT/HCPCS: 36415; 71010; 76700; 80048; 80053; 80061; 80074; 83735; 83880; 84484; 85025; 85027; 90686; 93005; 93925; 93971; 94250; 94640; 94760; 96374; 96375; 96376; J2270; J2405; J3010; J3370; J7030; J7040; J7613; 99285-25

== ENCOUNTER 2017-03-03 23:41 | Inpatient (IN) | payer MEDICARE ==
[2017-03-04] MEDS: ASPIRIN ENTERIC COATED 325 MG TABLET.DR. PO
[2017-03-04] MEDS: NITROGLYCERIN SUBLINGUAL 0.4 MG BOTTLE OF 25. SL ×2 (00:12→01:00)
[2017-03-04 00:46] LABS: ADD MAN DIFF? NO
[2017-03-04 00:48] LABS: BASO # 0.1 x10^3/uL (0.0-0.2); BASO % 1 % (0-3); EOS # 0.2 x10^3/uL (0.0-0.7); EOS % 2 % (0-3); HEMATOCRIT 41.9 % (39.0-53.0); HEMOGLOBIN 13.8 g/dL (13.0-17.5); LYMPH # 0.9 x10^3/uL (1.0-4.8); LYMPH % 9 % (24-48); MEAN CORPUSCULAR HEMOGLOBIN 30 pg (25-35); MEAN CORPUSCULAR HGB CONC 33 g/dL (31-37); MEAN CORPUSCULAR VOLUME 91 fL (79-100); MONO # 0.7 x10^3/uL (0.0-1.1); MONO % 6 % (0-9); NEUT # 8.5 x10^3uL (1.8-7.7); NEUT % 82 % (31-73); PLATELET COUNT 188 x10^3/uL (140-400); RED BLOOD COUNT 4.59 x10^6/uL (4.30-5.70); RED CELL DISTRIBUTION WIDTH 16.8 % (11.5-14.5); WHITE BLOOD COUNT 10.3 x10^3/uL (4.0-11.0)
[2017-03-04 00:58] LABS: INR 1.2 (0.8-1.1); PARTIAL THROMBOPLASTIN TIME 35 SEC (24-38); PROTHROMBIN TIME PATIENT 14.1 SEC (11.7-14.0)
[2017-03-04 01:02] LABS: ANION GAP 6 (6-14); BLOOD UREA NITROGEN 26 mg/dL (8-26); BUN/CREATININE RATIO 19 (6-20); CALCIUM 9.3 mg/dL (8.5-10.1); CARBON DIOXIDE 36 mmol/L (21-32); CHLORIDE 100 mmol/L (98-107); CREATININE 1.4 mg/dL (0.7-1.3); GFR 50.1; GLUCOSE 184 mg/dL (70-99); POTASSIUM 3.4 mmol/L (3.5-5.1); SODIUM 142 mmol/L (136-145)
[2017-03-04 01:06] LABS: ETHANOL < 10 mg/dL (0-10)
[2017-03-04 01:09] LABS: ALBUMIN 3.1 g/dL (3.4-5.0); ALBUMIN/GLOBULIN RATIO 0.8 (1.0-1.7); ALK PHOS 160 U/L (46-116); ALT (SGPT) 62 U/L (16-63); AST (SGOT) 35 U/L (15-37); LIPASE 143 U/L (73-393); MAGNESIUM 2.1 mg/dL (1.8-2.4); TOTAL BILIRUBIN 0.8 mg/dL (0.2-1.0); TOTAL PROTEIN 6.8 g/dL (6.4-8.2)
[2017-03-04 01:14] LABS: NT-PRO BNP 4994 pg/mL (0-124)
[2017-03-04 01:15] LABS: TROPONINI < 0.017 ng/mL (0.000-0.055)
[2017-03-04] MEDS ORDERED: ONDANSETRON PF 4 MG/2 ML VIAL. IV (02:00)
[2017-03-04 08:49] LABS: TROPONINI 0.025 ng/mL (0.000-0.055)
[2017-03-04] MEDS: fentaNYL PF VIAL 100 MCG/2 ML VIAL IV ×4 (12:07→20:32)
[2017-03-04] MEDS: FUROSEMIDE 40 MG/4 ML VIAL. IVP (12:07)
[2017-03-04] MEDS: ASPIRIN 325 MG TABLET PO (12:09)
[2017-03-04] MEDS: POTASSIUM CHLORIDE 20 MEQ TABLET.ER. PO (12:09)
[2017-03-04] MEDS: CLOPIDOGREL BISULFATE 75 MG TABLET PO (12:09)
[2017-03-04] MEDS: SOTALOL 80 MG TABLET. PO (12:09)
[2017-03-04 13:43] LABS: TROPONINI 0.019 ng/mL (0.000-0.055)
[2017-03-04] MEDS ORDERED: PIP/TAZO PER PHARMACY MC (16:30)
[2017-03-04] MEDS ORDERED: VANCOMYCIN 2 GM in IV DEXTROSE 5 %-0.2 % NACL 500 ML IV (18:00)
[2017-03-04] MEDS: CITALOPRAM 20 MG TABLET. PO (18:03)
[2017-03-04] MEDS: PIPERACILLIN/TAZO IV Push 3.375 GM VIAL. IVP ×2 (18:03→22:57)
[2017-03-04] MEDS: VANCOMYCIN 2 GM in IV DEXTROSE 5 %-0.2 % NACL 500 ML IV (18:04)
[2017-03-04] MEDS: VANCOMYCIN PER PHARMACY MC (18:46)
[2017-03-04] MEDS: ATORVASTATIN CALCIUM 40 MG TABLET. PO (20:32)
[2017-03-04] MEDS: ALPRAZolam 0.5 MG TABLET PO (22:57)
[2017-03-04] MEDS: oxyCODONE/APAP 5/325 1 TAB TABLET PO (22:57)
[2017-03-05 05:32] LABS: ADD MAN DIFF? NO
[2017-03-05 05:57] LABS: BASO % 0 % (0-3); EOS # 0.2 x10^3/uL (0.0-0.7); EOS % 2 % (0-3); HEMATOCRIT 40.4 % (39.0-53.0); HEMOGLOBIN 13.2 g/dL (13.0-17.5); LYMPH # 0.7 x10^3/uL (1.0-4.8); LYMPH % 8 % (24-48); MEAN CORPUSCULAR HEMOGLOBIN 29 pg (25-35); MEAN CORPUSCULAR HGB CONC 33 g/dL (31-37); MEAN CORPUSCULAR VOLUME 90 fL (79-100); MONO # 0.7 x10^3/uL (0.0-1.1); MONO % 8 % (0-9); NEUT # 7.1 x10^3uL (1.8-7.7); NEUT % 81 % (31-73); PLATELET COUNT 183 x10^3/uL (140-400); RED BLOOD COUNT 4.48 x10^6/uL (4.30-5.70); RED CELL DISTRIBUTION WIDTH 16.7 % (11.5-14.5); WHITE BLOOD COUNT 8.7 x10^3/uL (4.0-11.0)
[2017-03-05 06:04] LABS: ANION GAP 7 (6-14); BLOOD UREA NITROGEN 21 mg/dL (8-26); CARBON DIOXIDE 33 mmol/L (21-32); CHLORIDE 97 mmol/L (98-107); CREATININE 1.3 mg/dL (0.7-1.3); GFR 54.6; GLUCOSE 143 mg/dL (70-99); POTASSIUM 3.8 mmol/L (3.5-5.1); SODIUM 137 mmol/L (136-145)
[2017-03-05] MEDS: PIPERACILLIN/TAZO IV Push 3.375 GM VIAL. IVP ×4 (06:22→23:51)
[2017-03-05] MEDS: ALPRAZolam 0.5 MG TABLET PO ×2 (06:22→21:21)
[2017-03-05] MEDS: oxyCODONE/APAP 5/325 1 TAB TABLET PO ×3 (06:22→23:51)
[2017-03-05] MEDS: CLOPIDOGREL BISULFATE 75 MG TABLET PO (10:33)
[2017-03-05] MEDS: ASPIRIN 325 MG TABLET PO (10:33)
[2017-03-05] MEDS: POTASSIUM CHLORIDE 20 MEQ TABLET.ER. PO (10:34)
[2017-03-05] MEDS: FUROSEMIDE 40 MG/4 ML VIAL. IVP ×2 (10:35→14:22)
[2017-03-05] MEDS: CITALOPRAM 20 MG TABLET. PO (10:35)
[2017-03-05] MEDS: SOTALOL 80 MG TABLET. PO (10:35)
[2017-03-05] MEDS: VANCOMYCIN PER PHARMACY MC (11:56)
[2017-03-05] MEDS: LACTOBACILLUS RHAMNOSUS GG 1 CAPSULE. PO ×2 (14:22→21:21)
[2017-03-05] MEDS: SPIRONOLACTONE 25 MG TABLET PO (14:22)
[2017-03-05] MEDS: IPRATRPIUM/ALBUTEROL 0.5/2.5MG 3 ML NEBU. NEB ×3 (16:00→20:27)
[2017-03-05] MEDS: VANCOMYCIN 2 GM in IV DEXTROSE 5 %-0.2 % NACL 500 ML IV (17:55)
[2017-03-05] MEDS: ATORVASTATIN CALCIUM 40 MG TABLET. PO (21:21)
[2017-03-06] MEDS: PIPERACILLIN/TAZO IV Push 3.375 GM VIAL. IVP ×3 (06:03→18:40)
[2017-03-06] MEDS: oxyCODONE/APAP 5/325 1 TAB TABLET PO (06:03)
[2017-03-06] MEDS: ALPRAZolam 0.5 MG TABLET PO ×2 (06:03→21:02)
[2017-03-06 06:27] LABS: HEMATOCRIT 41.3 % (39.0-53.0); HEMOGLOBIN 13.5 g/dL (13.0-17.5); MEAN CORPUSCULAR HEMOGLOBIN 30 pg (25-35); MEAN CORPUSCULAR HGB CONC 33 g/dL (31-37); MEAN CORPUSCULAR VOLUME 90 fL (79-100); PLATELET COUNT 202 x10^3/uL (140-400); RED BLOOD COUNT 4.59 x10^6/uL (4.30-5.70); RED CELL DISTRIBUTION WIDTH 16.8 % (11.5-14.5); WHITE BLOOD COUNT 8.3 x10^3/uL (4.0-11.0)
[2017-03-06 06:45] LABS: ALBUMIN/GLOBULIN RATIO 0.8 (1.0-1.7); ALK PHOS 201 U/L (46-116); ALT (SGPT) 242 U/L (16-63); ANION GAP 8 (6-14); AST (SGOT) 205 U/L (15-37); BLOOD UREA NITROGEN 21 mg/dL (8-26); BUN/CREATININE RATIO 15 (6-20); CALCIUM 8.9 mg/dL (8.5-10.1); CARBON DIOXIDE 32 mmol/L (21-32); CHLORIDE 93 mmol/L (98-107); CREATININE 1.4 mg/dL (0.7-1.3); GFR 50.1; GLUCOSE 148 mg/dL (70-99); SODIUM 133 mmol/L (136-145); TOTAL BILIRUBIN 1.9 mg/dL (0.2-1.0); TOTAL PROTEIN 6.7 g/dL (6.4-8.2)
[2017-03-06] MEDS: POTASSIUM CHLORIDE 20 MEQ TABLET.ER. PO (08:27)
[2017-03-06] MEDS: ASPIRIN 325 MG TABLET PO (08:27)
[2017-03-06] MEDS: CITALOPRAM 20 MG TABLET. PO (08:27)
[2017-03-06] MEDS: LACTOBACILLUS RHAMNOSUS GG 1 CAPSULE. PO ×2 (08:27→21:02)
[2017-03-06] MEDS: CLOPIDOGREL BISULFATE 75 MG TABLET PO (08:27)
[2017-03-06] MEDS: SOTALOL 80 MG TABLET. PO (08:28)
[2017-03-06] MEDS: SPIRONOLACTONE 25 MG TABLET PO (08:29)
[2017-03-06] MEDS: FUROSEMIDE 40 MG/4 ML VIAL. IVP (08:30)
[2017-03-06] MEDS: IPRATRPIUM/ALBUTEROL 0.5/2.5MG 3 ML NEBU. NEB ×4 (08:42→20:47)
[2017-03-06] MEDS: ACETAMINOPHEN 325 MG TABLET. PO ×2 (15:01→21:02)
[2017-03-06 18:20] LABS: VANC TR 13.2 mcg/mL (10.0-20.0)
[2017-03-06] MEDS: VANCOMYCIN 2 GM in IV DEXTROSE 5 %-0.2 % NACL 500 ML IV (18:40)
[2017-03-06] MEDS: VANCOMYCIN PER PHARMACY MC (18:52)
[2017-03-06] MEDS: ATORVASTATIN CALCIUM 40 MG TABLET. PO (21:02)
[2017-03-07] MEDS: PIPERACILLIN/TAZO IV Push 3.375 GM VIAL. IVP ×5 (00:36→23:28)
[2017-03-07] MEDS: ACETAMINOPHEN 325 MG TABLET. PO ×4 (03:11→23:28)
[2017-03-07] MEDS: IPRATRPIUM/ALBUTEROL 0.5/2.5MG 3 ML NEBU. NEB ×4 (07:35→20:32)
[2017-03-07] MEDS: FUROSEMIDE 40 MG/4 ML VIAL. IVP (08:47)
[2017-03-07] MEDS: ASPIRIN 325 MG TABLET PO (08:47)
[2017-03-07] MEDS: LACTOBACILLUS RHAMNOSUS GG 1 CAPSULE. PO ×2 (08:47→21:29)
[2017-03-07] MEDS: CLOPIDOGREL BISULFATE 75 MG TABLET PO (08:48)
[2017-03-07] MEDS: POTASSIUM CHLORIDE 20 MEQ TABLET.ER. PO (08:48)
[2017-03-07] MEDS: SPIRONOLACTONE 25 MG TABLET PO (08:48)
[2017-03-07] MEDS: SOTALOL 80 MG TABLET. PO (08:49)
[2017-03-07] MEDS: CITALOPRAM 20 MG TABLET. PO (08:49)
[2017-03-07] MEDS: ALPRAZolam 0.5 MG TABLET PO ×2 (10:50→21:29)
[2017-03-07 13:34] LABS: MAGNESIUM 2.1 mg/dL (1.8-2.4)
[2017-03-07] MEDS: FUROSEMIDE 20 MG/2 ML VIAL. IVP (16:00)
[2017-03-07] MEDS: VANCOMYCIN PER PHARMACY MC (17:58)
[2017-03-07] MEDS: VANCOMYCIN 2 GM in IV DEXTROSE 5 %-0.2 % NACL 500 ML IV (18:00)
[2017-03-07] MEDS: ATORVASTATIN CALCIUM 40 MG TABLET. PO (21:29)
[2017-03-08 05:50] LABS: ALBUMIN 2.8 g/dL (3.4-5.0); ALBUMIN/GLOBULIN RATIO 0.8 (1.0-1.7); ALK PHOS 213 U/L (46-116); ALT (SGPT) 170 U/L (16-63); ANION GAP 7 (6-14); AST (SGOT) 82 U/L (15-37); BLOOD UREA NITROGEN 17 mg/dL (8-26); BUN/CREATININE RATIO 13 (6-20); CALCIUM 8.9 mg/dL (8.5-10.1); CARBON DIOXIDE 34 mmol/L (21-32); CHLORIDE 94 mmol/L (98-107); CREATININE 1.3 mg/dL (0.7-1.3); GFR 54.6; GLUCOSE 117 mg/dL (70-99); POTASSIUM 3.4 mmol/L (3.5-5.1); SODIUM 135 mmol/L (136-145); TOTAL BILIRUBIN 1.1 mg/dL (0.2-1.0); TOTAL PROTEIN 6.3 g/dL (6.4-8.2)
[2017-03-08] MEDS: PIPERACILLIN/TAZO IV Push 3.375 GM VIAL. IVP ×3 (06:00→18:46)
[2017-03-08] MEDS: ASPIRIN 325 MG TABLET PO (09:25)
[2017-03-08] MEDS: SOTALOL 80 MG TABLET. PO (09:26)
[2017-03-08] MEDS: CLOPIDOGREL BISULFATE 75 MG TABLET PO (09:26)
[2017-03-08] MEDS: LACTOBACILLUS RHAMNOSUS GG 1 CAPSULE. PO ×2 (09:26→21:40)
[2017-03-08] MEDS: POTASSIUM CHLORIDE 20 MEQ TABLET.ER. PO ×2 (09:26→12:22)
[2017-03-08] MEDS: CITALOPRAM 20 MG TABLET. PO (09:27)
[2017-03-08] MEDS: FUROSEMIDE 40 MG/4 ML VIAL. IVP (09:27)
[2017-03-08] MEDS: SPIRONOLACTONE 25 MG TABLET PO (09:27)
[2017-03-08] MEDS: ACETAMINOPHEN 325 MG TABLET. PO (09:37)
[2017-03-08] MEDS: IPRATRPIUM/ALBUTEROL 0.5/2.5MG 3 ML NEBU. NEB ×4 (10:03→20:30)
[2017-03-08] MEDS: VANCOMYCIN PER PHARMACY MC (16:25)
[2017-03-08] MEDS: VANCOMYCIN 2 GM in IV DEXTROSE 5 %-0.2 % NACL 500 ML IV (18:46)
[2017-03-08 21:40] LABS: POC GLUCOSE 229 mg/dL (70-99)
[2017-03-08] MEDS: ATORVASTATIN CALCIUM 40 MG TABLET. PO (21:40)
[2017-03-09] MEDS: PIPERACILLIN/TAZO IV Push 3.375 GM VIAL. IVP ×2 (00:50→06:03)
[2017-03-09] MEDS: IPRATRPIUM/ALBUTEROL 0.5/2.5MG 3 ML NEBU. NEB ×3 (07:34→15:22)
[2017-03-09] MEDS ORDERED: FUROSEMIDE 40 MG/4 ML VIAL. IVP (09:00)
[2017-03-09] MEDS: CLOPIDOGREL BISULFATE 75 MG TABLET PO (09:17)
[2017-03-09] MEDS: ASPIRIN ENTERIC COATED 81 MG TABLET.DR. PO (09:17)
[2017-03-09] MEDS: LACTOBACILLUS RHAMNOSUS GG 1 CAPSULE. PO (09:17)
[2017-03-09] MEDS: SPIRONOLACTONE 25 MG TABLET PO (09:18)
[2017-03-09] MEDS: SOTALOL 80 MG TABLET. PO (09:18)
[2017-03-09] MEDS: POTASSIUM CHLORIDE 20 MEQ TABLET.ER. PO (09:18)
[2017-03-09] MEDS: CITALOPRAM 20 MG TABLET. PO (09:19)
[2017-03-09] MEDS: FUROSEMIDE 40 MG/4 ML VIAL. IVP (09:19)
[2017-03-09 10:35] LABS: ALBUMIN 2.8 g/dL (3.4-5.0); ALBUMIN/GLOBULIN RATIO 0.8 (1.0-1.7); ALK PHOS 216 U/L (46-116); ALT (SGPT) 136 U/L (16-63); ANION GAP 6 (6-14); AST (SGOT) 65 U/L (15-37); BLOOD UREA NITROGEN 19 mg/dL (8-26); BUN/CREATININE RATIO 14 (6-20); CALCIUM 8.9 mg/dL (8.5-10.1); CARBON DIOXIDE 37 mmol/L (21-32); CHLORIDE 97 mmol/L (98-107); CREATININE 1.4 mg/dL (0.7-1.3); GFR 50.1; GLUCOSE 158 mg/dL (70-99); MAGNESIUM 2.2 mg/dL (1.8-2.4); POTASSIUM 4.4 mmol/L (3.5-5.1); SODIUM 140 mmol/L (136-145); TOTAL PROTEIN 6.5 g/dL (6.4-8.2)
[2017-03-09] MEDS: VANCOMYCIN PER PHARMACY MC (16:37)
[2017-03-09] MEDS ORDERED: PIPERACILLIN/TAZOBACTAM 3.375 GM in IV NORMAL SALINE 50ML 50 ML IV (18:00)
[2017-03-10] MEDS ORDERED: FUROSEMIDE 40 MG TABLET. PO (09:00)
== END 2017-03-09 16:30 | DRG 291 ==
LOC: ER 23:41 → 6 SOUTH 03-04 02:00
DX: I13.0 Hypertensive heart and chronic kidney disease with heart failure and stage 1 through stage 4 chronic kidney disease, or unspecified chronic kidney disease (principal); K76.7 Hepatorenal syndrome; J96.21 Acute and chronic respiratory failure with hypoxia; D69.3 Immune thrombocytopenic purpura; I27.29 Other secondary pulmonary hypertension; I48.0 Paroxysmal atrial fibrillation; N18.3 Chronic kidney disease, stage 3 (moderate); I27.81 Cor pulmonale (chronic); L03.115 Cellulitis of right lower limb; I50.43 Acute on chronic combined systolic (congestive) and diastolic (congestive) heart failure; J44.1 Chronic obstructive pulmonary disease with (acute) exacerbation; L03.119 Cellulitis of unspecified part of limb; L03.116 Cellulitis of left lower limb; J84.112 Idiopathic pulmonary fibrosis; K72.90 Hepatic failure, unspecified without coma; E03.9 Hypothyroidism, unspecified; E78.5 Hyperlipidemia, unspecified; F10.20 Alcohol dependence, uncomplicated; F12.90 Cannabis use, unspecified, uncomplicated; I25.10 Atherosclerotic heart disease of native coronary artery without angina pectoris; F41.9 Anxiety disorder, unspecified; I25.5 Ischemic cardiomyopathy; I35.0 Nonrheumatic aortic (valve) stenosis; I50.82 Biventricular heart failure; Z72.0 Tobacco use; Z90.49 Acquired absence of other specified parts of digestive tract; Z95.1 Presence of aortocoronary bypass graft; Z99.81 Dependence on supplemental oxygen; Z87.01 Personal history of pneumonia (recurrent); Z89.029 Acquired absence of unspecified finger(s); F32.9 Major depressive disorder, single episode, unspecified
CPT/HCPCS: 36415; 71045; 76700; 80048; 80053; 80202; 82962; 83690; 83735; 83880; 84484; 85025; 85027; 85610; 85730; 93005; 93970; 94640; 94760; 97162-GP; 97166-GO; 97530-GO; 97535-GO; 99285; 99285-25; G0480; J1940; J2543; J3010; J3370; J7620

== ENCOUNTER 2017-03-22 22:25 | Emergency (ER) | payer MEDICARE ==
[~2017-03-22 22:25] MED LIST changes: -ALPR0.25 PO; -ASPI-630 PO; -ASPI1CPM PO; -ASPI325T8 PO; -ATORVASTATIN CA80 MG PO; +ATROPINE 0.5 MG/5 ML DISP.SYRIN.; -BUDE10.2; -CARV80CP PO; -CEFP200T PO; -CLOP75TA57 PO; -ENAL10TA PO; +EPINEPHrine SYRINGE 1 MG/10 ML SYRINGE; -FURO20TA3 PO; -FURO40TA4 PO; -LEVO125T5 PO; -LEVO75TA PO; -LISI-334 PO; -METO25TA4 PO; -MULT1TAB52 PO; -OXYC-323 PO; -PRED-220 PO; -PRED20TA PO; +SODIUM BICARB ADULT 8.4% 50 MEQ/50 ML DISP.SYRIN.; -SOTA80TA48 PO; -SPIR25TA3 PO
== END 2017-03-23 00:04 | disposition expired ==
LOC: ER 03-23 00:04
DX: I46.9 Cardiac arrest, cause unspecified (principal); J44.9 Chronic obstructive pulmonary disease, unspecified; E78.00 Pure hypercholesterolemia, unspecified; E03.9 Hypothyroidism, unspecified; F41.9 Anxiety disorder, unspecified; I11.0 Hypertensive heart disease with heart failure; I50.9 Heart failure, unspecified; Z99.81 Dependence on supplemental oxygen; Z98.61 Coronary angioplasty status; Z88.1 Allergy status to other antibiotic agents; Z95.1 Presence of aortocoronary bypass graft
CPT/HCPCS: 92950; 99285-25; J0171; J0461